=== PATIENT | female | born 1995 | race African-American/Black ===

== ENCOUNTER 2018-01-21 17:54 | Emergency (ER) | payer BC, OTHER ==
[2018-01-21 19:51] LABS: Absolute Lymphocytes (CBC) 2.2 K/uL (0.7-4.9); Absolute Monocytes 0.4 K/uL (0.1-1.3); Absolute Neutrophil 2.6 K/uL (1.8-8.0); Basophils % 0.7 % (0-1.3); Eosinophils % 2.2 % (0-4.4); Hematocrit 37.5 % (36.0-45.0); Lymphocytes % 40.6 % (15.3-44.8); MCH 26.6 pg (27.0-35.0); MCV 80.4 fL (80-100); MPV 8.5 fL (7.6-11.3); Monocytes % 8.2 % (3.3-12.3); RBC Red Blood Cell Count 4.66 M/uL (3.86-4.86)
[2018-01-21 20:04] LABS: Bicarbonate 26 mEq/L (21-31); Glucose Level 92 mg/dL (65-120); Lipase 22 U/L (22-51); Potassium 3.4 mEq/L (3.6-5.0); Sodium Level 137 mEq/L (135-145)
[2018-01-21 20:09] LABS: Urine Bacteria <20 /HPF (<20); Urine Culture Reflex Order NOT NEEDED; Urine Mucus 2+ /HPF (NONE SEEN); Urine RBC <5 /HPF (NONE SEEN)
[2018-01-21 20:10] LABS: Urine Blood NEGATIVE (NEG); Urine Glucose NEGATIVE (NEG); Urine Protein NEGATIVE (NEG); Urine pH 7.5 (5.0-7.0)
[2018-01-21 20:10] LABS: ALT/SGPT 20 IU/L (10-60); AST/SGOT 22 IU/L (10-42); Alkaline Phosphatase 83 IU/L (42-121); BUN Blood Urea Nitrogen 10 mg/dL (6-20); Bilirubin Direct 0.1 mg/dL (0-0.2); Bilirubin Total 0.3 mg/dL (0.3-1.2); Protein, Total 7.8 g/dL (6.0-8.3)
--- NOTE | 2018-01-21 20:30 | ER ---
Nurse's Notes [facility] Name: Troy Son Age: 23 yrs Sex: Female : 1995 Arrival Date: 01/21/2018 Time: 17:57 Bed 23 Private MD: None, None Diagnosis: Diarrhea, unspecified;Hematochezia Presentation: 01/21 17:59 Presenting complaint: Patient states: "every time I eat I get stomach pains and I've aa5 been having diarrhea with bright red blood". Pt reports symptoms began 5 days ago. Pt reports hx of IBS. Transition of care: patient was not received from another setting of care. Onset of symptoms was December 2017. Risk Assessment: Do you want to hurt yourself or someone else? Patient reports no desire to harm self or others. Initial Sepsis Screen: Does the patient meet any 2 criteria? No. Patient's initial sepsis screen is negative. Does the patient have a suspected source of infection? No. Patient's initial sepsis screen is negative. Care prior to arrival: None. 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 - Social history:: Smoking status: Patient uses tobacco products, denies chronic smoking, but will smoke occasionally. - Ebola Screening: : No symptoms or risks identified at this time. - Family history:: not pertinent. - Hospitalizations: : No recent hospitalization is reported. Screenin:30 Abuse screen: Denies threats or abuse. Nutritional screening: No deficits noted. tl3 Tuberculosis screening: No symptoms or risk factors identified. Fall Risk None identified. Assessment: 18:30 General: Appears in no apparent distress. comfortable, slender, well groomed, unkempt, tl3 well nourished, Behavior is calm, cooperative, appropriate for age. Pain: Complains of pain in abdominal. Neuro: No deficits noted. Level of Consciousness is awake, alert, obeys commands, Oriented to person, place, time, situation, none. Cardiovascular: No deficits noted. Heart tones S1 S2 present Patient's skin is warm and dry. Respiratory: Airway is patent Respiratory effort is even, unlabored, Respiratory pattern is regular, symmetrical. GI: Bowel sounds present X 4 quads. Abd is soft. GI: Reports lower abdominal pain, diarrhea, rectal bleeding. : No deficits noted. Urine is clear. EENT: No deficits noted. No signs and/or symptoms were reported regarding the EENT system. Derm: No deficits noted. No signs and/or symptoms reported regarding the dermatologic system. 20:04 Reassessment: Patient appears in no apparent distress at this time. No changes from tl3 previously documented assessment. Patient and/or family updated on plan of care and expected duration. Pain level reassessed. Patient is alert, oriented x 3, equal unlabored respirations, skin warm/dry/pink. Vital Signs: 18:01 BP 140 / 72; Pulse 80; Resp 18 S; Temp 97.9(TE); Pulse Ox 100% on R/A; Weight 83.91 kg aa5 (R); Height 5 ft. 5 in. (165.10 cm) (R); Pain 0/10; 18:30 BP 117 / 68; Pulse 64; Resp 18; Pulse Ox 100% on R/A; tl3 20:04 BP 120 / 80; Pulse 84; Resp 18; Pulse Ox 99% on R/A; tl3 18:01 Body Mass Index 30.79 (83.91 kg, 165.10 cm) aa5 ED Course: 17:57 Patient arrived in ED. mr 17:58 None, None is Private Physician. mr 18:01 Triage completed. aa5 18:01 Arm band placed on. aa5 18:30 Patient has correct armband on for positive identification. Bed in low position. Call tl3 light in reach. Side rails up X 1. Adult w/ patient. Pulse ox on. NIBP on. 19:03 Gemma Ospina, ALTON is Primary Nurse. tl3 19:03 Kojo Maki MD is Attending Physician. rn 19:49 No provider procedures requiring assistance completed. Inserted saline lock: 20 gauge tl3 in right antecubital area, using aseptic technique. Blood collected. 20:28 Trey Viera MD is Referral Physician. rn 20:50 IV discontinued, intact, bleeding controlled, No redness/swelling at site. Pressure tl3 dressing applied. Administered Medications: 20:49 Not Given (pt discharged): Cipro 500 mg PO once tl3 20:49 Not Given (pt discharged ): Flagyl 500 mg PO once tl3 Outcome: :29 Discharge ordered by . rn 20:51 Patient left the ED. tl3 Signatures: Sachi Cook Roman, MD MD rn Calderon, Audri RN RN aa5 Gemma Ospina RN RN tl3
--- NOTE | 2018-01-21 20:30 | EDPHYS ---
Physician Documentation [facility] Name: Troy Son Age: 23 yrs Sex: Female : 1995 Arrival Date: 01/21/2018 Time: 17:57 Bed 23 Private MD: None, None ED Physician Kojo Maki HPI: 01/21 19:25 This 23 yrs old Black Female presents to ER via Ambulatory with complaints of Rectal rn Bleeding, Abdominal Pain. 19:25 The patient presents to the emergency department with bleeding from the rectum/anus, rn that is mild. Onset: The symptoms/episode began/occurred 1 week(s) ago. Context: the patient has no known special context relating to the rectal area complaint(s). Modifying factors: The symptoms are alleviated by nothing, The symptoms are aggravated by bowel movement. The patient has experienced a previous episode. Reports abd cramping, nausea, diarrhea, mild amount of diarrhea, told in past has IBS/IBD. No current abd pain.. 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 - Social history:: Smoking status: Patient uses tobacco products, denies chronic smoking, but will smoke occasionally. - Ebola Screening: : No symptoms or risks identified at this time. - Family history:: not pertinent. - Hospitalizations: : No recent hospitalization is reported. ROS: 19:25 Constitutional: Negative for fever, chills, and weight loss, Eyes: Negative for injury, rn pain, redness, and discharge, Cardiovascular: Negative for chest pain, palpitations, and edema, Respiratory: Negative for shortness of breath, cough, wheezing, and pleuritic chest pain, Abdomen/GI: + nausea/diarrhea, no current abd pain MS/Extremity: Negative for injury and deformity, Skin: Negative for injury, rash, and discoloration, Neuro: Negative for headache, weakness, numbness, tingling, and seizure. Exam: 19:25 Constitutional: This is a well developed, well nourished patient who is awake, alert, rn and in no acute distress. Head/Face: Normocephalic, atraumatic. Eyes: Pupils equal round and reactive to light, extra-ocular motions intact. Lids and lashes normal. Conjunctiva and sclera are non-icteric and not injected. Cornea within normal limits. Periorbital areas with no swelling, redness, or edema. Cardiovascular: Regular rate and rhythm with a normal S1 and S2. No gallops, murmurs, or rubs. Normal PMI, no JVD. No pulse deficits. Respiratory: Lungs have equal breath sounds bilaterally, clear to auscultation and percussion. No rales, rhonchi or wheezes noted. No increased work of breathing, no retractions or nasal flaring. Abdomen/GI: Soft, non-tender, with normal bowel sounds. No distension or tympany. No guarding or rebound. No evidence of tenderness throughout. MS/ Extremity: Pulses equal, no cyanosis. Neurovascular intact. Full, normal range of motion. Equal circumference. Neuro: Awake and alert, GCS 15, oriented to person, place, time, and situation. Cranial nerves II-XII grossly intact. Motor strength 5/5 in all extremities. Sensory grossly intact. Vital Signs: 18:01 BP 140 / 72; Pulse 80; Resp 18 S; Temp 97.9(TE); Pulse Ox 100% on R/A; Weight 83.91 kg aa5 (R); Height 5 ft. 5 in. (165.10 cm) (R); Pain 0/10; 18:30 BP 117 / 68; Pulse 64; Resp 18; Pulse Ox 100% on R/A; tl3 20:04 BP 120 / 80; Pulse 84; Resp 18; Pulse Ox 99% on R/A; tl3 18:01 Body Mass Index 30.79 (83.91 kg, 165.10 cm) aa5 MDM: 19:03 Patient medically screened. rn 20:28 Differential diagnosis: IBD, IBS, infective diarrhea. Data reviewed: vital signs, rn nurses notes, lab test result(s), and as a result, I will discharge patient. Counseling: I had a detailed discussion with the patient and/or guardian regarding: the historical points, exam findings, and any diagnostic results supporting the discharge/admit diagnosis, lab results, the need for outpatient follow up, to return to the emergency department if symptoms worsen or persist or if there are any questions or concerns that arise at home. Special discussion: I discussed with the patient/guardian in detail that at this point there is no indication for admission to the hospital. It is understood, however, that if the symptoms persist or worsen the patient needs to return immediately for re-evaluation. 01/21 19:09 Order name: Basic Metabolic Panel; Complete Time: 20:15 01/21 19:09 Order name: CBC with Diff; Complete Time: 20:15 01/21 19:09 Order name: Creatinine for Radiology; Complete Time: 20:15 01/21 19:09 Order name: Hepatic Function; Complete Time: 20:15 01/21 19:09 Order name: Lipase; Complete Time: 20:15 01/21 19:09 Order name: Urine Microscopic Only; Complete Time: 20:15 01/21 19:56 Order name: Urine Dipstick--Ancillary (enter results) 01/21 19:56 Order name: Urine --Ancillary (enter results) 01/21 19:57 Order name: Urine Dipstick-Ancillary; Complete Time: 20:15 [facility] 01/21 19:57 Order name: Urine --Ancillary; Complete Time: 20:15 [facility] 01/21 19:09 Order name: Urine Test (obtain specimen); Complete Time: 19:48 01/21 19:09 Order name: IV Saline Lock; Complete Time: 19:48 01/21 19:09 Order name: Labs collected and sent; Complete Time: 19:49 01/21 19:09 Order name: Urine Dipstick-Ancillary (obtain specimen); Complete Time: 19:49 rn Administered Medications: 20:49 Not Given (pt discharged): Cipro 500 mg PO once tl3 20:49 Not Given (pt discharged ): Flagyl 500 mg PO once tl3 Disposition: 01/21/18 20:29 Discharged to Home. Impression: Diarrhea, unspecified, Hematochezia. - Condition is Stable. - Discharge Instructions: Diarrhea, Gastrointestinal Bleeding. - Prescriptions for Bentyl 20 mg Oral Tablet - take 1 tablet by ORAL route every 6 hours As needed; 20 tablet. Cipro 500 mg Oral Tablet - take 1 tablet by ORAL route every 12 hours for 10 days; 20 tablet. Flagyl 500 mg Oral Tablet - take 1 tablet by ORAL route every 8 hours for 10 days; 30 tablet. - Medication Reconciliation Form, Thank You Letter, Antibiotic Education, Prescription Opioid Use form. - Follow up: Trey Viera MD; When: As needed; Reason: Recheck today's complaints, Re-evaluation by your physician. - Problem is an ongoing problem. - Symptoms have improved. Signatures: Dispatcher [employer] [facility] Kojo Maki MD MD rn Calderon, Audri, RN RN aa5 Gemma Ospina RN RN tl3 Corrections: (The following items were deleted from the chart) 19:10 19:10 Occult Blood+PA.LAB.BRZ ordered. [facility] 20:51 20:29 01/21/2018 20:29 Discharged to Home. Impression: Diarrhea, unspecified; tl3 Hematochezia. Condition is Stable. Forms are Medication Reconciliation Form, Thank You Letter, Antibiotic Education, Prescription Opioid Use. Follow up: Trey Viera; When: As needed; Reason: Recheck today's complaints, Re-evaluation by your physician. Problem is an ongoing problem. Symptoms have improved. rn
[2018-01-21 20:54] VITALS: TEMP 97.9
[2018-01-21 20:57] VITALS: BP 120/80; O2SAT 99
== END 2018-01-21 20:51 | disposition home or self-care (01) ==
LOC: ER 17:54
DX: R19.7 Diarrhea, unspecified (principal); K92.1 Melena
CPT/HCPCS: 36415; 80048; 80076; 81003; 81015; 81025; 83690; 85025; 99283

== ENCOUNTER 2018-03-06 17:30 | Emergency (ER) | payer BC ==
[2018-03-06] MEDS ORDERED: NA CHLORIDE 0.9% 1,000 ML ONE (18:54)
[2018-03-06] MEDS ORDERED: KETOROLAC 30 MG/ML INJ ONE (18:54)
[2018-03-06] MEDS ORDERED: CYCLOBENZAPRINE 10 MG TAB ONE (18:54)
[2018-03-06 19:22] LABS: Absolute Lymphocytes (CBC) 2.5 K/uL (0.7-4.9); Absolute Monocytes 0.5 K/uL (0.1-1.3); Absolute Neutrophil 2.2 K/uL (1.8-8.0); Basophils % 0.5 % (0-1.3); Eosinophils % 1.9 % (0-4.4); Hematocrit 37.3 % (36.0-45.0); Lymphocytes % 46.7 % (15.3-44.8); MCH 26.7 pg (27.0-35.0); MCV 81.7 fL (80-100); MPV 8.8 fL (7.6-11.3); Monocytes % 9.8 % (3.3-12.3); RBC Red Blood Cell Count 4.56 M/uL (3.86-4.86)
[2018-03-06 19:33] LABS: BUN Blood Urea Nitrogen 12 mg/dL (7-18); Bicarbonate 28 mmol/L (21-32); Glucose Level 79 mg/dL (74-106); Potassium 3.5 mmol/L (3.5-5.1); Sodium Level 140 mmol/L (136-145)
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
[2018-03-06 20:10] LABS: Urine Blood NEGATIVE (NEG); Urine Glucose NEGATIVE (NEG); Urine Protein NEGATIVE (NEG); Urine Specific Gravity 1.025 (1.005-1.030)
[2018-03-06 21:28] VITALS: BP 129/75; O2SAT 100
[2018-03-06 21:29] VITALS: TEMP 97.7
== END 2018-03-06 21:10 | disposition home or self-care (01) ==
LOC: ER 17:30
DX: S13.4XXA Sprain of ligaments of cervical spine, initial encounter (principal); V47.5XXA Car driver injured in collision with fixed or stationary object in traffic accident, initial encounter
CPT/HCPCS: 36415; 70450; 71250; 72125; 80048; 81003; 81025; 85025; 96361; 96374; 99284; J7030

== ENCOUNTER 2018-03-09 03:12 | Emergency (ER) | payer BC ==
[2018-03-09] MEDS ORDERED: HYDROCODONE/APAP 10/325 TAB ONE (03:40)
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
[2018-03-09 04:59] VITALS: TEMP 98; O2SAT 100
[2018-03-09 05:00] VITALS: BP 125/78
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
== END 2018-03-09 04:55 | disposition home or self-care (01) ==
LOC: ER 03:12
DX: R51 Headache (principal)
CPT/HCPCS: 70450; 99284

== ENCOUNTER 2018-11-14 21:13 | Emergency (ER) | payer BC ==
[2018-11-14] MEDS ORDERED: NA CHLORIDE 0.9% 1,000 ML ONE (21:49)
[2018-11-14 21:54] LABS: Absolute Lymphocytes (CBC) 0.9 K/uL (0.7-4.9); Absolute Monocytes 0.4 K/uL (0.1-1.3); Basophils % 0.5 % (0-1.3); Hematocrit 38.4 % (36.0-45.0); MPV 8.7 fL (7.6-11.3); Monocytes % 6.6 % (3.3-12.3); RBC Red Blood Cell Count 4.73 M/uL (3.86-4.86)
[2018-11-14] MEDS ORDERED: ONDANSETRON 4 MG/2 ML VIAL ONE (21:59)
[2018-11-14] MEDS ORDERED: MORPHINE 4 MG/ML SYR ONE (21:59)
[2018-11-14] MEDS ORDERED: ACETAMINOPHEN 500 MG TAB ONE (21:59)
[2018-11-14 22:27] LABS: ALT/SGPT 34 U/L (12-78); AST/SGOT 24 U/L (15-37); Albumin 3.7 g/dL (3.4-5.0); Alkaline Phosphatase 88 U/L (45-117); BUN Blood Urea Nitrogen 7 mg/dL (7-18); Bicarbonate 26 mmol/L (21-32); Bilirubin Direct < 0.1 mg/dL (0-0.2); Bilirubin Total 0.4 mg/dL (0.2-1.0); Glucose Level 89 mg/dL (74-106); Lipase 65 U/L (73-393); Potassium 3.4 mmol/L (3.5-5.1); Protein, Total 7.8 g/dL (6.4-8.2); Sodium Level 138 mmol/L (136-145)
--- NOTE | 2018-11-14 23:02 | ER ---
Nurse's Notes [facility] Name: Troy Son Age: 23 yrs Sex: Female : 1995 Arrival Date: 11/14/2018 Time: 21:16 Bed 25 Private MD: Diagnosis: Viral Gastroenteritis Presentation: 11/14 21:28 Presenting complaint: Patient states: she has hx of IBS was at work this morning and bb her stomach started hurting really bad and she has had multiple episodes of vomiting and diarrhea since then. Transition of care: patient was not received from another setting of care. Onset of symptoms was November 14, 2018. Risk Assessment: Do you want to hurt yourself or someone else? Patient reports no desire to harm self or others. Risk Assessment: Do you want to hurt yourself or someone else? Patient reports no desire to harm self or others. Initial Sepsis Screen: Does the patient meet any 2 criteria? No. Patient's initial sepsis screen is negative. Does the patient have a suspected source of infection? No. Patient's initial sepsis screen is negative. Care prior to arrival: None. 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 - Social history:: Smoking status: Patient/guardian denies using tobacco, Patient uses alcohol, occasionally. Patient/guardian denies using street drugs, Smoking status: . - Ebola Screening: : Patient negative for fever greater than or equal to 101.5 degrees Fahrenheit, and additional compatible Ebola Virus Disease symptoms Patient denies exposure to infectious person Patient denies travel to an Ebola-affected area in the 21 days before illness onset No symptoms or risks identified at this time. Screenin:29 Abuse screen: Denies threats or abuse. Denies injuries from another. Nutritional rv screening: No deficits noted. Tuberculosis screening: No symptoms or risk factors identified. Fall Risk None identified. Assessment: 21:28 General: Appears in no apparent distress. uncomfortable, Behavior is calm, cooperative. rv Pain: Complains of pain in abdomen. Neuro: Level of Consciousness is awake, alert, obeys commands, Oriented to person, place, time, situation. Cardiovascular: Capillary refill < 3 seconds. Respiratory: Airway is patent. GI: Bowel sounds present X 4 quads. Abd is soft and non tender X 4 quads. Reports nausea, vomiting. : No signs and/or symptoms were reported regarding the genitourinary system. EENT: No signs and/or symptoms were reported regarding the EENT system. Derm: Skin is intact. Musculoskeletal: No signs and/or symptoms reported regarding the musculoskeletal system. 22:37 Reassessment: Patient appears in no apparent distress at this time. Patient and/or ca1 family updated on plan of care and expected duration. Pain level reassessed. Patient is alert, oriented x 3, equal unlabored respirations, skin warm/dry/pink. Vital Signs: 21:30 BP 129 / 70; Pulse 92; Resp 16 S; Temp 100.3(O); Pulse Ox 100% on R/A; Weight 94.35 kg bb (R); Height 5 ft. 4 in. (162.56 cm) (R); Pain 5/10; 22:37 BP 130 / 62; Pulse 78; Resp 19; Pulse Ox 100% on R/A; ca1 23:15 BP 133 / 61 RA; Pulse 88; Resp 18 S; Pulse Ox 100% on R/A; rv 21:30 Body Mass Index 35.70 (94.35 kg, 162.56 cm) ED Course: 21:16 Patient arrived in ED. mr 21:29 Triage completed. bb 21:29 Arm band placed on right wrist. EKG completed in triage. Results shown to MD. EKG rv completed in triage. Results shown to MD. 21:30 Patient has correct armband on for positive identification. Bed in low position. Call rv light in reach. Side rails up X 1. Adult w/ patient. Pulse ox on. NIBP on. 21:34 Elisa Hebert, ALTON is Primary Nurse. ca1 21:35 Alek Ruvalcaba PA is PHCP. jr8 21:35 Best Farfan MD is Attending Physician. jr8 21:35 Inserted saline lock: 20 gauge in left antecubital area, using aseptic technique. Blood ca1 collected. 21:35 No provider procedures requiring assistance completed. ca1 23:16 IV discontinued, bleeding controlled, No redness/swelling at site. Pressure dressing rv applied. Administered Medications: 21:52 Drug: NS 0.9% 1000 ml Route: IV; Rate: 1000 ml; Site: left antecubital; rv 23:14 Follow up: IV Status: Completed infusion rv 21:52 Drug: Zofran 4 mg Route: IVP; Site: left antecubital; rv 23:14 Follow up: Response: Nausea is decreased rv 21:52 Drug: morphine 4 mg Route: IVP; Site: left antecubital; rv 23:14 Follow up: Response: Pain is decreased rv 21:52 Drug: Tylenol 1000 mg Route: PO; rv 23:14 Follow up: Response: Pain is decreased rv 23:13 Drug: Bentyl 20 mg Route: PO; rv 23:14 Follow up: Response: Medication administered at discharge. rv Outcome: 23:02 Discharge ordered by MD. suarez 23:15 Discharged to home ambulatory. rv 23:15 Condition: good 23:15 Discharge instructions given to patient, Instructed on discharge instructions, follow up and referral plans. medication usage, Demonstrated understanding of instructions, follow-up care, medications, Prescriptions given X 2. 23:16 Patient left the ED. rv Signatures: Shannon Cook Brenda RN RN Alek Kellogg PA PA jrJuan Lugo RN RN rv Elisa Hebert RN RN ca1
--- NOTE | 2018-11-14 23:03 | EDPHYS ---
Physician Documentation [facility] Name: Troy Son Age: 23 yrs Sex: Female : 1995 Arrival Date: 11/14/2018 Time: 21:16 Bed 25 Private MD: ED Physician Best Farfan HPI: 11/14 21:53 This 23 yrs old Black Female presents to ER via Ambulatory with complaints of Abdominal jr8 Pain, Vomiting/Diarrhea. 21:53 The patient presents with abdominal pain that is diffuse. Onset: The symptoms/episode jr8 began/occurred acutely, today. The symptoms do not radiate. Associated signs and symptoms: Pertinent positives: nausea, vomiting, and diarrhea. The symptoms are described as crampy. Modifying factors: The symptoms are alleviated by nothing, the symptoms are aggravated by nothing. Severity of pain: At its worst the pain was moderate in the emergency department the pain is unchanged. The patient has not experienced similar symptoms in the past. The patient has not recently seen a physician. 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 - Social history:: Smoking status: Patient/guardian denies using tobacco, Patient uses alcohol, occasionally. Patient/guardian denies using street drugs, Smoking status: . - Ebola Screening: : Patient negative for fever greater than or equal to 101.5 degrees Fahrenheit, and additional compatible Ebola Virus Disease symptoms Patient denies exposure to infectious person Patient denies travel to an Ebola-affected area in the 21 days before illness onset No symptoms or risks identified at this time. ROS: 21:53 Eyes: Negative for injury, pain, redness, and discharge, ENT: Negative for injury, jr8 pain, and discharge, Neck: Negative for injury, pain, and swelling, Cardiovascular: Negative for chest pain, palpitations, and edema, Respiratory: Negative for shortness of breath, cough, wheezing, and pleuritic chest pain, Back: Negative for injury and pain, MS/Extremity: Negative for injury and deformity, Skin: Negative for injury, rash, and discoloration, Neuro: Negative for headache, weakness, numbness, tingling, and seizure. 21:53 Constitutional: Positive for fever. 21:53 Abdomen/GI: Positive for abdominal pain, nausea, vomiting, and diarrhea, abdominal cramps, Negative for constipation, abdominal distension, anorexia, dysphagia, hematemesis, black/tarry stool, rectal pain, rectal bleeding, bowel incontinence, flatulence. Exam: 21:53 Eyes: Pupils equal round and reactive to light, extra-ocular motions intact. Lids and jr8 lashes normal. Conjunctiva and sclera are non-icteric and not injected. Cornea within normal limits. Periorbital areas with no swelling, redness, or edema. ENT: Nares patent. No nasal discharge, no septal abnormalities noted. Tympanic membranes are normal and external auditory canals are clear. Oropharynx with no redness, swelling, or masses, exudates, or evidence of obstruction, uvula midline. Mucous membranes moist. Neck: Trachea midline, no thyromegaly or masses palpated, and no cervical lymphadenopathy. Supple, full range of motion without nuchal rigidity, or vertebral point tenderness. No Meningismus. Cardiovascular: Regular rate and rhythm with a normal S1 and S2. No gallops, murmurs, or rubs. Normal PMI, no JVD. No pulse deficits. Respiratory: Lungs have equal breath sounds bilaterally, clear to auscultation and percussion. No rales, rhonchi or wheezes noted. No increased work of breathing, no retractions or nasal flaring. Back: No spinal tenderness. No costovertebral tenderness. Full range of motion. Skin: Warm, dry with normal turgor. Normal color with no rashes, no lesions, and no evidence of cellulitis. MS/ Extremity: Pulses equal, no cyanosis. Neurovascular intact. Full, normal range of motion. Neuro: Awake and alert, GCS 15, oriented to person, place, time, and situation. Cranial nerves II-XII grossly intact. Motor strength 5/5 in all extremities. Sensory grossly intact. Cerebellar exam normal. Normal gait. 21:53 Abdomen/GI: Inspection: abdomen appears normal, Bowel sounds: active, all quadrants, Palpation: soft, in all quadrants, mild abdominal tenderness, in the abdomen diffusely, mass, is not appreciated, rebound tenderness, is not appreciated, voluntary guarding, is not appreciated, involuntary guarding, is not appreciated, no appreciated organomegaly, Indicators: McBurney's point is not tender, Tamayo's sign is negative, Rovsing's sign is negative, Liver: tenderness, is not appreciated. Vital Signs: 21:30 BP 129 / 70; Pulse 92; Resp 16 S; Temp 100.3(O); Pulse Ox 100% on R/A; Weight 94.35 kg bb (R); Height 5 ft. 4 in. (162.56 cm) (R); Pain 5/10; 22:37 BP 130 / 62; Pulse 78; Resp 19; Pulse Ox 100% on R/A; ca1 23:15 BP 133 / 61 RA; Pulse 88; Resp 18 S; Pulse Ox 100% on R/A; rv 21:30 Body Mass Index 35.70 (94.35 kg, 162.56 cm) bb MDM: 21:35 Patient medically screened. jr8 23:01 Data reviewed: vital signs, nurses notes, lab test result(s), and as a result, I will jr8 discharge patient. Data interpreted: Pulse oximetry: on room air is 100 %. Interpretation: normal. Counseling: I had a detailed discussion with the patient and/or guardian regarding: the historical points, exam findings, and any diagnostic results supporting the discharge/admit diagnosis, lab results, the need for outpatient follow up, a family practitioner, to return to the emergency department if symptoms worsen or persist or if there are any questions or concerns that arise at home. Response to treatment: the patient's symptoms have markedly improved after treatment, patient is well hydrated. ED course: Return precautions given to patient and what s/s to look for that would indicate worsening of symptoms. Otherwise needs to rest and f/u with PCP. Patient good with this plan . 11/14 21:41 Order name: Basic Metabolic Panel; Complete Time: 22:33 11/14 21:41 Order name: CBC with Diff; Complete Time: 22:04 11/14 21:41 Order name: Creatinine for Radiology; Complete Time: 22:25 11/14 21:41 Order name: Hepatic Function; Complete Time: 22:33 11/14 21:41 Order name: Lipase; Complete Time: 22:33 11/14 21:41 Order name: Flu; Complete Time: 22:12 23 21:41 Order name: IV Saline Lock; Complete Time: :53 8 11/14 21:41 Order name: Labs collected and sent; Complete Time: Administered Medications: 21:52 Drug: NS 0.9% 1000 ml Route: IV; Rate: 1000 ml; Site: left antecubital; rv 23:14 Follow up: IV Status: Completed infusion rv 21:52 Drug: Zofran 4 mg Route: IVP; Site: left antecubital; rv 23:14 Follow up: Response: Nausea is decreased rv 21:52 Drug: morphine 4 mg Route: IVP; Site: left antecubital; rv 23:14 Follow up: Response: Pain is decreased rv 21:52 Drug: Tylenol 1000 mg Route: PO; rv 23:14 Follow up: Response: Pain is decreased rv 23:13 Drug: Bentyl 20 mg Route: PO; rv 23:14 Follow up: Response: Medication administered at discharge. rv Disposition: 11/15 07:06 Co-signature as Attending Physician, Best Farfan MD I agree with the assessment and tw4 plan of care. Disposition: 11/14/18 23:02 Discharged to Home. Impression: Viral Gastroenteritis. - Condition is Stable. - Discharge Instructions: Viral Gastroenteritis, Adult. - Prescriptions for Bentyl 20 mg Oral Tablet - take 1 tablet by ORAL route every 6 hours As needed; 20 tablet. promethazine 25 mg Oral Tablet - take 1 tablet by ORAL route every 6 hours As needed; 20 tablet. - Work release form, Medication Reconciliation Form, Thank You Letter, Antibiotic Education, Prescription Opioid Use form. - Follow up: Private Physician; When: 2 - 3 days; Reason: Recheck today's complaints, Continuance of care, Re-evaluation by your physician. - Problem is new. - Symptoms have improved. Signatures: Dispatcher [employer] Mely Marsh RN RN Alek Kellogg PA PA 8 Best Farfan MD MD tw4 Juan Perkins RN RN rv Corrections: (The following items were deleted from the chart) 11/14 23:16 23:02 11/14/2018 23:02 Discharged to Home. Impression: Viral Gastroenteritis. Condition rv is Stable. Forms are Medication Reconciliation Form, Thank You Letter, Antibiotic Education, Prescription Opioid Use. Follow up: Private Physician; When: 2 - 3 days; Reason: Recheck today's complaints, Continuance of care, Re-evaluation by your physician. Problem is new. Symptoms have improved. jr8
[2018-11-14] MEDS ORDERED: DICYCLOMINE HCL 10 MG CAP ONE (23:16)
[2018-11-15 00:46] VITALS: TEMP 100.3; O2SAT 100
[2018-11-15 00:52] VITALS: BP 133/61
== END 2018-11-14 23:16 | disposition home or self-care (01) ==
LOC: ER 21:13
DX: A08.4 Viral intestinal infection, unspecified (principal)
CPT/HCPCS: 36415; 80048; 80076; 83690; 85025; 87804; 96361; 96374; 96375; 99284; J2405; J7030

== ENCOUNTER 2019-02-12 07:50 | Emergency (ER) | payer BC ==
--- OUTSIDE RECORDS SUMMARY | 2019-02-12 07:51 | XMS REPORT ---
:1995 [facility] Address [address] [place] [address] Dr. Negro [address] [place] [id number] Care Team Providers Name Role Phone Unavailable Unavailable Unavailable Problems This patient has no known problems. Allergies, Adverse Reactions, Alerts This patient has no known allergies or adverse reactions. Medications This patient has no known medications.
[2019-02-12] MEDS ORDERED: NA CHLORIDE 0.9% 1,000 ML ONE (08:27)
[2019-02-12 08:40] LABS: Basophils % 1.2 % (0-1.3); Eosinophils % 1.3 % (0-4.4); Hematocrit 36.8 % (36.0-45.0); Lymphocytes % 44.4 % (15.3-44.8); MPV 8.7 fL (7.6-11.3); Monocytes % 8.2 % (3.3-12.3); RBC Red Blood Cell Count 4.67 M/uL (3.86-4.86)
[2019-02-12 08:48] LABS: ALT/SGPT 22 U/L (12-78); AST/SGOT 17 U/L (15-37); Albumin 3.6 g/dL (3.4-5.0); Alkaline Phosphatase 93 U/L (45-117); BUN Blood Urea Nitrogen 5 mg/dL (7-18); Bicarbonate 28 mmol/L (21-32); Bilirubin Direct < 0.1 mg/dL (0-0.2); Bilirubin Total 0.2 mg/dL (0.2-1.0); Glucose Level 87 mg/dL (74-106); Lipase 71 U/L (73-393); Potassium 3.4 mmol/L (3.5-5.1); Protein, Total 7.7 g/dL (6.4-8.2); Sodium Level 141 mmol/L (136-145)
--- NOTE | 2019-02-12 09:14 | RAD REPORT ---
EXAM DESCRIPTION: CT - Abdomen Pelvis W Contrast - 02/12/2019 9:02 am CLINICAL HISTORY: Abdominal pain, hematemesis, hematochezia, history of IBS, prior and nanette or cholecystectomy COMPARISON: CT April 2017 TECHNIQUE: Biphasic, helical CT imaging of the abdomen and pelvis was performed following 100 ml non -ionic IV contrast. Oral contrast was given. All CT scans are performed using dose optimization technique as appropriate and may include automated exposure control or mA/KV adjustment according to patient size. FINDINGS: No suspicious findings in the lung bases. The liver, spleen, and pancreas show no suspicious findings. Cholecystectomy clips are present. No bi liary tree dilatation. Symmetric renal function is seen with no hydronephrosis or suspicious renal mass. No pyelonephritis o r acute parenchymal process. Bladder is contracted. Uterus and ovaries show no suspicious findings fo r age. No adrenal abnormalities. No dilated bowel loops or bowel wall thickening. Appendix is normal. Trace amount of stranding is see n in the perirectal fat. Physiologic quantity of fluid seen in the cul de sac. No free air or pneumat osis. No focal inflammatory stranding seen. No hernia, mass or bulky lymphadenopathy. No suspicious bony findings. IMPRESSION: Trace amount of stranding is seen in the perirectal fat but no rectal wall thickening, m ass or acute finding otherwise noted. The appendix is normal. No other acute GI process seen. No abnormality seen. Gallbladder is absent. No pancreatic abnormality and no gastric abnormality.
[2019-02-12] MEDS ORDERED: CIPROFLOXACIN HCL 500 MG TAB ONE (09:50)
[2019-02-12] MEDS ORDERED: METRONIDAZOLE 500mg IVPB 500 MG/100 ML BAG IV ONE (09:50)
--- NOTE | 2019-02-12 10:27 | EDPHYS ---
Physician Documentation [facility] Name: Troy Son Age: 24 yrs Sex: Female : 1995 Arrival Date: 02/12/2019 Time: 07:51 Bed 7 Private MD: ED Physician Kojo Maki HPI: 02/12 08:43 This 24 yrs old Black Female presents to ER via Ambulatory with complaints of pm1 Vomiting/Diarrhea. 08:43 The patient presents to the emergency department with vomiting, diarrhea, abdominal pm1 pain, of the abdomen diffusely. Onset: The symptoms/episode began/occurred Over 1 year ago. Has been seen in the ER for the same complaint on December 2017. Symptoms of mucoid stool with blood at that time. Patient presenting today with the same complaints. Possible causes: unknown, patient has not followed up with GI since onset of symptoms. The symptoms are aggravated by nothing. The symptoms are alleviated by nothing. Associated signs and symptoms: Pertinent negatives: constipation, dysuria, fever. Severity of symptoms: in the emergency department the symptoms have improved markedly, Pain is currently a 0 / 10. The patient has experienced similar episodes in the past, chronically. The patient has not recently seen a physician. 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 - Social history:: Smoking status: Patient/guardian denies using tobacco. - Ebola Screening: : No symptoms or risks identified at this time. ROS: 08:43 Constitutional: Negative for fever, chills, and weight loss, Eyes: Negative for injury, pm1 pain, redness, and discharge, ENT: Negative for injury, pain, and discharge, Neck: Negative for injury, pain, and swelling, Cardiovascular: Negative for chest pain, palpitations, and edema, Respiratory: Negative for shortness of breath, cough, wheezing, and pleuritic chest pain. 08:43 Back: Negative for injury and pain, : Negative for injury, bleeding, discharge, and swelling, MS/Extremity: Negative for injury and deformity, Skin: Negative for injury, rash, and discoloration, Neuro: Negative for headache, weakness, numbness, tingling, and seizure. 08:43 Abdomen/GI: Positive for abdominal pain, nausea, vomiting, and diarrhea, rectal bleeding. Exam: 08:43 Constitutional: This is a well developed, well nourished patient who is awake, alert, pm1 and in no acute distress. Head/Face: Normocephalic, atraumatic. Eyes: Pupils equal round and reactive to light, extra-ocular motions intact. Lids and lashes normal. Conjunctiva and sclera are non-icteric and not injected. Cornea within normal limits. Periorbital areas with no swelling, redness, or edema. ENT: Nares patent. No nasal discharge, no septal abnormalities noted. Tympanic membranes are normal and external auditory canals are clear. Oropharynx with no redness, swelling, or masses, exudates, or evidence of obstruction, uvula midline. Mucous membranes moist. Neck: Trachea midline, no thyromegaly or masses palpated, and no cervical lymphadenopathy. Supple, full range of motion without nuchal rigidity, or vertebral point tenderness. No Meningismus. Chest/axilla: Normal chest wall appearance and motion. Nontender with no deformity. No lesions are appreciated. Cardiovascular: Regular rate and rhythm with a normal S1 and S2. No gallops, murmurs, or rubs. Normal PMI, no JVD. No pulse deficits. Respiratory: Lungs have equal breath sounds bilaterally, clear to auscultation and percussion. No rales, rhonchi or wheezes noted. No increased work of breathing, no retractions or nasal flaring. Abdomen/GI: Soft, non-tender, with normal bowel sounds. No distension or tympany. No guarding or rebound. No evidence of tenderness throughout. Back: No spinal tenderness. No costovertebral tenderness. Full range of motion. Skin: Warm, dry with normal turgor. Normal color with no rashes, no lesions, and no evidence of cellulitis. MS/ Extremity: Pulses equal, no cyanosis. Neurovascular intact. Full, normal range of motion. 08:43 Neuro: Orientation: is normal, Motor: is normal, moves all fours. 09:05 Abdomen/GI: Rectal exam: is unremarkable, rectal tone normal, Stool: guaiac negative, pm1 hemorrhoid(s), are not appreciated, mass, is not appreciated, swelling, is not appreciated, Lashaun RN Ammunition Specialist. Vital Signs: 08:00 BP 128 / 79; Pulse 77; Resp 16 S; Temp 97.8(TE); Pulse Ox 99% on R/A; Weight 89.36 kg aa5 (R); Height 5 ft. 4 in. (162.56 cm) (R); Pain 3/10; 10:34 BP 126 / 75; Pulse 69; Resp 16; Temp 98; Pulse Ox 99% ; bp 08:00 Body Mass Index 33.81 (89.36 kg, 162.56 cm) aa5 MDM: 07:53 Patient medically screened. pm1 10:25 Data reviewed: vital signs. Data interpreted: Pulse oximetry: on room air is 99 %. pm1 Interpretation: normal. 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 02/12 08:03 Order name: Basic Metabolic Panel pm1 02/12 08:03 Order name: CBC with Diff pm1 02/12 08:03 Order name: Creatinine for Radiology pm1 02/12 08:03 Order name: Hepatic Function pm1 02/12 08:03 Order name: Lipase pm1 02/12 08:47 Order name: CBC with Automated Diff; Complete Time: 08:47 EDMS 02/12 08:03 Order name: CT Abd/Pelvis - IV Contrast Only pm1 02/12 08:48 Order name: Basic Metabolic Panel; Complete Time: 08:50 EDMS 02/12 08:48 Order name: Liver (Hepatic) Function; Complete Time: 08:50 EDMS 02/12 08:49 Order name: Lipase; Complete Time: 08:50 EDMS 02/12 08:49 Order name: Creatinine (Radiology Only); Complete Time: 08:50 EDMS 02/12 09:15 Order name: CT; Complete Time: 09:23 EDMS 02/12 08:03 Order name: IV Saline Lock; Complete Time: 08:19 pm1 02/12 08:03 Order name: Labs collected and sent; Complete Time: 08:19 pm1 02/12 08:03 Order name: Urine Dipstick-Ancillary (obtain specimen); Complete Time: 08:05 pm1 02/12 08:03 Order name: Urine Test (obtain specimen); Complete Time: 08:05 pm1 Administered Medications: 08:15 Drug: NS 0.9% 1000 ml Route: IV; Rate: 1000 ml; Site: right antecubital; aa5 09:41 Follow up: IV Status: Completed infusion; IV Intake: 1000ml bp 09:42 Drug: Cipro 500 mg Route: PO; bp 10:37 Follow up: Response: No adverse reaction bp 09:42 Drug: Flagyl 500 mg Volume: 100 ml; Route: IVPB; Rate: 200 ml/hr; Infused Over: 30 bp mins; Site: right antecubital; 10:36 Follow up: IV Status: Completed infusion; IV Intake: 500ml bp Point of Care Testing: Guaiac: 10:15 Stool Guaiac: Negative; Stool Hemoccult Control: Pass; aa5 Disposition: 10:56 Co-signature as Attending Physician, Kojo Maki MD. rn Disposition: 02/12/19 10:26 Discharged to Home. Impression: Unspecified abdominal pain, Hematochezia. - Condition is Stable. - Discharge Instructions: Abdominal Pain, Adult, Rectal Bleeding. - Prescriptions for Bentyl 20 mg Oral Tablet - take 1 tablet by ORAL route every 6 hours As needed; 20 tablet. Flagyl 500 mg Oral Tablet - take 1 tablet by ORAL route every 8 hours for 10 days; 30 tablet. Cipro 500 mg Oral Tablet - take 1 tablet by ORAL route every 12 hours for 7 days; 14 tablet. Zofran 4 mg Oral Tablet - take 1 tablet by ORAL route every 12 hours As needed; 20 tablet. - Medication Reconciliation Form, Thank You Letter, Antibiotic Education, Prescription Opioid Use form. - Follow up: Emergency Department; When: As needed; Reason: Worsening of condition. Follow up: Private Physician; When: 2 - 3 days; Reason: Recheck today's complaints, Continuance of care, Re-evaluation by your physician. - Problem is new. - Symptoms have improved. Signatures: Dispatcher [employer] EDKojo Zabala MD MD rn Calderon, Audri RN RN aa5 Georges Jacob, MCKENZIE VE TEACHER pm1 Abel Maria, RN RN bp Corrections: (The following items were deleted from the chart) 10:29 10:02/12/2019 10:26 Discharged to Home. Impression: Unspecified abdominal pain. pm1 Condition is Stable. Forms are Medication Reconciliation Form, Thank You Letter, Antibiotic Education, Prescription Opioid Use. Follow up: Emergency Department; When: As needed; Reason: Worsening of condition. Follow up: Private Physician; When: 2 - 3 days; Reason: Recheck today's complaints, Continuance of care, Re-evaluation by your physician. Problem is new. Symptoms have improved. pm1 10:38 10:29 02/12/2019 10:26 Discharged to Home. Impression: Unspecified abdominal pain; bp Hematochezia. Condition is Stable. Prescriptions for Bentyl 20 mg Oral Tablet - take 1 tablet by ORAL route every 6 hours As needed; 20 tablet, Flagyl 500 mg Oral Tablet - take 1 tablet by ORAL route every 8 hours for 10 days; 30 tablet, Cipro 500 mg Oral Tablet - take 1 tablet by ORAL route every 12 hours for 7 days; 14 tablet. and Forms are Medication Reconciliation Form, Thank You Letter, Antibiotic Education, Prescription Opioid Use. Follow up: Emergency Department; When: As needed; Reason: Worsening of condition. Follow up: Private Physician; When: 2 - 3 days; Reason: Recheck today's complaints, Continuance of care, Re-evaluation by your physician. Problem is new. Symptoms have improved. pm1
--- NOTE | 2019-02-12 10:27 | ER ---
Nurse's Notes [facility] Name: Troy Son Age: 24 yrs Sex: Female : 1995 Arrival Date: 02/12/2019 Time: 07:51 Bed 7 Private MD: Diagnosis: Unspecified abdominal pain;Hematochezia Presentation: 02/12 07:54 Presenting complaint: Patient states: upper abd pain and vomiting bright red blood and aa5 diarrhea with bright red blood that began today at 0200. Pt denies urinary symptoms. 07:54 Transition of care: patient was not received from another setting of care. Onset of aa5 symptoms was February 12, 2019. Risk Assessment: Do you want to hurt yourself or someone else? Patient reports no desire to harm self or others. Initial Sepsis Screen: Does the patient meet any 2 criteria? No. Patient's initial sepsis screen is negative. Does the patient have a suspected source of infection? No. Patient's initial sepsis screen is negative. Care prior to arrival: None. 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 - Social history:: Smoking status: Patient/guardian denies using tobacco. - Ebola Screening: : No symptoms or risks identified at this time. Screenin:00 Abuse screen: Denies threats or abuse. Nutritional screening: No deficits noted. aa5 Tuberculosis screening: No symptoms or risk factors identified. Fall Risk None identified. Assessment: 08:00 General: Appears comfortable, Behavior is calm, cooperative. Pain: Complains of pain in aa5 right upper quadrant and left upper quadrant Pain does not radiate. Pain currently is 3 out of 10 on a pain scale. Quality of pain is described as dull, sharp, Is continuous. Neuro: Level of Consciousness is awake, alert, obeys commands, Oriented to person, place, time, situation. Cardiovascular: Heart tones S1 S2 present Rhythm is regular. Respiratory: Airway is patent Respiratory effort is even, unlabored, Respiratory pattern is regular, symmetrical. GI: Abdomen is round non-distended, Bowel sounds present X 4 quads. Abd is soft and non tender X 4 quads. Reports diarrhea, nausea, vomiting. : Denies burning with urination. EENT: No signs and/or symptoms were reported regarding the EENT system. Derm: Skin is dry, Skin is normal, Skin temperature is warm. Musculoskeletal: Range of motion: intact in all extremities. 10:15 Neuro: Level of Consciousness is awake, alert, obeys commands, Oriented to person, aa5 place, time, situation. Respiratory: Airway is patent Respiratory effort is even, unlabored, Respiratory pattern is regular, symmetrical. Derm: Skin is dry, Skin is normal, Skin temperature is warm. 10:15 Reassessment: PA at bedside completing rectal exam. . aa5 10:34 Reassessment: PT D/C HOME AMBULATORY WITH FAMILY, DX WITH HEMATOCHEZIA. bp Vital Signs: 08:00 BP 128 / 79; Pulse 77; Resp 16 S; Temp 97.8(TE); Pulse Ox 99% on R/A; Weight 89.36 kg aa5 (R); Height 5 ft. 4 in. (162.56 cm) (R); Pain 3/10; 10:34 BP 126 / 75; Pulse 69; Resp 16; Temp 98; Pulse Ox 99% ; bp 08:00 Body Mass Index 33.81 (89.36 kg, 162.56 cm) aa5 ED Course: 07:51 Patient arrived in ED. as 07:53 Georges Jacob NP is PHCP. pm1 07:53 Kojo Maki MD is Attending Physician. pm1 07:54 Lashaun Zimmerman, ALTON is Primary Nurse. aa5 07:54 Arm band placed on Patient placed in an exam room, on a stretcher. aa5 07:54 Patient has correct armband on for positive identification. Placed in gown. Bed in low aa5 position. Side rails up X2. 08:13 Initial lab(s) drawn, by me, sent to lab. Inserted saline lock: 20 gauge in right aa5 antecubital area, using aseptic technique. Blood collected. 08:21 Triage completed. aa5 10:34 No provider procedures requiring assistance completed. IV discontinued, intact, bp bleeding controlled, No redness/swelling at site. Pressure dressing applied. Administered Medications: 08:15 Drug: NS 0.9% 1000 ml Route: IV; Rate: 1000 ml; Site: right antecubital; aa5 09:41 Follow up: IV Status: Completed infusion; IV Intake: 1000ml bp 09:42 Drug: Cipro 500 mg Route: PO; bp 10:37 Follow up: Response: No adverse reaction bp 09:42 Drug: Flagyl 500 mg Volume: 100 ml; Route: IVPB; Rate: 200 ml/hr; Infused Over: 30 bp mins; Site: right antecubital; 10:36 Follow up: IV Status: Completed infusion; IV Intake: 500ml bp Point of Care Testing: Guaiac: 10:15 Stool Guaiac: Negative; Stool Hemoccult Control: Pass; aa5 Intake: 09:41 IV: 1000ml; Total: 1000ml. bp 10:36 IV: 500ml; Total: 1500ml. bp Outcome: 10:26 Discharge ordered by MD. pm1 10:34 Discharged to home ambulatory, with family. bp 10:34 Condition: stable 10:34 Discharge instructions given to patient, Instructed on discharge instructions, follow up and referral plans. medication usage, Demonstrated understanding of instructions, follow-up care, medications, Prescriptions given X 4. 10:38 Patient left the ED. bp Signatures: Rebecca Augustine Audri, RN RN aa5 Georges Jacob NP HIM CLERK pm1 Abel Maria RN RN bp
[2019-02-12 10:49] VITALS: BP 126/75; TEMP 98; O2SAT 99
== END 2019-02-12 10:38 | disposition home or self-care (01) ==
LOC: ER 07:50
DX: R10.9 Unspecified abdominal pain (principal); K92.1 Melena
CPT/HCPCS: 36415; 74177; 80048; 80076; 83690; 85025; 96361; 96365; 99284; J7030; Q9967

== ENCOUNTER 2019-04-19 11:22 | Emergency (ER) | payer BC ==
--- OUTSIDE RECORDS SUMMARY | 2019-04-19 11:29 | XMS REPORT | Summary of Care ---
:1995 Author Organization [facility] Address [address] [place] [address] Care Team Providers Name Role Phone Pcp, Patient Does Not Have A Primary Care Provider Encounter Details Date Type Department Care Team Description 03/23/2019 Orders Only [facility] Doctor Unassigned, No [address] [facility] Name [place] [id number] [address] [place] [id number] Allergies Active Allergy Reactions Severity Noted Date Comments Latex Hives, Itching, Swelling 03/12/2013 documented as of this encounter (statuses as of 03/23/2019) Medications Medication Sig Dispensed Refills Start Date End Date Status VIT/IRON Take by mouth. 0 Active FUMARATE/FA ( ORAL) ferrous sulfate (IRON) Take 325 mg by 0 Active 325 mg (65 mg iron) mouth daily. tablet Condoms Latex Use as directed 12 Each 0 11/23/2014 Active Non-Lubricated (TRUSTEX-MARIS NON-LUB CONDOMS) DeviIndications: Other general counseling and advice for contraceptive management documented as of this encounter (statuses as of 03/23/2019) Active Problems Problem Noted Date Insertion of implantable subdermal contraceptive 10/21/2013 Overview: Exp. 10/21/2016. Antepartum anemia 05/13/2013 Overview: Medical records received. Hgb- 7.0. 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 08/27/2013. Primary low transverse c- section at 35wks 0d of [place]/di twin. discordance of 20%. Suspected anemia of twin B. 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 documented as of this encounter (statuses as of 03/23/2019) Immunizations Name Administration Dates Next Due DTAP 03/15/2001, 02/23/2001, 04/10/2000, 05/16/1999, 03/28/1999, 04/17/1998 HEPATITIS A 09/04/2004, 05/31/2002, 03/24/2001 HIB 3 Dose Schedule 04/10/2000, 05/16/1999, 03/28/1999, 04/17/1998 Hep B, Adol or Pedi Dosage 03/28/1999, 04/17/1998, [birth year] Influenza Virus Vaccine 05/13/2013 MMR 02/23/2001, 04/17/1998 Meningococcal Oligosaccharide (groups 04/14/2015 A, C, Y and W-135) conjugate vaccine (MCV4O) Meningococcal Vaccine 12/22/2008 Polio (IPV/OPV) 02/23/2001, 05/16/1999, 03/28/1999, 04/17/1998 Tdap 07/08/2013, 12/22/2008 Varicella (varivax)(chicken pox) 10/21/2013, 1995 documented as of this encounter Social History Tobacco Use Types Packs/Day Years Used Date Never Smoker Smokeless Tobacco: Never Used Alcohol Use Drinks/Week oz/Week Comments No 0 Standard drinks or equivalent 0.0 Sex Assigned at Date Recorded Not on file Job Start Date Occupation Industry Not on file Not on file Not on file Travel History Travel Start Travel End No recent travel history available. documented as of this encounter Last Filed Vital Signs Not on filedocumented in this encounter Plan of Treatment Date Type Specialty Care Team Description 03/23/2019 Office Visit [facility] [employer] Gadiel Gold, CAMPAIGN MARKETING SPECIALIST [address] [place] [address] [phone] Health Maintenance Due Date Last Done Comments MENINGOCOCCAL B VACCINES (1 2007 of 2 - Risk Bexsero 2-dose series) HPV VACCINES (1 - Female 01/06/2012 3-dose series) VARICELLA VACCINES (2 of 2 - 11/18/2013 10/21/2013, 1995 13+ 2-dose series) CHLAMYDIA SCREENING 11/24/2015 11/23/2014, 06/22/2013, 03/12/2013 PAP SMEAR 2018 INFLUENZA VACCINE 04/25/2019 05/13/2013 DTaP,Tdap,and Td Vaccines (8 07/08/2023 07/08/2013, 12/22/2008, - Td) 03/15/2001, Additional history exists MENINGOCOCCAL VACCINE Completed 04/14/2015, 12/22/2008 PNEUMOCOCCAL 0-64 YEARS Aged Out No longer eligible COMBINED SERIES based on patient's age to complete this topic documented as of this encounter Procedures Procedure Name Priority Date/Time Associated Diagnosis Comments ASSIGNMENT OF BENEFITS Routine 03/23/2019 9:42 AM CDT documented in this encounter Results Not on filedocumented in this encounter Insurance Payer Benefit Plan Subscriber ID Effective Dates Phone Address Type / Group [employer] OF [employer] [id number] 2017-Ashley [phone] [address] PPO/ POS [place] [employer] [id number] [place] [address] documented as of this encounter Advance Directives Name Relationship Healthcare Agent Relationship Communication Amaris Garnett Mother Primary healthcare agent
--- OUTSIDE RECORDS SUMMARY | 2019-04-19 11:29 | XMS REPORT | Summary of Care ---
:1995 Author Organization [facility] Address [address] [place] [address] Care Team Providers Name Role Phone Pcp, Patient Does Not Have A Primary Care Provider Reason for Visit Reason Comments Well Woman Exam Encounter Details Date Type Department Care Team Description 03/23/2019 Office Visit [facility]- Gadiel Gold Well woman exam (Primary Dx); SNEHAL Sheth Encounter for contraceptive management, unspecified type; [address] [place] [address] Screening examination for STD (sexually transmitted disease); [place], [place] Depression, unspecified depression type; [id number] [place] [address] Need for HPV vaccination; [phone] Class 1 obesity with body mass index (BMI) of 34.0 to 34.9 in adult, unspecified obesity type, unspecified whether serious comorbidity present; BMI 34.0-34.9,adult Allergies Active Allergy Reactions Severity Noted Date Comments Latex Hives, Itching, Swelling 03/12/2013 documented as of this encounter (statuses as of 03/23/2019) Medications Medication Sig Dispensed Refills Start Date End Date Status VIT/IRON Take by 0 03/23/2019 Discontinued FUMARATE/FA mouth. ( ORAL) ferrous sulfate Take 325 mg by 0 03/23/2019 Discontinued (IRON) 325 mg (65 mouth daily. mg iron) tablet Condoms Latex Use as 12 Each 0 11/23/2014 03/23/2019 Discontinued Non-Lubricated directed (TRUSTEX-MARIS NON-LUB CONDOMS) DeviIndications: Other general counseling and advice for contraceptive management documented as of this encounter (statuses as of 03/23/2019) Active Problems Problem Noted Date Well woman exam 03/23/2019 Encounter for contraceptive management, unspecified type 03/23/2019 Depression, unspecified depression type 03/23/2019 Need for HPV vaccination 03/23/2019 Class 1 obesity with body mass index (BMI) of 34.0 to 34.9 in adult, 2018 unspecified obesity type, unspecified whether serious comorbidity present BMI 34.0-34.9,adult 03/23/2019 Screening examination for STD (sexually transmitted disease) 10/21/2013 Overview: Exp. 10/21/2016. documented as of this encounter (statuses as of 03/23/2019) Resolved Problems Problem Noted Date Resolved Date Routine follow-up 09/30/2013 10/21/2013 Overview: Medical records from [facility]. 08/27/2013. Primary low transverse c- section at 35wks 0d of [place]/di twin. discordance of 20%. Suspected anemia of twin B. 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 Hgb- 7.0. 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 documented as of this encounter (statuses as of 03/23/2019) Immunizations Name Administration Dates Next Due DTAP 03/15/2001, 02/23/2001, 04/10/2000, 05/16/1999, 03/28/1999, 04/17/1998 HEPATITIS A 09/04/2004, 05/31/2002, 03/24/2001 HIB 3 Dose Schedule 04/10/2000, 05/16/1999, 03/28/1999, 04/17/1998 HPV9 03/23/2019 Hep B, Adol or Pedi Dosage 03/28/1999, [...] No 0 Standard drinks or equivalent 0.0 social events Sex Assigned at Date Recorded Not on file Job Start Date Occupation Industry Not on file Not on file Not on file Travel History Travel Start Travel End No recent travel history available. documented as of this encounter Last Filed Vital Signs Vital Sign Reading Time Taken Comments Blood Pressure 118/77 03/23/2019 10:08 AM CDT Pulse 76 03/23/2019 10:08 AM CDT Temperature 37.4 C (99.3 F) 03/23/2019 10:08 AM CDT Respiratory Rate 16 03/23/2019 10:08 AM CDT Oxygen Saturation - - Inhaled Oxygen Concentration - - Weight 90 kg (198 lb 8 oz) 03/23/2019 10:08 AM CDT Height 162.6 cm (5' 4") 03/23/2019 10:08 AM CDT Body Mass Index 34.07 03/23/2019 10:08 AM CDT documented in this encounter Progress Notes Gadiel Gold, SNEHAL - 03/23/2019 10:00 AM CDT Chief complaint: Chief Complaint Patient presents with Well Woman Exam HPI Patient is a AAF L2 here for WWE and contraception management. Patient denies any abdominal/pelvic pain. Patient declines need for BCM at this time. Patient is requesting STD testing. Patient reports a history of depression ( self diagnosis) since the delivery of her twins. Patient denies nay SI or HI thoughts of feelings. Histories OB History Para Term AB Living 2 1 1 1 2 SAB TAB Ectopic Multiple Live Births 1 1 2 # Outcome Date GA Lbr Chase/2nd Weight Sex Delivery Anes PTL Lv 2 SAB 01/07/17 1 08/27/13 F CS-Unspec EPIDURAL Y ILENE Past Medical History: Diagnosis Date Anemia ongoing Anxiety 2013 self diagnosed Depression 2013 self diagnosed. Depression, unspecified depression type 03/23/2019 Gallbladder & bile duct stone with obstruction Monochorionic diamniotic twin gestation 07/26/2013 B elevated S/D w/ intermittent AEDF (stable pre- TTTS) Family History Problem Relation Age of Onset Arthritis Mother Heart Maternal Grandfather Hypertension Maternal Grandfather No Significant Medical Problems Father No Significant Medical Problems Sister No Significant Medical Problems Maternal Aunt No Significant Medical Problems Maternal Uncle No Significant Medical Problems Paternal Aunt No Significant Medical Problems Paternal Uncle Asthma NoFHx defects NoFHx Breast Cancer NoFHx Colon Cancer NoFHx Ovarian Cancer NoFHx Uterine Cancer NoFHx Cancer NoFHx Depression NoFHx Diabetes NoFHx Genetic NoFHx High cholesterol NoFHx Mental retardation NoFHx Neurological NoFHx Osteoporosis NoFHx Psychiatry NoFHx Other - see comments NoFHx Family Status Relation Name Status Mo Alive MGFa Alive Fa Other unknown history Sis Alive MAunt (Not Specified) MUnc (Not Specified) PAunt (Not Specified) PUnc (Not Specified) MGMo Alive PGMo Other unknown history PGFa Other unknown history NoFHx (Not Specified) Past Surgical History: Procedure Laterality Date SECTION 08/27/2013 CHOLECYSTECTOMY 2014 09/28/2013 Social History Socioeconomic History Marital status: Single Spouse name: Not on file Number of children: Not on file Years of education: 10 Highest education level: Not on file Occupational History Occupation: [employer] Employer: [employer] Financial resource strain: Not on file Food insecurity: Worry: Not on file Inability: Not on file Transportation needs: Medical: Not on file Non-medical: Not on file Tobacco Use Smoking status: Never Smoker Smokeless tobacco: Never Used Substance and Sexual Activity Alcohol use: No Alcohol/week: 0.0 oz Comment: social events Drug use: No Sexual activity: Yes Partners: Male control/protection: None Comment: last sexual intercourse 03/18/2019 Lifestyle Physical activity: Days per week: Not on file Minutes per session: Not on file Stress: Not on file Relationships Social connections: Talks on phone: Not on file Gets together: Not on file Attends hindu service: Not on file Active member of club or organization: Not on file Attends meetings of clubs or organizations: Not on file Relationship status: Not on file Intimate partner violence: Fear of current or ex partner: Not on file Emotionally abused: Not on file Physically abused: Not on file Forced sexual activity: Not on file Other Topics Concern Service Not Asked Blood Transfusions No Caffeine Concern Not Asked Occupational Exposure Not Asked Hobby Hazards Not Asked Sleep Concern Not Asked Stress Concern Not Asked Weight Concern Not Asked Special Diet Not Asked Back Care Not Asked Exercise Not Asked Bike Helmet Not Asked Seat Belt Not Asked Self-Exams Not Asked Social History Narrative Pt states her hindu preference is Islam No domestic violence or abuse Lives alone with her children. Social History Substance and Sexual Activity Sexual Activity Yes Partners: Male control/protection: None Comment: last sexual intercourse 03/18/2019 Labs Labs are pending. Radiology No new radiology. Allergies Troy is allergic to latex. Medications Troy currently has no medications in their medication list. Review of Systems Constitutional: Negative for activity change, appetite change, fatigue, unexpected weight change, weight gain and weight loss. HENT: Negative for sore throat. Eyes: Negative for visual disturbance. Respiratory: Negative for cough and shortness of breath. Breasts: Negative for discharge, mass, pain and unequal size. Cardiovascular: Negative for chest pain, palpitations and leg swelling. Gastrointestinal: Negative. Negative for abdominal pain, anal bleeding, blood in stool, constipation, diarrhea, nausea, rectal pain and vomiting. Genitourinary: Negative for bladder incontinence, dysuria, urgency, flank pain, vaginal bleeding, vaginal discharge, genital sores, vaginal pain and pelvic pain. Skin: Negative for color change and rash. Neurological: Negative. Negative for dizziness, syncope and headaches. Psychiatric/Behavioral: Negative for confusion, self-injury and sleep disturbance. The patient is not nervous/anxious. Hematological: Negative for cold intolerance and heat intolerance. Endocrine: Negative for hair loss, cold intolerance, heat intolerance, weight gain and weight loss. BP 118/77 (BP Location: Right arm, Patient Position: Sitting, BP CUFF SIZE: Adult Small) | Pulse 76 | Temp 37.4 C (99.3 F) (Oral) | Resp 16 | Ht 5' 4 " (1.626 m) | Wt 198 lb 8 oz (90 kg) | BMI34.07 kg/m Pregravid BMI: Could not be calculated Physical Exam Vitals reviewed. Constitutional: She is oriented to person, place, and time. She appears well- developed, well-nourished and well-groomed. She has no deformities. Neck: No tenderness and no mass. No thyroid nodules and no thyromegaly palpated. Cardiovascular: Regular rate and rhythm. No murmur auscultated. Pulmonary/Chest: Breath sounds clear to auscultation. Normal inspiratory effort. Abdominal: Abdomen is soft. No mass palpated. No tenderness present. There is no guarding. Neuro/Psychiatric: She has a normal mood and affect. She is oriented to person, place, and time. Skin: Skin normal. No lesion and no rash present. Breast: Right breast exhibits no mass, no nipple discharge and no tenderness. Left breast exhibits no mass, no nipple discharge and no tenderness. Normal left breast and normal right breast Rectal: normal rectum External genitalia: Normal external genitalia appropriate for age. Normal hair distribution. No labial lesion. Trashman present for the exam: Radhika Snowden RN Vagina:Normal vagina. No lesion inspected. No abnormal vaginal discharge found. White discharge noted Cervix: Normal cervix. No lesion. No tenderness and no discharge present. Uterus: Uterus is normal size and non-tender. 6cm Normal uterus Adnexa: Right adnexa without tenderness or mass. Left adnexa without tenderness or mass. Normal leftadnexa and normal right adnexa Anus/perineum: Normal perineum. Assessment/Plan Rubella:Immune VZV:NonImmune, resources given BMI:34.07 Td:2012 Pap Smear: done today Gardasil: started today Mammogram: N/A Guaiac:N/A Colonoscopy:N/A Well woman exam (primary encounter diagnosis) Comment: Routine WWE Plan: PAP Smear-Liquid Based Denies zika virus risk, signs and symptoms such as fever,rash,joint pain, conjunctivitis (red eyes), muscle pain, headaches; outside [place] travel to areas affected by zika, and FOB exposure to zika.Educated on use of mosquito repellent. Encounter for contraceptive management, unspecified type Comment: patient declines Plan: patient desires in the future. Screening examination for STD (sexually transmitted disease) Comment: patient desirs Plan: GC & CHLAMYDIA AMPLIFIED ASSAY, TRICHOMONAS AMPLIFIED ASSAY, GALV ONLY - SYPHILIS IGG/IGM, HIV 1/2 AG-AB WITH REFLEX Safe Sex practrices Depression, unspecified depression type Comment: patient denies any SI/HI thoughts of feelings Plan: resources given to patient by nurse Need for HPV vaccination Comment: patient desires Plan: GARDASIL 9 (HPV 9V) VACCINE Class 1 obesity with body mass index (BMI) of 34.0 to 34.9 in adult, unspecified obesity type, unspecified whether serious comorbidity present BMI 34.0-34.9,adult Comment: BMI: 34.07 Plan: Patient encouraged to limit weight gain and sensible diet. Return to clinic in 1 year for WWE or PRN. Discussed treatment options. Medications as ordered. Reviewed patient instructions and provided printed copy. This visit did not involve counseling and coordination that comprised more than 50% of the visit time. SNEHAL Davidson 03/23/2019 11:06 AM Radhika Mojica RN - 03/23/2019 10:00 AM CDTPt here for HPV #1 VIS given and reviewed with patient. Vaccine given to right deltoid via IM, pt tolerated well. The site was cleaned with alcohol and bandage was applied. ER warnings given and RTC in 2 months for next HPV vaccine. Pt verbalized understanding. Radhika Mojica RN - 03/23/2019 10:00 AM CDT24 year old presented to the clinic for WWE. 1) Previous BCM: none 2) Desired BCM: none 3) LMP: 02/24/2019 4) Last [place]: 03/18/2019 5) Last Pap: N/a Results: N/a HPV Results n/a 6) Tdap in last 10 years? yes 7) HPV Vaccines: has not had vaccines, was offered, will think about taking vaccines 8) C/O none 9) Patient denies history of physical, emotional, or sexual abuse. Patient states she currently feels safe at home. PHQ9 score of 12, resource list given, provider notified. documented in this encounter Plan of Treatment Name Type Priority Associated Diagnoses Date/Time PAP Smear-Liquid Based LAB Routine Well woman exam 03/23/2019 10:44 AM CDT GC & CHLAMYDIA AMPLIFIED LAB Routine Screening examination 03/23/2019 10: 44 AM ASSAY for STD (sexually CDT transmitted disease) TRICHOMONAS AMPLIFIED LAB Routine Screening examination 03/23/2019 10:44 AM ASSAY for STD (sexually CDT transmitted disease) GALV ONLY - SYPHILIS LAB Routine Screening examination 03/23/2019 10:44 AM IGG/IGM for STD (sexually CDT transmitted disease) HIV 1/2 AG-AB WITH REFLEX LAB Routine Screening examination 03/23/2019 10: 44 AM for STD (sexually CDT transmitted disease) Health Maintenance Due Date Last Done Comments MENINGOCOCCAL B VACCINES (1 2007 of 2 - Risk Bexsero 2-dose series) VARICELLA VACCINES (2 of 2 - 11/18/2013 10/21/2013, 1997 13+ 2-dose series) PAP SMEAR 2018 HPV VACCINES (2 - Female 04/20/2019 03/23/2019 3-dose series) INFLUENZA VACCINE 04/25/2019 05/13/2013 CHLAMYDIA SCREENING 03/23/2020 03/23/2019, 11/23/2014, 06/22/2013, Additional history exists DTaP,Tdap,and Td Vaccines (8 07/08/2023 07/08/2013, 12/22/2008, - Td) 03/15/2001, Additional history exists MENINGOCOCCAL VACCINE Completed 04/14/2015, 12/22/2008 PNEUMOCOCCAL 0-64 YEARS Aged Out No longer eligible COMBINED SERIES based on patient's age to complete this topic documented as of this encounter Procedures Procedure Name Priority Date/Time Associated Diagnosis Comments GARDASIL 9 (HPV 9V) Routine 03/23/2019 10:33 AM Need for HPV VACCINE CDT vaccination documented in this encounter Results Not on filedocumented in this encounter Visit Diagnoses Diagnosis Well woman exam - Primary Routine general medical examination at a health care facility Encounter for contraceptive management, unspecified type Screening examination for STD (sexually transmitted disease) Screening examination for venereal disease Depression, unspecified depression type Need for HPV vaccination Need for prophylactic vaccination and inoculation against other viral diseases Class 1 obesity with body mass index (BMI) of 34.0 to 34.9 in adult, unspecified obesity type, unspecified whether serious comorbidity present BMI 34.0-34.9,adult Body Mass Index 34.0-34.9, adult documented in this encounter Insurance Payer Benefit Plan Subscriber ID Effective Dates Phone Address Type / Group [facility] [id number] 2017-Ashley [phone] [address] PPO/ POS [place] [address] t [id number] [place] [address] documented as of this encounter Advance Directives Name Relationship Healthcare Agent Relationship Communication Amaris Black Mother Primary healthcare agent
--- OUTSIDE RECORDS SUMMARY | 2019-04-19 11:29 | XMS REPORT | Summary of Care ---
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 Results [address] [facility] [address] [place] [address] [place] [address] [phone] Allergies Active Allergy Reactions Severity Noted Date Comments Latex Hives, Itching, Swelling 03/12/2013 documented as of this encounter (statuses as of 03/24/2019) Medications No known medicationsdocumented as of this encounter (statuses as of 03/24/2019) Active Problems Problem Noted Date Well woman [...] as of this encounter (statuses as of 03/24/2019) Resolved Problems Problem Noted Date Resolved Date Routine follow-up 09/30/2013 10/21/2013 Overview: Medical records from [facility]. 08/27/2013. Primary low transverse c- section at 35wks 0d of [place]/di twin. discordance of 20%. Suspected anemia of twin B. 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 Hgb- 7.0. 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 documented as of this encounter (statuses as of 03/24/2019) Immunizations Name Administration Dates Next Due DTAP [...] filedocumented in this encounter Plan of Treatment Health Maintenance Due Date Last Done Comments [...] this topic documented as of this encounter Results Not on filedocumented in this encounter Insurance Payer Benefit Plan Subscriber ID Effective Dates Phone Address Type / Group [facility] [place] [id number] 2017-Ashley [phone] [address] PPO/ POS [place] SELECT t 7 [id number] [place] [address] documented as of this encounter Advance Directives Name Relationship Healthcare Agent Relationship Communication Amaris Garnett Mother Primary healthcare agent
--- OUTSIDE RECORDS SUMMARY | 2019-04-19 11:29 | XMS REPORT | Summary of Care ---
:1995 Author Organization [facility] [place] [facility] Address [address] [place] [address] Care Team Providers Name Role Phone Pcp, Patient Does Not Have A Primary Care Provider Reason for Visit Reason Comments Well Woman Exam Encounter Details Date Type Department Care Team Description 03/23/2019 Office Visit [facility]- Gadiel Gold Well woman exam (Primary Dx); SNEHAL Sheth Encounter for contraceptive management, unspecified type; [address] [place] [address] Screening examination for STD (sexually transmitted disease); [place] Depression, unspecified depression type; [address] [place] [address] Need for HPV vaccination; [phone] Class 1 obesity with body mass index [...] follow-up 09/30/2013 10/21/2013 Overview: Medical records from [facility]. 08/27/2013. Primary low transverse c- section at 35wks 0d of [place]/di twin. discordance of 20%. Suspected anemia of twin B. 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 Hgb- 7.0. 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 Normal hair distribution. No labial lesion. Slip Cover Seamstress present for the exam: Radhika Snowden RN [...] BCM: none 3) LMP: 02/24/2019 4) Last [place]: 03/18/2019 5) Last Pap: N/a Results: N/a [...] Effective Dates Phone Address Type / Group [facility] [id number] 2017-Ashley [phone] [address] PPO/ POS [place] [employer] t 7 [id number] [place] [address] documented as of this encounter Advance Directives Name Relationship Healthcare Agent Relationship Communication Amaris Black Mother Primary healthcare agent
--- OUTSIDE RECORDS SUMMARY | 2019-04-19 11:29 | XMS REPORT ---
:1995 Author Organization [facility] Address [address] [place] [address] Dr. Negro [address] [place] [address] Care Team Providers Name Role Phone Unavailable Unavailable Unavailable Problems This patient has no known problems. Allergies, Adverse Reactions, Alerts This patient has no known allergies or adverse reactions. Medications This patient has no known medications.
--- NOTE | 2019-04-19 11:53 | EDPHYS ---
Physician Documentation [facility] Name: Troy Son Age: 24 yrs Sex: Female : 1995 Arrival Date: 04/19/2019 Time: 11:25 Bed 16 Private MD: ED Physician Gary Marshall HPI: 04/19 11:50 This 24 yrs old Black Female presents to ER via Ambulatory with complaints of Protein kb in urine. 11:53 The patient presents with urinary symptoms, protein in urine. Onset: The kb symptoms/episode began/occurred just prior to arrival. Modifying factors: The symptoms are alleviated by nothing, the symptoms are aggravated by nothing. Associated signs and symptoms: The patient has no apparent associated signs or symptoms. Severity of symptoms: At their worst the symptoms were moderate, in the emergency department the symptoms are unchanged. The patient has not experienced similar symptoms in the past. The patient has not recently seen a physician. Pt reports she had a urine test for work today and they told her she needed to come get checked out because she had a lot of protein in her urine. Pt reports dull right low back pain that has been going on for a long time, but denies any other urinary symptoms. Historical: - Allergies: 11:49 No Known Allergies; ph - PMHx: 11:49 ibs; ph - PSHx: 11:49 ; Cholecystectomy; ph - Immunization history:: Adult Immunizations unknown. - Social history:: Smoking status: Patient/guardian denies using tobacco. - Ebola Screening: : No symptoms or risks identified at this time. ROS: 11:53 Constitutional: Negative for fever, chills, and weight loss, Neck: Negative for injury, kb pain, and swelling, Cardiovascular: Negative for chest pain, palpitations, and edema, Respiratory: Negative for shortness of breath, cough, wheezing, and pleuritic chest pain, Abdomen/GI: Negative for abdominal pain, nausea, vomiting, diarrhea, and constipation, MS/Extremity: Negative for injury and deformity, Skin: Negative for injury, rash, and discoloration, Neuro: Negative for headache, weakness, numbness, tingling, and seizure. 11:53 : Positive for protein in urine. Exam: 11:53 Constitutional: This is a well developed, well nourished patient who is awake, alert, kb and in no acute distress. Head/Face: Normocephalic, atraumatic. ENT: Nares patent. No nasal discharge, no septal abnormalities noted. Tympanic membranes are normal and external auditory canals are clear. Oropharynx with no redness, swelling, or masses, exudates, or evidence of obstruction, uvula midline. Mucous membranes moist. Neck: Trachea midline, no thyromegaly or masses palpated, and no cervical lymphadenopathy. Supple, full range of motion without nuchal rigidity, or vertebral point tenderness. No Meningismus. Chest/axilla: Normal chest wall appearance and motion. Nontender with no deformity. No lesions are appreciated. Cardiovascular: Regular rate and rhythm with a normal S1 and S2. No gallops, murmurs, or rubs. Normal PMI, no JVD. No pulse deficits. Respiratory: Lungs have equal breath sounds bilaterally, clear to auscultation and percussion. No rales, rhonchi or wheezes noted. No increased work of breathing, no retractions or nasal flaring. Abdomen/GI: Soft, non-tender, with normal bowel sounds. No distension or tympany. No guarding or rebound. No evidence of tenderness throughout. Back: No spinal tenderness. No costovertebral tenderness. Full range of motion. Skin: Warm, dry with normal turgor. Normal color with no rashes, no lesions, and no evidence of cellulitis. MS/ Extremity: Pulses equal, no cyanosis. Neurovascular intact. Full, normal range of motion. Neuro: Awake and alert, GCS 15, oriented to person, place, time, and situation. Cranial nerves II-XII grossly intact. Motor strength 5/5 in all extremities. Sensory grossly intact. Cerebellar exam normal. Normal gait. Vital Signs: 11:49 BP 114 / 68; Pulse 74; Resp 18; Temp 97.8; Pulse Ox 100% on R/A; ph MDM: 11:31 Patient medically screened. kb 11:53 Data reviewed: vital signs, nurses notes. Data interpreted: Pulse oximetry: on room air kb is 100 %. Interpretation: normal. Counseling: I had a detailed discussion with the patient and/or guardian regarding: the historical points, exam findings, and any diagnostic results supporting the discharge/admit diagnosis, lab results, the need for outpatient follow up, a family practitioner, to return to the emergency department if symptoms worsen or persist or if there are any questions or concerns that arise at home. 04/19 11:59 Order name: Urine Dipstick--Ancillary (enter results) bd 04/19 11:59 Order name: Urine --Ancillary (enter results) bd Administered Medications: No medications were administered Disposition: 04/19/19 11:48 Discharged to Home. Impression: Person with feared health complaint in whom no diagnosis is made. - Condition is Stable. - Discharge Instructions: Dehydration, Adult, [id number]. - Medication Reconciliation Form, Thank You Letter, Work release form form. - Follow up: Emergency Department; When: As needed; Reason: Worsening of condition. Follow up: Private Physician; When: 2 - 3 days; Reason: Recheck today's complaints, Continuance of care, Re-evaluation by your physician. Addendum: 04/20/2019 20:32 Co-signature as Attending Physician, Gary Marshall MD I agree with the assessment and c grant plan of care. Signatures: Dispatcher [employer] EDEllyn Kendall, SNEHAL-C IGNITER CAPPER-Gary Garcia MD MD cha Hall, Patricia, RN RN ph Corrections: (The following items were deleted from the chart) 04/19 11:55 11:50 This 24 yrs old Black Female presents to ER via Ambulatory with complaints of kb Flank Pain. kb 12:02 11:48 04/19/2019 11:48 Discharged to Home. Impression: Person with feared health ph complaint in whom no diagnosis is made. Condition is Stable. Forms are Medication Reconciliation Form, Thank You Letter, Antibiotic Education, Prescription Opioid Use. Follow up: Emergency Department; When: As needed; Reason: Worsening of condition. Follow up: Private Physician; When: 2 - 3 days; Reason: Recheck today's complaints, Continuance of care, Re-evaluation by your physician. kb
--- NOTE | 2019-04-19 11:53 | ER ---
Nurse's Notes [facility] Name: Troy Son Age: 24 yrs Sex: Female : 1995 Arrival Date: 04/19/2019 Time: 11:25 Bed 16 Private MD: Diagnosis: Person with feared health complaint in whom no diagnosis is made Presentation: 04/19 11:47 Presenting complaint: Patient states: " I had a drug test done for work and they said ph the protein level in my urine was high." Pt reports slight low back pain , denies fever N/V/D or urinary symptoms. Transition of care: patient was not received from another setting of care. Onset of symptoms was April 19, 2019. Risk Assessment: Do you want to hurt yourself or someone else? Patient reports no desire to harm self or others. Initial Sepsis Screen: Does the patient meet any 2 criteria? No. Patient's initial sepsis screen is negative. Does the patient have a suspected source of infection? No. Patient's initial sepsis screen is negative. Care prior to arrival: None. 11:47 Method Of Arrival: Ambulatory ph 11:47 Acuity: CARMEN 4 ph Historical: - Allergies: 11:49 No Known Allergies; ph - PMHx: 11:49 ibs; ph - PSHx: 11:49 ; Cholecystectomy; ph - Immunization history:: Adult Immunizations unknown. - Social history:: Smoking status: Patient/guardian denies using tobacco. - Ebola Screening: : No symptoms or risks identified at this time. Screenin:51 Abuse screen: Denies threats or abuse. Denies injuries from another. Nutritional ph screening: No deficits noted. Tuberculosis screening: No symptoms or risk factors identified. Fall Risk None identified. Assessment: 11:50 General: Appears in no apparent distress. comfortable, well groomed, Behavior is calm, ph cooperative, appropriate for age, Denies fever, feeling ill. Pain: Complains of pain in low back area. Neuro: Level of Consciousness is awake, alert, obeys commands, Oriented to person, place, time, situation. Cardiovascular: Capillary refill < 3 seconds Patient's skin is warm and dry. Respiratory: Airway is patent Respiratory effort is even, unlabored, Respiratory pattern is regular, symmetrical. GI: Patient currently denies abdominal pain, nausea, vomiting. : Reports pain in lower back Denies burning with urination, inability to void, urgency. Derm: Skin is intact, is healthy with good turgor. Musculoskeletal: Circulation, motion, and sensation intact. Range of motion: intact in all extremities. 12:02 Reassessment: Patient appears in no apparent distress at this time. Patient and/or ph family updated on plan of care and expected duration. Pain level reassessed. Patient is alert, oriented x 3, equal unlabored respirations, skin warm/dry/pink. Pt d/c home, work note provided. Vital Signs: 11:49 BP 114 / 68; Pulse 74; Resp 18; Temp 97.8; Pulse Ox 100% on R/A; ph ED Course: 11:25 Patient arrived in ED. as 11:31 Ellyn Murphy FNP-C is [facility]. kb 11:31 Gary Marshall MD is Attending Physician. kb 11:36 Pia Palacios, RN is Primary Nurse. ph 11:48 Triage completed. ph 11:50 Arm band placed on Patient placed in an exam room, on a stretcher. ph 11:52 Patient has correct armband on for positive identification. Bed in low position. Call ph light in reach. Side rails up X 1. 11:52 No provider procedures requiring assistance completed. Patient did not have IV access ph during this emergency room visit. Administered Medications: No medications were administered Outcome: 11:48 Discharge ordered by . kb 12:02 Discharged to home ambulatory. ph 12:02 Condition: good 12:02 Discharge instructions given to patient, Instructed on discharge instructions, follow up and referral plans. Demonstrated understanding of instructions, follow-up care. 12:02 Patient left the ED. ph Signatures: Ellyn Murphy FNP-C FNP-Rebecca Schmitt as Pia Palacios, RN RN ph
[2019-04-19 12:32] VITALS: BP 114/68; TEMP 97.8; O2SAT 100
[2019-04-19 12:55] LABS: Urine Blood NEGATIVE (NEG); Urine Glucose NEGATIVE (NEG); Urine Protein NEGATIVE (NEG); Urine Specific Gravity 1.025 (1.005-1.030)
== END 2019-04-19 12:02 | disposition home or self-care (01) ==
LOC: ER 11:22
DX: Z71.1 Person with feared health complaint in whom no diagnosis is made (principal)
CPT/HCPCS: 81003; 81025; 99281

== ENCOUNTER 2020-01-15 09:19 | Emergency (ER) | payer BC ==
--- OUTSIDE RECORDS SUMMARY | 2020-01-15 09:21 | XMS REPORT ---
:1995 Author Organization [facility] t Address [address] [place] [address] Care Team Providers Name Role Phone Viola Gloria Attending Clinician Problems This patient has no known problems. Allergies, Adverse Reactions, Alerts This patient has no known allergies or adverse reactions. Medications This patient has no known medications. Procedures This patient has no known procedures. Encounters Start End Encounter Admission Attending Care Care Encounter Source Date/Time Date/Time Type Type Clinicians Facility Department ID 2019-03-24 2019-03-24 Telephone DEVON Gold [id number] 00:00:00 00:00:00 Gadiel Rod [employer] [id number] [facility] [id number] MATERNAL [id number] & CHILD [facility] 2019-03-23 2019-03-23 Office DEVON Gold [id number] 09:47:46 10:44:24 Visit Gadiel Rod [employer] [id number] [facility] [id number] MATERNAL [id number] & CHILD [facility] Results This patient has no known results.
[2020-01-15] MEDS ORDERED: KETOROLAC 30 MG/ML INJ ONE (10:40)
[2020-01-15] MEDS ORDERED: ONDANSETRON 4 MG/2 ML VIAL ONE (10:40)
[2020-01-15] MEDS ORDERED: NA CHLORIDE 0.9% 1,000 ML ONE (10:41)
[2020-01-15 11:07] LABS: Absolute Lymphocytes (CBC) 1.8 K/uL (0.7-4.9); Basophils % 0.6 % (0-1.3); Hematocrit 36.8 % (36.0-45.0); Lymphocytes % 30.9 % (15.3-44.8); MPV 8.4 fL (7.6-11.3); RBC Red Blood Cell Count 4.54 M/uL (3.86-4.86)
[2020-01-15 11:21] LABS: ALT/SGPT 33 U/L (12-78); AST/SGOT 15 U/L (15-37); Albumin 3.5 g/dL (3.4-5.0); Alkaline Phosphatase 110 U/L (45-117); BUN Blood Urea Nitrogen 9 mg/dL (7-18); Bicarbonate 27 mmol/L (21-32); Bilirubin Direct 0.1 mg/dL (0-0.2); Bilirubin Total 0.4 mg/dL (0.2-1.0); Glucose Level 91 mg/dL (74-106); Lipase 50 U/L (73-393); Potassium 3.6 mmol/L (3.5-5.1); Protein, Total 8.2 g/dL (6.4-8.2); Sodium Level 141 mmol/L (136-145)
--- NOTE | 2020-01-15 12:33 | RAD REPORT ---
EXAM DESCRIPTION: CTAbdomen Pelvis W Contrast - 01/15/2020 12:20 pm CLINICAL HISTORY: Abdominal pain. abd pain COMPARISON: Abdomen Pelvis W Contrast dated 02/12/2019; Abdomen Pelvis W Contrast dated 05/03/2017; CT ABD PELVIS W CONTRAST dated 10/31/2015; CT ABD PELVIS W CONTRAST dated 10/10/2015 TECHNIQUE: Biphasic CT imaging of the abdomen and pelvis was performed with 100 ml non-ionic IV cont rast. All CT scans are performed using dose optimization technique as appropriate and may include automated exposure control or mA/KV adjustment according to patient size. FINDINGS: The lung bases are clear.Cholecystectomy clips. The liver, spleen, pancreas, adrenal glands and kidneys are within normal limits. No bowel obstruction, free air, intra-abdominal free fluid or abscess. The appendix is normal. No e vidence of significant lymphadenopathy. Mild free fluid is seen in the pelvis, likely within physiolo gic limits. No suspicious bony findings. IMPRESSION: No acute intra-abdominal or pelvic finding.
--- NOTE | 2020-01-15 14:11 | ER ---
Nurse's Notes [facility] Name: Troy Son Age: 25 yrs Sex: Female : 1995 Arrival Date: 01/15/2020 Time: 09:21 Bed 20 Private MD: Diagnosis: Unspecified abdominal pain;Diarrhea, unspecified;Vomiting Presentation: 01/14 09:32 Chief complaint: Diffuse abdominal pain and N/V/D x 1 week. Tolerating fluids. Denies hb fever. Coronavirus screen: Proceed with normal triage. Ebola Screen: No symptoms or risks identified at this time. Initial Sepsis Screen: Does the patient meet any 2 criteria? No. Patient's initial sepsis screen is negative. Does the patient have a suspected source of infection? No. Patient's initial sepsis screen is negative. Risk Assessment: Do you want to hurt yourself or someone else? Patient reports no desire to harm self or others. Onset of symptoms was January 08, 2020. 09:32 Method Of Arrival: Ambulatory 09:32 Acuity: CARMEN 3 hb [employer]: 09:34 LMP 12/27/2019 hb Historical: - Allergies: 09:34 No Known Allergies; hb - Home Meds: 09:34 None [Active]; hb - PMHx: 09:34 ibs; hb - PSHx: 09:34 ; Cholecystectomy; hb - Immunization history:: Adult Immunizations up to date. - Social history:: Smoking status: Patient denies any tobacco usage or history of. Screenin:57 Abuse screen: Denies threats or abuse. Nutritional screening: No deficits noted. Tuberculosis screening: No symptoms or risk factors identified. Fall Risk None identified. Assessment: 11:00 General: Appears in no apparent distress. Behavior is calm, cooperative. Pain: Complains of pain in epigastric area Pain does not radiate. Neuro: Level of Consciousness is awake, alert, Oriented to person, place, time, situation. Cardiovascular: Heart tones S1 S2 present Capillary refill < 3 seconds Patient's skin is warm and dry. Respiratory: Airway is patent Respiratory effort is even, unlabored, Respiratory pattern is regular, symmetrical. GI: Abdomen is non-distended, Bowel sounds present X 4 quads. Abdomen is tender to palpation in epigastric area Reports diarrhea, nausea, Patient currently denies vomiting. : No signs and/or symptoms were reported regarding the genitourinary system. EENT: No signs and/or symptoms were reported regarding the EENT system. Derm: No signs and/or symptoms reported regarding the dermatologic system. Musculoskeletal: No signs and/or symptoms reported regarding the musculoskeletal system. 11:50 Reassessment: Pain medication effective. No other needs voiced. ah 12:11 Reassessment: Pt to CT scan via WC. ah 13:00 Reassessment: Patient and/or family updated on plan of care and expected duration. Pain ah level reassessed. Awaiting results from radiology and labs. No needs voiced at this time. 14:00 Reassessment: Patient and/or family updated on plan of care and expected duration. Pain ah level reassessed. Pt lying in bed awaiting decision. No needs voiced at this time. Vital Signs: 09:32 BP 127 / 78; Pulse 68; Resp 16; Temp 97.3; Pulse Ox 100% ; Weight 89.81 kg; Height 5 hb ft. 4 in. (162.56 cm); Pain 5/10; 11:30 BP 128 / 80; Pulse 65; Resp 17; Pulse Ox 96% ; ah 13:30 BP 117 / 70; Pulse 59; Resp 16; Pulse Ox 98% ; ah 14:00 BP 123 / 76; Pulse 62; Resp 16; Pulse Ox 96% ; ah 09:32 Body Mass Index 33.99 (89.81 kg, 162.56 cm) hb ED Course: 09:21 Patient arrived in ED. ag5 09:33 Triage completed. hb 09:34 Arm band placed on. hb 09:56 Stefany Mabry, RN is Primary Nurse. ah 09:58 Georges Jacob NP is PHCP. pm1 09:58 Terrance Acuna MD is Attending Physician. pm1 11:00 Inserted saline lock: 22 gauge in right antecubital area, using aseptic technique. ah 11:53 Patient has correct armband on for positive identification. Fall risk band placed. ah Placed in gown. Bed in low position. Call light in reach. Side rails up X 1. 12:21 Abdomen In Process Unspecified. EDMS 12:21 CT completed. Patient tolerated procedure well. Patient moved back from CT. bq 14:22 Removal of peripheral IV. Catheter intact, dressing applied. jp3 14:29 No provider procedures requiring assistance completed. IV discontinued, intact, bleeding controlled, No redness/swelling at site. Pressure dressing applied. Administered Medications: 10:50 Drug: NS 0.9% 1000 ml Route: IV; Rate: 1000 ml; Site: right antecubital; 13:55 Follow up: Response: No adverse reaction; IV Status: Completed infusion; IV Intake: ah 1000ml 10:50 Drug: Zofran (Ondansetron) 4 mg Route: IVP; Site: right antecubital; 13:54 Follow up: Response: No adverse reaction 10:50 Drug: TORadol - Ketorolac 15 mg Route: IVP; Site: right antecubital; 13:53 Follow up: Response: No adverse reaction Intake: 13:55 IV: 1000ml; Total: 1000ml. Outcome: 14:10 Discharge ordered by MD. pm1 14:35 Discharged to home ambulatory. 14:35 Condition: good 14:35 Discharge instructions given to patient, Instructed on discharge instructions, follow up and referral plans. Demonstrated understanding of instructions, follow-up care, medications, Prescriptions given X 2. 14:50 Patient left the ED. Signatures: Dispatcher [employer] EDMS Marisel Chew Patrick, [place] pm1 Monique Ibrahim, ALTON RN Wild Ray 3 Neptali Hollis 5 Stefany Mabry, ALTON RN
--- NOTE | 2020-01-15 14:11 | EDPHYS ---
Physician Documentation [facility] Name: Troy Son Age: 25 yrs Sex: Female : 1995 Arrival Date: 01/15/2020 Time: 09:21 Bed 20 Private MD: ED Physician Terrance Acuna HPI: 01/14 10:18 This 25 yrs old Black Female presents to ER via Ambulatory with complaints of Abdominal pm1 Pain, Nausea, Diarrhea. 10:18 The patient presents with abdominal pain in the upper abdomen. Onset: The pm1 symptoms/episode began/occurred 1 week(s) ago. The symptoms do not radiate. Associated signs and symptoms: Pertinent positives: nausea, vomiting, and diarrhea, vomit x 3 since onset and diarrhea daily. The symptoms are described as achy, constant. Modifying factors: The symptoms are alleviated by nothing, the symptoms are aggravated by food. Severity of pain: in the emergency department the pain is actually worse. The patient has not experienced similar symptoms in the past, patient reports history of IBS and her abdominal pain is usually in the lower abdomen. For the last week her pain is in the upper abdomen. BUSINESS PARTNER: 09:34 LMP 12/27/2019 hb Historical: - Allergies: 09:34 No Known Allergies; hb - Home Meds: 09:34 None [Active]; hb - PMHx: 09:34 ibs; hb - PSHx: 09:34 ; Cholecystectomy; hb - Immunization history:: Adult Immunizations up to date. - Social history:: Smoking status: Patient denies any tobacco usage or history of. ROS: 10:18 Constitutional: Negative for fever, chills, and weight loss, Neck: Negative for injury, pm1 pain, and swelling, Cardiovascular: Negative for chest pain, palpitations, and edema, Respiratory: Negative for shortness of breath, cough, wheezing, and pleuritic chest pain. 10:18 Back: Negative for injury and pain, : Negative for injury, bleeding, discharge, and swelling, MS/Extremity: Negative for injury and deformity, Skin: Negative for injury, rash, and discoloration, Neuro: Negative for headache, weakness, numbness, tingling, and seizure. 10:18 Abdomen/GI: Positive for abdominal pain, nausea, vomiting, and diarrhea, Negative for constipation. Exam: 10:18 Constitutional: This is a well developed, well nourished patient who is awake, alert, pm1 and in no acute distress. Head/Face: Normocephalic, atraumatic. Chest/axilla: Normal chest wall appearance and motion. Nontender with no deformity. No lesions are appreciated. 10:18 Back: No spinal tenderness. No costovertebral tenderness. Full range of motion. Skin: Warm, dry with normal turgor. Normal color with no rashes, no lesions, and no evidence of cellulitis. MS/ Extremity: Pulses equal, no cyanosis. Neurovascular intact. Full, normal range of motion. 10:18 Cardiovascular: Exam negative for acute changes, Rate: normal, Rhythm: regular, Pulses: no pulse deficits are appreciated, Edema: is not appreciated. 10:18 Respiratory: Exam negative for acute changes, respiratory distress, shortness of breath. 10:18 Abdomen/GI: Inspection: abdomen appears normal, Palpation: soft, in all quadrants, mild abdominal tenderness, in the epigastric area, mass, is not appreciated, rebound tenderness, is not appreciated. 10:18 Neuro: Exam negative for acute changes, Orientation: is normal, Mentation: is normal, Motor: is normal, moves all fours. Vital Signs: 09:32 BP 127 / 78; Pulse 68; Resp 16; Temp 97.3; Pulse Ox 100% ; Weight 89.81 kg; Height 5 hb ft. 4 in. (162.56 cm); Pain 5/10; 11:30 BP 128 / 80; Pulse 65; Resp 17; Pulse Ox 96% ; ah 13:30 BP 117 / 70; Pulse 59; Resp 16; Pulse Ox 98% ; ah 14:00 BP 123 / 76; Pulse 62; Resp 16; Pulse Ox 96% ; ah 09:32 Body Mass Index 33.99 (89.81 kg, 162.56 cm) hb MDM: 10:10 Patient medically screened. pm1 10:22 Data reviewed: vital signs. Data interpreted: Pulse oximetry: on room air is 100 %. pm1 Interpretation: normal. 14:08 Counseling: I had a detailed discussion with the patient and/or guardian regarding: the pm1 historical points, exam findings, and any diagnostic results supporting the discharge/admit diagnosis, lab results, radiology results, the need for outpatient follow up, to return to the emergency department if symptoms worsen or persist or if there are any questions or concerns that arise at home. 01/14 11:04 Order name: Basic Metabolic Panel; Complete Time: 11:27 [facility] 01/14 11:04 Order name: Liver (Hepatic) Function; Complete Time: 11:27 [facility] 01/14 10:18 Order name: CT Abd/Pelvis - IV Contrast Only pm1 01/14 11:01 Order name: Abdomen ; Complete Time: 12:49 EDOR 01/14 11:04 Order name: Lipase; Complete Time: 11:27 [facility] 01/14 11:04 Order name: CBC with Automated Diff; Complete Time: 11:12 EDOR 01/14 11:19 Order name: Urine Dipstick--Ancillary (enter results) 01/14 11:19 Order name: Urine --Ancillary (enter results) 01/14 10:13 Order name: IV Saline Lock; Complete Time: 11:02 pm1 01/14 10:13 Order name: Labs collected and sent; Complete Time: 11:02 pm01/14 10:13 Order name: Urine Dipstick-Ancillary (obtain specimen); Complete Time: 11:17 pm01/14 10:13 Order name: Urine Test (obtain specimen); Complete Time: 11:17 pm1 Administered Medications: 10:50 Drug: NS 0.9% 1000 ml Route: IV; Rate: 1000 ml; Site: right antecubital; 13:55 Follow up: Response: No adverse reaction; IV Status: Completed infusion; IV Intake: ah 1000ml 10:50 Drug: Zofran (Ondansetron) 4 mg Route: IVP; Site: right antecubital; 13:54 Follow up: Response: No adverse reaction 10:50 Drug: TORadol - Ketorolac 15 mg Route: IVP; Site: right antecubital; 13:53 Follow up: Response: No adverse reaction Disposition: 19:44 Co-signature as Attending Physician, Terrance Acuna MD. [email or web address] Disposition: 01/15/20 14:10 Discharged to Home. Impression: Unspecified abdominal pain, Diarrhea, unspecified, Vomiting. - Condition is Stable. - Discharge Instructions: Abdominal Pain, Adult, Diarrhea, Adult, Nausea and Vomiting, Adult. - Prescriptions for Bentyl 20 mg Oral Tablet - take 1 tablet by ORAL route every 6 hours As needed; 20 tablet. Zofran 4 mg Oral Tablet - take 1 tablet by ORAL route every 12 hours As needed; 20 tablet. - Medication Reconciliation Form, Thank You Letter, Antibiotic Education, Prescription Opioid Use form. - Follow up: Emergency Department; When: As needed; Reason: Worsening of condition. Follow up: Private Physician; When: 2 - 3 days; Reason: Recheck today's complaints, Continuance of care, Re-evaluation by your physician. - Problem is new. - Symptoms have improved. Signatures: Dispatcher [employer] [facility] Georges Jacob CONSERVATION OF RESOURCES COMMISSIONER CONSERVATION OF RESOURCES COMMISSIONER pm1 Monique Ibrahim RN RN Stefany Espinoza RN RN Terrance Jorgensen MD MD [email or web address] Corrections: (The following items were deleted from the chart) 11:00 10:29 Abdomen ordered. [facility] EDOR 14:11 14:10 01/15/2020 14:10 Discharged to Home. Impression: Unspecified abdominal pain; pm1 Diarrhea, unspecified. Condition is Stable. Forms are Medication Reconciliation Form, Thank You Letter, Antibiotic Education, Prescription Opioid Use. Follow up: Emergency Department; When: As needed; Reason: Worsening of condition. Follow up: Private Physician; When: 2 - 3 days; Reason: Recheck today's complaints, Continuance of care, Re-evaluation by your physician. Problem is new. Symptoms have improved. pm1 14:50 14:11 01/15/2020 14:10 Discharged to Home. Impression: Unspecified abdominal pain; Diarrhea, unspecified; Vomiting. Condition is Stable. Forms are Medication Reconciliation Form, Thank You Letter, Antibiotic Education, Prescription Opioid Use. Follow up: Emergency Department; When: As needed; Reason: Worsening of condition. Follow up: Private Physician; When: 2 - 3 days; Reason: Recheck today's complaints, Continuance of care, Re-evaluation by your physician. Problem is new. Symptoms have improved. pm1
[2020-01-15 17:04] VITALS: TEMP 97.3
[2020-01-15 17:42] VITALS: BP 123/76; O2SAT 96
[2020-01-15 18:18] LABS: Urine Blood NEGATIVE (NEG); Urine Glucose NEGATIVE (NEG); Urine Protein 1+ (NEG); Urine Specific Gravity 1.025 (1.005-1.030); Urine pH 5.5 (5.0-7.0)
== END 2020-01-15 14:50 | disposition home or self-care (01) ==
LOC: ER 09:19
DX: R19.7 Diarrhea, unspecified (principal); R11.10 Vomiting, unspecified
CPT/HCPCS: 96361; 85025; 80048; 36415; 81025; 80076; 81003; 83690; 74177; 96375; 96374; 99284; Q9967; J7030; J2405

== ENCOUNTER 2020-02-13 09:21 | Emergency (ER) | payer BC ==
--- OUTSIDE RECORDS SUMMARY | 2020-02-13 09:23 | XMS REPORT | Summary of Care ---
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 Irregular Period/Pressure Encounter Details Date Type Department Care Team Description 02/04/2020 Office Visit [facility]- Melonie Lopez for contraceptive management, unspecified type (Primary Dx); SERA Medrano Irregular menstrual cycle; [address] examination or test, negative result; Street JOHNY A Pelvic pressure in female [place], [place] [phone] Allergies Active Allergy Reactions Severity Noted Date Comments Latex Hives, Itching, Swelling 03/12/2013 documented as of this encounter (statuses as of 02/04/2020) Medications No known medicationsdocumented as of this encounter (statuses as of 02/04/2020) Active Problems Problem Noted Date Irregular menstrual cycle 02/04/2020 Well woman exam 03/23/2019 Encounter for contraceptive management, unspecified ty pe 03/23/2019 Depression, unspecified depression type 03/23/2019 Need for HPV vaccination 03/23/2019 Class 1 obesity with body mass index (BMI) of 34.0 to 34.9 in adult, 03/23/2019 unspecified obesity type, unspecified whether serious comorbidity present BMI 34.0-34.9,adult 03/23/2019 Screening examination for STD (sexually transmitted di sease) 10/21/2013 Overview: Exp. 10/21/2016. documented as of this encounter (statuses as of 02/04/2020) Resolved Problems Problem Noted Date Resolved Date Routine follow-up 09/30/2013 10/21/2013 Overview: Medical records from [facility]. 0 08/27/2013. Primary low transverse at 35wks 0d of [place]/di twin. disco rdance of 20%. Suspected anemia of twin B. Abdominal pain 09/30/2013 10/21/2013 Overview: ICD10 Diagnosis Term Shelver Utility Monochorionic diamniotic twin gestation 07/26/2013 09/30/2013 Overview: B elevated S/D w/ intermittent AEDF (sta ble pre- TTTS) Group B Streptococcus carrier, antepartum 06/25/2013 09/30/2013 Antepartum anemia 05/13/2013 03/23/2019 Overview: Medical records received. Hgb- 7.0. Hct- 21.4 ICD10 Diagnosis Term Shelver Utility Abdominal pain 05/06/2013 09/30/2013 Overview: ICD10 Diagnosis Term Shelver Utility , twins, antepartum 05/06/2013 09/30/2013 Rubella immune 03/16/2013 03/23/2019 Maternal varicella, non-immune 03/16/2013 9 Overview: Give pp Teen 03/12/2013 09/30/2013 Nausea & vomiting 03/12/2013 09/30/2013 Gallbladder & bile duct stone with obstruction 10/21/2013 Overview: Removed 09/28/2013. documented as of this encounter (statuses as of 02/04/2020) Immunizations Name Administration Dates Next Due DTAP 03/15/2001, 02/23/2001, 04/10/2000, 05/16/1999, 03/28/1999, 04/17/1998 HEPATITIS A 09/04/2004, 05/31/2002, 03/24/2001 HIB 3 Dose Schedule 04/10/2000, 05/16/1999, 03/28/1999, 04/17/1998 HPV9 03/23/2019 Hep B, Adol or Pedi Dosage 03/28/1999, 04/17/1998, 7, 1995 Influenza Virus Vaccine 05/13/2013 MMR 02/23/2001, [...] Travel End No recent travel history available. COVID-19 Exposure Response Date Recorded In the last month, have you been in contact with No / Unsure 02/04/2020 8:15 AM CDT someone who was confirmed or suspected to have Coronavirus / COVID-19? 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 She reports her last lmp 01/25/20. She reports that the cycle was not her regular cycle. She states that the cycle was light to where she did not have to wear a pad/tampon the entire 5 days while she was on the cycle. She reportsthat this past cycle is the only cycle that has ever been like that. She reports history of normal menses all the prior months. She reports she is not on anything for control, and does not desirebirth control at this time. She denies the use of condoms as well.she reports she is currently doinginterruptus coitus for control. She also reports pelvic pressure that started around the same t janette of her menses 01/25/20. She reports she has tired ibuprofen and Tylenol, with no real relief. She also reports trying hot/cold pads. She reports some relief the heating pad and warm showers. She denies discomfort when urinating, but states that when she does try to urinate she reports that she noticed it not a lot of urine. 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: [employer] Financial resource strain: Not on file Food insecurity: Worry: Not on file Inability: Not on file Transportation needs: Medical: Not on file Non-medical: Not on file Tobacco Use Smoking status: Never Smoker Smokeless tobacco: Never Used Substance and Sexual Activity Alcohol use: No Alcohol/week: 0.0 standard drinks Comment: social events Drug use: No Sexual activity: Yes Partners: Male control/protection: None Comment: last sexual intercourse 03/18/2019 Lifestyle Physical activity: Days per week: Not on file Minutes per session: Not on file Stress: Not on file Relationships Social connections: Talks on phone: Not on file Gets together: Not on file Attends anglican service: Not on file Active member of [...] Asked Social History Narrative Pt states her anglican preference is Jainism No domestic violence or abuse Lives alone with her children. Social History Substance and Sexual Activity Sexual Activity Yes Partners: Male control/protection: None Comment: last sexual intercourse 03/18/2019 Labs Labs are pending. Radiology No new radiology. Allergies Troy is allergic to latex. Medications Troy currently has no medications in their medication list. Review of Systems Constitutional: Negative. HENT: Negative. Eyes: Negative. Respiratory: Negative. Breasts: Negative. Cardiovascular: Negative. Gastrointestinal: Negative. Genitourinary: Positive for menstrual problem and pelvic pain. Musculoskeletal: Negative. Skin: Negative. Neurological: Negative. Psychiatric/Behavioral: Negative. Endocrine: Endocrine negative BP 126/85 (BP Location: Right arm, Patient Position: Sitting, BP CUFF SIZE: Adult Medium) | Pulse 74 | Temp 36.3 C (97.3 F) (Oral) | Resp 16 | Ht 5' 4" (1.626 m) | Wt 199 lb 8 oz (90.5 kg) | LMP 12/27/2019 (Approximate) | BMI 34.24 kg/m Pregravid BMI: Could not be calculated Physical Exam Vitals reviewed. Constitutional: She is oriented to person, place, and time. She appears well- developed and well-nourished. Her body habitus is normal. Cardiovascular: Regular rate and rhythm. No peripheral edema present. Pulmonary/Chest: Normal inspiratory effort. Abdominal: Abdomen is soft. No mass palpated. No tenderness present. There is no hepatosplenomegaly,splenomegaly or hepatomegaly. There is no rigidity and no guarding. No hernia palpated or inspected. Neuro/Psychiatric: She has a normal mood and affect. She is oriented to person, place, and time. Skin: Skin normal. No lesion, no rash and no ulceration present. Bladder: Tenderness palpated. Bladder has no fullness and no mass palpated. CVAT- negative Assessment/Plan Return to clinic in 6 weeks. for WWE or sooner as needed Encounter for contraceptive management, unspecified type (primary encounter diagnosis) Comment: none Plan: as needed mgmt Irregular menstrual cycle Comment: reports Plan: GC & CHLAMYDIA AMPLIFIED ASSAY examination or test, negative result Comment: as ordered Plan: POCT TEST Pelvic pressure in female Comment: reports Plan: POCT URINALYSIS W SPECIFIC GRAVITY This visit did not involve counseling and coordination that comprised more than 50% of the visit time. SERA Akins 02/04/2020 8:46 AM documented in this encounter Plan of Treatment Date Type Specialty Care Team Description 03/23/2020 Office Visit OB Satellites Francisco J Lopez WHCNP [address] [place], [place] [address] [phone] Name Type Priority Associated Diagnoses Date/Ti me GC & CHLAMYDIA AMPLIFIED LAB Routine Irregular menstr ual 02/04/2020 9:24 AM CDT ASSAY cycle URINE CULTURE LAB Routine Pelvic pressure in 02/04/20 20 9:24 AM CDT female Health Maintenance Due Date Last Done Comments MENINGOCOCCAL B VACCINES (1 2007 of 2 - Risk Bexsero 2-dose series) VARICELLA VACCINES (2 of 2 - 11/18/2013 10/21/2013, 997 13+ 2-dose series) HPV VACCINES (2 - Female 04/20/2019 03/23/2019 3-dose series) CHLAMYDIA SCREENING 03/23/2020 03/23/2019, 03/23/2019, 11/23/2014, Additional history exists Depression Screening 03/23/2020 03/23/2019, 03/23/2019 INFLUENZA VACCINE (Season 04/25/2020 05/13/2013 Ended) PAP SMEAR 03/23/2022 03/23/2019 DTaP,Tdap,and Td Vaccines (8 07/08/2023 07/08/2013, 009, - Td) 03/15/2001, Additional history exists PNEUMOCOCCAL 0-64 YEARS Aged Out No longe r eligible COMBINED SERIES based on patient 's age to complete this topic documented as of this encounter Procedures Procedure Name Priority Date/Time Associated Diagnosis Comme nts POCT URINALYSIS Routine 02/04/2020 9:24 Pelvic pressure in Re sults for this AM CDT female procedure are i n the results section. POCT TEST Routine 02/04/2020 8:21 Resu lts for this AM CDT examination or test, procedu re are in negative result the results section. documented in this encounter Results POCT URINALYSIS W SPECIFIC GRAVITY (02/04/2020 9:24 AM CDT) Pathologist Sig nature POCT U SP GRAV . 1.005 - 1.025 mg/dl POCT PH U 5 5 - 8 mg/dl POCT U LEUK EST Trace Negative - Negative POCT U NIT Neg Negative - Negative POCT U PROT Trace Negative - Negative POCT U GLU Neg Negative - Negative POCT U KETONE Small Negative - Negative POCT U UROBILI . 0.2 - 1 mg/dl POCT U BILI . Negative - Negative POCT U BLD Neg Negative - Negative POCT U COLOR POCT U APPEAR Specimen Urine - URINE, CLEAN CATCH POCT TEST (02/04/2020 8:21 AM CDT) Pathologist Sig nature POCT PREG Negative On board controls acceptable Yes with C Line POCT PREG LOT # POCT PREG TEST DATE Specimen Urine - URINE, CLEAN CATCH documented in this encounter Visit Diagnoses Diagnosis Encounter for contraceptive management, unspecified type - Primary Irregular menstrual cycle examination or test, negative result Pelvic pressure in female Other specified symptom associated with female genital organs documented in this encounter Insurance Payer Benefit Plan Subscriber ID Effective Phone Address Typ e / Group Dates [facility] xxxxxxxxx 2020-Prese [phone] Medicaid WOMEN nt [address] [place] [address] documented as of this encounter Advance Directives Name Relationship Healthcare Agent Relationship Co mmunication Amaris Black Mother Primary healthcare agent
--- OUTSIDE RECORDS SUMMARY | 2020-02-13 09:23 | XMS REPORT | Continuity of Care Document ---
:1995 Author Organization [facility] t Address [address] [place] [address] Care Team Providers Name Role Phone Ramon Santiago Attending Clinician Problems This patient has no known problems. Allergies, Adverse Reactions, Alerts This patient has no known allergies or adverse reactions. Medications This patient has no known medications. Procedures This patient has no known procedures. Encounters Start End Encounter Admission Attending Care Care Encounter Source Date/Time Date/Time Type Type Clinicians Facility Department ID 2020-02-04 2020-02-04 Office DEVON Lopez [id number] 08:06:19 08:53:19 Visit Melonie Navarro [facility] [id number] [facility] [id number] MATERNAL [id number] & CHILD [address] [place] [address] Results This patient has no known results.
--- OUTSIDE RECORDS SUMMARY | 2020-02-13 09:24 | XMS REPORT | Summary of Care ---
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 0 08/27/2013. Primary low transverse at 35wks 0d of [place]/di twin. disco rdance of 20%. Suspected anemia of twin B. Abdominal pain 09/30/2013 10/21/2013 Overview: ICD10 Diagnosis Term Porcelain Slusher Utility Monochorionic diamniotic twin gestation 07/26/2013 09/30/2013 Overview: B elevated S/D w/ intermittent AEDF (sta ble pre- TTTS) Group B Streptococcus carrier, antepartum 06/25/2013 09/30/2013 Antepartum anemia 05/13/2013 03/23/2019 Overview: Medical records received. Hgb- 7.0. 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 Employer: [employer] Financial resource strain: Not on file Food [...] file Gets together: Not on file Attends quaker service: Not on file Active member of [...] Asked Social History Narrative Pt states her quaker preference is Church No domestic violence or abuse Lives alone [...] Satellites Francisco J Lopez WHCNP [address] [place], [place] [address] [phone] Name Type Priority Associated Diagnoses Date/Ti me [...] Phone Address Typ e / Group Dates [facility] xxxxxxxxx 2020-Prese [phone] Medicaid WOMEN nt [address] [place] [address] documented as of this encounter Advance Directives Name Relationship Healthcare Agent Relationship Co mmunication Amaris Black Mother Primary healthcare agent
[2020-02-13 09:49] LABS: Urine Blood NEGATIVE (NEG); Urine Glucose NEGATIVE (NEG); Urine Protein NEGATIVE (NEG); Urine Specific Gravity 1.025 (1.005-1.030)
[2020-02-13] MEDS ORDERED: ONDANSETRON 4 MG/2 ML VIAL ONE (10:25)
[2020-02-13] MEDS ORDERED: MORPHINE 4 MG/ML SYR ONE (10:25)
[2020-02-13 10:28] LABS: Absolute Lymphocytes (CBC) 1.9 K/uL (0.7-4.9); Basophils % 0.5 % (0-1.3); Hematocrit 37.5 % (36.0-45.0); Lymphocytes % 31.8 % (15.3-44.8); MPV 8.9 fL (7.6-11.3); RBC Red Blood Cell Count 4.59 M/uL (3.86-4.86)
[2020-02-13 10:37] LABS: ALT/SGPT 22 U/L (12-78); AST/SGOT 15 U/L (15-37); Albumin 3.5 g/dL (3.4-5.0); Alkaline Phosphatase 87 U/L (45-117); BUN Blood Urea Nitrogen 5 mg/dL (7-18); Bicarbonate 27 mmol/L (21-32); Bilirubin Direct < 0.1 mg/dL (0-0.2); Bilirubin Total 0.2 mg/dL (0.2-1.0); Glucose Level 91 mg/dL (74-106); Lipase 55 U/L (73-393); Potassium 3.9 mmol/L (3.5-5.1); Protein, Total 7.2 g/dL (6.4-8.2); Sodium Level 140 mmol/L (136-145)
--- NOTE | 2020-02-13 10:56 | ER ---
Nurse's Notes [facility] Name: Troy Son Age: 25 yrs Sex: Female : 1995 Arrival Date: 02/13/2020 Time: 09:25 Bed 2 Private MD: Diagnosis: Abdominal migraine Presentation: 02/12 09:30 Chief complaint: Patient states: Intermittent, stabbing pain to suprapubic area and low ss back with N/V/D x 3 days. Pt also reports urinary frequency. Coronavirus screen: Proceed with normal triage. Patient denies a cough. Patient denies shortness of breath or difficulty breathing. Patient denies measured and/or subjective temperature greater than 100.4F prior to today's visit. Patient denies travel on a cruise ship or to a country the [facility] currently lists as an affected area. Patient denies contact with known and/or suspected case of COVID-19. Ebola Screen: Patient denies exposure to infectious person. Patient denies travel to an Ebola-affected area in the 21 days before illness onset. Initial Sepsis Screen: Does the patient meet any 2 criteria? No. Patient's initial sepsis screen is negative. Does the patient have a suspected source of infection? No. Patient's initial sepsis screen is negative. Risk Assessment: Do you want to hurt yourself or someone else? Patient reports no desire to harm self or others. Onset of symptoms was February 20, 2020. 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 - Social history:: Smoking status: Patient denies any tobacco usage or history of. Patient/guardian denies using alcohol, street drugs, The patient lives with family. - Family history:: not pertinent. Screenin:35 Abuse screen: Denies threats or abuse. Denies injuries from another. Nutritional sv screening: No deficits noted. Tuberculosis screening: No symptoms or risk factors identified. Fall Risk None identified. Assessment: 09:36 Reassessment: Pt ambulatory to the bathroom to obtain urine sample. sv 09:45 General: Appears in no apparent distress. uncomfortable, well developed, Behavior is sv calm, cooperative, appropriate for age. Pain: Complains of pain in low back area and suprapubic area Pain currently is 4 out of 10 on a pain scale. Pain began 2-3 days ago. Is continuous, Noted to be grimacing. Neuro: Level of Consciousness is awake, alert, obeys commands, Oriented to person, place, time, situation, Moves all extremities. Full function Gait is steady. Respiratory: Airway is patent Respiratory effort is even, unlabored, Respiratory pattern is regular, symmetrical. GI: Abdomen is flat, Reports diarrhea, nausea, vomiting. Derm: Skin is intact, Skin is pink, warm \T\ dry. Musculoskeletal: Range of motion: intact in all extremities. 09:45 : Reports urinary frequency. sv 11:08 Reassessment: Patient appears in no apparent distress at this time. Patient and/or sv family updated on plan of care and expected duration. Pain level reassessed. Patient is alert, oriented x 3, equal unlabored respirations, skin warm/dry/pink. Patient denies pain at this time. Patient states feeling better. Patient states symptoms have improved. Vital Signs: 09:30 BP 127 / 68; Pulse 84; Resp 14; Temp 97.9(TE); Pulse Ox 99% on R/A; Weight 89.81 kg; ss Height 5 ft. 4 in. (162.56 cm); Pain 4/10; 10:24 BP 106 / 76; Pulse 66; Resp 18; Pulse Ox 99% ; sv 11:08 Pain 3/10; sv 09:30 Body Mass Index 33.99 (89.81 kg, 162.56 cm) ED Course: 09:25 Patient arrived in ED. fj1 09:31 Triage completed. ss 09:32 Arm band placed on left wrist. ss 09:34 Tanvir Hager MD is Attending Physician. ma2 09:35 Isabel Azul RN is Primary Nurse. sv 09:35 Patient has correct armband on for positive identification. Bed in low position. Call sv light in reach. Door closed. Head of bed elevated. 09:46 Urine collected: clean catch specimen, clear. sv 09:51 ED physician to see patient. sv 10:10 Initial lab(s) drawn, by me, sent to lab. Inserted saline lock: 20 gauge in right ph antecubital area, using aseptic technique. Blood collected. 10:34 Awaiting lab results. sv 11:08 No provider procedures requiring assistance completed. IV discontinued, intact, sv bleeding controlled, No redness/swelling at site. Pressure dressing applied. Administered Medications: 10:18 Drug: Zofran (Ondansetron) 4 mg Route: IVP; Site: right antecubital; sv 11:08 Follow up: Response: No adverse reaction; Marked relief of symptoms; Nausea is decreasedsv 10:20 Drug: morphine 4 mg {Note: rass2.} Route: IVP; Site: right antecubital; sv 11:08 Follow up: Pain 3/10 Adult; Response: No adverse reaction; Marked relief of symptoms; sv Pain is decreased; RASS: Alert and Calm (0) Outcome: 10:55 Discharge ordered by MD. bernard 11:08 Patient left the ED. sv 11:08 Discharged to home ambulatory, with family. sv 11:08 Condition: stable 11:08 Condition: improved 11:08 Discharge instructions given to patient, Instructed on discharge instructions, follow up and referral plans. medication usage, Demonstrated understanding of instructions, follow-up care, medications, Prescriptions given X 2. Signatures: Isabel Azul RN RN sv Smirch, Shelby, RN RN Pia Palacios RN RN Tanvir Hager MD MD ma2 James, Frank fj1
--- NOTE | 2020-02-13 10:56 | EDPHYS ---
Physician Documentation [facility] Name: Troy Son Age: 25 yrs Sex: Female : 1995 Arrival Date: 02/13/2020 Time: 09:25 Bed 2 Private MD: ED Physician Tanvir Hager HPI: 02/12 10:53 This 25 yrs old Black Female presents to ER via Ambulatory with complaints of Pelvic ma2 Pain, Nausea/Vomiting/Diarrhea. 10:53 Onset: The symptoms/episode began/occurred suddenly, 1 hour(s) ago. Possible causes: ma2 unknown. Associated signs and symptoms: Pertinent negatives: belching, constipation, flatulence, GI bleeding. Severity of symptoms: At their worst the symptoms were moderate in the emergency department the symptoms are unchanged. The patient has experienced similar episodes in the past, several times, hs of IBS. 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 - Social history:: Smoking status: Patient denies any tobacco usage or history of. Patient/guardian denies using alcohol, street drugs, The patient lives with family. - Family history:: not pertinent. ROS: 10:53 Constitutional: Negative for fever, chills, and weight loss. ma2 10:53 All other systems are negative. Exam: 10:53 Constitutional: This is a well developed, well nourished patient who is awake, alert, ma2 and in no acute distress. Chest/axilla: Normal chest wall appearance and motion. Nontender with no deformity. No lesions are appreciated. Cardiovascular: Regular rate and rhythm with a normal S1 and S2. No gallops, murmurs, or rubs. Normal PMI, no JVD. No pulse deficits. Respiratory: Lungs have equal breath sounds bilaterally, clear to auscultation and percussion. No rales, rhonchi or wheezes noted. No increased work of breathing, no retractions or nasal flaring. Abdomen/GI: Soft, non-tender, with normal bowel sounds. No distension or tympany. No guarding or rebound. No evidence of tenderness throughout. MS/ Extremity: Pulses equal, no cyanosis. Neurovascular intact. Full, normal range of motion. Neuro: Awake and alert, GCS 15, oriented to person, place, time, and situation. Cranial nerves II-XII grossly intact. Motor strength 5/5 in all extremities. Sensory grossly intact. Cerebellar exam normal. Normal gait. Vital Signs: 09:30 BP 127 / 68; Pulse 84; Resp 14; Temp 97.9(TE); Pulse Ox 99% on R/A; Weight 89.81 kg; ss Height 5 ft. 4 in. (162.56 cm); Pain 4/10; 10:24 BP 106 / 76; Pulse 66; Resp 18; Pulse Ox 99% ; sv 11:08 Pain 3/10; sv 09:30 Body Mass Index 33.99 (89.81 kg, 162.56 cm) ss MDM: 09:35 Patient medically screened. ma2 10:53 Differential diagnosis: Nonspecific abd pain, gastritis, viral gastroenteritis, ma2 gastroenteritis. Data reviewed: vital signs, nurses notes. Counseling: I had a detailed discussion with the patient and/or guardian regarding: the historical points, exam findings, and any diagnostic results supporting the discharge/admit diagnosis, the presence of at least one elevated blood pressure reading (>120/80) during this emergency department visit, the need for outpatient follow up. Response to treatment: the patient's symptoms have resolved after treatment. 02/12 09:46 Order name: Urine Dipstick--Ancillary (enter results); Complete Time: 09:56 [facility] 02/12 09:46 Order name: Urine --Ancillary (enter results); Complete Time: 09:56 1 02/12 09:57 Order name: Basic Metabolic Panel; Complete Time: 10:44 ri2 02/12 09:57 Order name: CBC with Diff; Complete Time: 10:44 ri2 02/12 09:57 Order name: Hepatic Function; Complete Time: 10:44 ri2 02/12 09:57 Order name: Lipase; Complete Time: 10:44 ri2 02/12 09:57 Order name: IV Saline Lock; Complete Time: 10:16 [facility] 02/12 09:57 Order name: Labs collected and sent; Complete Time: 10:16 ri2 Administered Medications: 10:18 Drug: Zofran (Ondansetron) 4 mg Route: IVP; Site: right antecubital; sv 11:08 Follow up: Response: No adverse reaction; Marked relief of symptoms; Nausea is decreasedsv 10:20 Drug: morphine 4 mg {Note: rass2.} Route: IVP; Site: right antecubital; sv 11:08 Follow up: Pain 3/10 Adult; Response: No adverse reaction; Marked relief of symptoms; sv Pain is decreased; RASS: Alert and Calm (0) Disposition: 02/13/20 10:55 Discharged to Home. Impression: Abdominal migraine. - Condition is Stable. - Discharge Instructions: Abdominal Pain, Adult, [id number]. - Prescriptions for Bentyl 20 mg Oral Tablet - take 1 tablet by ORAL route every 6 hours As needed; 20 tablet. Diclofenac Sodium 75 mg Oral Tablet Sustained Release - take 1 tablet by ORAL route 2 times per day; 30 tablet. - Medication Reconciliation Form, Thank You Letter, Antibiotic Education, Prescription Opioid Use form. - Follow up: Private Physician; When: Tomorrow; Reason: If symptoms return, Continuance of care. Signatures: Dispatcher [employer] Isabel Orlando RN RN sv Smirch, Shelby, RN RN Tanvir Hager MD MD ma2 Corrections: (The following items were deleted from the chart) 11:08 10:55 02/13/2020 10:55 Discharged to Home. Impression: Abdominal migraine. Condition is sv Stable. Forms are Medication Reconciliation Form, Thank You Letter, Antibiotic Education, Prescription Opioid Use. Follow up: Private Physician; When: Tomorrow; Reason: If symptoms return, Continuance of care. ma2
[2020-02-13 11:21] VITALS: TEMP 97.9; O2SAT 99
[2020-02-13 11:22] VITALS: BP 106/76
== END 2020-02-13 11:08 | disposition home or self-care (01) ==
LOC: ER 09:21
DX: G43.D0 Abdominal migraine, not intractable (principal)
CPT/HCPCS: 85025; 80048; 36415; 81025; 80076; 81003; 83690; 96375; 96374; 99284; J2405

== ENCOUNTER 2020-03-15 10:25 | Emergency (ER) | payer SELFPAY, OTHER ==
[2020-03-15] MEDS ORDERED: NA CHLORIDE 0.9% 1,000 ML ONE (11:15)
[2020-03-15] MEDS ORDERED: ONDANSETRON 4 MG/2 ML VIAL ONE (11:15)
[2020-03-15 11:45] LABS: Absolute Lymphocytes (CBC) 2.1 K/uL (0.7-4.9); Basophils % 0.8 % (0-1.3); Hematocrit 39.2 % (36.0-45.0); Lymphocytes % 37.5 % (15.3-44.8); MPV 8.9 fL (7.6-11.3); RBC Red Blood Cell Count 4.82 M/uL (3.86-4.86)
--- OUTSIDE RECORDS SUMMARY | 2020-03-15 11:49 | XMS REPORT | Continuity of Care Document ---
:1995 Author Organization [facility] t Address [address] [place] [address] 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
[2020-03-15 11:58] LABS: BUN Blood Urea Nitrogen 9 mg/dL (7-18); Bicarbonate 26 mmol/L (21-32); Glucose Level 89 mg/dL (74-106); Potassium 4.3 mmol/L (3.5-5.1); Sodium Level 139 mmol/L (136-145)
--- NOTE | 2020-03-15 12:23 | ER ---
Nurse's Notes [facility] Name: Troy Son Age: 25 yrs Sex: Female : 1995 Arrival Date: 03/15/2020 Time: 10:28 Bed Hall19 Private MD: Diagnosis: Diarrhea, unspecified;Viral infection, unspecified Presentation: 03/15 10:47 Chief complaint: Patient states: cough, fever up to 102.0 F, body aches, chest pressure aa5 x 2-3 days ago. Pt also reports increased diarrhea, hx IBS. Reports vomiting today. 10:47 Coronavirus screen: Patient reports a cough. Patient denies shortness of breath or aa5 difficulty breathing. Patient reports a measured and/or subjective temperature greater than 100.4F. Patient denies travel on a cruise ship or to a country the [facility] currently lists as an affected area. Patient reports contact with known and/or suspected case of COVID-19. Patient instructed to continue to wear a mask when interacting with others. Patient moved to private room, placed in contact and droplet isolation with eye protection until further assessment. Ebola Screen: Patient negative for fever greater than or equal to 101.5 degrees Fahrenheit, and additional compatible Ebola Virus Disease symptoms. Initial Sepsis Screen: Does the patient meet any 2 criteria? No. Patient's initial sepsis screen is negative. Does the patient have a suspected source of infection? Yes:. Risk Assessment: Do you want to hurt yourself or someone else? Patient reports no desire to harm self or others. Onset of symptoms was February 2020. 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 - Social history:: Smoking status: Patient denies any tobacco usage or history of. Patient uses street drugs, marijuana. Screenin:48 Abuse screen: Denies threats or abuse. Denies injuries from another. Nutritional jr10 screening: No deficits noted. Tuberculosis screening: No symptoms or risk factors identified. Fall Risk None identified. Assessment: 11:33 Reassessment: pt reports contact with friend that have been confirmed positive covid. jr10 General: Appears in no apparent distress. Behavior is calm, cooperative, appropriate for age. Pain: Complains of pain in abdomen Quality of pain is described as crampy, Pain began 1 week ago Is intermittent, episodic. Neuro: No deficits noted. Cardiovascular: No deficits noted. Respiratory: No deficits noted. GI: Abdomen is non-distended, Bowel sounds present X 4 quads. Abd is soft and non tender X 4 quads. Reports cramping, diarrhea, indigestion, nausea, vomiting, reports hx of IBS. : No deficits noted. Derm: No deficits noted. Musculoskeletal: No deficits noted. Vital Signs: 10:47 BP 130 / 76; Pulse 72; Resp 16; Temp 98.7(O); Pulse Ox 100% on R/A; Weight 88.45 kg aa5 (R); Height 5 ft. 4 in. (162.56 cm) (R); Pain 5/10; 12:20 BP 129 / 82; Pulse 62; Resp 20; Pulse Ox 100% on R/A; jr10 13:03 BP 122 / 73; Pulse 69; Resp 20; Temp 99.0; Pulse Ox 100% on R/A; Pain 0/10; jr10 10:47 Body Mass Index 33.47 (88.45 kg, 162.56 cm) aa5 ED Course: 10:28 Patient arrived in ED. mr 10:47 Arm band placed on Patient placed in an exam room, on a stretcher. aa5 10:48 Heidi Cook RN is Primary Nurse. jr10 10:48 Ellyn Murphy FNP-C is PHCP. kb 10:48 oKjo Maki MD is Attending Physician. kb 10:52 Triage completed. aa5 11:33 Inserted saline lock: 20 gauge in left antecubital area, using aseptic technique. IV is jr10 patent, Flushed. 11:48 Patient has correct armband on for positive identification. Bed in low position. Call jr10 light in reach. Side rails up X2. Pulse ox on. NIBP on. 11:48 No provider procedures requiring assistance completed. jr10 13:11 IV discontinued, No redness/swelling at site. Pressure dressing applied. jr10 Administered Medications: 11:33 Drug: NS 0.9% 1000 ml Route: IV; Rate: 1000 ml; Site: left antecubital; jr10 12:45 Follow up: Response: No adverse reaction; IV Status: Completed infusion; IV Intake: jr10 1000ml 11:33 Drug: Zofran (Ondansetron) 4 mg Route: IVP; Site: left antecubital; jr10 12:10 Follow up: Response: No adverse reaction; Nausea is decreased jr10 Intake: 12:45 IV: 1000ml; Total: 1000ml. jr10 Outcome: 12:22 Discharge ordered by . aaron 13:11 Discharged to home ambulatory. jr10 13:11 Condition: good 13:11 Discharge instructions given to patient, Instructed on discharge instructions, follow up and referral plans. Demonstrated understanding of instructions, follow-up care, self quaratine Prescriptions given X 1. 13:12 Patient left the ED. jr10 Addendum: 03/19/2020 11:13 Addendum: COVID-19 Result: Negative result given to RN to notify pt. Attempted to d m5 contact pt regarding negative COVID-19 swab results. Unable to leave voice mail due to the number provided was either not a working number, the voice mail has not been set up, or the voice mailbox is full.. Signatures: Ellyn Murphy, HEADING PINNER-C HEADING PINNER-Maria R Alcantara, RN RN lima5 Shannon Cook Audri, RN RN aa5 Heidi Cook RN RN jr10
--- NOTE | 2020-03-15 12:23 | EDPHYS ---
Physician Documentation [facility] Name: Troy Son Age: 25 yrs Sex: Female : 1995 Arrival Date: 03/15/2020 Time: 10:28 Bed Hall19 Private MD: ED Physician Kojo Maki HPI: 03/15 12:20 This 25 yrs old Black Female presents to ER via Ambulatory with complaints of Diarrhea. kb 12:20 The patient presents to the emergency department with nausea, vomiting, diarrhea. kb Onset: The symptoms/episode began/occurred 3 day(s) ago. Possible causes: unknown. The symptoms are aggravated by nothing. The symptoms are alleviated by nothing. Associated signs and symptoms: Pertinent positives: diarrhea, nausea, vomiting. Severity of symptoms: At their worst the symptoms were moderate in the emergency department the symptoms are unchanged. The patient has not experienced similar symptoms in the past. The patient has not recently seen a physician. Pt reports n/v/d, body aches, chills, fever for 3 days. contact with covid + individuals. 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 - Social history:: Smoking status: Patient denies any tobacco usage or history of. Patient uses street drugs, marijuana. ROS: 12:19 Neck: Negative for injury, pain, and swelling, Cardiovascular: Negative for chest pain, kb palpitations, and edema, Respiratory: Negative for shortness of breath, cough, wheezing, and pleuritic chest pain, Back: Negative for injury and pain, MS/Extremity: Negative for injury and deformity, Skin: Negative for injury, rash, and discoloration, Neuro: Negative for headache, weakness, numbness, tingling, and seizure. 12:19 Constitutional: Positive for body aches, chills, fatigue, fever, malaise. 12:19 Abdomen/GI: Positive for nausea, vomiting, and diarrhea. Exam: 12:20 Constitutional: This is a well developed, well nourished patient who is awake, alert, kb and in no acute distress. Head/Face: Normocephalic, atraumatic. Chest/axilla: Normal chest wall appearance and motion. Nontender with no deformity. No lesions are appreciated. Cardiovascular: Regular rate and rhythm with a normal S1 and S2. No gallops, murmurs, or rubs. Normal PMI, no JVD. No pulse deficits. Respiratory: Lungs have equal breath sounds bilaterally, clear to auscultation and percussion. No rales, rhonchi or wheezes noted. No increased work of breathing, no retractions or nasal flaring. Abdomen/GI: Soft, non-tender, with normal bowel sounds. No distension or tympany. No guarding or rebound. No evidence of tenderness throughout. Back: No spinal tenderness. No costovertebral tenderness. Full range of motion. Skin: Warm, dry with normal turgor. Normal color with no rashes, no lesions, and no evidence of cellulitis. MS/ Extremity: Pulses equal, no cyanosis. Neurovascular intact. Full, normal range of motion. Neuro: Awake and alert, GCS 15, oriented to person, place, time, and situation. Cranial nerves II-XII grossly intact. Motor strength 5/5 in all extremities. Sensory grossly intact. Cerebellar exam normal. Normal gait. Vital Signs: 10:47 BP 130 / 76; Pulse 72; Resp 16; Temp 98.7(O); Pulse Ox 100% on R/A; Weight 88.45 kg aa5 (R); Height 5 ft. 4 in. (162.56 cm) (R); Pain 5/10; 12:20 BP 129 / 82; Pulse 62; Resp 20; Pulse Ox 100% on R/A; jr10 13:03 BP 122 / 73; Pulse 69; Resp 20; Temp 99.0; Pulse Ox 100% on R/A; Pain 0/10; jr10 10:47 Body Mass Index 33.47 (88.45 kg, 162.56 cm) aa5 MDM: 10:49 Patient medically screened. kb 12:18 Data reviewed: vital signs, nurses notes. Data interpreted: Pulse oximetry: on room air kb is 100 %. Interpretation: normal. Counseling: I had a detailed discussion with the patient and/or guardian regarding: the historical points, exam findings, and any diagnostic results supporting the discharge/admit diagnosis, lab results, the need for outpatient follow up, a family practitioner, to return to the emergency department if symptoms worsen or persist or if there are any questions or concerns that arise at home. 03/15 11:01 Order name: Basic Metabolic Panel; Complete Time: 12:00 kb 03/15 11:01 Order name: CBC with Diff; Complete Time: 11:49 kb 03/15 11:01 Order name: IV Saline Lock; Complete Time: 11:48 kb 03/15 11:01 Order name: COVID-19 kb 03/15 11:01 Order name: Labs collected and sent; Complete Time: 11:48 kb Administered Medications: 11:33 Drug: NS 0.9% 1000 ml Route: IV; Rate: 1000 ml; Site: left antecubital; jr10 12:45 Follow up: Response: No adverse reaction; IV Status: Completed infusion; IV Intake: jr10 1000ml 11:33 Drug: Zofran (Ondansetron) 4 mg Route: IVP; Site: left antecubital; jr10 12:10 Follow up: Response: No adverse reaction; Nausea is decreased jr10 Disposition: 17:36 Co-signature as Attending Physician, Kojo Maki MD. rn Disposition: 03/15/20 12:22 Discharged to Home. Impression: Diarrhea, unspecified, Viral infection, unspecified. - Condition is Stable. - Discharge Instructions: Viral Gastroenteritis, Adult, [id number], COVID-19. - Prescriptions for Zofran 4 mg Oral Tablet - take 1 tablet by ORAL route every 6 hours As needed; 20 tablet. - Medication Reconciliation Form, Thank You Letter, Antibiotic Education, Prescription Opioid Use form. - Follow up: Emergency Department; When: As needed; Reason: Worsening of condition. Follow up: Private Physician; When: 2 - 3 days; Reason: Recheck today's complaints, Continuance of care, Re-evaluation by your physician. Signatures: Dispatcher [employer] Ellyn Mckinney, SHIP SCRAPER-C SHIP SCRAPER-Kojo Paige MD MD rn Calderon, Audri, RN RN aa5 Heidi Cook RN RN jr10 Corrections: (The following items were deleted from the chart) 13:12 12:22 03/15/2020 12:22 Discharged to Home. Impression: Diarrhea, unspecified; Viral jr10 infection, unspecified. Condition is Stable. Forms are Medication Reconciliation Form, Thank You Letter, Antibiotic Education, Prescription Opioid Use. Follow up: Emergency Department; When: As needed; Reason: Worsening of condition. Follow up: Private Physician; When: 2 - 3 days; Reason: Recheck today's complaints, Continuance of care, Re-evaluation by your physician. kb
[2020-03-15 21:08] VITALS: O2SAT 100
[2020-03-15 21:11] VITALS: BP 122/73; TEMP 99
== END 2020-03-15 13:12 | disposition home or self-care (01) ==
LOC: ER 10:25
DX: B34.9 Viral infection, unspecified (principal); Z20.828 Contact with and (suspected) exposure to other viral communicable diseases
CPT/HCPCS: 36415; 80048; 85025; 96361; 96374; 99284; J2405; J7030

== ENCOUNTER 2021-01-07 23:03 | Emergency (ER) | payer SELFPAY ==
--- OUTSIDE RECORDS SUMMARY | 2021-01-07 23:07 | XMS REPORT | Continuity of Care Document ---
:1995 Author Organization [facility] t Address [address] [place] [address] Care Team Providers Name Role Phone Scott Rubio DO Attending Clinician Ramon Santiago Attending Clinician Problems This patient has no known problems. Allergies, Adverse Reactions, Alerts This patient has no known allergies or adverse reactions. Medications This patient has no known medications. Procedures This patient has no known procedures. 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 [id number] MATERNAL [id number] & CHILD [address] [place] [address] Results This patient has no known results.
--- NOTE | 2021-01-07 23:54 | ER ---
Nurse's Notes [facility] Name: Troy Son Age: 26 yrs Sex: Female : 1995 Arrival Date: 01/07/2021 Time: 23:05 Bed Waiting Private MD: Diagnosis: Assessment: 01/07 23:53 Reassessment: registration staff reports pt left. ED Course: 23:05 Patient arrived in ED. am4 Administered Medications: No medications were administered Outcome: 23:54 Patient left the ED. iw Signatures: Beronica Santana RN RN iw Simona Augustine am4
== END 2021-01-07 23:54 | disposition left against medical advice (07) ==
LOC: ER 23:03
DX: Z02.9 Encounter for administrative examinations, unspecified (principal)

== ENCOUNTER 2021-02-10 09:01 | Emergency (ER) | payer OTHER, SELFPAY ==
--- OUTSIDE RECORDS SUMMARY | 2021-02-10 09:03 | XMS REPORT | Continuity of Care Document ---
:1995 Author Organization [facility] t Address [address] [place] [address] Care Team Providers Name Role Phone Scott [...] ID 2020-11-14 2020-11-14 Patient DEVON Rubio [id number] 00:00:00 00:00:[address] 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
[2021-02-10] MEDS ORDERED: IBUPROFEN 200 MG TAB PO ONE (09:44)
[2021-02-10] MEDS ORDERED: NA CHLORIDE 0.9% 1,000 ML ONE (09:44)
[2021-02-10] MEDS ORDERED: ONDANSETRON 4 MG/2 ML VIAL ONE (09:48)
[2021-02-10 10:03] LABS: Absolute Lymphocytes (CBC) 1.9 K/uL (0.7-4.9); Basophils % 2.6 % (0-1.3); Hematocrit 38.5 % (36.0-45.0); Lymphocytes % 35.8 % (15.3-44.8); MPV 9.1 fL (7.6-11.3); RBC Red Blood Cell Count 4.73 M/uL (3.86-4.86)
[2021-02-10 10:21] LABS: ALT/SGPT 31 U/L (12-78); AST/SGOT 21 U/L (15-37); Albumin 3.8 g/dL (3.4-5.0); Alkaline Phosphatase 107 U/L (45-117); BUN Blood Urea Nitrogen 8 mg/dL (7-18); Bicarbonate 28 mmol/L (21-32); Bilirubin Total 0.3 mg/dL (0.2-1.0); Glucose Level 78 mg/dL (74-106); Magnesium 1.9 mg/dL (1.8-2.4); Potassium 3.3 mmol/L (3.5-5.1); Protein, Total 7.9 g/dL (6.4-8.2); Sodium Level 143 mmol/L (136-145)
--- NOTE | 2021-02-10 10:54 | EDPHYS ---
Physician Documentation [facility] Name: Troy Son Age: 26 yrs Sex: Female : 1995 Arrival Date: 02/10/2021 Time: 09:05 Bed 13 Private MD: ED Physician Tanvir Hager HPI: 02/10 10:12 This 26 yrs old Black Female presents to ER via Ambulatory with complaints of headache. ma2 10:12 Current symptoms: Currently, the patient is not experiencing any symptoms. The patient ma2 has experienced a previous episode. she was drinking alcohol heavily last night and here with headache and nausea, no loc or seizure . Historical: - Allergies: 09:15 No Known Allergies; hb - Home Meds: 09:15 None [Active]; hb - PMHx: 09:15 ibs; hb - PSHx: 09:15 None; hb - Immunization history:: Adult Immunizations up to date. - Social history:: Smoking status: Patient denies any tobacco usage or history of. Patient/guardian denies using alcohol, street drugs, The patient lives with family. - Family history:: not pertinent. ROS: 10:12 Constitutional: Negative for fever, chills, and weight loss. ma2 10:12 All other systems are negative. Exam: 10:12 Constitutional: This is a well developed, well nourished patient who is awake, alert, ma2 and in no acute distress. Chest/axilla: Normal chest wall appearance and motion. Nontender with no deformity. No lesions are appreciated. Cardiovascular: Regular rate and rhythm with a normal S1 and S2. No gallops, murmurs, or rubs. Normal PMI, no JVD. No pulse deficits. Respiratory: Lungs have equal breath sounds bilaterally, clear to auscultation and percussion. No rales, rhonchi or wheezes noted. No increased work of breathing, no retractions or nasal flaring. Abdomen/GI: Soft, non-tender, with normal bowel sounds. No distension or tympany. No guarding or rebound. No evidence of tenderness throughout. Skin: Warm, dry with normal turgor. Normal color with no rashes, no lesions, and no evidence of cellulitis. MS/ Extremity: Pulses equal, no cyanosis. Neurovascular intact. Full, normal range of motion. Neuro: Awake and alert, GCS 15, oriented to person, place, time, and situation. Cranial nerves II-XII grossly intact. Motor strength 5/5 in all extremities. Sensory grossly intact. Cerebellar exam normal. Normal gait. Vital Signs: 09:12 BP 133 / 98; Pulse 71; Resp 16; Temp 97.8; Pulse Ox 100% on R/A; Weight 95.25 kg; hb Height 5 ft. 5 in. (165.10 cm); Pain 10; 09:56 BP 128 / 85; Pulse 60; Resp 14; Pulse Ox 100% on R/A; vg1 11:45 BP 126 / 83; Pulse 62; Resp 16; Pulse Ox 100% on R/A; vg1 09:12 Body Mass Index 34.95 (95.25 kg, 165.10 cm) hb MDM: 09:08 Patient medically screened. [facility] 10:12 Differential diagnosis: headache, migrain, tension headache, alcohol use . [facility] 10:53 Data reviewed: vital signs, nurses notes. Counseling: I had a detailed discussion with [facility] the patient and/or guardian regarding: the historical points, exam findings, and any diagnostic results supporting the discharge/admit diagnosis, the presence of at least one elevated blood pressure reading (>120/80) during this emergency department visit, the need for outpatient follow up. Response to treatment: the patient's symptoms have markedly improved after treatment. 02/10 09:16 Order name: CBC with Diff; Complete Time: 10:34 [facility] 02/10 09:16 Order name: CMP; Complete Time: 10:34 [facility] 02/10 09:16 Order name: Magnesium; Complete Time: 10:34 [facility] Administered Medications: 09:43 Drug: Zofran (Ondansetron) 4 mg Route: IVP; Site: right antecubital; hb 11:46 Follow up: Response: No adverse reaction vg1 09:44 Drug: NS 0.9% 1000 ml Route: IV; Rate: 1 bolus; Site: right antecubital; hb 11:46 Follow up: IV Status: Completed infusion; IV Intake: 1000ml 1 09:44 Drug: Motrin (ibuprofen) 800 mg Route: PO; hb 11:46 Follow up: Response: Pain is decreased 1 Disposition: 02/10/21 10:53 Discharged to Home. Impression: Headache. - Condition is Stable. - Discharge Instructions: General Headache Without Cause, Migraine Headache, [id number]. - Prescriptions for Reglan 10 mg Oral Tablet - take 1 tablet by ORAL route every 6 hours . take 30 minutes before meals and at bedtime; 100 tablet. Diclofenac Sodium 75 mg Oral Tablet Sustained Release - take 1 tablet by ORAL route 2 times per day; 30 tablet. - Medication Reconciliation Form, Thank You Letter, Antibiotic Education, Prescription Opioid Use form. - Follow up: Private Physician; When: Tomorrow; Reason: Continuance of care. Signatures: Dispatcher [employer] EDMS Monique Ibrahim RN RN Tanvir Hager MD MD ma2 Za Rizo RN RN vg1 Corrections: (The following items were deleted from the chart) 11:46 10:53 02/10/2021 10:53 Discharged to Home. Impression: Headache. Condition is Stable. vg1 Discharge Instructions: Migraine Headache, [id number]. Prescriptions for Reglan 10 mg Oral Tablet - take 1 tablet by ORAL route every 6 hours . take 30 minutes before meals and at bedtime; 100 tablet, Diclofenac Sodium 75 mg Oral Tablet Sustained Release - take 1 tablet by ORAL route 2 times per day; 30 tablet. and Forms are Medication Reconciliation Form, Thank You Letter, Antibiotic Education, Prescription Opioid Use. Follow up: Private Physician; When: Tomorrow; Reason: Continuance of care. ma2
--- NOTE | 2021-02-10 10:54 | ER ---
Nurse's Notes [facility] Name: Troy Son Age: 26 yrs Sex: Female : 1995 Arrival Date: 02/10/2021 Time: 09:05 Bed 13 Private MD: Diagnosis: Headache Presentation: 02/10 09:12 Chief complaint: "I drank last night and I think I had a seizure because today my head hb and stomach hurt and that is usually what happens when I have a seizure. My sister is a nurse and she thinks it is seizures." Pt has not been diagnosed with seizures. Coronavirus screen: At this time, the client does not indicate any symptoms associated with coronavirus-19. Ebola Screen: No symptoms or risks identified at this time. Initial Sepsis Screen: Does the patient meet any 2 criteria? No. Patient's initial sepsis screen is negative. Does the patient have a suspected source of infection? No. Patient's initial sepsis screen is negative. Risk Assessment: Do you want to hurt yourself or someone else? Patient reports no desire to harm self or others. Onset of symptoms was February 10, 2021. 09:12 Method Of Arrival: Ambulatory hb 09:12 Acuity: CARMEN 3 hb Triage Assessment: 09:16 General: Appears in no apparent distress. Behavior is calm, cooperative. Pain: Pain hb currently is 10 out of 10 on a pain scale. EENT: No signs and/or symptoms were reported regarding the EENT system. Neuro: Level of Consciousness is awake, alert, obeys commands, Oriented to person, place, time, situation, Reports headache. Cardiovascular: Patient's skin is warm and dry. Respiratory: Respiratory effort is even, unlabored, Respiratory pattern is regular, symmetrical. GI: Reports lower abdominal pain, upper abdominal pain, nausea. : No signs and/or symptoms were reported regarding the genitourinary system. Derm: Skin is pink, warm \\T\\ dry. Musculoskeletal: No signs and/or symptoms reported regarding the musculoskeletal system. Historical: - Allergies: 09:15 No Known Allergies; hb - Home Meds: 09:15 None [Active]; hb - PMHx: 09:15 ibs; hb - PSHx: 09:15 None; hb - Immunization history:: Adult Immunizations up to date. - Social history:: Smoking status: Patient denies any tobacco usage or history of. Patient/guardian denies using alcohol, street drugs, The patient lives with family. - Family history:: not pertinent. Screenin:16 Abuse screen: Denies threats or abuse. Denies injuries from another. Nutritional hb screening: No deficits noted. Tuberculosis screening: No symptoms or risk factors identified. Fall Risk None identified. Assessment: 09:17 General: see triage assessment. hb 09:55 Reassessment: Patient appears in no apparent distress at this time. Patient and/or vg1 family updated on plan of care and expected duration. Pain level reassessed. Patient is alert, oriented x 3, equal unlabored respirations, skin warm/dry/pink. Pt states headache, rates pain 6/10. 11:44 Reassessment: Patient appears in no apparent distress at this time. Patient and/or vg1 family updated on plan of care and expected duration. Pain level reassessed. Patient is alert, oriented x 3, equal unlabored respirations, skin warm/dry/pink. Vital Signs: 09:12 BP 133 / 98; Pulse 71; Resp 16; Temp 97.8; Pulse Ox 100% on R/A; Weight 95.25 kg; hb Height 5 ft. 5 in. (165.10 cm); Pain 10/10; 09:56 BP 128 / 85; Pulse 60; Resp 14; Pulse Ox 100% on R/A; vg1 11:45 BP 126 / 83; Pulse 62; Resp 16; Pulse Ox 100% on R/A; vg1 09:12 Body Mass Index 34.95 (95.25 kg, 165.10 cm) ED Course: 09:05 Patient arrived in ED. mr 09:08 Tanvir Hager MD is Attending Physician. ma2 09:12 Monique Ibrahim, ALTON is Primary Nurse. hb 09:14 Triage completed. hb 09:15 Arm band placed on. hb 09:17 Patient has correct armband on for positive identification. Bed in low position. Call 5 light in reach. Side rails up X2. Seizure precautions initiated. Verbal reassurance given. Pulse ox on. NIBP on. 09:42 Magnesium Sent. mh5 09:43 CMP Sent. 5 09:43 CBC with Diff Sent. mh5 09:43 Initial lab(s) drawn, by wv, sent to lab. Inserted saline lock: 22 gauge in right mh5 antecubital area, using aseptic technique. Blood collected. 09:52 Primary Nurse role handed off by Monique Ibrahim RN vg1 09:52 Za Rizo, ALTON is Primary Nurse. vg1 11:45 No provider procedures requiring assistance completed. IV discontinued, intact, vg1 bleeding controlled, No redness/swelling at site. Pressure dressing applied. Administered Medications: 09:43 Drug: Zofran (Ondansetron) 4 mg Route: IVP; Site: right antecubital; hb 11:46 Follow up: Response: No adverse reaction vg1 09:44 Drug: NS 0.9% 1000 ml Route: IV; Rate: 1 bolus; Site: right antecubital; hb 11:46 Follow up: IV Status: Completed infusion; IV Intake: 1000ml vg1 09:44 Drug: Motrin (ibuprofen) 800 mg Route: PO; hb 11:46 Follow up: Response: Pain is decreased vg1 Intake: 11:46 IV: 1000ml; Total: 1000ml. vg1 Outcome: 10:53 Discharge ordered by . ma2 11:45 Discharged to home ambulatory. vg1 11:45 Condition: stable 11:45 Discharge instructions given to patient, Instructed on discharge instructions, follow up and referral plans. medication usage, Demonstrated understanding of instructions, follow-up care, medications, Prescriptions given X 2. 11:46 Patient left the ED. vg1 Signatures: JoeyShannon Monique Ibrahim, RN Sachi Rivera [facility] Tanvir Hager MD MD ma2 Garcia, Victoria, ALTON RN vg1
[2021-02-10 11:52] VITALS: TEMP 97.8; O2SAT 100
[2021-02-10 11:55] VITALS: BP 126/83
== END 2021-02-10 11:46 | disposition home or self-care (01) ==
LOC: ER 09:01
DX: R51.9 Headache, unspecified (principal)
CPT/HCPCS: 85025; 36415; 83735; 80053; J7030; J2405; 96361; 96374; 99284

== ENCOUNTER 2021-03-11 20:22 | Emergency (ER) | payer OTHER ==
--- OUTSIDE RECORDS SUMMARY | 2021-03-11 20:25 | XMS REPORT | Continuity of Care Document ---
:1995 Author Organization [facility] t Address [address] [place] [address] Care Team Providers Name Role Phone Scott [...] ID 2020-11-14 2020-11-14 Patient DEVON Rubio [id number] 00:00:00 00:00:00 Outreach [facility] [id number] Scott [facility] [id number] PAVILLION [id number] 2020-06-27 2020-06-27 Office DEVON Lopez [id number] 15:14:20 15:49:12 Visit Melonie Navarro FIELD AGENT [id number] [facility] [id number] MATERNAL [phone] & CHILD [address] [place] [address] Results This patient has no known results.
== END 2021-03-11 22:29 | disposition left against medical advice (07) ==
LOC: ER 20:22
DX: Z02.9 Encounter for administrative examinations, unspecified (principal)

== ENCOUNTER 2022-04-29 12:24 | Emergency (ER) | payer SELFPAY ==
--- OUTSIDE RECORDS SUMMARY | 2022-04-29 12:28 | XMS REPORT | Continuity of Care Document ---
:1995 Author Organization [facility] t Address [address] [place] [address] [address] [place] [address] Care Team Providers Name Role Phone MELONIE REMY Primary Care Physician Unavailable MELONIE REMY Attending Clinician Unavailable Doctor Unassigned, [place]ulander Attending Clinician Unavailable Evi CARPENTER Attending Clinician Unavailable Evi Francisco Attending Clinician John Melonie NORWOOD Attending Clinician [phone] [facility] Attending Clinician Unavailable Hattie Lopez Attending Clinician HATTIE RODRIGUEZ Attending Clinician Unavailable Amor Rubio DO Attending Clinician Evi CARPENTER Admitting Clinician Unavailable Payers Payer Name Policy Type Policy Number Effective Date Expiration Date Shaina BRIAN [place] [id number] 2021 [employer]OYEE-[employer] 00:00:00 Problems Condition Condition Condition Status Onset Resolution Last Treating Co mments Source Name Details Category Date Date Treatment Clinician Date Other Other Disease Active Univers depression depression 7-30 it y of 00:00: [place] 00 Medical Branch Need for Need for Disease Active Unive rs HPV HPV 7-30 ity of vaccinatio vaccin[place] [facility] Class 1 Class 1 Disease Active Univers obesity obesity 7-30 [place] of with body [place] mass [place] 00 [place] dical (BMI) of (BMI) of Branch 34.0 to 34.0 to 34.9 in 34.9 in adult, adult, unspecifie unspecifie d obesity d obesity type, type, unspecifie unspecifie d whether d whether serious serious comorbidit comorbidit y present y present Allergies, Adverse Reactions, Alerts Allergy Allergy Status Severity Reaction(s) Onset Inactive Treating Comm ents Source Name Type Date Date Clinician Latex Propensi Active Swelling Univer s ty to 03-12 ity of adverse 00:00: [place] reaction Medical s Branch LATEX DRUG Active Hives Univers INGREDI 03-12 ity of 00:00: [place] 00 Medical [place] Social History Social Habit Start Date Stop Date Quantity Comments Source History SDOH University o f Alcohol Frequency [place] [facility] History SDOH University o f Alcohol Std [place] [facility] Drinks Branch History [facility] University o f Alcohol Binge [place] [facility] Exposure to 2021-12-13 2021-12-23 Not sure [facility] SARS-CoV-2 00:00:00 19:40:00 [facility] (event) [place] Alcohol intake 2021-06-07 2021-06-07 Ex-drinker University of 00:00:00 00:00:00 (finding) [facility] Alcohol Comment 2019-03-23 2019-03-23 social events Univer sity of 00:00:00 00:00:00 [facility] Tobacco use and 2013-03-12 2013-03-12 Smokeless tobacco Un iversity of exposure 00:00:00 00:00:00 non-user [facility] Sex Assigned At [birth year] Universit y of 00:00:00 00:00:00 [facility] Smoking Status Start Date Stop Date Source Never smoked tobacco [facility] Medications Ordered Filled Start Stop Current Ordering Indication Dosage Frequency Signature Comments Components Source Medication Medication Date Date Medication? Clinician (SIG) Name Name methylpredn No 125mg 125 mg, U nivers isolone sod 12-24 Slow IV ity of succ 05:00: 04:08 Valerie Martinez (SOLU-MEDRO 00 :00 ONCE, 1 Medic al L) dose, On Branch injection 12/24/21 125 mg at 0000, SHIRA ketorolac 2021- No 15mg 15 mg, Unive rs (TORADOL) 12-24 Slow IV ity of injection 03:15: 02:44 Push, [place] 15 mg 00 :00 ONCE, 1 Medical dose, On Branch 12/23/21 at 2215, SHIRA
Fa culty member approving Restricted medication : Evi CARPENTER famotidine 2021- No 20mg 20 mg, Univ ers (PEPCID 12-24 Slow IV ity of (PF)) 02:15: 01:28 [place], [place] injection 00 :00 ONCE, 1 Medical 20 mg dose, On Branch 12/23/21 at 2115, SHIRA maalox:diph No 15mL 15 mL, Uni vers enhydrAMINE 12-24 Oral ity of :lidocaine 02:15: 01:28 [place] 2 % viscous 00 :00 Swallow), Med ical 1:1:1 ONCE, 1 Branch (FIRST-MOUT dose, On HWASH BLM) 12/23/21 oral at 2115, suspension Routine 15 mL methylPREDN Yes [id number] Take by [facility] ISolone 12-23 mouth ity of (MEDROL, 00:00: SEE-INSTRU Dyllan as NITA,) 4 mg 00 CTIONS. Medica l tablets follow Branch package directions methylPREDN Yes [id number] Take by [facility] ISolone 12-23 mouth ity of (MEDROL, 00:00: SEE-INSTRU Dyllan as NITA,) 4 mg 00 CTIONS. Medica l tablets follow Branch package directions norgestimat 2020-08 Yes [id number] 1{tbl} Take 1 Univers e-ethinyl 0-14 tablet by ity o f estradioL 00:00: mouth [place] (TRI-LO-SPR 00 daily. Medica l INTEC) Branch 0.18/0.215/ 0.25 mg-25 mcg tablet norgestimat 2020-08 Yes [id number] 1{tbl} Take 1 Univers e-ethinyl 0-14 tablet by ity o f estradioL 00:00: mouth [place] (TRI-LO-SPR 00 daily. Medica l INTEC) Branch 0.18/0.215/ 0.25 mg-25 mcg tablet norgestimat 2020-08 Yes [id number] 1{tbl} Take 1 Univers e-ethinyl 0-14 tablet by ity o f estradioL 00:00: mouth [place] (TRI-LO-SPR 00 daily. Medica l INTEC) Branch 0.18/0.215/ 0.25 mg-25 mcg tablet norgestimat 2020-08 Yes [id number] 1{tbl} Take 1 Univers e-ethinyl 0-14 tablet by ity o f estradioL 00:00: mouth [place] (TRI-LO-SPR 00 daily. Medica l INTEC) Branch 0.18/0.215/ 0.25 mg-25 mcg tablet No known No Univers medications 05-21 ity of 14:53: [address] No known No Univers medications 05-21 ity of 14:53: [address] Immunizations Ordered Immunization Filled Date Status Comments Sour ce Name Immunization Name [facility] 2021-05-21 Completed University of 00:00:00 [facility] HPV9 2021-05-21 Completed University of 00:00:00 [facility] HPV9 2021-05-21 Completed University of 00:00:00 [facility] HPV9 2021-05-21 Completed University of 00:00:00 [facility] HPV9 2021-05-21 Completed University of 00:00: [facility] HPV9 2021-05-21 Completed University of 00:00:00 [facility] HPV9 2020-03-23 Completed University of 00:00:00 [facility] HPV9 2020-03-23 Completed University of 00:00:00 [facility] HPV9 2020-03-23 Completed University of 00:00:00 [facility] HPV9 2020-03-23 Completed University of 00:00:00 [facility] HPV9 2020-03-23 Completed University of 00:00:00 [facility] HPV9 2020-03-23 Completed University of 00:00:00 [facility] HPV9 2019-03-23 Completed University of 00:00:00 [facility] HPV9 2019-03-23 Completed University of 00:00:00 [facility] HPV9 2019-03-23 Completed University of 00:00:00 [facility] HPV9 2019-03-23 Completed University of 00:00:00 [facility] HPV9 2019-03-23 Completed University of 00:00:00 [facility] HPV9 2019-03-23 Completed University of 00:00:00 [facility] Meningococcal 2015-04-14 Completed University of Oligosaccharide 00:00:00 [place] Med ical (groups A, C, Y and Branc h W-135) conjugate vaccine (MCV4O) Meningococcal 2015-04-14 Completed University of Oligosaccharide 00:00:00 [place] Med ical (groups A, C, Y and Branc h W-135) conjugate vaccine (MCV4O) Meningococcal 2015-04-14 Completed University of Oligosaccharide 00:00:00 [place] Med ical (groups A, C, Y and Branc h W-135) conjugate vaccine (MCV4O) Meningococcal 2015-04-14 Completed University of Oligosaccharide 00:00:00 [place] [facility] ical (groups A, C, Y and Branc h W-135) conjugate vaccine (MCV4O) Meningococcal 2015-04-14 Completed University of Oligosaccharide 00:00:00 [place] [facility] ical (groups A, C, Y and Branc h W-135) conjugate vaccine (MCV4O) Meningococcal 2015-04-14 Completed University of Oligosaccharide 00:00:00 [place] Med ical (groups A, C, Y and Branc h W-135) conjugate vaccine (MCV4O) Varicella 2013-10-21 Completed University of (varivax)(chicken pox) 00:00:00 [facility] Varicella 2013-10-21 Completed University of (varivax)(chicken pox) 00:00:00 [facility] Varicella 2013-10-21 Completed University of (varivax)(chicken pox) 00:00:00 [facility] Varicella 2013-10-21 Completed University of (varivax)(chicken pox) 00:00:00 [facility] Varicella 2013-10-21 Completed University of (varivax)(chicken pox) 00:00:00 [facility] Varicella 2013-10-21 Completed University of (varivax)(chicken pox) 00:00:00 [facility] TDAP 2013-07-08 Completed University of 00:00:00 [facility] TDAP 2013-07-08 Completed University of 00:00:00 [facility] Branch TDAP 2013-07-08 Completed University of 00:00:00 [facility] TDAP 2013-07-08 Completed University of 00:00:00 [facility] TDAP 2013-07-08 Completed University of 00:00:00 [facility] TDAP 2013-07-08 Completed University of 00:00:00 [facility] Influenza Virus 2013-05-13 Completed Universit y of Vaccine 00:00:00 [facility] Influenza Virus 2013-05-13 Completed Universit y of Vaccine 00:00:00 [facility] Influenza Virus 2013-05-13 Completed Universit y of Vaccine 00:00:00 [facility] Influenza Virus 2013-05-13 Completed Universit y of Vaccine 00:00:00 [facility] Influenza Virus 2013-05-13 Completed Universit y of Vaccine 00:00:00 [facility] Influenza Virus 2013-05-13 Completed Universit y of Vaccine 00:00:00 [facility] Meningococcal Vaccine 2008-12-22 Completed Uni versity of 00:00:00 [facility] TDAP 2008-12-22 Completed University of 00:00:00 [facility] Meningococcal Vaccine 2008-12-22 Completed Uni versity of 00:00:00 [facility] Branch TDAP 2008-12-22 Completed University of 00:00:00 [facility] Meningococcal Vaccine 2008-12-22 Completed Uni versity of 00:00:00 [facility] TDAP 2008-12-22 Completed University of 00:00:00 [facility] Meningococcal Vaccine 2008-12-22 Completed Uni versity of 00:00:00 [facility] Branch TDAP 2008-12-22 Completed University of 00:00:00 [facility] Branch Meningococcal Vaccine 2008-12-22 Completed Uni versity of 00:00:00 [facility] TDAP 2008-12-22 Completed University of 00:00:00 [facility] Branch Meningococcal Vaccine 2008-12-22 Completed Uni versity of 00:00:00 [facility] TDAP 2008-12-22 Completed University of 00:00:00 [facility] HEPATITIS A 2004-09-04 Completed University of 00:00:00 [facility] HEPATITIS A 2004-09-04 Completed University of 00:00:00 [facility] HEPATITIS A 2004-09-04 Completed University of 00:00:00 [place] [facility] HEPATITIS A 2004-09-04 Completed University of 00:00:00 [place] [facility] HEPATITIS A 2004-09-04 Completed University of 00:00:00 [place] [facility] HEPATITIS A 2004-09-04 Completed University of 00:00:00 [place] [facility] HEPATITIS A 2002-05-31 Completed University of 00:00:00 [place] [facility] HEPATITIS A 2002-05-31 Completed University of 00:00:00 [place] [facility] HEPATITIS A 2002-05-31 Completed University of 00:00:00 [place] [facility] HEPATITIS A 2002-05-31 Completed University of 00:00:00 [place] [facility] HEPATITIS A 2002-05-31 Completed University of 00:00:00 [place] [facility] HEPATITIS A 2002-05-31 Completed University of 00:00:00 [place] [facility] HEPATITIS A 2001-03-24 Completed University of 00:00:00 [place] [facility] HEPATITIS A 2001-03-24 Completed University of 00:00:00 [place] [facility] HEPATITIS A 2001-03-24 Completed University of 00:00:00 [place] [facility] HEPATITIS A 2001-03-24 Completed University of 00:00:00 [place] [facility] HEPATITIS A 2001-03-24 Completed University of 00:00:00 [place] [facility] HEPATITIS A 2001-03-24 Completed University of 00:00:00 [facility] DTAP 2001-03-15 Completed University of 00:00:00 [place] [facility] DTAP 2001-03-15 Completed University of 00:00:00 [place] [facility] DTAP 2001-03-15 Completed University of 00:00:00 [place] [facility] DTAP 2001-03-15 Completed University of 00:00:00 [place] [facility] DTAP 2001-03-15 Completed University of 00:00:00 [place] [facility] DTAP 2001-03-15 Completed University of 00:00:00 [facility] MMR 2001-02-23 Completed University of 00:00:00 [facility] Polio (IPV/OPV) 2001-02-23 Completed Universit y of 00:00:00 [facility] DTAP 2001-02-23 Completed University of 00:00:00 [facility] MMR 2001-02-23 Completed University of 00:00:00 [facility] Polio (IPV/OPV) 2001-02-23 Completed Universit y of 00:00:00 [facility] DTAP 2001-02-23 Completed University of 00:00:00 [facility] MMR 2001-02-23 Completed University of 00:00:00 [facility] Polio (IPV/OPV) 2001-02-23 Completed Universit y of 00:00:00 [facility] DTAP 2001-02-23 Completed University of 00:00:00 [facility] MMR 2001-02-23 Completed University of 00:00:00 [facility] Polio (IPV/OPV) 2001-02-23 Completed Universit y of 00:00:00 [facility] DTAP 2001-02-23 Completed University of 00:00:00 [facility] MMR 2001-02-23 Completed University of 00:00:00 [facility] Polio (IPV/OPV) 2001-02-23 Completed Universit y of 00:00:00 [facility] DTAP 2001-02-23 Completed University of 00:00:00 [facility] MMR 2001-02-23 Completed University of 00:00:00 [facility] Polio (IPV/OPV) 2001-02-23 Completed Universit y of 00:00:00 [facility] DTAP 2001-02-23 Completed University of 00:00:00 [facility] HIB 3 Dose Schedule 2000-04-10 Completed Unive rsity of 00:00:00 [facility] DTAP 2000-04-10 Completed University of 00:00:00 [facility] HIB 3 Dose Schedule 2000-04-10 Completed Unive rsity of 00:00:00 [facility] DTAP 2000-04-10 Completed University of 00:00:00 [facility] HIB 3 Dose Schedule 2000-04-10 Completed Unive rsity of 00:00:00 [facility] DTAP 2000-04-10 Completed University of 00:00:00 [facility] HIB 3 Dose Schedule 2000-04-10 Completed Unive rsity of 00:00:00 [facility] DTAP 2000-04-10 Completed University of 00:00:00 [facility] HIB 3 Dose Schedule 2000-04-10 Completed Unive rsity of 00:00:00 [facility] DTAP 2000-04-10 Completed University of 00:00:00 [facility] HIB 3 Dose Schedule 2000-04-10 Completed Unive rsity of 00:00:00 [facility] DTAP 2000-04-10 Completed University of 00:00:00 [facility] HIB 3 Dose Schedule 1999-05-16 Completed Unive rsity of 00:00:00 [facility] Polio (IPV/OPV) 1999-05-16 Completed Universit y of 00:00:00 [facility] DTAP 1999-05-16 Completed University of 00:00:00 [facility] HIB 3 Dose Schedule 1999-05-16 Completed Unive rsity of 00:00:00 [facility] Polio (IPV/OPV) 1999-05-16 Completed Universit y of 00:00:00 [facility] DTAP 1999-05-16 Completed University of 00:00:00 [facility] HIB 3 Dose Schedule 1999-05-16 Completed Unive rsity of 00:00:00 [facility] Polio (IPV/OPV) 1999-05-16 Completed Universit y of 00:00:00 [facility] DTAP 1999-05-16 Completed University of 00:00:00 [facility] HIB 3 Dose Schedule 1999-05-16 Completed Unive rsity of 00:00:00 [facility] Polio (IPV/OPV) 1999-05-16 Completed Universit y of 00:00:00 [facility] DTAP 1999-05-16 Completed University of 00:00:00 [facility] HIB 3 Dose Schedule 1999-05-16 Completed Unive rsity of 00:00:00 [facility] Polio (IPV/OPV) 1999-05-16 Completed Universit y of 00:00:00 [facility] DTAP 1999-05-16 Completed University of 00:00:00 [facility] HIB 3 Dose Schedule 1999-05-16 Completed Unive rsity of 00:00:00 [facility] Polio (IPV/OPV) 1999-05-16 Completed Universit y of 00:00:00 [facility] DTAP 1999-05-16 Completed University of 00:00:00 [facility] HIB 3 Dose Schedule 1999-03-28 Completed Unive rsity of 00:00:00 [facility] Hep B, Adol or Pedi 1999-03-28 Completed Unive rsity of Dosage 00:00:00 [facility] Polio (IPV/OPV) 1999-03-28 Completed Universit y of 00:00:00 [facility] DTAP 1999-03-28 Completed University of 00:00:00 [facility] HIB 3 Dose Schedule 1999-03-28 Completed Unive rsity of 00:00:00 [facility] Branch Hep B, Adol or Pedi 1999-03-28 Completed Unive rsity of Dosage 00:00:00 [facility] Polio (IPV/OPV) 1999-03-28 Completed Universit y of 00:00:00 [facility] DTAP 1999-03-28 Completed University of 00:00:00 [facility] HIB 3 Dose Schedule 1999-03-28 Completed Unive rsity of 00:00:00 [facility] Branch Hep B, Adol or Pedi 1999-03-28 Completed Unive rsity of Dosage 00:00:00 [facility] Polio (IPV/OPV) 1999-03-28 Completed Universit y of 00:00:00 [facility] DTAP 1999-03-28 Completed University of 00:00:00 [facility] HIB 3 Dose Schedule 1999-03-28 Completed Unive rsity of 00:00:00 [facility] Hep B, Adol or Pedi 1999-03-28 Completed Unive rsity of Dosage 00:00:00 [facility] Polio (IPV/OPV) 1999-03-28 Completed Universit y of 00:00:00 [facility] DTAP 1999-03-28 Completed University of 00:00:00 [facility] HIB 3 Dose Schedule 1999-03-28 Completed Unive rsity of 00:00:00 [facility] Branch Hep B, Adol or Pedi 1999-03-28 Completed Unive rsity of Dosage 00:00:00 [facility] Polio (IPV/OPV) 1999-03-28 Completed Universit y of 00:00:00 [facility] DTAP 1999-03-28 Completed University of 00:00:00 [facility] HIB 3 Dose Schedule 1999-03-28 Completed Unive rsity of 00:00:00 [facility] Branch Hep B, Adol or Pedi 1999-03-28 Completed Unive rsity of Dosage 00:00:00 [facility] Polio (IPV/OPV) 1999-03-28 Completed Universit y of 00:00:00 [facility] DTAP 1999-03-28 Completed University of 00:00:00 [facility] Hep B, Adol or Pedi 1998-04-17 Completed Unive rsity of Dosage 00:00:00 [facility] MMR 1998-04-17 Completed University of 00:00:00 [facility] Branch Polio (IPV/OPV) 1998-04-17 Completed Universit y of 00:00:00 [place] [facility] DTAP 1998-04-17 Completed University of 00:00:00 [facility] HIB 3 Dose Schedule 1998-04-17 Completed Unive rsity of 00:00:00 [facility] Hep B, Adol or Pedi 1998-04-17 Completed Unive rsity of Dosage 00:00:00 [facility] MMR 1998-04-17 Completed University of 00:00:00 [facility] Polio (IPV/OPV) 1998-04-17 Completed Universit y of 00:00:00 [facility] DTAP 1998-04-17 Completed University of 00:00:00 [facility] HIB 3 Dose Schedule 1998-04-17 Completed Unive rsity of 00:00:00 [facility] Hep B, Adol or Pedi 1998-04-17 Completed Unive rsity of Dosage 00:00:00 [facility] MMR 1998-04-17 Completed University of 00:00:00 [facility] Polio (IPV/OPV) 1998-04-17 Completed Universit y of 00:00:00 [facility] DTAP 1998-04-17 Completed University of 00:00:00 [facility] HIB 3 Dose Schedule 1998-04-17 Completed Unive rsity of 00:00:00 [facility] Hep B, Adol or Pedi 1998-04-17 Completed Unive rsity of Dosage 00:00:00 [facility] MMR 1998-04-17 Completed University of 00:00:00 [facility] Polio (IPV/OPV) 1998-04-17 Completed Universit y of 00:00:00 [facility] DTAP 1998-04-17 Completed University of 00:00:00 [facility] HIB 3 Dose Schedule 1998-04-17 Completed Unive rsity of 00:00:00 [place] [facility] Hep B, Adol or Pedi 1998-04-17 Completed Unive rsity of Dosage 00:00:00 [facility] MMR 1998-04-17 Completed University of 00:00:00 [facility] Polio (IPV/OPV) 1998-04-17 Completed Universit y of 00:00:00 [facility] DTAP 1998-04-17 Completed University of 00:00:00 [facility] HIB 3 Dose Schedule 1998-04-17 Completed Unive rsity of 00:00:00 [facility] Hep B, Adol or Pedi 1998-04-17 Completed Unive rsity of Dosage 00:00:00 [facility] MMR 1998-04-17 Completed University of 00:00:00 [facility] Polio (IPV/OPV) 1998-04-17 Completed Universit y of 00:00:00 [facility] DTAP 1998-04-17 Completed University of 00:00:00 [facility] HIB 3 Dose Schedule 1998-04-17 Completed Unive rsity of 00:00:00 [facility] Hep B, Adol or Pedi 1997 Completed Unive rsity of Dosage 00:00:00 [facility] Hep B, Adol or Pedi 1997 Completed Unive rsity of Dosage 00:00:00 [facility] Hep B, Adol or Pedi 1997 Completed Unive rsity of Dosage 00:00:00 [facility] Hep B, Adol or Pedi 1997 Completed Unive rsity of Dosage 00:00:00 [facility] Hep B, Adol or Pedi 1997 Completed Unive rsity of Dosage 00:00:00 [facility] Hep B, Adol or Pedi 1997 Completed Unive rsity of Dosage 00:00:00 [facility] Varicella 1997 Completed University of (varivax)(chicken pox) 00:00:00 [facility] Varicella 1997 Completed University of (varivax)(chicken pox) 00:00:00 [facility] Varicella 1997 Completed University of (varivax)(chicken pox) 00:00:00 [facility] Varicella 1997 Completed University of (varivax)(chicken pox) 00:00:00 [facility] Varicella 1997 Completed University of (varivax)(chicken pox) 00:00:00 [facility] Varicella 1997 Completed University of (varivax)(chicken pox) 00:00:00 [facility] Hep B, Adol or Pedi 1997 Completed Unive rsity of Dosage 00:00:00 [place] [facility] Hep B, Adol or Pedi 1997 Completed Unive rsity of Dosage 00:00:00 [place] [facility] Hep B, Adol or Pedi 1997 Completed Unive rsity of Dosage 00:00:00 [facility] Hep B, Adol or Pedi 1997 Completed Unive rsity of Dosage 00:00:00 [facility] Hep B, Adol or Pedi 1997 Completed Unive rsity of Dosage 00:00:00 [facility] Hep B, Adol or Pedi 1997 Completed Unive rsity of Dosage 00:00:00 [facility] Vital Signs Vital Name Observation Time Observation Value Comments Source Systolic blood 2021-12-24 03:00:00 134 mm[Hg] Univer sity of pressure [facility] Diastolic blood 2021-12-24 03:00:00 84 mm[Hg] Unive rsity of [facility] Heart rate 2021-12-24 03:00:00 64 /min [facility] Respiratory rate 2021-12-24 03:00:00 15 /min [facility] Oxygen saturation in 2021-12-24 03:00:00 95 /min [facility] Arterial blood by [facility] Pulse oximetry [place] Body temperature 2021-12-24 00:41:00 37 Alison [facility] Body height 2021-12-24 00:41:00 162.6 cm [facility] Body weight 2021-12-24 00:41:00 97.523 kg [facility] BMI 2021-12-24 00:41:00 36.90 kg/m2 [facility] Systolic blood 2021-06-07 14:13:00 123 mm[Hg] Univer sity of pressure [facility] Diastolic blood 2021-06-07 14:13:00 66 mm[Hg] Unive rsity of pressure [facility] Heart rate 2021-06-07 14:13:00 73 /min [facility] Body temperature 2021-06-07 14:13:00 36.83 [facility] 2021-06-07 14:13:00 18 /min [facility] Body height 2021-06-07 14:13:00 162.6 cm [facility] Body weight 2021-06-07 14:13:00 94.62 kg Universi [facility] BMI 2021-06-07 14:13:00 35.81 kg/m2 [facility] Systolic blood 2021-05-21 19:52:00 121 mm[Hg] Univer sity of [facility] Diastolic blood 2021-05-21 19:52:00 73 mm[facility]Hg[facility] 2021-05-21 19:52:00 73 [facility] Body temperature 2021-05-21 19:52:00 36.39 Alison [facility] Respiratory rate 2021-05-21 19:52:00 18 /min [facility] Body height 2021-05-21 19:52:00 162.6 cm [facility] Body weight 2021-05-21 19:52:00 92.851 kg [facility] BMI 2021-05-21 19:52:00 35.14 kg/m2 [facility] Procedures Procedure Date / Time Performing Clinician Source Performed CONSENT/REFUSAL FOR 2022-04-17 22:18:51 Doctor Unassigned, No Un [facility] DIAGNOSIS AND TREATMENT Name [facility] XR CHEST 1 VW 2021-12-24 01:25:29 Evi Carpenter [facility] POCT TEST 2021-12-24 01:24:00 Evi Carpenter [facility] D-DIMER 2021-12-24 01:11:00 Evi Carpenter [facility] MAGNESIUM 2021-12-24 01:10:00 Evi Carpenter [facility] TROPONIN I 2021-12-24 01:10:00 Evi Carpenter [facility] COMP. METABOLIC PANEL 2021-12-24 01:10:00 Evi Carpenter [facility] ([id number]) [facility] CBC WITH DIFF 2021-12-24 01:10:00 Jayden, K [facility] URINALYSIS 2021-12-24 01:10:00 Evi Carpenter [facility] POCT TEST 2021-06-07 14:18:00 Hattie Rodriguez [facility] THYROID STIMULATING 2021-05-21 21:16:00 Hattie Rodriguez [facility] HORMONE [facility] CBC WITH DIFF 2021-05-21 21:16:00 Hattie Rodriguez [facility] HIV 1/2 AG-AB WITH 2021-05-21 20:40:00 Hattie Rodriguez [facility] REFLEX [facility] GARDASIL 9 (HPV 9V) 2021-05-21 20:14:56 Hattie Rodriguez [facility] VACCINE [facility] Encounters Start End Encounter Admission Attending Care Care Encounter Source Date/Time Date/Time Type Type Clinicians Facility Department ID 2022-04-17 2022-04-17 Outpatient R AKINSIPE, [facility] [id number] Univers 17:45:00 17:45:00 MELONIE [id number] [facility] 2022-04-17 2022-04-17 Outpatient R AKINSIPE, [facility] [id number] Univers 17:45:00 17:45:00 MELONIE [facility] 2022-04-17 2022-04-17 Orders Doctor ISAIAS [id number] Univers 00:00:00 00:00:00 Only Unassigned, MARGARETH [id number] ity of [place] [facility] [id number] [place] as [phone] [address] 2022-04-16 2022-04-16 Outpatient R AKINSIPE, [facility] [id number] Univers 13:00:00 13:00:00 MELONIE [id number] [facility] 2022-04-16 2022-04-16 Outpatient R AKINSIPE, [facility] [id number] Univers 13:00:00 13:00:00 MELONIE [facility] 2022-02-21 2022-02-21 Outpatient R AKINSIPE, [facility] [id number] Univers 08:15:00 08:15:[address] [id number] ity o [facility] 2022-02-21 2022-02-21 Outpatient R AKINSIPE, [facility] [id number] Univers 08:15:00 08:15:[address] [facility] 2022-01-03 2022-01-03 Outpatient R AKINSIPE, [facility] [id number] Univers 08:15:00 08:15:[id number] ity [address] [facility] 2022-01-03 2022-01-03 Outpatient R AKINSIPE, [facility] [id number] Univers 08:15:00 08:15:[address] [facility] 2021-12-23 2021-12-23 Emergency X JAYDEN, K [facility] ERT [id number] Univers 19:46:00 23:21:00 ity of [facility] 2021-12-23 2021-12-23 Emergency Jayden, K [facility] [id number] Univers 19:46:00 23:21:00 Radha CONNELL [id number] i ty [facility] [id number] [facility] [id number] [facility] 084 Branch 2021-09-06 2021-09-06 Outpatient R AKINSIPE, [facility] [id number] Univers 15:45:00 15:45:[address] [facility] 2021-09-06 2021-09-06 Outpatient R AKINSIPE, [facility] [id number] Univers 08:15:00 08:15:[address]ON[address] [id number] ity o [facility] 2021-08-07 2021-08-07 Outpatient R AKINSIPE, [facility] [id number] Univers 15:00:00 15:00:[id number] ity o [facility] 2021-08-07 2021-08-07 Outpatient R AKINSIPE, [facility] [id number] Univers 15:00:00 15:00:00 MELONIE ity o f [facility] 2021-08-02 2021-08-02 Telephone John [facility] [id number] Univers 00:00:00 00:00:00 Melonie Navarro [employer] [id number] ity of REGIONAL [id number] [place]an as MATERNAL [id number] [facility] ical & CHILD [address] [place] [address] 2021-06-07 2021-06-07 [facility] 1.2 .[id number] [facility] 09:00:25 09:28:03 Visit Melonie Remy [employer] [id number]. 10 ity of REGIONAL [id number] [place]yllan as MATERNAL [id number] [facility] & CHILD [address] [place] [address] 2021-06-07 2021-06-07 Outpatient R [facility] [id number] Univers 09:00:00 09:00:00 [id number] ity of [facility] 2021-06-07 2021-06-07 Outpatient R [facility] [id number] Univers 09:00:00 09:00:00 ity of [facility] 2021-06-04 2021-06-04 Outpatient R [facility] [id number] Univers 09:00:00 09:00:00 [id number] ity of [facility] 2021-06-04 2021-06-04 Outpatient R [facility] [id number] Univers 09:00:00 09:00:00 ity of [facility] 2021-06-04 2021-06-04 [facility]patient [facility] [id number] Univers 09:00:00 09:00:00 MELONIE ity o f [facility] 2021-05-25 2021-05-25 Telephone John [facility] [id number] Univers 00:00:00 00:00:00 Melonie Navarro [employer] WORK[employer] [id number] ity of REGIONAL [id number] [place]yllan as MATERNAL [id number] [facility] & [facility]ILD [address] [place] [address] 2021-05-21 2021-05-21 [facility] [id number] Univers 14:39:44 15:48:37 Visit Hattie Bo [employer] WORK[employer] [id number] it [facility] [id number] [place]yllan as MATERNAL [id number] Med ical & CHILD [address] [facility] 2021-05-21 2021-05-21 [facility] [id number] Univers 14:30:00 14:30:00 HATTIE [id number] [facility] 2021-05-21 2021-05-21 [facility] [id number] Univers 14:30:00 14:30:00 HATTIE [facility] 2021-05-11 2021-05-11 Outpatient [facility] [id number] Univers 12:45:00 12:45:[id number] [facility] 2021-05-11 2021-05-11 [facility] [id number] Univers 12:45:00 12:45:00 MELONIE ity o f [facility] 2020-11-14 2020-11-14 [facility] [id number] 00:00:00 00:00:00 Outreach [facility] [id number] [facility] [id number] [facility] [id number] 2020-08-29 2020-08-29 Outpatient R [facility] [id number] Univers 09:00:00 09:00:00 [id number] [facility] 2020-08-29 2020-08-29 Outpatient R [facility] [id number] Univers 09:00:00 09:00:00 [facility] 2020-08-02 2020-08-02 Outpatient R [facility] [id number] Univers 14:00:00 14:00:00 [facility] 2020-08-02 2020-08-02 Outpatient R [facility] [id number] Univers 14:00:00 14:00:00 ity [facility] 2020-08-02 2020-08-02 Outpatient R AKINSIPE, [facility] [id number] Univers 14:00:00 14:00:00 MELONIE ity o f [facility] 2020-07-24 2020-07-24 Outpatient R [facility] [id number] Univers 09:30:00 09:30:00 [facility] 2020-07-24 2020-07-24 Outpatient R [facility] [id number] Univers 09:30:00 09:30:00 [facility] 2020-06-27 2020-06-27 Office Akinsipe, [facility] [id number] 15:14:20 15:49:12 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 [id number] [facility] [id number] MATERNAL [id number] & CHILD [address] [place] [address] 2020-06-27 2020-06-27 Outpatient R AKINSIPE, [facility] [id number] Univers 15:15:00 15:15:00 MELONIE ity o f [facility] 2020-06-27 2020-06-27 Outpatient R AKINSIPE, [facility] [id number] Univers 15:15:00 15:15:00 MELONIE ity o f [facility] 2020-06-27 2020-06-27 Outpatient R AKINSIPE, [facility] [id number] Univers 15:15:00 15:15:00 MELONIE ity o f [facility] 2020-05-24 2020-05-24 Outpatient R AKINSIPE, [facility] [id number] Univers 10:30:00 10:30:00 MELONIE ity o f [facility] 2020-05-24 2020-05-24 Outpatient R AKINSIPE, [facility] [id number] Univers 10:30:00 10:30:00 MELONIE ity o f [facility] 2020-05-24 2020-05-24 Outpatient R AKINSIPE, [facility] [id number] Univers 10:30:00 10:30:00 MELONIE ity o f [facility] 2020-03-28 2020-03-28 Outpatient [facility] [id number] Univers 13:15:00 13:15:00 ity of [facility] 2020-03-23 2020-03-23 Outpatient R JOHN, [facility] [id number] Univers 09:00:00 09:00:00 MELONIE [id number] itdafne o ana [facility] 2020-03-23 2020-03-23 Outpatient R AKINTONA, [facility] [id number] Univers 09:00:00 09:00:[address] [facility] 2020-02-04 2020-02-04 Outpatient R AKINSIPE, [facility] [id number] Univers 08:15:00 08:15:[id number] [address] o [facility] 2020-02-04 2020-02-04 Outpatient R JOHN, [facility] [id number] Univers 08:15:00 08:15:00 MELONIE [facility] Results Test Description Test Time Test Comments Results Result Comments Source TROPONIN I 2021-12-24 01:46:28 Test Item Value Reference Range Interpretation Comme nts TROPONIN I (test code = 0.002 ng/mL See_Comment [Au tomated message] The 2779107923) system which ge nerated this result tra nsmitted reference range : <=0.034. The reference r gillian was not used to int erpret this result as normal/abnormal . GRISELDA (test code = GRISELDA) Reference (Normal) Range (defined by the 99th percentile reference limit): <= 0.034 ng/mL Note: Cardiac troponin begins to rise 3-4 hours after the onset of ischemia. Repeat in 4-6 hours if the sample was drawn within 3-4 hours of the onset of the symptom and found normal. Diagnosis of myocardial injury is made with acute changes in cTn concentrations with at least one serial sample above the 99th percentile upper reference limit (URL), taken together with the patient's clinical presentation. Biotin has been reported to cause a negative bias, interpret results relative to patient's use of biotin. Lab Interpretation Normal (test code = 98452-7) [facility]. METABOLIC PANEL (32470)2021-12-24 01:34:25 Test Item Value Reference Range Interpretation Comments NA (test code = 139 mmol/L 135-145 5983177521) K (test code = 3.6 mmol/L 3.5-5.0 1391789811) CL (test code = 104 mmol/L 98-108 8123920559) CO2 TOTAL (test code 25 mmol/L 23-31 = 8851920504) AGAP (test code = 2-16 2138048462) BUN (test code = 10 mg/dL 7-23 8530296237) GLUCOSE (test code = 81 mg/dL 70-110 4208271327) CREATININE (test code 0.86 mg/dL 0.50-1.04 = 8771409204) TOTAL BILI (test code 0.7 mg/dL 0.1-1.1 = 5740839919) CALCIUM (test code = 9.6 mg/dL 8.6-10.6 4838771308) T PROTEIN (test code 7.8 g/dL 6.3-8.2 = 5198081651) ALBUMIN (test code = 4.4 g/dL 3.5-5.0 9658944488) ALK PHOS (test code = 105 U/L 34-122 6587007598) ALTv (test code = 24 U/L 5-35 1742-6) AST(SGOT) (test code 30 U/L 13-40 = 4227197679) eGFR (test code = mL/min/1.73m2 8048898675) GRISELDA (test code = GRISELDA) Association of Glomerular Filtration Rate (GFR) and Staging of Kidney Disease* + + +- +| GFR (mL/min/1.73 m2) ?| With Kidney Damage ?| ?Without Kidney Damage+ ------+ ----+ ------+| ?>90 ?| ?Stage one ?| ? Normal ?+ -+ + -+| ?60-89 ?| ?Stage two ?| ? Decreased GFR ? + + +- +| ?30-59 ?| ?Stage three ?| ? Stage three ? + + +- +| ?15-29 ?| ?Stage four ? | ? Stage four ?+ -+ + -+| ?<15 (or dialysis) ? ?| ?Stage five ? | ? Stage five ?+ -+ + -+ *Each stage assumes the associated GFR level has been in effect for at least three months. ?Stages 1 to 5, with or without kidney disease, indicate chronic kidney disease. Notes: Determination of stages one and two (with eGFR >59mL/min/1.73 m2) requires estimation of kidney damage for at least three months as defined by structural or functional abnormalities of the kidney, manifested by either:Pathological abnormalities or Markers of kidney damage (including abnormalities in the composition of the blood or urine or abnormalities in imaging tests). [facility] 01:34:25 Test Item Value Reference Range Interpretation Comments MAGNESIUM (test code = 7534502576) 1.8 mg/dL 1.7-2.4 Lab Interpretation (test code = Normal 47207-0) [id number] 01:31:04 Test Item Value Reference Interpretation Comments Range D-DIMER (test code = See_Comment [Autom ated 2729689674) message] The system which generated this result transmitted reference range : <0.41 ?g/mL (FEU). The reference range was not used to interpret this result as normal/abnormal . GRISELDA (test code = This test may be GRISELDA) used in conjunction with a clinical pretest probability (PTP) assessment model to exclude venous thromboembolism (VTE) in patients suspected of deep venous thrombosis (DVT) and pulmonary embolism (PE) A D-Dimer value less than 0.50 ?g/ml (FEU) has a negative predicative value of 96 to 100% (95% CI)and 97 to 100% (95% CI) as an aid in the diagnosis of deep vein thrombosis (DVT) and pulmonary embolism when there is low or moderate pretest probability of PE or DVT. D-Dimer values are expressed in initial fibrinogen equivalent units (FEU)" The assay results should be used with other information, including the clinical context, in forming a diagnosis. Lab Interpretation Normal (test code = 74115-6) [facility] [id number] 01:24:00 Test Item Value Reference Range Interpretation Comments POCT PREG (test code = 1605) negative On board controls acceptable with present C Line (test code = 3574) POCT PREG LOT # (test code = 3575) [id number] POCT PREG TEST DATE (test code = 3576) Lab Interpretation (test code = Normal 27137-9) [facility] WITH [id number] 01:20:27 Test Item Value Reference Range Interpretation Comments WBC (test code = See_Comment [Automated message] 6690-2) The system Kiip generated this result transmitted ref erence range: 4.30 - 1 1.10 10*3/?L. The re ference range was not u sed to interpret this result as normal/abnor mal. RBC (test code = See_Comment [Automated message] 039-8) The system Kiip generated this result transmitted ref erence range: 3.93 - 5 .25 10*6/?L. The re ference range was not u sed to interpret this result as normal/abnor mal. HGB (test code = 12.5 g/dL 11.6-15.0 718-7) HCT (test code = 38.2 % 35.7-45.2 4544-3) MCV (test code = 81.8 fL 80.6-95.5 787-2) MCH (test code = 26.8 pg 25.9-32.8 785-6) MCHC (test code = 32.7 g/dL 31.6-35.1 786-4) RDW-SD (test code 40.0 fL 39.0-49.9 = 68094-5) RDW-CV (test code 13.6 % 12.0-15.5 = 788-0) PLT (test code = See_Comment [Automated message] 847-3) The system Kiip generated this result transmitted ref erence range: 166 - 35 8 10*3/?L. The re ference range was not u sed to interpret this result as normal/abnor mal. MPV (test code = 10.0 fL 9.5-12.9 35864-0) NRBC/100 WBC (test See_Comment [Automat ed message] code = 2956126494) The Boundary which generated this result transmitted ref erence range: 0.0 - 10 .0 /100 WBCs. The refer ence range was not u sed to interpret this result as normal/abnor mal. NRBC x10^3 (test <0.01 See_Comment [Automated message] code = 0483267407) The syste m which generated this result transmitted ref erence range: 10*3/?L. The reference range was not used to interpr et this result as normal/abnormal . GRAN MAT (NEUT) % 46.3 % (test code = 770-8) IMM GRAN % (test 0.20 % code = 9580301620) LYMPH % (test code 43.0 % = 736-9) MONO % (test code 8.6 % = 5905-5) EOS % (test code = 1.2 % 713-8) BASO % (test code 0.7 % = 706-2) GRAN MAT 2.75 10*3/uL 1.88-7.09 x10^3(ANC) (test code = 6955577869) IMM GRAN x10^3 <0.03 0.00-0.06 (test code = 3912742733) LYMPH x10^3 (test 2.55 10*3/uL 1.32-3.29 code = 731-0) MONO x10^3 (test 0.51 10*3/uL 0.33-0.92 code = 742-7) EOS x10^3 (test 0.07 10*3/uL 0.03-0.39 code = 711-2) BASO x10^3 (test 0.04 10*3/uL 0.01-0.07 code = 704-7) [facility] [id number] 14:20:00 Test Item Value Reference Range Interpretation Comments POCT PREG (test code = 1605) Negative On board controls acceptable with C Yes Line (test code = 3574) POCT PREG LOT # (test code = 3575) POCT PREG TEST DATE (test code = 3576) [facility] AG-AB WITH [id number] 05:35:57 Test Item Value Reference Range Interpretation Comments HIV Negative Negative Semi-quantitative (test code = 94564-7) GRISELDA (test code = Non-reactive for HIV-1 GRISELDA) antigen and HIV-1/HIV-2 antibodies. ?No laboratory evidence of HIV infection. ?Repeat in 2-4 weeks if acute HIV infection is suspected. [facility] CenterTHYROID STIMULATING [id number] 05:14:33 Test Item Value Reference Range Interpretation Comments TSH (test code = See_Comment Biotin has been 6202014233) reported to cau se a negative bias, interpret resul ts relative to pat ient's use of biotin. [Automated mess age] The system Kiip generated this result transmitted ref erence range: 0.45 - 4 .70 mIU/L. The refe rence range was not u sed to interpret this result as normal/abnor mal. Lab Interpretation (test Normal code = 99477-2) [facility] WITH [id number] 04:59:00 Test Item Value Reference Range Interpretation Comments WBC (test code = See_Comment [Automated message] 0790-2) The system Kiip generated this result transmitted ref erence range: 4.30 - 1 1.10 10*3/?L. The re ference range was not u sed to interpret this result as normal/abnor mal. RBC (test code = See_Comment [Automated message] 349-8) The system Kiip generated this result transmitted ref erence range: 3.93 - 5 .25 10*6/?L. The re ference range was not u sed to interpret this result as normal/abnor mal. HGB (test code = 12.3 g/dL 11.6-15.0 718-7) HCT (test code = 38.5 % 35.7-45.2 4544-3) MCV (test code = 83.5 fL 80.6-95.5 787-2) MCH (test code = 26.7 pg 25.9-32.8 785-6) MCHC (test code = 31.9 g/dL 31.6-35.1 786-4) RDW-SD (test code 41.9 fL 39.0-49.9 = 93260-9) RDW-CV (test code 13.9 % 12.0-15.5 = 788-0) PLT (test code = See_Comment [Automated message] 787-3) The system whic h generated this result transmitted ref erence range: 166 - 35 8 10*3/?L. The re ference range was not u sed to interpret this result as normal/abnor mal. MPV (test code = 10.7 fL 9.5-12.9 48635-1) NRBC/100 WBC (test See_Comment [Automat ed message] code = 7800796200) The syste m which generated this result transmitted ref erence range: 0.0 - 10 .0 /100 WBCs. The refer ence range was not u sed to interpret this result as normal/abnor mal. NRBC x10^3 (test <0.01 See_Comment [Automated message] code = 1808990589) The syste m which generated this result transmitted ref erence range: 10*3/?L. The reference range was not used to interpr et this result as normal/abnormal . GRAN MAT (NEUT) % 38.2 % (test code = 770-8) IMM GRAN % (test 0.20 % code = 6581992764) LYMPH % (test code 49.1 % = 736-9) MONO % (test code 10.0 % = 5905-5) EOS % (test code = 1.8 % 713-8) BASO % (test code 0.7 % = 706-2) GRAN MAT 2.07 10*3/uL 1.88-7.09 x10^3(ANC) (test code = 4104865348) IMM GRAN x10^3 <0.03 0.00-0.06 (test code = 7253698819) LYMPH x10^3 (test 2.66 10*3/uL 1.32-3.29 code = 731-0) MONO x10^3 (test 0.54 10*3/uL 0.33-0.92 code = 742-7) EOS x10^3 (test 0.10 10*3/uL 0.03-0.39 code = 711-2) BASO x10^3 (test 0.04 10*3/uL 0.01-0.07 code = 704-7) [facility]
[2022-04-29 13:36] LABS: Urine Glucose Negative (Negative); Urine Specific Gravity >=1.030 (1.005-1.030)
[2022-04-29 13:37] LABS: Urine Blood Negative (Negative); Urine Protein Negative (Negative); Urine pH 6.5 (5.0-7.0)
[2022-04-29 13:42] LABS: Absolute Lymphocytes (CBC) 2.5 K/uL (0.7-4.9); Hematocrit 37.6 % (36.0-45.0); Lymphocytes % 46.4 % (15.3-44.8); MCV 81.3 fL (80-100); MPV 8.3 fL (7.6-11.3); RBC Red Blood Cell Count 4.62 M/uL (3.86-4.86)
[2022-04-29] MEDS ORDERED: FAMOTIDINE 20 MG/2 ML VIAL IV ONE (13:46)
[2022-04-29] MEDS ORDERED: ONDANSETRON 4 MG/2 ML VIAL ONE (13:46)
[2022-04-29 13:47] LABS: Urine RBC <5 /HPF (None Seen)
[2022-04-29] MEDS ORDERED: NA CHLORIDE 0.9% 1,000 ML ONE (13:47)
[2022-04-29 14:02] LABS: Albumin 3.4 g/dL (3.4-5.0); Bilirubin Total 0.2 mg/dL (0.2-1.0); Potassium 3.8 mmol/L (3.5-5.1); Protein, Total 7.4 g/dL (6.4-8.2)
--- NOTE | 2022-04-29 14:20 | ER ---
Nurse's Notes [facility] Name: Troy Son Age: 27 yrs Sex: Female : 1995 Arrival Date: 04/29/2022 Time: 12:27 Bed 20 Private MD: Diagnosis: Irritable bowel syndrome with diarrhea Presentation: 04/29 12:34 Chief complaint: Patient states: I have IBS and for about a week I have been having bm7 sharp abdominal pain and bloody stool. My stool is black with some red tinge. This usually happens when I have an IBS flare. Coronavirus screen: At this time, the client does not indicate any symptoms associated with coronavirus-19. Ebola Screen: No symptoms or risks identified at this time. Initial Sepsis Screen: Does the patient meet any 2 criteria? No. Patient's initial sepsis screen is negative. Does the patient have a suspected source of infection? No. Patient's initial sepsis screen is negative. Risk Assessment: Do you want to hurt yourself or someone else? Patient reports no desire to harm self or others. Onset of symptoms is unknown. 12:34 Method Of Arrival: Ambulatory bm7 12:34 Acuity: CARMEN 3 bm7 Triage Assessment: 12:35 General: Appears in no apparent distress. comfortable, Behavior is calm, cooperative, bm7 appropriate for age. Pain: Complains of pain in umbilical area Pain radiates to right upper quadrant and left upper quadrant. EENT: No deficits noted. No signs and/or symptoms were reported regarding the EENT system. Oral mucosa is moist. Neuro: No deficits noted. Cardiovascular: No deficits noted. Respiratory: No deficits noted. GI: Abdomen is round non-distended, Abd is non tender X 4 quads Abdomen is tender to palpation in umbilical area Reports upper abdominal pain, rectal bleeding, nausea, vomiting. : No deficits noted. No signs and/or symptoms were reported regarding the genitourinary system. Derm: No deficits noted. No signs and/or symptoms reported regarding the dermatologic system. Musculoskeletal: No deficits noted. No signs and/or symptoms reported regarding the musculoskeletal system. 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 - Social history:: Smoking status: Patient denies any tobacco usage or history of. Screenin:36 Abuse screen: Denies threats or abuse. Denies injuries from another. Nutritional bp screening: No deficits noted. Tuberculosis screening: No symptoms or risk factors identified. Fall Risk None identified. Assessment: 12:35 General: SEE TRIAGE NOTE. bp 14:36 Reassessment: PT DC HOME AMBULATORY. bp Vital Signs: 12:33 BP 131 / 79; Pulse 70; Resp 16; Temp 97.8(TE); Pulse Ox 100% on R/A; Weight 104.[address] [facility] (R); Height 5 ft. 5 in. (165.10 cm); Pain 3/10; 14:36 BP 103 / 51; Pulse 62; Resp 16; Pulse Ox 98% ; bp 12:33 Body Mass Index 38.27 (104.33 kg, 165.10 cm) [facility] ED Course: 12:27 Patient arrived in ED. mr 12:28 Claudine Kori, SUPERVISOR [employer] [facility] 12:28 Khurram Keane MD is Attending Physician. [facility] 12:35 Triage completed. [facility] 12:35 Arm band placed on left wrist. [facility] 12:40 Abel Maria, ALTON is Primary Nurse. bp 14:36 Patient has correct armband on for positive identification. Bed in low position. Call bp light in reach. Side rails up X2. 14:36 No provider procedures requiring assistance completed. IV discontinued, intact, bp bleeding controlled, No redness/swelling at site. Pressure dressing applied. Administered Medications: 13:40 Drug: NS 0.9% 1000 ml Route: IV; Rate: 1 bolus; Site: right antecubital; bp 14:38 Follow up: IV Status: Completed infusion; IV Intake: 1000ml bp 13:40 Drug: Pepcid (famotidine) 20 mg Route: IVP; Site: right antecubital; bp 14:38 Follow up: Response: No adverse reaction bp 13:40 Drug: Zofran (Ondansetron) 4 mg Route: IVP; Site: right antecubital; bp 14:38 Follow up: Response: No adverse reaction bp Medication: 14:36 VIS not applicable for this client. bp Intake: 14:38 IV: 1000ml; Total: 1000ml. bp Outcome: 14:20 Discharge ordered by MD. villa 14:36 Discharged to home ambulatory, with family. bp 14:36 Condition: stable 14:36 Discharge instructions given to patient, Instructed on discharge instructions, follow up and referral plans. medication usage, Demonstrated understanding of instructions, follow-up care, medications, Prescriptions given X 2. 14:38 Patient left the ED. bp Signatures: Shannon Cook Brian, RN RN Lorraine Valenzuela, RN RN bm7 Kori Chow FNP [employer] 7
--- NOTE | 2022-04-29 14:20 | EDPHYS ---
Physician Documentation [facility] Name: Troy Son Age: 27 yrs Sex: Female : 1995 Arrival Date: 04/29/2022 Time: 12:27 Bed 20 Private MD: ED Physician Khurram Keane HPI: 04/29 12:40 This 27 yrs old Black Female presents to ER via Ambulatory with complaints of Bloody jh7 Stools, Abdominal Pain. 12:40 Onset: The symptoms/episode began/occurred 1 week(s) ago. Associated signs and jh7 symptoms: Pertinent positives: abdominal pain, diarrhea, Pertinent negatives: dysuria, fever. Patient presents for abdominal pain and bloody stools x1 week. Also reports diarrhea and nausea. The patient states that this is typical of her IBS flare up and that her work stated that she needed to be cleared.. 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 - Social history:: Smoking status: Patient denies any tobacco usage or history of. ROS: 12:40 Constitutional: Negative for fever, chills, and weight loss, Eyes: Negative for injury, jh7 pain, redness, and discharge, Cardiovascular: Negative for chest pain, palpitations, and edema, Respiratory: Negative for shortness of breath, cough, wheezing, and pleuritic chest pain, Back: Negative for injury and pain, MS/Extremity: Negative for injury and deformity, Skin: Negative for injury, rash, and discoloration, Neuro: Negative for headache, weakness, numbness, tingling, and seizure. 12:40 Abdomen/GI: Positive for abdominal pain, nausea, diarrhea, black/tarry stool, Negative for vomiting, constipation. 12:40 All other systems are negative. Exam: 12:40 Constitutional: This is a well developed, well nourished patient who is awake, alert, jh7 and in no acute distress. Head/Face: Normocephalic, atraumatic. Cardiovascular: Regular rate and rhythm with a normal S1 and S2. No gallops, murmurs, or rubs. Normal PMI, no JVD. No pulse deficits. Respiratory: Lungs have equal breath sounds bilaterally, clear to auscultation and percussion. No rales, rhonchi or wheezes noted. No increased work of breathing, no retractions or nasal flaring. Abdomen/GI: Soft, non-tender, with normal bowel sounds. No distension or tympany. No guarding or rebound. No evidence of tenderness throughout. Back: No spinal tenderness. No costovertebral tenderness. Full range of motion. Skin: Warm, dry with normal turgor. Normal color with no rashes, no lesions, and no evidence of cellulitis. MS/ Extremity: Pulses equal, no cyanosis. Neurovascular intact. Full, normal range of motion. Neuro: Awake and alert, GCS 15, oriented to person, place, time, and situation. Motor strength 5/5 in all extremities. Sensory grossly intact. Normal gait. Vital Signs: 12:33 BP 131 / 79; Pulse 70; Resp 16; Temp 97.8(TE); Pulse Ox 100% on R/A; Weight 104.33 kg [facility] (R); Height 5 ft. 5 in. (165.10 cm); Pain 3/10; 14:36 BP 103 / 51; Pulse 62; Resp 16; Pulse Ox 98% ; bp 12:33 Body Mass Index 38.27 (104.33 kg, 165.10 cm) [facility] MDM: 12:36 Patient medically screened. [facility] 14:15 Differential diagnosis: GI bleed, viral infection, colitis, IBS. Data reviewed: vital [facility] signs, nurses notes, lab test result(s). Data interpreted: Pulse oximetry: is 98 %. Interpretation: normal. Counseling: I had a detailed discussion with the patient and/or guardian regarding: the historical points, exam findings, and any diagnostic results supporting the discharge/admit diagnosis, to return to the emergency department if symptoms worsen or persist or if there are any questions or concerns that arise at home. ED course: Guaiac negative. ED course: The patient remained hemodynamically stable throughout her visit. She reported that the Pepcid helped with her abdominal discomfort. No signs of peritonitis or acute abdomen. Her stool guaiac was negative. She was advised to take medication as prescribed, increase p.o. fluid intake, and avoid trigger foods. If she develops any new concerning symptoms, or current symptoms worsen, she may return to the ER for further eval.. 04/29 12:42 Order name: CBC with Diff; Complete Time: 13:49 [facility] 04/29 12:42 Order name: CMP; Complete Time: 14:14 [facility] 04/29 12:42 Order name: Lipase; Complete Time: 14:14 [facility] 04/29 12:42 Order name: Urine Microscopic Only; Complete Time: 13:49 [facility] 04/29 12:42 Order name: Type And Screen [facility] 04/29 13:37 Order name: Urine Dipstick-Ancillary; Complete Time: 13:49 [facility] 04/29 12:42 Order name: IV Saline Lock; Complete Time: 13:43 [facility] 04/29 12:42 Order name: Labs collected and sent; Complete Time: 13:43 [facility] 04/29 12:42 Order name: Urine Dipstick-Ancillary (obtain specimen); Complete Time: 13:43 [facility] 04/29 12:42 Order name: Urine Test (obtain specimen); Complete Time: 13:43 [facility] 04/29 13:44 Order name: Urine --Ancillary (enter results) dh3 Administered Medications: 13:40 Drug: NS 0.9% 1000 ml Route: IV; Rate: 1 bolus; Site: right antecubital; bp 14:38 Follow up: IV Status: Completed infusion; IV Intake: 1000ml bp 13:40 Drug: Pepcid (famotidine) 20 mg Route: IVP; Site: right antecubital; bp 14:38 Follow up: Response: No adverse reaction bp 13:40 Drug: Zofran (Ondansetron) 4 mg Route: IVP; Site: right antecubital; bp 14:38 Follow up: Response: No adverse reaction bp Disposition: 15:45 Co-signature as Attending Physician, Khurram Keane MD I agree with the assessment and kdr plan of care. Disposition Summary: 04/29/22 14:20 Discharge Ordered Location: Home [facility] Problem: new [facility] Symptoms: have improved [facility] Condition: Stable [facility] Diagnosis - Irritable bowel syndrome with diarrhea [facility] Followup: [facility] - With: Private Physician - When: 2 - 3 days - Reason: Recheck today's complaints Discharge Instructions: - Discharge Summary Sheet jh7 Forms: - Medication Reconciliation Form jh7 - Thank You Letter jh7 - Work release form jl7 Prescriptions: - Carafate 1 gram Oral Tablet - take 1 tablet by ORAL route 4 times per day take on an empty stomach, beginning jh7 on waking and last dose at bedtime; 100 tablet; Refills: 0, Product Selection Permitted - Levsin 0.125 mg Oral Tablet - take 1 tablet by ORAL route every 8 hours; 30 tablet; Refills: 0, Product jh7 Selection Permitted Signatures: Dispatcher [employer] EDKhurram Diana MD MD [facility] Abel Maria RN RN Lorraine Valenzuela RN RN 7 Kori Chow FNP THREADING MACHINE SETTER [facility]
[2022-04-29 14:55] VITALS: TEMP 97.8
[2022-04-29 14:58] VITALS: BP 103/51; O2SAT 98
== END 2022-04-29 14:38 | disposition home or self-care (01) ==
LOC: ER 12:24
DX: K58.0 Irritable bowel syndrome with diarrhea (principal)
CPT/HCPCS: 36415; 80053; 81003; 81015; 81025; 83690; 85025; 86850; 86900; 86901; 96361; 96374; 96375; 99283; J2405; J7030

== ENCOUNTER 2022-07-02 12:31 | Emergency (ER) | payer OTHER ==
--- OUTSIDE RECORDS SUMMARY | 2022-07-02 12:36 | XMS REPORT | Continuity of Care Document ---
:1995 Author Organization [facility] t Address [address] [place] [address] Care Team Providers Name Role Phone Melonie Santiago Primary Care Physician [phone] JUANA OLIVIA Attending Clinician Unavailable SKYLAR MALDONADO Attending Clinician Unavailable Skylra Maldonado DO Attending Clinician Melonie Santiago Attending Clinician [phone] ZULMA PIÑA Attending Clinician Unavailable JOSH FLYNN Attending Clinician Unavailable GADIEL BOYKIN Attending Clinician Unavailable NAOMIE PIÑA Attending Clinician Unavailable [facility]47 Attending Clinician Unavailable Zulma Piña MD Attending Clinician MELONIE LOPEZ Attending Clinician Unavailable Doctor Unassigned, [place] Attending Clinician Unavailable Evi CARPENTER Attending Clinician Unavailable Evi Francisco Attending Clinician [facility] Attending Clinician Unavailable Hattie Lopez Attending Clinician HATTIE RODRIGUEZ Attending Clinician Unavailable Amor Rubio DO Attending Clinician Gadiel Gloria Attending Clinician Evi FLORES Admitting Clinician Unavailable Payers Payer Name Policy Type Policy Number Effective Date Expiration Date Pavan bustamante [employer] 2 [id number] 2022 00:00:00 [place] [id number] 2021 EMPLOYEE-[employer] 00:00:00 Problems Condition Condition Condition Status Onset Resolution Last Treating Co mments Source Name Details Category Date Date Treatment Clinician Date Other Other Disease Active Univers depression depression 03-23 it y of 00:00: [place] 00 Medical Branch Need for Need for Disease Active Unive rs HPV HPV 03-23 ity [place] Class 1 Class 1 Disease Active Univers obesity obesity 03-23 ity of with body with body 00:00: [...] 03-12 ity of adverse 00:00: [place] reaction 00 Medical s Branch LATEX DRUG Active Hives Univers INGREDI 03-12 ity of 00:00: Medical Branch Social History Social Habit Start Date Stop Date Quantity Comments Source History [facility] o f Alcohol Frequency [facility] edical Branch History [facility] o f Alcohol Std [place] [facility] Drinks Branch History [facility] o f Alcohol Binge [place] [facility] Exposure to 2022-06-22 2022-07-02 Not sure [facility] SARS-CoV-2 00:00:00 10:53:00 [facility] (event) Wink Alcohol intake 2021-06-07 2021-06-07 Ex-drinker [place] of 00:00:00 00:00:00 (finding) [facility] Alcohol Comment 2019-03-23 2019-03-23 social events Univer sity of 00:00:00 00:00:00 [facility] Tobacco use and 2013-03-12 2013-03-12 Smokeless tobacco Un iversity of exposure 00:00:00 00:00:00 non-user [facility] Sex Assigned At [birth year] Universit y of 00:00:00 00:00:00 [facility] Smoking Status Start Date Stop Date Source Never smoked tobacco [facility] Medications Ordered Filled Start Stop Current Ordering Indication Dosage Frequency Signature Comments Components Source Medication Medication Date Date Medication? Clinician (SIG) Name Name methylpredn 2021- No 125mg 125 mg, U nivers isolone sod 12-24 Slow IV ity of succ 05:00: 04:08 [place], [place] (SOLU-MEDRO 00 :00 ONCE, 1 Medic al L) dose, On Branch injection 12/24/21 125 mg at 0000, SHIRA ketorolac 2021- No 15mg 15 mg, Unive rs (TORADOL) 12-24 Slow IV ity of injection 03:15: 02:44 [place], [place] 15 mg 00 :00 ONCE, 1 Medical dose, On Branch 12/23/21 at 2215, SHIRA
Fa culty member approving Restricted medication : Evi CARPENTER famotidine No 20mg 20 mg, Univ ers (PEPCID 12-24 Slow IV ity of (PF)) 02:15: 01:28 [place], [place] injection 00 :00 ONCE, 1 Medical 20 mg dose, On Branch 12/23/21 at 2115, SHIRA maalox:diph 2021- No 15mL 15 mL, Uni vers enhydrAMINE 12-24 Oral ity of :lidocaine 02:15: 01:28 [place] % viscous 00 :00 Swallow), Med ical 1:1:1 ONCE, 1 Branch (FIRST-MOUT dose, On HWASH BLM) 12/23/21 oral at 2115, suspension Routine 15 mL methylPREDN Yes [id number] Take by [facility] ISolone 12-23 mouth ity of (MEDROL, 00:00: SEE-INSTRU Dyll[place] as NITA,) 4 mg 00 CTIONS. Medica l tablets follow Branch package directions methylPREDN Yes [id number] Take by [facility] ISolone 12-23 mouth ity of (MEDROL, 00:00: SEE-INSTRU Dyllan as NITA,) 4 mg 00 CTIONS. Medica l tablets follow Branch package directions methylPREDN 2021-0 Yes [id number] Take by [facility] 12-23 mouth ity of (MEDROL, 00:00: SEE-INSTRU Dyllan as NITA,) 4 mg 00 CTIONS. Medica l tablets follow Branch package directions methylPREDN 2021-0 Yes [id number] Take by [facility] 12-23 mouth ity of (MEDROL, 00:00: SEE-INSTRU Dyllan as NITA,) 4 mg 00 CTIONS. Medica l tablets follow Branch package directions norgestimat 2020-08 Yes [id number] 1{tbl} Take 1 Univers e-ethinyl 0-14 tablet by ity o f estradioL 00:00: mouth [place] (TRI-LO-SPR 00 daily. Medica l INTEC) Branch 0.18/0.215/ 0.25 mg-25 mcg tablet norgestimat 2020-08 Yes [id number] 1{tbl} Take 1 Univers e-ethinyl 0-14 tablet by ity o f estradioL 00:00: mouth [place] (TRI-LO-SPR 00 daily. Medica l INTEC) Branch 0.18/0.215/ 0.25 mg-25 mcg tablet norgestimat 2020-08 Yes [id number] 1{tbl} Take 1 Univers e-ethinyl 0-14 tablet by ity o f estradioL 00:00: mouth [place] (TRI-LO-SPR 00 daily. Medica l INTEC) Branch 0.18/0.215/ 0.25 mg-25 mcg tablet norgestimat 2020-08 Yes [id number] 1{tbl} Take 1 Univers e-ethinyl 0-14 tablet by ity o f estradioL 00:00: mouth [place] (TRI-LO-SPR 00 daily. Medica l INTEC) Branch 0.18/0.215/ 0.25 mg-25 mcg tablet norgestimat 2020-08 Yes [id number] 1{tbl} Take 1 Univers e-ethinyl 0-14 tablet by ity o f estradioL 00:00: mouth [place] (TRI-LO-SPR 00 daily. Medica l INTEC) Branch 0.18/0.215/ 0.25 mg-25 mcg tablet norgestimat 2020-08 Yes [id number] 1{tbl} Take 1 Univers e-ethinyl 0-14 tablet by ity o f estradioL 00:00: mouth [place] (TRI-LO-SPR 00 daily. Medica l INTEC) Branch 0.18/0.215/ 0.25 mg-25 mcg tablet No known No Univers medications 05-21 ity of 14:53: [address] No known No Univers medications 05-21 ity of 14:53: [address] Immunizations Ordered Immunization Filled Date Status Comments Sour ce Name Immunization Name [facility] 2021-05-21 Completed University of 00:00: [facility] [place] [facility] 2021-05-21 Completed University of 00:00:00 [facility] [place] [facility] 2021-05-21 Completed University of 00:00:00 [facility] [place] [facility] 2021-05-21 Completed University of 00:00:00 [facility] [place] [facility] 2021-05-21 Completed University of 00:00:00 [facility] [place] [facility] 2021-05-21 Completed University of 00:00:00 [facility] [place] [facility] 2021-05-21 Completed University of 00:00:00 [facility] [place] [facility] 2021-05-21 Completed University of 00:00:00 [facility] [place] [facility] 2020-03-23 Completed University of 00:00:00 [facility] HPV9 2020-03-23 Completed University of 00:00:00 [facility] HPV9 2020-03-23 Completed University of 00:00:00 [facility] HPV9 2020-03-23 Completed University of 00:00:00 [facility] HPV9 2020-03-23 Completed University of 00:00:00 [facility] HPV9 2020-03-23 Completed University of 00:00:00 [facility] HPV9 2020-03-23 Completed University of 00:00:00 [facility] HPV9 2020-03-23 Completed University of 00:00:00 [facility] [place] [facility] 2019-03-23 Completed University of 00:00:00 [facility] HPV9 2019-03-23 Completed University of 00:00:00 [facility] HPV9 2019-03-23 Completed University of 00:00:00 [facility] HPV9 2019-03-23 Completed University of 00:00:00 [facility] HPV9 2019-03-23 Completed University of 00:00:00 [facility] HPV9 2019-03-23 Completed University of 00:00:00 [facility] HPV9 2019-03-23 Completed University of 00:00:00 [facility] HPV9 2019-03-23 Completed University of 00:00:00 [facility] Meningococcal 2015-04-14 Completed University of Oligosaccharide 00:00:00 [...] University of (varivax)(chicken pox) 00:00:00 [facility] Varicella 2013-10-21 Completed University of (varivax)(chicken pox) 00:00:00 [facility] Varicella 2013-10-21 Completed University of (varivax)(chicken pox) 00:00:00 [facility] Varicella 2013-10-21 Completed University of (varivax)(chicken pox) 00:00:00 [facility] Varicella 2013-10-21 Completed University of (varivax)(chicken pox) 00:00:00 [facility] Varicella 2013-10-21 Completed University of (varivax)(chicken pox) 00:00:00 [facility] Varicella 2013-10-21 Completed University of (varivax)(chicken pox) 00:00:00 [facility] Varicella 2013-10-21 Completed University of (varivax)(chicken pox) 00:00:00 [facility] TDAP 2013-07-08 Completed University of 00:00:00 [facility] TDAP 2013-07-08 Completed University of 00:00:00 [facility] TDAP 2013-07-08 Completed University of 00:00:00 [facility] TDAP 2013-07-08 Completed University of 00:00:00 [facility] TDAP 2013-07-08 Completed University of 00:00:00 [facility] TDAP 2013-07-08 Completed University of 00:00:00 [facility] TDAP 2013-07-08 Completed University of 00:00:00 [facility] TDAP 2013-07-08 Completed University of 00:00:00 [facility] Influenza Virus 2013-05-13 Completed Universit y of Vaccine 00:00:00 [facility] Influenza Virus 2013-05-13 Completed Universit y of Vaccine 00:00:00 [facility] Influenza Virus 2013-05-13 Completed Universit y of Vaccine 00:00:00 [facility] Influenza Virus 2013-05-13 Completed Universit y of Vaccine 00:00:00 [facility] Influenza Virus 2013-05-13 Completed Universit y of Vaccine 00:00:00 [facility] Influenza Virus 2013-05-13 Completed Universit y of Vaccine 00:00:00 [facility] Influenza Virus 2013-05-13 Completed Universit y of Vaccine 00:00:00 [facility] Influenza Virus 2013-05-13 Completed Universit y of Vaccine 00:00:00 [facility] Meningococcal Vaccine 2008-12-22 Completed Uni versity of 00:00:00 [facility] TDAP 2008-12-22 Completed University of 00:00:00 [facility] Meningococcal Vaccine 2008-12-22 Completed Uni versity of 00:00:00 [facility] TDAP 2008-12-22 Completed University of 00:00:00 [facility] Meningococcal Vaccine 2008-12-22 Completed Uni versity of 00:00:00 [facility] TDAP 2008-12-22 Completed University of 00:00:00 [facility] Meningococcal Vaccine 2008-12-22 Completed Uni versity of 00:00:00 [facility] Branch TDAP 2008-12-22 Completed University of 00:00:00 [facility] Meningococcal Vaccine 2008-12-22 Completed Uni versity of 00:00:00 [facility] TDAP 2008-12-22 Completed University of 00:00:00 [facility] Meningococcal Vaccine 2008-12-22 Completed Uni versity of 00:00:00 [facility] TDAP 2008-12-22 Completed University of 00:00:00 [facility] Meningococcal Vaccine 2008-12-22 Completed Uni versity of 00:00:00 [facility] TDAP 2008-12-22 Completed University of 00:00:00 [facility] Meningococcal Vaccine 2008-12-22 Completed Uni versity of 00:00:00 [facility] TDAP 2008-12-22 Completed University of 00:00:00 [facility] HEPATITIS A 2004-09-04 Completed University of 00:00:00 [facility] HEPATITIS A 2004-09-04 Completed University of 00:00:00 [facility] HEPATITIS A 2004-09-04 Completed University of 00:00:00 [facility] HEPATITIS A 2004-09-04 Completed University of 00:00:00 [facility] Branch HEPATITIS A 2004-09-04 Completed University of 00:00:00 [facility] Branch HEPATITIS A 2004-09-04 Completed University of 00:00:00 [facility] Branch HEPATITIS A 2004-09-04 Completed University of 00:00:00 [facility] Branch HEPATITIS A 2004-09-04 Completed University of 00:00:00 [facility] HEPATITIS A 2002-05-31 Completed University of 00:00:00 [facility] HEPATITIS A 2002-05-31 Completed University of 00:00:00 [facility] HEPATITIS A 2002-05-31 Completed University of 00:00:00 [facility] Branch HEPATITIS A 2002-05-31 Completed University of 00:00:00 [place] [facility] HEPATITIS A 2002-05-31 Completed University of 00:00:00 [place] [facility] HEPATITIS A 2002-05-31 Completed University of 00:00:00 [place] [facility] HEPATITIS A 2002-05-31 Completed University of 00:00:00 [place] [facility] HEPATITIS A 2002-05-31 Completed University of 00:00:00 [place] [facility] HEPATITIS A 2001-03-24 Completed University of 00:00:00 [place] [facility] HEPATITIS A 2001-03-24 Completed University of 00:00:00 [place] [facility] HEPATITIS A 2001-03-24 Completed University of 00:00:00 [place] [facility] HEPATITIS A 2001-03-24 Completed University of 00:00:00 [place] [facility] HEPATITIS A 2001-03-24 Completed University of 00:00:00 [place] [facility] HEPATITIS A 2001-03-24 Completed University of 00:00:00 [place] [facility] HEPATITIS A 2001-03-24 Completed University of 00:00:00 [place] [facility] HEPATITIS A 2001-03-24 Completed University of 00:00:00 [facility] DTAP 2001-03-15 Completed University of 00:00:00 [place] [facility] DTAP 2001-03-15 Completed University of 00:00:00 [place] [facility] DTAP 2001-03-15 Completed University of 00:00:00 [place] [facility] DTAP 2001-03-15 Completed University of 00:00:00 [place] [facility] DTAP 2001-03-15 Completed University of 00:00:00 [place] [facility] DTAP 2001-03-15 Completed University of 00:00:00 [place] [facility] DTAP 2001-03-15 Completed University of 00:00:00 [place] [facility] DTAP 2001-03-15 Completed University of 00:00:00 [facility] MMR 2001-02-23 Completed University of 00:00:00 [facility] Polio (IPV/OPV) 2001-02-23 Completed Universit y of 00:00:00 [place] [facility] DTAP 2001-02-23 Completed University of 00:00:00 [place] [facility] MMR 2001-02-23 Completed University of 00:00:00 [facility] Polio (IPV/OPV) 2001-02-23 Completed Universit y of 00:00:00 [facility] DTAP 2001-02-23 Completed University of 00:00:00 [facility] MMR 2001-02-23 Completed University of 00:00:00 [facility] Polio (IPV/OPV) 2001-02-23 Completed Universit y of 00:00:00 [facility] DTAP 2001-02-23 Completed University of 00:00:00 [facility] MMR 2001-02-23 Completed University of 00:00:00 [facility] Polio (IPV/OPV) 2001-02-23 Completed Universit y of 00:00:00 [facility] DTAP 2001-02-23 Completed University of 00:00:00 [facility] MMR 2001-02-23 Completed University of 00:00:00 [facility] Polio (IPV/OPV) 2001-02-23 Completed Universit y of 00:00:00 [facility] DTAP 2001-02-23 Completed University of 00:00:00 [facility] MMR 2001-02-23 Completed University of 00:00:00 [facility] Polio (IPV/OPV) 2001-02-23 Completed Universit y of 00:00:00 [facility] DTAP 2001-02-23 Completed University of 00:00:00 [facility] MMR 2001-02-23 Completed University of 00:00:00 [facility] Polio (IPV/OPV) 2001-02-23 Completed Universit y of 00:00:00 [facility] DTAP 2001-02-23 Completed University of 00:00:00 [facility] MMR 2001-02-23 Completed University of 00:00:00 [facility] Polio (IPV/OPV) 2001-02-23 Completed Universit y of 00:00:00 [facility] DTAP 2001-02-23 Completed University of 00:00:00 [facility] HIB 3 Dose Schedule 2000-04-10 Completed Unive rsity of 00:00:00 [facility] DTAP 2000-04-10 Completed University of 00:00:00 [facility] HIB 3 Dose Schedule 2000-04-10 Completed Unive rsity of 00:00:00 [facility] DTAP 2000-04-10 Completed University of 00:00:00 [facility] HIB 3 Dose Schedule 2000-04-10 Completed Unive rsity of 00:00:00 [facility] DTAP 2000-04-10 Completed University of 00:00:00 [facility] HIB 3 Dose Schedule 2000-04-10 Completed Unive rsity of 00:00:00 [facility] DTAP 2000-04-10 Completed University of 00:00:00 [facility] HIB 3 Dose Schedule 2000-04-10 Completed Unive rsity of 00:00:00 [place] [facility] DTAP 2000-04-10 Completed University of 00:00:00 [facility] HIB 3 Dose Schedule 2000-04-10 Completed Unive rsity of 00:00:00 [place] [facility] DTAP 2000-04-10 Completed University of 00:00:00 [facility] HIB 3 Dose Schedule 2000-04-10 Completed Unive rsity of 00:00:00 [place] [facility] DTAP 2000-04-10 Completed University of 00:00:00 [facility] HIB 3 Dose Schedule 2000-04-10 Completed Unive rsity of 00:00:00 [facility] DTAP 2000-04-10 Completed University of 00:00:00 [facility] HIB 3 Dose Schedule 1999-05-16 Completed Unive rsity of 00:00:00 [facility] Polio (IPV/OPV) 1999-05-16 Completed Universit y of 00:00:00 [facility] Branch DTAP 1999-05-16 Completed University of 00:00:00 [facility] HIB 3 Dose Schedule 1999-05-16 Completed Unive rsity of 00:00:00 [facility] Polio (IPV/OPV) 1999-05-16 Completed Universit y of 00:00:00 [facility] Branch DTAP 1999-05-16 Completed University of 00:00:00 [facility] HIB 3 Dose Schedule 1999-05-16 Completed Unive rsity of 00:00:00 [facility] Polio (IPV/OPV) 1999-05-16 Completed Universit y of 00:00:00 [facility] Branch DTAP 1999-05-16 Completed University of 00:00:00 [facility] HIB 3 Dose Schedule 1999-05-16 Completed Unive rsity of 00:00:00 [facility] Polio (IPV/OPV) 1999-05-16 Completed Universit y of 00:00:00 [facility] Branch DTAP 1999-05-16 Completed University of 00:00:00 [facility] HIB 3 Dose Schedule 1999-05-16 Completed Unive rsity of 00:00:00 [facility] Branch Polio (IPV/OPV) 1999-05-16 Completed Universit y of 00:00:00 [facility] DTAP 1999-05-16 Completed University of 00:00:00 [place] [facility] HIB 3 Dose Schedule 1999-05-16 Completed Unive rsity of 00:00:00 [place] [facility] Polio (IPV/OPV) 1999-05-16 Completed Universit y of 00:00:00 [place] [facility] DTAP 1999-05-16 Completed University of 00:00:00 [place] [facility] HIB 3 Dose Schedule 1999-05-16 Completed Unive rsity of 00:00:00 [place] [facility] Polio (IPV/OPV) 1999-05-16 Completed Universit y of 00:00:00 [place] [facility] DTAP 1999-05-16 Completed University of 00:00:00 [facility] HIB 3 Dose Schedule 1999-05-16 Completed Unive rsity of 00:00:00 [place] [facility] Polio (IPV/OPV) 1999-05-16 Completed Universit y of 00:00:00 [facility] DTAP 1999-05-16 Completed University of 00:00:00 [facility] HIB 3 Dose Schedule 1999-03-28 Completed Unive rsity of 00:00:00 [facility] Branch Hep B, Adol or Pedi 1999-03-28 Completed Unive rsity of Dosage 00:00:00 [facility] Polio (IPV/OPV) 1999-03-28 Completed Universit y of 00:00:00 [place] [facility] DTAP 1999-03-28 Completed University of 00:00:00 [place] [facility] HIB 3 Dose Schedule 1999-03-28 Completed Unive rsity of 00:00:00 [place] [facility] Hep B, Adol or Pedi 1999-03-28 Completed Unive rsity of Dosage 00:00:00 [place] [facility] Polio (IPV/OPV) 1999-03-28 Completed Universit y of 00:00:00 [place] [facility] DTAP 1999-03-28 Completed University of 00:00:00 [place] [facility] HIB 3 Dose Schedule 1999-03-28 Completed Unive rsity of 00:00:00 [place] [facility] Hep B, Adol or Pedi 1999-03-28 Completed Unive rsity of Dosage 00:00:00 [facility] Polio (IPV/OPV) 1999-03-28 Completed Universit y of 00:00:00 [place] [facility] DTAP 1999-03-28 Completed University of 00:00:00 [place] [facility] HIB 3 Dose Schedule 1999-03-28 Completed Unive rsity of 00:00:00 [place] [facility] Hep B, Adol or Pedi 1999-03-28 Completed Unive rsity of Dosage 00:00:00 [facility] Polio (IPV/OPV) 1999-03-28 Completed Universit y of 00:00:00 [facility] DTAP 1999-03-28 Completed University of 00:00:00 [facility] HIB 3 Dose Schedule 1999-03-28 Completed Unive rsity of 00:00:00 [place] [facility] Hep B, Adol or Pedi 1999-03-28 Completed Unive rsity of Dosage 00:00:00 [facility] Polio (IPV/OPV) 1999-03-28 Completed Universit y of 00:00:00 [facility] DTAP 1999-03-28 Completed University of 00:00:00 [facility] HIB 3 Dose Schedule 1999-03-28 Completed Unive rsity of 00:00:00 [facility] Hep B, Adol or Pedi 1999-03-28 Completed Unive rsity of Dosage 00:00:00 [facility] Polio (IPV/OPV) 1999-03-28 Completed Universit y of 00:00:00 [facility] DTAP 1999-03-28 Completed University of 00:00:00 [facility] HIB 3 Dose Schedule 1999-03-28 Completed Unive rsity of 00:00:00 [facility] Hep B, Adol or Pedi 1999-03-28 Completed Unive rsity of Dosage 00:00:00 [facility] Polio (IPV/OPV) 1999-03-28 Completed Universit y of 00:00:00 [facility] DTAP 1999-03-28 Completed University of 00:00:00 [facility] HIB 3 Dose Schedule 1999-03-28 Completed Unive rsity of 00:00:00 [place] [facility] Hep B, Adol or Pedi 1999-03-28 Completed Unive rsity of Dosage 00:00:00 [facility] Polio (IPV/OPV) 1999-03-28 Completed Universit y of 00:00:00 [facility] DTAP 1999-03-28 Completed University of 00:00:00 [place] [facility] Hep B, Adol or Pedi 1998-04-17 Completed Unive rsity of Dosage 00:00:00 [facility] MMR 1998-04-17 Completed University of 00:00:00 [facility] Polio (IPV/OPV) 1998-04-17 Completed Universit y of 00:00:00 [facility] DTAP 1998-04-17 Completed University of 00:00:00 [facility] HIB 3 Dose Schedule 1998-04-17 Completed Unive rsity of 00:00:00 [facility] Hep B, Adol or Pedi 1998-04-17 Completed Unive rsity of Dosage 00:00:00 [facility] MMR 1998-04-17 Completed University of 00:00:00 [facility] Polio (IPV/OPV) 1998-04-17 Completed Universit y of 00:00:00 [facility] DTAP 1998-04-17 Completed University of 00:00:00 [facility] HIB 3 Dose Schedule 1998-04-17 Completed Unive rsity of 00:00:00 [facility] Hep B, Adol or Pedi 1998-04-17 Completed Unive rsity of Dosage 00:00:00 [facility] MMR 1998-04-17 Completed University of 00:00:00 [facility] Polio (IPV/OPV) 1998-04-17 Completed Universit y of 00:00:00 [facility] DTAP 1998-04-17 Completed University of 00:00:00 [facility] HIB 3 Dose Schedule 1998-04-17 Completed Unive rsity of 00:00:00 [facility] Hep B, Adol or Pedi 1998-04-17 Completed Unive rsity of Dosage 00:00:00 [facility] MMR 1998-04-17 Completed University of 00:00:00 [facility] Polio (IPV/OPV) 1998-04-17 Completed Universit y of 00:00:00 [facility] DTAP 1998-04-17 Completed University of 00:00:00 [facility] HIB 3 Dose Schedule 1998-04-17 Completed Unive rsity of 00:00:00 [facility] Hep B, Adol or Pedi 1998-04-17 Completed Unive rsity of Dosage 00:00:00 [facility] MMR 1998-04-17 Completed University of 00:00:00 [facility] Polio (IPV/OPV) 1998-04-17 Completed Universit y of 00:00:00 [facility] DTAP 1998-04-17 Completed University of 00:00:00 [facility] HIB 3 Dose Schedule 1998-04-17 Completed Unive rsity of 00:00:00 [facility] Hep B, Adol or Pedi 1998-04-17 Completed Unive rsity of Dosage 00:00:00 [facility] MMR 1998-04-17 Completed University of 00:00:00 [facility] Polio (IPV/OPV) 1998-04-17 Completed Universit y of 00:00:00 [facility] DTAP 1998-04-17 Completed University of 00:00:00 [facility] HIB 3 Dose Schedule 1998-04-17 Completed Unive rsity of 00:00:00 [facility] Hep B, Adol or Pedi 1998-04-17 Completed Unive rsity of Dosage 00:00:00 [facility] MMR 1998-04-17 Completed University of 00:00:00 [facility] Polio (IPV/OPV) 1998-04-17 Completed Universit y of 00:00:00 [facility] DTAP 1998-04-17 Completed University of 00:00:00 [facility] HIB 3 Dose Schedule 1998-04-17 Completed Unive rsity of 00:00:00 [facility] Hep B, Adol or Pedi 1998-04-17 Completed Unive rsity of Dosage 00:00:00 [facility] MMR 1998-04-17 Completed University of 00:00:00 [facility] Polio (IPV/OPV) 1998-04-17 Completed Universit y of 00:00:00 [facility] DTAP 1998-04-17 Completed University of 00:00:00 [facility] HIB 3 Dose Schedule 1998-04-17 Completed Unive rsity of 00:00:00 [facility] Hep B, Adol [...] 1997 Completed Unive rsity of Dosage 00:00:00 [facility] Hep B, Adol or Pedi 1997 Completed Unive rsity of Dosage 00:00:00 [facility] Hep B, Adol or Pedi 1997 Completed Unive rsity of Dosage 00:00:00 [facility] Hep B, Adol or Pedi 1997 Completed Unive rsity of Dosage 00:00:00 [facility] Varicella 1997 Completed University of (varivax)(chicken pox) 00:00:00 [facility] Varicella 1997 Completed University of (varivax)(chicken pox) 00:00:00 [facility] Varicella 1997 Completed University of (varivax)(chicken pox) 00:00:00 [facility] Varicella 1997 Completed University of (varivax)(chicken pox) 00:00:00 [facility] Varicella 1997 Completed University of (varivax)(chicken pox) 00:00:00 [facility] Varicella 1997 Completed University of (varivax)(chicken pox) 00:00:00 [facility] Varicella 1997 Completed University of (varivax)(chicken pox) 00:00:00 [facility] Varicella 1997 Completed University of (varivax)(chicken pox) 00:00:00 [facility] Hep B, Adol or Pedi 1997 Completed Unive rsity of Dosage 00:00:00 [facility] Hep B, Adol or Pedi 1997 Completed Unive rsity of Dosage 00:00:00 [facility] Hep B, Adol or Pedi 1997 Completed Unive rsity of Dosage 00:00:00 [facility] Hep B, Adol or Pedi 1997 Completed Unive rsity of Dosage 00:00:00 [facility] Hep B, Adol or Pedi 1997 Completed Unive rsity of Dosage 00:00:00 [facility] Hep B, Adol or Pedi 1997 Completed Unive rsity of Dosage 00:00:00 [facility] Hep B, Adol or Pedi 1997 Completed Unive rsity of Dosage 00:00:00 [facility] Hep B, Adol or Pedi 1997 Completed Unive rsity of Dosage 00:00:00 [facility] Vital Signs Vital Name Observation Time Observation Value Comments Source Systolic blood 2022-07-02 16:54:00 146 mm[Hg] Univer sity of pressure [facility] Diastolic blood 2022-07-02 16:54:00 97 mm[Hg] Unive rsity of pressure [facility] Heart rate 2022-07-02 16:54:00 68 /min Universi ty of [facility] Body temperature 2022-07-02 16:54:00 36.33 Alison Univ ersity of [facility] Respiratory rate 2022-07-02 16:54:00 18 /min Univ ersity of [facility] Body weight 2022-07-02 16:54:00 97.523 kg Universi ty of [facility] BMI 2022-07-02 16:54:00 36.90 kg/m2 Universi ty of [facility] Oxygen saturation in 2022-07-02 16:54:00 100 /min University of Arterial blood by [facility] Pulse oximetry Branch Systolic blood 2021-12-24 03:00:00 134 mm[Hg] Univer sity of pressure [facility] Diastolic blood 2021-12-24 03:00:00 84 mm[Hg] Unive rsity of pressure [facility] Heart rate 2021-12-24 03:00:00 64 /min Universi ty of [facility] Respiratory rate 2021-12-24 03:00:00 15 /min Univ ersity of [facility] Oxygen saturation in 2021-12-24 03:00:00 95 /min University of Arterial blood by [facility] Pulse oximetry Branch Body temperature 2021-12-24 00:41:00 37 Alison Univ ers[facility] Body height 2021-12-24 00:41:00 162.6 cm [facility] Body weight 2021-12-24 00:41:00 97.523 kg [facility] BMI 2021-12-24 00:41:00 36.90 kg/m2 Universi ty of [facility] Systolic blood 2021-06-07 14:13:00 123 mm[Hg] Univer sity of pressure [facility] Diastolic blood 2021-06-07 14:13:00 66 mm[Hg] Unive rsity of pressure [facility] Heart rate 2021-06-07 14:13:00 73 /min [facility] Body temperature 2021-06-07 14:13:00 36.83 Alison [facility] Respiratory rate 2021-06-07 14:13:00 18 /min Univ [facility] Body height 2021-06-07 14:13:00 162.6 cm [facility] Body weight 2021-06-07 14:13:00 94.62 kg [facility] BMI 2021-06-07 14:13:00 35.81 kg/m2 Universi ty of [facility] Systolic blood 2021-05-21 19:52:00 121 mm[Hg] Univer sity of pressure [facility] Diastolic blood 2021-05-21 19:52:00 73 mm[Hg] Unive rsity of pressure [facility] Heart rate 2021-05-21 19:52:00 73 /min [facility] Body temperature 2021-05-21 19:52:00 36.39 Alison Univ [facility] Respiratory rate 2021-05-21 19:52:00 18 /min Univ ers[facility] Body height 2021-05-21 19:52:00 162.6 cm [facility] Body weight 2021-05-21 19:52:00 92.851 kg [facility] BMI 2021-05-21 19:52:00 35.14 kg/m2 [facility] Procedures Procedure Date / Time Performing Clinician Source Performed CONSENT/REFUSAL FOR 2022-07-02 16:50:07 Doctor Unassigned, No [facility] CONSENT/REFUSAL FOR 2022-04-17 22:18:51 Doctor Unassigned, No [facility] [place] [facility] XR CHEST 1 VW 2021-12-24 01:25:29 Evi Carpenter [employer] o [facility] POCT TEST 2021-12-24 01:24:00 Evi Carpenter [facility] D-DIMER 2021-12-24 01:11:00 Evi Carpenter [facility] MAGNESIUM 2021-12-24 01:10:00 Evi Carpenter [facility] TROPONIN I 2021-12-24 01:10:00 Evi Carpenter [facility] COMP. METABOLIC PANEL 2021-12-24 01:10:00 Evi Carpenter Radha [facility] ([id number]) [facility] CBC WITH DIFF 2021-12-24 01:10:00 Jayden [facility] URINALYSIS 2021-12-24 01:10:00 Evi Carpenter [facility] POCT TEST 2021-06-07 14:18:00 Hattie Rodriguez [facility] THYROID STIMULATING 2021-05-21 21:16:00 Hattie Rodriguez [facility] HORMONE [facility] CBC WITH DIFF 2021-05-21 21:16:00 Hattie Rodriguez [facility] HIV 1/2 AG-AB WITH 2021-05-21 20:40:00 Hattie Rodriguez [facility] REFLEX [facility] GARDASIL 9 (HPV 9V) 2021-05-21 20:14:56 Hattie Rodriguez [facility] VACCINE [facility] Encounters Start End Encounter Admission Attending Care Care Encounter Source Date/Time Date/Time Type Type Clinicians Facility Department ID 2022-07-03 2022-07-03 Outpatient GEGE OLIVIA [id number] Gege 16:30:00 16:30:00 JUANA Duffol d 2022-07-02 2022-07-02 Emergency X SINGER INJOSH ERT [id number] Univers 10:55:00 12:08:00 SKYLAR dafne [facility] 2022-07-02 2022-07-02 Emergency Singer INJOSH [id number] Univers 10:55:00 12:08:00 Skylar CONNELL 350.1.13.10 i [facility] 4.2.7.2.686 [facility] [id number] [place] [id number] Wink 2022-07-02 2022-07-02 [facility]phone [facility] 1.2.840.114 [id number] Univers 00:00:00 00:00:00 Melonie Navarro 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 350.1.13.10 ity [facility] 4.2.7.2.686 [place]yllan as MATERNAL [id number] Med ical & CHILD [address] [place] [address] 2022-06-24 2022-06-24 Outpatient GEGE PIÑA [id number] Gege 10:45:00 10:45:00 ZULMA Seybol d 2022-06-10 2022-06-10 Outpatient GEGE PIÑA [id number] Gege 09:00:00 09:00:00 ZULMA Seybol d 2022-05-31 2022-05-31 Outpatient JOSH FLYNN [id number] Gege 15:30:00 15:30:00 Seybol d 2022-05-22 2022-05-22 Outpatient Viola BOYKIN [facility] [id number] Univers 09:45:00 09:45:00 GADIEL marcum f [facility] 2022-05-15 2022-05-15 Outpatient GEGE PIÑA [id number] Gege 00:00:00 00:00:00 NAOMIE Seybo ld 2022-05-02 2022-05-02 Outpatient GEGE PIÑA [id number] Gege 00:00:00 00:00:00 NAOMIE Seybo ld 2022-05-01 2022-05-01 Outpatient LAB47 GEGE MALHOTRA [id number] Gege 17:15:00 17:15:00 Seybol d 2022-05-01 2022-05-01 Office CHERYL Piña [id number] Gege 16:30:00 17:00:00 Visit Zulma 350.1.13.13 Se ybold 1.2.7.2.686 [id number] 2022-04-30 2022-04-30 Outpatient GEGE PIÑA [id number] Gege 00:00:00 00:00:00 ZULMA Griffith d 2022-04-17 2022-04-17 Outpatient R AKINSIPE, [facility] [id number] Univers 17:45:00 17:45:00 MELONIE ity o f [facility] 2022-04-17 2022-04-17 Orders Doctor ESPARZA 1.2.840.114 [id number] Univers 00:00:00 00:00:00 Only Unassigned, MARGARETH 350.1.13.[address] [facility] 4.2.7.2.686 [place] [id number] [facility] 009 Branch 2022-04-16 2022-04-16 Outpatient R AKINSIPE, [facility] [id number] Univers 13:00:00 13:00:00 MELONIE juney o [facility] 2022-02-21 2022-02-21 Outpatient R AKINSIPE, [facility] [id number] Univers 08:15:00 08:15:00 MELONIE ity o [facility] 2022-01-03 2022-01-03 Outpatient R AKINSIPE, [facility] [id number] Univers 08:15:00 08:15:00 MELONIE ity o [facility] 2021-12-23 2021-12-23 Emergency X JAYDEN, K [facility] ERT [id number] Univers 19:46:00 23:21:00 ity of [facility] 2021-12-23 2021-12-23 Emergency Jayden, K [facility] [id number] Univers 19:46:00 23:21:00 Radha CONNELL 350.1.13.10 i ty [facility] 4.2.7.2.686 [facility] [id number] [facility] 084 Branch 2021-09-06 2021-09-06 Outpatient R AKINSIPE, [facility] [id number] Univers 15:45:00 15:45:00 MELONIE ity o [facility] 2021-08-07 2021-08-07 Outpatient R AKINSIPE, [facility] [id number] Univers 15:00:00 15:00:00 MELONIE ity o f [facility] 2021-08-02 2021-08-02 Telephone John [facility] 1.2.840.114 [id number] Univers 00:00:00 00:00:00 Melonie Navarro 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 350.1.13.10 ity of REGIONAL 4.2.7.2.686 [place] as MATERNAL [id number] [facility] ical & CHILD [address] [place] [address] 2021-06-07 2021-06-07 [facility] 1.2 .840.114 [id number] Univers 09:00:25 09:28:03 Visit Melonie Lopez 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 350.1.13. 10 ity of REGIONAL 4.2.7.2.686 [place] as MATERNAL [id number] [facility] & CHILD [address] [place] [address] 2021-06-07 2021-06-07 Outpatient R [facility] [id number] Univers 09:00:00 09:00:00 ity of [facility] 2021-06-04 2021-06-04 Outpatient R [facility] [id number] Univers 09:00:00 09:00:00 ity of [facility] 2021-06-04 2021-06-04 [facility] 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 350.1.13.10 ity of REGIONAL 4.2.7.2.686 [place] as MATERNAL [id number] [facility] & CHILD [address] [place] [address] 2021-05-21 2021-05-21 Office Jennifer [facility] [id number] Univers 14:39:44 15:48:37 Visit Hattie Soriano 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 350.1.13.10 it y of REGIONAL 4.2.7.2.686 [place] as MATERNAL [id number] [facility] ical & [address] 2021-05-21 2021-05-21 Outpatient R JENNIFER [facility] [id number] Univers 14:30:00 14:30:00 HATTIE alarcon [facility] 2021-05-21 2021-05-21 Orders Doctor ISAIAS 1.2.840.114 [id number] Univers 00:00:00 00:00:00 Only Unassigned, MARGARETH 350.1.13.[address] [place] [facility] 4.2.7.2.686 [place] as [id number] [address] 2021-05-11 2021-05-11 [address] [facility] [id number] Univers 12:45:00 12:45:00 MELONIE perez [facility] 2020-11-14 2020-11-14 Patient [facility] 1.2.840.114 [id number] 00:00:00 00:00:00 Outreach Amor PRIMARY 350.1.13.10 [facility] 4.2.7.2.686 PAVILLION [id number] 2020-11-14 2020-11-14 Patient [facility] 1.2.840.114 [id number] Univers 00:00:00 00:00:00 Outreach Amor PRIMARY 350.1.13.10 i ty of [place] [facility].2.7.2.686 [place] [id number] N[place] dical 388 Wink 2020-08-29 2020-08-29 Outpatient R [facility] [id number] Univers 09:00:00 [facility] 2020-08-02 2020-08-02 Outpatient R [facility] [id number] Univers 14:00:00 14:00:00 [facility] 2020-08-02 2020-08-02 [address] [facility] [id number] Univers 14:00:00 14:00:00 MELONIE perez [facility] 2020-07-24 2020-07-24 Outpatient R [facility] [id number] Univers 09:30:00 09:30:00 [facility] 2020-06-27 2020-06-27 Office [facility] [id number] 15:14:20 15:49:12 Visit Melonie C 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 350.1.13.10 REGIONAL 4.2.7.2.686 MATERNAL [id number] & CHILD [address] [place] [address] 2020-06-27 2020-06-27 Office [facility] [id number] Univers 15:14:20 15:49:12 Visit Melonie C 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 350.1.13.10 ity of [facility] 4.2.7.2.686 [place]yllan as MATERNAL [id number] [facility] & CHILD [address] [place] [address] 2020-06-27 2020-06-27 Outpatient R AKINSIPE, [facility] [id number] Univers 15:15:00 15:15:00 MELONIE alarcon o [facility] 2020-06-27 2020-06-27 Outpatient R AKINSIPE, [facility] [id number] Univers 15:15:00 15:15:00 MELONIE juney o [facility] 2020-05-24 2020-05-24 Outpatient R AKINSIPE, [facility] [id number] Univers 10:30:00 10:30:00 MELONIE ity o [facility] 2020-05-24 2020-05-24 Outpatient R AKINSIPE, [facility] [id number] Univers 10:30:00 10:30:00 MELONIE ity o [facility] 2020-03-27 2020-03-27 Telephone [facility] 1.2.840.114 [id number] Univers 00:00:00 00:00:00 Melonie C 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 350.1.13.10 ity of [facility] 4.2.7.2.686 Dyllan as MATERNAL [id number] [facility] & CHILD [address] [place] [address] 2020-03-23 2020-03-23 Office [facility] [id number] Univers 09:05:31 10:07:13 Visit Melonie C 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 350.1.13.10 ity of [facility] 4.2.7.2.686 Dyllan as MATERNAL [id number] [facility] ical & CHILD [address] [place] [address] 2020-03-23 2020-03-23 Outpatient R [facility]SE [facility] [id number] Univers 09:00:00 09:00:00 MELONIE dorian marcum ana [facility] 2020-03-23 2020-03-23 Orders Doctor ISAIAS 1.2.840.114 [id number] Univers 00:00:00 00:00:00 Only Unassigned, MARGARETH 350.1.13.[address] [place] [facility] 4.2.7.2.686 Dyllan as [id number] [address] 2020-02-04 2020-02-04 Office [facility] [id number] Univers 08:06:19 08:53:19 Visit Melonie Navarro 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 350.1.13.10 ity of [facility] 4.2.7.2.686 [place]yllan as MATERNAL [id number] [facility] & CHILD [address] [place] [address] 2020-02-04 2020-02-04 [address] [facility] [id number] Univers 08:15:00 08:15:00 MELONIE dorian trixie perez [facility] 2019-03-24 2019-03-24 Telephone [facility] [id number] Univers 00:00:00 00:00:00 Gadiel Rod 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 350.1.13.10 ity of REGIONAL 4.2.7.2.686 [place] as MATERNAL [id number] [facility] & CHILD [address] [place] [address] 2019-03-23 2019-03-23 Office [facility] 1.2.840.114 [id number] Univers 09:47:46 10:44:24 Visit Gadiel Rod 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 350.1.13.10 ity of REGIONAL 4.2.7.2.686 [place] as MATERNAL [id number] [facility] & CHILD [address] [place] [address] 2019-03-23 2019-03-23 Orders Doctor ESPARZA 1.2.840.114 [id number] Univers 00:00:00 00:00:00 Only Unassigned, MARGARETH 350.1.13.[address] [place] [facility] 4.2.7.2.686 [place]an as [id number] [address] Results Test Description Test Time Test Comments Results Result Comments Source TROPONIN I 2021-12-24 01:46:28 Test Item Value Reference Range Interpretation Comme nts TROPONIN I (test code = 0.002 ng/mL See_Comment [Au tomated message] The [id number]) system which ge nerated this result tra [...] biotin. Lab Interpretation Normal (test code = 94222-1) [facility]. METABOLIC PANEL (38037)2021-12-24 01:34:25 Test Item Value Reference Range Interpretation Comments NA (test code = 139 mmol/L 135-145 8014252330) K (test code = 3.6 mmol/L 3.5-5.0 7170130759) CL (test code = 104 mmol/L 98-108 9574410272) CO2 TOTAL (test code 25 mmol/L 23-31 = 8767363219) AGAP (test code = 2-16 7892536265) BUN (test code = 10 mg/dL 7-23 1416911415) GLUCOSE (test code = 81 mg/dL 70-110 1772750440) CREATININE (test code 0.86 mg/dL 0.50-1.04 = 1554868420) TOTAL BILI (test code 0.7 mg/dL 0.1-1.1 = 9568561215) CALCIUM (test code = 9.6 mg/dL 8.6-10.6 2406636059) T PROTEIN (test code 7.8 g/dL 6.3-8.2 = 8574772814) ALBUMIN (test code = 4.4 g/dL 3.5-5.0 8728713668) ALK PHOS (test code = 105 U/L 34-122 0651389910) ALTv (test code = 24 U/L 5-35 1742-6) AST(SGOT) (test code 30 U/L 13-40 = 5096656214) eGFR (test code = mL/min/1.73m2 6334417165) GRSIELDA (test code = GRISELDA) Association of Glomerular [...] or urine or abnormalities in imaging tests). [facility]2022-05-02 01:34:25 Test Item Value Reference Range Interpretation Comments MAGNESIUM (test code = 4453907549) 1.8 mg/dL 1.7-2.4 Lab Interpretation (test code = Normal 30340-5) [facility]2022-05-02 01:31:04 Test Item Value Reference Interpretation Comments Range D-DIMER (test code = See_Comment [Autom ated 6117657430) message] The system which generated this result [...] diagnosis. Lab Interpretation Normal (test code = 01344-1) [id number] 01:24:00 Test Item Value Reference Range Interpretation Comments POCT PREG (test code = 1605) negative On board controls acceptable with present C Line (test code = 3574) POCT PREG LOT # (test code = 3575) [id number] POCT PREG TEST DATE (test code = 3576) Lab Interpretation (test code = Normal 04079-7) [facility] [id number] 01:20:27 Test Item Value Reference Range Interpretation Comments WBC (test code = See_Comment [Automated message] 6690-2) The system [employer] generated this result transmitted ref erence range: 4.30 - 1 1.10 10*3/?L. The re ference range was not u sed to interpret this result as normal/abnor mal. RBC (test code = See_Comment [Automated message] 789-8) The system [employer] generated this result transmitted ref erence range: [...] RDW-SD (test code 40.0 fL 39.0-49.9 = 57759-2) RDW-CV (test code 13.6 % 12.0-15.5 = 788-0) PLT (test code = See_Comment [Automated message] 777-3) The system [employer] generated this result transmitted ref erence range: 166 - 35 8 10*3/?L. The re ference range was not u sed to interpret this result as normal/abnor mal. MPV (test code = 10.0 fL 9.5-12.9 40236-3) NRBC/100 WBC (test See_Comment [Automat ed message] code = 1243256031) The syste m which generated this result transmitted ref erence range: 0.0 - 10 .0 /100 WBCs. The refer ence range was not u sed to interpret this result as normal/abnor mal. NRBC x10^3 (test <0.01 See_Comment [Automated message] code = 3799246297) The syste m which generated this result transmitted ref erence range: 10*3/?L. The reference range was not used to interpr et this result as normal/abnormal . GRAN MAT (NEUT) % 46.3 % (test code = 770-8) IMM GRAN % (test 0.20 % code = 0659301436) LYMPH % (test code 43.0 % = 736-9) MONO % (test code 8.6 % = 5905-5) EOS % (test code = 1.2 % 713-8) BASO % (test code 0.7 % = 706-2) GRAN MAT 2.75 10*3/uL 1.88-7.09 x10^3(ANC) (test code = 1273329235) IMM GRAN x10^3 <0.03 0.00-0.06 (test code = 6905980836) LYMPH x10^3 (test 2.55 10*3/uL 1.32-3.29 code = 731-0) MONO x10^3 (test 0.51 10*3/uL 0.33-0.92 code = 742-7) EOS x10^3 (test 0.07 10*3/uL 0.03-0.39 code = 711-2) BASO x10^3 (test 0.04 10*3/uL 0.01-0.07 code = 704-7) [facility] [id number] 14:20:00 Test Item Value Reference Range Interpretation Comments POCT PREG (test code = 1605) Negative On board controls acceptable with C Yes Line (test code = 3574) POCT PREG LOT # (test code = 3575) POCT PREG TEST DATE (test code = 3576) [facility]-AB WITH [id number] 05:35:57 Test Item Value Reference Range Interpretation Comments HIV Negative Negative Semi-quantitative (test code = 58479-4) GRISELDA (test code = Non-reactive for HIV-1 GRISELDA) antigen and HIV-1/HIV-2 antibodies. ?No laboratory evidence of HIV infection. ?Repeat in 2-4 weeks if acute HIV infection is suspected. [facility] [id number] 05:14:33 Test Item Value Reference Range Interpretation Comments TSH (test code = See_Comment Biotin has been [id number]) reported to cau se a negative bias, interpret resul ts relative to pat ient's use of biotin. [Automated mess age] The system [facility] generated this result transmitted ref erence range: 0.45 - 4 .70 mIU/L. The refe rence range was not u sed to interpret this result as normal/abnor mal. Lab Interpretation (test Normal code = 05233-8) [facility] [id number] 04:59:00 Test Item Value Reference Range Interpretation Comments WBC (test code = See_Comment [Automated message] 6690-2) The system [facility] generated this result transmitted ref erence range: 4.30 - 1 1.10 10*3/?L. The re ference range was not u sed to interpret this result as normal/abnor mal. RBC (test code = See_Comment [Automated message] 789-8) The system [facility] generated this result transmitted ref erence range: [...] RDW-SD (test code 41.9 fL 39.0-49.9 = 96781-4) RDW-CV (test code 13.9 % 12.0-15.5 = 788-0) PLT (test code = See_Comment [Automated message] 777-3) The system [facility] generated this result transmitted ref erence range: 166 - 35 8 10*3/?L. The re ference range was not u sed to interpret this result as normal/abnor mal. MPV (test code = 10.7 fL 9.5-12.9 44810-2) NRBC/100 WBC (test See_Comment [Automat ed message] code = 0454277212) The syste [employer] which generated this result transmitted ref erence range: 0.0 - 10 .0 /100 WBCs. The refer ence range was not u sed to interpret this result as normal/abnor mal. NRBC x10^3 (test <0.01 See_Comment [Automated message] code = 9674586194) The syste m which generated this result transmitted ref erence range: 10*3/?L. The reference range was not used to interpr et this result as normal/abnormal . GRAN MAT (NEUT) % 38.2 % (test code = 770-8) IMM GRAN % (test 0.20 % code = 6654087163) LYMPH % (test code 49.1 % = 736-9) MONO % (test code 10.0 % = 5905-5) EOS % (test code = 1.8 % 713-8) BASO % (test code 0.7 % = 706-2) GRAN MAT 2.07 10*3/uL 1.88-7.09 x10^3(ANC) (test code = 1186940800) IMM GRAN x10^3 <0.03 0.00-0.06 (test code = 7312896642) LYMPH x10^3 (test 2.66 10*3/uL 1.32-3.29 code = 731-0) MONO x10^3 (test 0.54 10*3/uL 0.33-0.92 code = 742-7) EOS x10^3 (test 0.10 10*3/uL 0.03-0.39 code = 711-2) BASO x10^3 (test 0.04 10*3/uL 0.01-0.07 code = 704-7) [facility]
[2022-07-02 13:48] LABS: Urine Blood 3+ (Negative); Urine Glucose Negative (Negative); Urine Protein 1+ (Negative); Urine Specific Gravity 1.025 (1.005-1.030)
[2022-07-02] MEDS ORDERED: KETOROLAC 30 MG/ML INJ ONE (13:55)
[2022-07-02 14:11] LABS: Absolute Lymphocytes (CBC) 2.7 K/uL (0.7-4.9); Hematocrit 37.8 % (36.0-45.0); MCV 81.7 fL (80-100); MPV 8.3 fL (7.6-11.3); RBC Red Blood Cell Count 4.62 M/uL (3.86-4.86)
[2022-07-02 14:25] LABS: Potassium 3.6 mmol/L (3.5-5.1)
--- NOTE | 2022-07-02 15:00 | RAD REPORT ---
EXAM DESCRIPTION: US - Transvaginal Study Probe - 07/02/2022 2:52 pm CLINICAL HISTORY: VAGINAL BLEEDING Pelvic pain. COMPARISON: TRANSVAGINAL STUDY PROBE dated 10/31/2015 FINDINGS: The uterus is normal in size, shape and echotexture. The uterus measures 7.8 x 4.6 x 3.7 c m. The endometrial stripe measures 6 mm, normal. Both ovaries are normal in size, shape and echotexture. The right ovary measures 2.9 x 3.1 cm. The left ovary measures 3.4 x 2.9 cm. No ovarian or parovarian lesions. No adnexal masses. Normal Doppler blood flow was demonstrated to both ovaries. No significant pelvic ascites. IMPRESSION: Unremarkable study.
--- NOTE | 2022-07-02 15:11 | EDPHYS ---
Physician Documentation [facility] Name: Troy Son Age: 27 yrs Sex: Female : 1995 Arrival Date: 07/02/2022 Time: 12:33 Bed 18 Private MD: ED Physician Kojo Maki HPI: 07/02 13:53 This 27 yrs old Black Female presents to ER via Ambulatory with complaints of Vaginal snw Bleeding, Near Syncope. 13:53 The patient presents with vaginal bleeding that is heavy, with clots, 1 tampon per snw hour. Onset: The symptoms/episode began/occurred acutely, 10 day(s) ago, and became persistent. Associated signs and symptoms: Pertinent positives: vaginal bleeding. The patient's method of control includes nothing. The patient has not experienced similar symptoms in the past, last cycle in November. The patient has not recently seen a physician. 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 - Social history:: Smoking status: Patient denies any tobacco usage or history of. ROS: 13:53 Constitutional: Negative for fever, chills, and weight loss, Eyes: Negative for injury, snw pain, redness, and discharge, ENT: Negative for injury, pain, and discharge, Neck: Negative for injury, pain, and swelling, Cardiovascular: Negative for chest pain, palpitations, and edema, Respiratory: Negative for shortness of breath, cough, wheezing, and pleuritic chest pain, Abdomen/GI: Negative for abdominal pain, nausea, vomiting, diarrhea, and constipation, Back: Negative for injury and pain, MS/Extremity: Negative for injury and deformity, Skin: Negative for injury, rash, and discoloration, Neuro: Negative for headache, weakness, numbness, tingling, and seizure, Psych: Negative for depression, anxiety, suicide ideation, homicidal ideation, and hallucinations. 13:53 : Positive for vaginal bleeding, menstrual abnormality. Exam: 13:52 Constitutional: This is a well developed, well nourished patient who is awake, alert, snw and in no acute distress. Head/Face: Normocephalic, atraumatic. Eyes: Pupils equal round and reactive to light, extra-ocular motions intact. Lids and lashes normal. Conjunctiva and sclera are non-icteric and not injected. Cornea within normal limits. Periorbital areas with no swelling, redness, or edema. ENT: Nares patent. No nasal discharge, no septal abnormalities noted. Tympanic membranes are normal and external auditory canals are clear. Oropharynx with no redness, swelling, or masses, exudates, or evidence of obstruction, uvula midline. Mucous membranes moist. Neck: Trachea midline, no thyromegaly or masses palpated, and no cervical lymphadenopathy. Supple, full range of motion without nuchal rigidity, or vertebral point tenderness. No Meningismus. Chest/axilla: Normal chest wall appearance and motion. Nontender with no deformity. No lesions are appreciated. Cardiovascular: Regular rate and rhythm with a normal S1 and S2. No gallops, murmurs, or rubs. Normal PMI, no JVD. No pulse deficits. Respiratory: Lungs have equal breath sounds bilaterally, clear to auscultation and percussion. No rales, rhonchi or wheezes noted. No increased work of breathing, no retractions or nasal flaring. Abdomen/GI: Soft, non-tender, with normal bowel sounds. No distension or tympany. No guarding or rebound. No evidence of tenderness throughout. Back: No spinal tenderness. No costovertebral tenderness. Full range of motion. Skin: Warm, dry with normal turgor. Normal color with no rashes, no lesions, and no evidence of cellulitis. MS/ Extremity: Pulses equal, no cyanosis. Neurovascular intact. Full, normal range of motion. Neuro: Awake and alert, GCS 15, oriented to person, place, time, and situation. Cranial nerves II-XII grossly intact. Motor strength 5/5 in all extremities. Sensory grossly intact. Cerebellar exam normal. Normal gait. Psych: Awake, alert, with orientation to person, place and time. Behavior, mood, and affect are within normal limits. Vital Signs: 12:57 BP 131 / 71; Pulse 65; Resp 18; Temp 98.7; Pulse Ox 100% ; Weight 99.79 kg; Height 5 jh5 ft. 5 in. (165.10 cm); Pain 5/10; 14:57 BP 123 / 73; Pulse 70; Resp 16; Pulse Ox 99% ; mb8 12:57 Body Mass Index 36.61 (99.79 kg, 165.10 cm) 5 MDM: 13:15 Patient medically screened. snw 15:07 Data reviewed: vital signs, nurses notes. Data interpreted: Pulse oximetry: on room air snw is 99 %. Interpretation: normal. Counseling: I had a detailed discussion with the patient and/or guardian regarding: the historical points, exam findings, and any diagnostic results supporting the discharge/admit diagnosis, lab results, radiology results, the need for outpatient follow up, for definitive care, to return to the emergency department if symptoms worsen or persist or if there are any questions or concerns that arise at home. Response to treatment:. 07/02 13:48 Order name: Urine Dipstick-Ancillary; Complete Time: 13:51 EDMS 07/02 13:48 Order name: Urine --Ancillary (enter results) bd 07/02 13:51 Order name: Abo/rh Typing; Complete Time: 15:11 snw 07/02 13:51 Order name: Basic Metabolic Panel; Complete Time: 14:28 snw 07/02 13:51 Order name: CBC with Diff; Complete Time: 14:28 snw 07/02 13:50 Order name: Urine Dipstick-Ancillary (obtain specimen); Complete Time: 13:50 mb8 07/02 13:50 Order name: Urine Test (obtain specimen); Complete Time: 13:50 mb8 07/02 13:51 Order name: IV Saline Lock; Complete Time: 14:03 snw 07/02 13:51 Order name: Labs collected and sent; Complete Time: 14:03 snw 07/02 13:51 Order name: NPO; Complete Time: 13:53 snw 07/02 14:49 Order name: Transvaginal Study Probe; Complete Time: 15:06 EDMS Administered Medications: 14:01 Drug: Ketorolac 15 mg Route: IVP; Site: right antecubital; mb8 14:48 Follow up: Response: No adverse reaction mb8 Disposition: 17:32 Co-signature as Attending Physician, Kojo Maki MD. rn Disposition Summary: 07/02/22 15:11 Discharge Ordered Location: Home snw Condition: Stable snw Diagnosis - Abnormal uterine and vaginal bleeding, unspecified snw Followup: snw - With: Emergency Department - When: As needed - Reason: Worsening of condition Followup: snw - With: Private Physician - When: 2 - 3 days - Reason: Recheck today's complaints, Continuance of care, Re-evaluation by your physician Discharge Instructions: - Discharge Summary Sheet snw - Dysfunctional Uterine Bleeding snw Forms: - Medication Reconciliation Form snw - Thank You Letter snw - Antibiotic Education snw - Prescription Opioid Use snw Prescriptions: - Diclofenac Sodium 75 mg Oral Tablet Sustained Release - take 1 tablet by ORAL route 2 times per day; 30 tablet; Refills: 0, Product snw Selection Permitted Signatures: Dispatcher [employer] EDGriselda Payne, SENIOR BRAND MANAGER-C SENIOR BRAND MANAGER-Csnw Kojo Maki MD MD rn Rees, Jessica RN RN jh5 Sandeep Toth RN RN mb8 Corrections: (The following items were deleted from the chart) 14:49 13:52 Pelvis Complete+US.RAD.BRZ ordered. EDCT EDMS
--- NOTE | 2022-07-02 15:11 | ER ---
Nurse's Notes [facility] Name: Troy Son Age: 27 yrs Sex: Female : 1995 Arrival Date: 07/02/2022 Time: 12:33 Bed 18 Private MD: Diagnosis: Abnormal uterine and vaginal bleeding, unspecified Presentation: 07/02 12:57 Chief complaint: Patient states: vag bleeding x10 days very, very heavy, with clotting jh5 and i feel dizzy and almost passing out. Havent had a period since December 22. Coronavirus screen: Vaccine status: Patient reports receiving the 2nd dose of the covid vaccine. Ebola Screen: Patient negative for fever greater than or equal to 101.5 degrees Fahrenheit, and additional compatible Ebola Virus Disease symptoms Patient denies exposure to infectious person. Patient denies travel to an Ebola-affected area in the 21 days before illness onset. Initial Sepsis Screen: Does the patient meet any 2 criteria? No. Patient's initial sepsis screen is negative. Does the patient have a suspected source of infection? No. Patient's initial sepsis screen is negative. Risk Assessment: Do you want to hurt yourself or someone else? Patient reports no desire to harm self or others. 12:57 Method Of Arrival: Ambulatory [facility] 12:57 Acuity: CARMEN 3 [facility] 13:40 Onset of symptoms is unknown. mb8 Triage Assessment: 13:00 General: Appears in no apparent distress. obese, well groomed, well developed, Behavior 5 is calm, cooperative, appropriate for age. Pain: Denies pain. : Reports vaginal bleeding that is with clots, heavy flow. 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 - Social history:: Smoking status: Patient denies any tobacco usage or history of. Screenin:40 Abuse screen: Denies threats or abuse. Denies injuries from another. Nutritional mb8 screening: No deficits noted. Tuberculosis screening: No symptoms or risk factors identified. Fall Risk None identified. Assessment: 13:37 General: Patient reports vaginal bleeding for 10 days. Before this episode started, mb8 patient reports LMP of 12/22/21 and states here menstrual cycle is never irregular. She reports clots in the stool and going through 1 tampon per hour with intermittent cramping.. Neuro: Reports dizziness. : Reports cramping, vaginal bleeding that is with clots, moderate flow. 13:40 : mb8 14:57 Reassessment: Patient and/or family updated on plan of care and expected duration. Pain mb8 level reassessed. Patient is alert, oriented x 3, equal unlabored respirations, skin warm/dry/pink. Patient states feeling better. Vital Signs: 12:57 BP 131 / 71; Pulse 65; Resp 18; Temp 98.7; Pulse Ox 100% ; Weight 99.79 kg; Height 5 [facility] ft. 5 in. (165.10 cm); Pain 5/10; 14:57 BP 123 / 73; Pulse 70; Resp 16; Pulse Ox 99% ; mb8 12:57 Body Mass Index 36.61 (99.79 kg, 165.10 cm) [facility] ED Course: 12:33 Patient arrived in ED. am2 12:44 Griselda Islas FNP-C [facility]. snw 12:44 Kojo Maki MD is Attending Physician. snw 13:00 Triage completed. [facility] 13:00 Arm band placed on right wrist. [facility] 13:29 Sandeep Toth, ALTON is Primary Nurse. mb8 13:40 Patient has correct armband on for positive identification. Placed in gown. Bed in low mb8 position. Call light in reach. Side rails up X2. Client placed on continuous cardiac and pulse oximetry monitoring. NIBP monitoring applied. 13:40 No provider procedures requiring assistance completed. mb8 13:50 Urine --Ancillary (enter results) Sent. mb8 13:57 Inserted saline lock: 20 gauge in right antecubital area, using aseptic technique. mb8 Blood collected. 14:04 Patient taken to ultrasound. via wheelchair. mb8 14:50 Patient moved back from ultrasound. mb8 14:54 Transvaginal Study Probe In Process Unspecified. EDMS 15:21 IV discontinued, intact, bleeding controlled, No redness/swelling at site. Pressure mb8 dressing applied. Administered Medications: 14:01 Drug: Ketorolac 15 mg Route: IVP; Site: right antecubital; mb8 14:48 Follow up: Response: No adverse reaction mb8 Medication: 13:40 VIS not applicable for this client. mb8 Outcome: 15:11 Discharge ordered by MD. vázquez 15:21 Discharged to home ambulatory. mb8 15:21 Condition: stable 15:21 Discharge instructions given to patient, Instructed on discharge instructions, follow up and referral plans. medication usage, Demonstrated understanding of instructions, follow-up care, medications, Prescriptions given X 1. 15:21 Patient left the ED. mb8 Signatures: Dispatcher [employer] EDMS Griselda Islas, ROAD CREW MEMBER-C ROAD CREW MEMBER-Csnw Margot Ac am2 Heidi Mcfarland, RN RN jh5 Sandeep Toth RN RN mb8
[2022-07-02 16:42] VITALS: BP 123/73; O2SAT 99
[2022-07-02 16:44] VITALS: TEMP 98.7
[2022-07-02 18:23] LABS: Urine Specific Gravity/Preg 1.025 (1.005-1.030)
== END 2022-07-02 15:21 | disposition home or self-care (01) ==
LOC: ER 12:31
DX: N93.9 Abnormal uterine and vaginal bleeding, unspecified (principal)
CPT/HCPCS: 36415; 76830; 80048; 81003; 81025; 85025; 86900; 86901; 96374; 99284

== ENCOUNTER 2022-10-06 14:26 | Emergency (ER) | payer OTHER ==
[2022-10-06 14:52] LABS: Urine Blood Negative (Negative); Urine Glucose Negative (Negative); Urine Protein 1+ (Negative); Urine Specific Gravity >=1.030 (1.005-1.030); Urine pH 5.5 (5.0-7.0)
[2022-10-06 15:09] LABS: Urine Bacteria <20 /HPF (<20); Urine Mucus 4+ /HPF (None Seen); Urine RBC <5 /HPF (None Seen)
--- OUTSIDE RECORDS SUMMARY | 2022-10-06 15:32 | XMS REPORT | Continuity of Care Document ---
:[address] [facility] t Address [address] [place] [address] Care Team Providers Name Role Phone MELONIE LOPEZ Primary Care Physician Unavailable MELONIE LOPEZ Attending Clinician Unavailable [id number] Attending Clinician Unavailable JHON MIRAMONTES Attending Clinician Unavailable NAOMIE PIÑA Attending Clinician Unavailable EMLY CORONADO Attending Clinician Unavailable Mely Coronado CNM Attending Clinician ProviderAdelaida Temsin Attending Clinician Unavailable JUANA OLIVIA Attending Clinician Unavailable SKYLAR MALDONADO Attending Clinician Unavailable Skylar Maldonado DO Attending Clinician Melonie Santiago Attending Clinician [phone] ZULMA PIÑA Attending Clinician Unavailable JOSH FLYNN Attending Clinician Unavailable GADIEL BOYKIN Attending Clinician Unavailable Zulma Piña MD Attending Clinician Doctor Unassigned, Mulga Attending Clinician Unavailable Evi CARPENTER Attending Clinician Unavailable Evi Francisco Attending Clinician Visit, [facility] Nurse Attending Clinician Unavailable Hattie Lopez Attending Clinician HATTIE RODRIGUEZ Attending Clinician Unavailable Amor Rubio DO Attending Clinician Gadiel Gloria Attending Clinician Evi CARPENTER Admitting Clinician Unavailable Payers Payer Name Policy Type Policy Number Effective Date Expiration Date [place] [id number] 2021 EMPLOYEE-[employer] 00:00:00 [employer] 2 [id number] 2022 00:00:00 [employer] 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 [id number] 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 ON 00:00:00 STANDARD Problems Condition Condition Condition Status Onset Resolution Last Treating Co mments Source Name Details Category Date Date Treatment Clinician Date Obesity Obesity Disease Active 2021-08 Univers (BMI (BMI 2-04 ity of 30-39.9) 30-39.9) 00:00: [place] [address] Medical Branch Other Other Disease Active Univers depression depression 7-30 it y of 00:00: [place] [address] Medical Branch Need for Need for Disease Active Unive rs HPV HPV 7-30 it[place] Branch LATEX DRUG Active Hives Univers INGREDI 7- ity of 00:00: [place] [address] Medical Branch Latex Propensi Active Swelling Gege ty to 03-12 Seybold adverse 00:00: - reaction 00 Externa s l Social History Social Habit Start Date Stop Date Quantity Comments Source History SDOH University o f Alcohol Frequency [facility] edical Branch History [facility] University o f Alcohol Std [place] [facility] Drinks Branch History [facility] o f Alcohol Binge [place] [facility] al Branch Alcohol intake 2022-09-12 2022-09-12 Ex-drinker Gege Hernandez bold - 00:00:00 00:00:00 (finding) External Exposure to 2022-07-16 2022-07-26 Not sure University of SARS-CoV-2 00:00:00 15:01:00 [facility] (event) Branch Tobacco use and 2022-05-01 2022-05-01 Smokeless tobacco Quentin madison Seybold - exposure 00:00:00 00:00:00 non-user External Alcohol Comment 2019-03-23 2019-03-23 social events Univer sity of 00:00:00 00:00:00 [facility] Sex Ass[birth year] At [birth year] Gege wells - 00:00:00 00:00:00 External Smoking Status Start Date Stop Date Source Never smoked tobacco Gege Duff old - External Medications Ordered Filled Start Stop Current Ordering Indication Dosage Frequency Signature Comments Components Source Medication Medication Date Date Medication? Clinician (SIG) Name Name Norethin Yes [id number] Take 1 Quentin madison Arturo-Eth 09-12 pill 3 Seybmatt Estrad-FE 00:00: times a - (Loestrin 00 day for 3 Exter na Fe 1.5) days, 1 l 1.5-30 pill 2 MG-MCG oral times a Tablet day for 2 days, then 1 pill daily for the remainder metroNIDAZO 2021-08- Yes [id number] 500mg Take 1 Univers LE 500 mg 09-29 tablet by ity of tablet 00:00: 05:59 mouth in [place] 00 :00 the Medical morning Branch and 1 tablet in the evening. Do all this for 7 days. Omeprazole Yes [id number] 40mg Take 1 K elsey 40 MG oral 05-01 capsule Seybol d Delayed 00:00: (40 mg - Release 00 total) by Externa Capsule mouth l daily methylpredn 2021- No 125mg 125 mg, U nivers isolone sod 12-24 Slow IV ity of succ 05:00: 04:08 [facility], [place] (SOLU-MEDRO 00 :00 ONCE, 1 Medic al [...] IV ity of (PF)) 02:15: 01:28 Push, [place] injection 00 :00 ONCE, 1 Medical 20 mg dose, On Branch 12/23/21 at 2115, SHIRA maalox:diph 2021- No 15mL 15 mL, Uni vers enhydrAMINE 12-24 Oral ity of :lidocaine 02:15: 01:28 [place] 2 % viscous 00 :00 Swallow), Med ical 1:1:1 ONCE, 1 Branch (FIRST-MOUT dose, On HWASH BLM) 12/23/21 oral at 2115, suspension Routine 15 mL methylPREDN 2021-0 Yes [id number] Take by [facility] [employer] 12-23 mouth ity of (MEDROL, 00:00: SEE-INSTRU Dyllan as NITA,) 4 mg 00 CTIONS. Medica l tablets follow Branch package directions methylPREDN 2021-0 Yes [id number] Take by [employer] 12-23 mouth ity of (MEDROL, 00:00: SEE-INSTRU Dyllan as NITA,) 4 mg 00 CTIONS. Medica l tablets follow Branch package directions methylPREDN 2021-0 Yes [id number] Take by [employer] 12-23 mouth ity of (MEDROL, 00:00: SEE-INSTRU Dyllan as NITA,) 4 mg 00 CTIONS. Medica l tablets follow Branch package directions methylPREDN 2021-0 Yes [id number] Take by [employer] 12-23 mouth ity of (MEDROL, 00:00: SEE-INSTRU Dyllan as NITA,) 4 mg 00 CTIONS. Medica l tablets follow Branch package directions methylPREDN 2021- No [id number] Take by [facility] 12-23 mouth ity of (MEDROL, 00:00: 00:00 [place] 4 mg 00 :00 CTIONS. Medica l tablets follow Branch package directions methylPREDN 2021- No [id number] Take by [facility] 12-23 mouth ity of (MEDROL, 00:00: 00:00 [place] NITA[place] 4 mg 00 :00 CTIONS. Medica l tablets follow Branch package directions norgestimat 2020-08 Yes [id number] 1{tbl} Take 1 Univers e-ethinyl 0-14 tablet by ity o f estradioL 00:00: mouth [place] (TRI-LO-SPR 00 daily. Medica l INTEC) Branch 0.18/0.215/ 0.25 mg-25 mcg tablet norgestimat 2020-08 Yes [id number] 1{tbl} Take 1 Univers e-ethinyl 0-14 tablet by ity o f estradioL 00:00: mouth [place] (TRI-LO-SPR 00 daily. Medica l INTEC) Branch 0.18/0.215/ 0.25 mg-25 mcg tablet norgestimat 2020-08 Yes [id number] 1{tbl} Take 1 Univers e-ethinyl 0-14 tablet by ity o f estradioL 00:00: mouth [place] (TRI-LO-SPR 00 daily. Medica l INTEC) Branch 0.18/0.215/ 0.25 mg-25 mcg tablet norgestimat 2020-08 Yes [id number] 1{tbl} Take 1 Univers e-ethinyl 0-14 tablet by ity o f estradioL 00:00: mouth [place] (TRI-LO-SPR 00 daily. Medica l INTEC) Branch 0.18/0.215/ 0.25 mg-25 mcg tablet norgestimat 2020-08 Yes [id number] 1{tbl} Take 1 Univers e-ethinyl 0-14 tablet by ity o f estradioL 00:00: mouth [place] (TRI-LO-SPR 00 daily. Medica l INTEC) Branch 0.18/0.215/ 0.25 mg-25 mcg tablet norgestimat 2020-08 Yes [id number] 1{tbl} Take 1 Univers e-ethinyl 0-14 tablet by ity o f estradioL 00:00: mouth [place] (TRI-LO-SPR 00 daily. Medica l INTEC) Branch 0.18/0.215/ 0.25 mg-25 mcg tablet norgestimat 2020-08- No [id number] 1{tbl} Take 1 Univers e-ethinyl 0-14 12-02 tablet by ity of estradioL 00:00: 00:00 mouth [place] (TRI-LO-SPR 00 :00 daily. Medica l INTEC) Branch 0.18/0.215/ 0.25 mg-25 mcg tablet norgestimat 2020-08- No [id number] 1{tbl} Take 1 Univers e-ethinyl 0-14 12-02 tablet by ity of estradioL 00:00: 00:00 mouth [place] (TRI-LO-SPR 00 :00 daily. Medica l INTEC) Branch 0.18/0.215/ 0.25 mg-25 mcg tablet No known No Univers medications 05-21 ity of 14:53: [address] No known No Univers medications 05-21 ity of 14:53: [address] Immunizations Ordered Immunization Filled Date Status Comments Sour ce Name Immunization Name [facility] 2021-05-21 Completed University of 00:00:00 [facility]9 2021-05-21 Completed University of 00:00:00 [facility] HPV9 2021-05-21 Completed University of 00:00:00 [facility] HPV9 2021-05-21 Completed University of 00:00:00 [facility] HPV9 2021-05-21 Completed University of 00:00:00 [facility]9 2021-05-21 Completed University of 00:00:00 [facility]9 2021-05-21 Completed University of 00:00:00 [facility]9 2021-05-21 Completed University of 00:00:00 [facility]9 2021-05-21 Completed University of 00:00:00 [facility]9 2021-05-21 Completed University of 00:00: [facility] HPV9 2021-05-21 Completed University of 00:00: [facility] HPV9 2020-03-23 Completed University of 00:00: [facility] Branch HPV9 2020-03-23 Completed University of 00:00: [facility] Branch HPV9 2020-03-23 Completed University of 00:00: [facility] Branch HPV9 2020-03-23 Completed University of 00:00: [facility] Branch HPV9 2020-03-23 Completed University of 00:00: [facility] Branch HPV9 2020-03-23 Completed University of 00:00: [facility] Branch HPV9 2020-03-23 Completed University of 00:00: [facility] Branch HPV9 2020-03-23 Completed University of 00:00:00 [facility] Branch HPV9 2020-03-23 Completed University of 00:00:00 [facility] Branch HPV9 2020-03-23 Completed University of 00:00:00 [facility] Branch HPV9 2020-03-23 Completed University of 00:00:00 [facility] Branch HPV9 2019-03-23 Completed University of 00:00:00 [facility] Branch HPV9 2019-03-23 Completed University of 00:00:00 [facility] Branch HPV9 2019-03-23 Completed University of 00:00:00 [facility] Branch HPV9 2019-03-23 Completed University of 00:00:00 [facility] Branch HPV9 2019-03-23 Completed University of 00:00:00 [facility] HPV9 2019-03-23 Completed University of 00:00:00 [facility] Branch HPV9 2019-03-23 Completed University of 00:00:00 [facility] Branch HPV9 2019-03-23 Completed University of 00:00:00 [facility] Branch HPV9 2019-03-23 Completed University of 00:00:00 [facility] HPV9 2019-03-23 Completed University of 00:00:00 [facility] HPV9 2019-03-23 Completed University of 00:00:00 [facility] Meningococcal 2015-04-14 Completed University of [...] 2013-10-21 Completed University of (varivax)(chicken pox) 00:00:00 [facility] Varicella 2013-10-21 Completed University of (varivax)(chicken pox) 00:00:00 [facility] Varicella 2013-10-21 Completed University of (varivax)(chicken pox) 00:00:00 [facility] Varicella 2013-10-21 Completed University of (varivax)(chicken pox) 00:00:00 [facility] Varicella 2013-10-21 Completed University of (varivax)(chicken pox) 00:00:00 [facility] Varicella 2013-10-21 Completed University of (varivax)(chicken pox) 00:00:00 [facility] Varicella 2013-10-21 Completed University of (varivax)(chicken pox) 00:00:00 [facility] Varicella 2013-10-21 Completed University of (varivax)(chicken pox) 00:00:00 [facility] Varicella 2013-10-21 Completed University of (varivax)(chicken pox) 00:00:00 [facility] Varicella 2013-10-21 Completed University of (varivax)(chicken pox) 00:00:00 [facility] Varicella 2013-10-21 Completed University of (varivax)(chicken pox) 00:00:00 [facility] TDAP 2013-07-08 Completed University of 00:00:00 [facility] TDAP 2013-07-08 Completed University of 00:00:00 [facility] TDAP 2013-07-08 Completed University of 00:00:00 [facility] TDAP 2013-07-08 Completed University of 00:00:00 [facility] TDAP 2013-07-08 Completed University of 00:00:00 [facility] TDAP 2013-07-08 Completed University of 00:00:00 [facility] TDAP 2013-07-08 Completed University of 00:00:00 [facility] TDAP 2013-07-08 Completed University of 00:00:00 [facility] TDAP 2013-07-08 Completed University of 00:00:00 [facility] TDAP 2013-07-08 Completed University of 00:00:00 [facility] TDAP 2013-07-08 Completed University of 00:00:00 [facility] Influenza Virus 2013-05-13 Completed Universit y of Vaccine 00:00:00 [facility] Influenza Virus 2013-05-13 Completed Universit y of Vaccine 00:00:00 [facility] Influenza Virus 2013-05-13 Completed Universit y of Vaccine 00:00:00 [facility] Influenza Virus 2013-05-13 Completed Universit y of Vaccine 00:00:00 [facility] Influenza Virus 2013-05-13 Completed Universit y of Vaccine 00:00:00 [place] [facility] Influenza Virus 2013-05-13 Completed Universit y of Vaccine 00:00:00 [facility] Influenza Virus 2013-05-13 Completed Universit y of Vaccine 00:00:00 [facility] Influenza Virus 2013-05-13 Completed Universit y of Vaccine 00:00:00 [facility] Influenza Virus 2013-05-13 Completed Universit y of Vaccine 00:00:00 [facility] Influenza Virus 2013-05-13 Completed Universit y of Vaccine 00:00:00 [facility] Influenza Virus 2013-05-13 Completed Universit y of Vaccine 00:00:00 [facility] Branch Meningococcal Vaccine 2008-12-22 Completed Uni versity of 00:00:00 [facility] Branch TDAP 2008-12-22 Completed University of 00:00:00 [facility] Branch Meningococcal Vaccine 2008-12-22 Completed Uni versity of 00:00:00 [facility] Branch TDAP 2008-12-22 Completed University of 00:00:00 [facility] Branch Meningococcal Vaccine 2008-12-22 Completed Uni versity of 00:00:00 [facility] Branch TDAP 2008-12-22 Completed University of 00:00:00 [facility] Branch Meningococcal Vaccine 2008-12-22 Completed Uni versity of 00:00:00 [facility] Branch TDAP 2008-12-22 Completed University of 00:00:00 [facility] Branch Meningococcal Vaccine 2008-12-22 Completed Uni versity of 00:00:00 [facility] Branch TDAP 2008-12-22 Completed University of 00:00:00 [facility] Branch Meningococcal Vaccine 2008-12-22 Completed Uni versity of 00:00:00 [facility] Branch TDAP 2008-12-22 Completed University of 00:00:00 [facility] Branch Meningococcal Vaccine 2008-12-22 Completed Uni versity of 00:00:00 [facility] Branch TDAP 2008-12-22 Completed University of 00:00:00 [facility] Branch Meningococcal Vaccine 2008-12-22 Completed Uni versity of 00:00:00 [facility] Branch TDAP 2008-12-22 Completed University of 00:00:00 [facility] Branch Meningococcal Vaccine 2008-12-22 Completed Uni versity of 00:00:00 [facility] Branch TDAP 2008-12-22 Completed University of 00:00:00 [facility] Branch Meningococcal Vaccine 2008-12-22 Completed Uni versity of 00:00:00 [facility] Branch TDAP 2008-12-22 Completed University of 00:00:00 [facility] Meningococcal Vaccine 2008-12-22 Completed Uni versity of 00:00:00 [facility] TDAP 2008-12-22 Completed University of 00:00:00 [facility] Branch HEPATITIS A 2004-09-04 Completed University of 00:00:00 [facility] Branch HEPATITIS A 2004-09-04 Completed University of 00:00:00 [facility] Branch HEPATITIS A 2004-09-04 Completed University of 00:00:00 [facility] Branch HEPATITIS A 2004-09-04 Completed University of 00:00:00 [place] [facility] HEPATITIS A 2004-09-04 Completed University of 00:00:00 [facility] Branch HEPATITIS A 2004-09-04 Completed University of 00:00:00 [facility] Branch HEPATITIS A 2004-09-04 Completed University of 00:00:00 [facility] Branch HEPATITIS A 2004-09-04 Completed University of 00:00:00 [facility] Branch HEPATITIS A 2004-09-04 Completed University of 00:00:00 [facility] Branch HEPATITIS A 2004-09-04 Completed University of 00:00:00 [facility] Branch HEPATITIS A 2004-09-04 Completed University of 00:00:00 [facility] Branch HEPATITIS A 2002-05-31 Completed University of 00:00:00 [place] [facility] HEPATITIS A 2002-05-31 Completed University of 00:00:00 [place] [facility] HEPATITIS A 2002-05-31 Completed University of 00:00:00 [place] [facility] HEPATITIS A 2002-05-31 Completed University of 00:00:00 [facility] Branch HEPATITIS A 2002-05-31 Completed University of 00:00:00 [facility] Branch HEPATITIS A 2002-05-31 Completed University of 00:00:00 [place] [facility] HEPATITIS A 2002-05-31 Completed University of 00:00:00 [place] [facility] HEPATITIS A 2002-05-31 Completed University of 00:00:00 [place] [facility] HEPATITIS A 2002-05-31 Completed University of 00:00:00 [place] [facility] HEPATITIS A 2002-05-31 Completed University of 00:00:00 [place] [facility] HEPATITIS A 2002-05-31 Completed University of 00:00:00 [place] [facility] HEPATITIS A 2001-03-24 Completed University of 00:00:00 [place] [facility] HEPATITIS A 2001-03-24 Completed University of 00:00:00 [place] [facility] HEPATITIS A 2001-03-24 Completed University of 00:00:00 [place] [facility] HEPATITIS A 2001-03-24 Completed University of 00:00:00 [place] [facility] HEPATITIS A 2001-03-24 Completed University of 00:00:00 [place] [facility] HEPATITIS A 2001-03-24 Completed University of 00:00:00 [place] [facility] HEPATITIS A 2001-03-24 Completed University of 00:00:00 [place] [facility] HEPATITIS A 2001-03-24 Completed University of 00:00:00 [place] [facility] HEPATITIS A 2001-03-24 Completed University of 00:00:00 [place] [facility] HEPATITIS A 2001-03-24 Completed University of 00:00:00 [place] [facility] HEPATITIS A 2001-03-24 Completed University of 00:00:00 [place] [facility] DTAP 2001-03-15 Completed University of 00:00:00 [place] [facility] DTAP 2001-03-15 Completed University of 00:00:00 [place] [facility] DTAP 2001-03-15 Completed University of 00:00:00 [place] [facility] DTAP 2001-03-15 Completed University of 00:00:00 [place] [facility] DTAP 2001-03-15 Completed University of 00:00:00 [place] [facility] DTAP 2001-03-15 Completed University of 00:00:00 [place] [facility] DTAP 2001-03-15 Completed University of 00:00:00 [place] [facility] DTAP 2001-03-15 Completed University of 00:00:00 [place] [facility] DTAP 2001-03-15 Completed University of 00:00:00 [place] [facility] DTAP 2001-03-15 Completed University of 00:00:00 [place] [facility] DTAP 2001-03-15 Completed University of 00:00:00 [facility] MMR 2001-02-23 Completed University of 00:00:00 [facility] Branch Polio (IPV/OPV) 2001-02-23 Completed Universit y of 00:00:00 [place] [facility] DTAP 2001-02-23 Completed University of 00:00:00 [place] [facility] MMR 2001-02-23 Completed University of 00:00:00 [place] [facility] Polio (IPV/OPV) 2001-02-23 Completed Universit y of 00:00:00 [place] [facility] DTAP 2001-02-23 Completed University of 00:00:00 [place] [facility] MMR 2001-02-23 Completed University of 00:00:00 [facility] Branch Polio (IPV/OPV) 2001-02-23 Completed Universit y of 00:00:00 [place] [facility] DTAP 2001-02-23 Completed University of 00:00:00 [place] [facility] MMR 2001-02-23 Completed University of 00:00:00 [place] [facility] Polio (IPV/OPV) 2001-02-23 Completed Universit y of 00:00:00 [place] [facility] DTAP 2001-02-23 Completed University of 00:00:00 [place] [facility] MMR 2001-02-23 Completed University of 00:00:00 [place] [facility] Polio (IPV/OPV) 2001-02-23 Completed Universit y of 00:00:00 [place] [facility] DTAP 2001-02-23 Completed University of 00:00:00 [place] [facility] MMR 2001-02-23 Completed University of 00:00:00 [place] [facility] Polio (IPV/OPV) 2001-02-23 Completed Universit y of 00:00:00 [facility] Branch DTAP 2001-02-23 Completed University of 00:00:00 [facility] Branch MMR 2001-02-23 Completed University of 00:00:00 [place] [facility] Polio (IPV/OPV) 2001-02-23 Completed Universit y of 00:00:00 [facility] Branch DTAP 2001-02-23 Completed University of 00:00:00 [place] [facility] MMR 2001-02-23 Completed University of 00:00:00 [place] [facility] Polio (IPV/OPV) 2001-02-23 Completed Universit y of 00:00:00 [facility] DTAP 2001-02-23 Completed University of 00:00:00 [place] [facility] MMR 2001-02-23 Completed University of 00:00:00 [place] [facility] Polio (IPV/OPV) 2001-02-23 Completed Universit y of 00:00:00 [place] [facility] DTAP 2001-02-23 Completed University of 00:00:00 [place] [facility] MMR 2001-02-23 Completed University of 00:00:00 [place] [facility] Polio (IPV/OPV) 2001-02-23 Completed Universit y of 00:00:00 [place] [facility] DTAP 2001-02-23 Completed University of 00:00:00 [place] [facility] MMR 2001-02-23 Completed University of 00:00:00 [place] [facility] Polio (IPV/OPV) 2001-02-23 Completed Universit y of 00:00:00 [place] [facility] DTAP 2001-02-23 Completed University of 00:00:00 [facility] HIB 3 Dose Schedule 2000-04-10 Completed Unive rsity of 00:00:00 [place] [facility] DTAP 2000-04-10 Completed University of 00:00:00 [place] [facility] HIB 3 Dose Schedule 2000-04-10 Completed Unive rsity of 00:00:00 [place] [facility] DTAP 2000-04-10 Completed University of 00:00:00 [facility] HIB 3 Dose Schedule 2000-04-10 Completed Unive rsity of 00:00:00 [place] [facility] DTAP 2000-04-10 Completed University of 00:00:00 [facility] HIB 3 Dose Schedule 2000-04-10 Completed Unive rsity of 00:00:00 [facility] Branch DTAP 2000-04-10 Completed University of 00:00:00 [facility] Branch HIB 3 Dose Schedule 2000-04-10 Completed Unive rsity of 00:00:00 [facility] Branch DTAP 2000-04-10 Completed University of 00:00:00 [facility] HIB 3 Dose Schedule 2000-04-10 Completed Unive rsity of 00:00:00 [facility] Branch DTAP 2000-04-10 Completed University of 00:00:00 [facility] HIB 3 Dose Schedule 2000-04-10 Completed Unive rsity of 00:00:00 [facility] DTAP 2000-04-10 Completed University of 00:00:00 [facility] HIB 3 Dose Schedule 2000-04-10 Completed Unive rsity of 00:00:00 [place] [facility] [facility] DTAP 2000-04-10 Completed [facility] 00:00:00 [facility] HIB 3 Dose Schedule 2000-04-10 Completed Unive rsity of 00:00:00 [facility] DTAP 2000-04-10 Completed [facility] 00:00:00 [facility] HIB 3 Dose Schedule 2000-04-10 Completed Unive rsity of 00:00:00 [facility] DTAP 2000-04-10 Completed [facility] 00:00:00 [facility] HIB 3 Dose Schedule 2000-04-10 Completed [facility]ive rsity of 00:00:00 [facility] DTAP 2000-04-10 Completed [facility] 00:00:00 [facility] HIB 3 Dose Schedule 1999-05-16 Completed [facility]ive rsity of 00:00:00 [facility] Polio (IPV/OPV) 1999-05-16 Completed [facility]it [facility] 00:00:00 [facility] DTAP 1999-05-16 Completed [facility] 00:00:00 [facility] HIB 3 Dose Schedule 1999-05-16 Completed [facility]ive rsity of 00:00:00 [facility] Polio (IPV/OPV) 1999-05-16 Completed [facility]it [facility] 00:00:00 [facility] DTAP 1999-05-16 Completed [facility] 00:00:00 [facility] HIB 3 Dose Schedule 1999-05-16 Completed [facility]ive rsity of 00:00:00 [facility] Polio (IPV/OPV) 1999-05-16 Completed [facility] 00:00:00 [facility] DTAP 1999-05-16 Completed [facility] 00:00:00 [facility] HIB 3 Dose Schedule 1999-05-16 Completed [facility]ive rsity [facility] 00:00:00 [facility] Polio (IPV/OPV) 1999-05-16 Completed [facility]it [facility] 00:00:00 [facility] DTAP 1999-05-16 Completed [facility] 00:00:00 [facility] HIB 3 Dose Schedule 1999-05-16 Completed [facility]ive rsity of 00:00:00 [facility] Polio (IPV/OPV) 1999-05-16 Completed [facility] 00:00:00 [facility] DTAP 1999-05-16 Completed [facility] 00:00:00 [facility] HIB 3 Dose Schedule 1999-05-16 Completed [facility]ity [facility] 00:00:00 [facility] Polio (IPV/OPV) 1999-05-16 Completed [facility] 00:00:00 [facility] DTAP 1999-05-16 Completed [facility] 00:00:00 [facility] HIB 3 Dose Schedule 1999-05-16 Completed [facility]ive rsity of 00:00:00 [facility] Polio (IPV/OPV) 1999-05-16 Completed [facility] 00:00:00 [facility] DTAP 1999-05-16 Completed [facility] 00:00:00 [facility] HIB 3 Dose Schedule 1999-05-16 Completed [facility]ity of 00:00:00 [facility] Polio (IPV/OPV) 1999-05-16 Completed [facility] 00:00:00 [facility] DTAP 1999-05-16 Completed [facility] 00:00:00 [facility] HIB 3 Dose Schedule 1999-05-16 Completed [facility]ive rsity of 00:00:00 [facility] Polio (IPV/OPV) 1999-05-16 Completed [facility] 00:00:00 [facility] DTAP 1999-05-16 Completed [facility] 00:00:00 [facility] HIB 3 Dose Schedule 1999-05-16 Completed [facility]ive rsity of 00:00:00 [facility] Polio (IPV/OPV) 1999-05-16 Completed [facility] 00:00:00 [facility] DTAP 1999-05-16 Completed [facility] 00:00:00 [facility] HIB 3 Dose Schedule 1999-05-16 Completed [facility]ive rsity of 00:00:00 [facility] Polio (IPV/OPV) 1999-05-16 Completed [facility]it [facility] 00:00:00 [facility] DTAP 1999-05-16 Completed [facility] 00:00:00 [facility] HIB 3 Dose Schedule 1999-03-28 Completed [facility]ive rsity of 00:00:00 [facility] Hep B, Adol or Pedi 1999-03-28 Completed Unive rsity of Dosage 00:00:00 [facility] Polio (IPV/OPV) 1999-03-28 Completed [facility]it [facility] 00:00:00 [facility] DTAP 1999-03-28 Completed [facility] 00:00:00 [facility] HIB 3 Dose Schedule 1999-03-28 Completed [facility]ive rsity of 00:00:00 [facility] Hep B, Adol or Pedi 1999-03-28 Completed Unive rsity of Dosage 00:00:00 [facility] Polio (IPV/OPV) 1999-03-28 Completed [facility] 00:00:00 [facility] DTAP 1999-03-28 Completed [facility] 00:00:00 [facility] HIB 3 Dose Schedule 1999-03-28 Completed [facility]ity of 00:00:00 [facility] Hep B, Adol or Pedi 1999-03-28 Completed Unive rsity of Dosage 00:00:00 [facility] Polio (IPV/OPV) 1999-03-28 Completed [facility]it [facility] of 00:00:00 [facility] DTAP 1999-03-28 Completed [facility] 00:00:00 [facility] HIB 3 Dose Schedule 1999-03-28 Completed [facility]ive [facility]ity of 00:00:00 [facility] Hep B, Adol or Pedi 1999-03-28 Completed Unive rsity of Dosage 00:00:00 [facility] Polio (IPV/OPV) 1999-03-28 Completed [facility] 00:00:00 [facility] DTAP 1999-03-28 Completed [facility] 00:00:00 [facility] HIB 3 Dose Schedule 1999-03-28 Completed [facility]ive rsity of 00:00:00 [facility] Hep B, Adol or Pedi 1999-03-28 Completed Unive rsity of Dosage 00:00:00 [facility] Polio (IPV/OPV) 1999-03-28 Completed [facility] 00:00:00 [facility] DTAP 1999-03-28 Completed [facility] 00:00:00 [facility] HIB 3 Dose Schedule 1999-03-28 Completed [facility]ive rsity of 00:00:00 [facility] Hep B, Adol or Pedi 1999-03-28 Completed Unive rsity of Dosage 00:00:00 [facility] Polio (IPV/OPV) 1999-03-28 Completed [facility] 00:00:00 [facility] DTAP 1999-03-28 Completed [facility] 00:00:00 [facility] HIB 3 Dose Schedule 1999-03-28 Completed [facility]ive [facility]ity of 00:00:00 [facility] Hep B, Adol or Pedi 1999-03-28 Completed Unive rsity of Dosage 00:00:00 [facility] Polio (IPV/OPV) 1999-03-28 Completed [facility] of 00:00:00 [facility] DTAP 1999-03-28 Completed [facility] 00:00:00 [facility] HIB 3 Dose Schedule 1999-03-28 Completed [facility]ive [facility]ity of 00:00:00 [facility] Hep B, Adol or Pedi 1999-03-28 Completed [facility]ive rsity of Dosage 00:00:00 [facility] Polio (IPV/OPV) 1999-03-28 Completed [facility] 00:00:00 [facility] DTAP 1999-03-28 Completed [facility] 00:00:00 [facility] HIB 3 Dose Schedule 1999-03-28 Completed [facility]ive rsity of 00:00:00 [facility] Hep B, Adol or Pedi 1999-03-28 Completed Unive rsity of Dosage 00:00:00 [facility] Polio (IPV/OPV) 1999-03-28 Completed [facility]it [facility] of 00:00:00 [facility] DTAP 1999-03-28 Completed [facility] 00:00:00 [facility] HIB 3 Dose Schedule 1999-03-28 Completed [facility]ive rsity of 00:00:00 [facility] Hep B, Adol or Pedi 1999-03-28 Completed Unive rsity of Dosage 00:00:00 [facility] Polio (IPV/OPV) 1999-03-28 Completed [facility]it [facility] 00:00:00 [facility] DTAP 1999-03-28 Completed [facility] of 00:00:00 [facility] HIB 3 Dose Schedule 1999-03-28 Completed [facility]ive rsity of 00:00:00 [facility] Hep B, Adol or Pedi 1999-03-28 Completed Unive rsity of Dosage 00:00:00 [facility] Polio (IPV/OPV) 1999-03-28 Completed [facility]it [facility] 00:00:00 [facility] DTAP 1999-03-28 Completed [facility] 00:00:00 [facility] Hep B, Adol or Pedi 1998-04-17 Completed Unive rsity of Dosage 00:00:00 [facility] MMR 1998-04-17 Completed [facility] 00:00:00 [facility] Polio (IPV/OPV) 1998-04-17 Completed [facility] 00:00:00 [facility] DTAP 1998-04-17 Completed [facility] 00:00:00 [facility] HIB 3 Dose Schedule 1998-04-17 Completed [facility]ive rsity of 00:00:00 [facility] Hep B, Adol or Pedi 1998-04-17 Completed Unive rsity of Dosage 00:00:00 [facility] MMR 1998-04-17 Completed [facility] 00:00:00 [facility] Polio (IPV/OPV) 1998-04-17 Completed [facility] 00:00:00 [facility] DTAP 1998-04-17 Completed [facility] 00:00:00 [facility] HIB 3 Dose Schedule 1998-04-17 Completed [facility]ive rsity of 00:00:00 [facility] Hep B, Adol or Pedi 1998-04-17 Completed Unive rsity of Dosage 00:00:00 [facility] MMR 1998-04-17 Completed [facility] 00:00:00 [facility] Polio (IPV/OPV) 1998-04-17 Completed [facility] 00:00:00 [facility] DTAP 1998-04-17 Completed [facility] 00:00:00 [facility] HIB 3 Dose Schedule 1998-04-17 Completed [facility]ive rsity of 00:00:00 [facility] Hep B, Adol or Pedi 1998-04-17 Completed Unive rsity of Dosage 00:00:00 [facility] MMR 1998-04-17 Completed [facility] 00:00:00 [facility] Polio (IPV/OPV) 1998-04-17 Completed [facility] 00:00:00 [facility] DTAP 1998-04-17 Completed [facility] 00:00:00 [facility] HIB 3 Dose Schedule 1998-04-17 Completed [facility]ive rsity of 00:00:00 [facility] Hep B, Adol or Pedi 1998-04-17 Completed Unive rsity of Dosage 00:00:00 [facility] MMR 1998-04-17 Completed [facility] 00:00:00 [facility] Polio (IPV/OPV) 1998-04-17 Completed [facility] 00:00:00 [facility] DTAP 1998-04-17 Completed [facility] 00:00:00 [facility] HIB 3 Dose Schedule 1998-04-17 Completed [facility]ive rsity of 00:00:00 [facility] Hep B, Adol or Pedi 1998-04-17 Completed [facility]ive rsity of Dosage 00:00:00 [facility] MMR 1998-04-17 Completed [facility] 00:00:00 [facility] Polio (IPV/OPV) 1998-04-17 Completed [facility] 00:00:00 [facility] DTAP 1998-04-17 Completed [facility] 00:00:00 [facility] HIB 3 Dose Schedule 1998-04-17 Completed [facility]ive rsity of 00:00:00 [facility] Hep B, Adol or Pedi 1998-04-17 Completed [facility]ive rsity of Dosage 00:00:00 [facility] MMR 1998-04-17 Completed [facility] 00:00:00 [facility] Polio (IPV/OPV) 1998-04-17 Completed [facility]it [facility] 00:00:00 [facility] DTAP 1998-04-17 Completed [facility] 00:00:00 [facility] HIB 3 Dose Schedule 1998-04-17 Completed [facility]ive [facility]ity of 00:00:00 [facility] Hep B, Adol or Pedi 1998-04-17 Completed Unive rsity of Dosage 00:00:00 [facility] MMR 1998-04-17 Completed [facility] 00:00:00 [facility] Polio (IPV/OPV) 1998-04-17 Completed [facility] 00:00:00 [facility] DTAP 1998-04-17 Completed [facility] 00:00:00 [facility] HIB 3 Dose Schedule 1998-04-17 Completed [facility]ive rsity of 00:00:00 [facility] Hep B, Adol or Pedi 1998-04-17 Completed [facility]ive rsity of Dosage 00:00:00 [facility] MMR 1998-04-17 Completed [facility] 00:00:00 [facility] Polio (IPV/OPV) 1998-04-17 Completed [facility] 00:00:00 [facility] DTAP 1998-04-17 Completed [facility] 00:00:00 [facility] HIB 3 Dose Schedule 1998-04-17 Completed [facility]ive [facility]ity of 00:00:00 [facility] Hep B, Adol or Pedi 1998-04-17 Completed Unive rsity of Dosage 00:00:00 [facility] MMR 1998-04-17 Completed [facility] 00:00:00 [facility] Polio (IPV/OPV) 1998-04-17 Completed [facility] 00:00:00 [facility] DTAP 1998-04-17 Completed [facility] 00:00:00 [facility] HIB 3 Dose Schedule 1998-04-17 Completed [facility]ive [facility]ity of 00:00:00 [facility] Hep B, Adol or Pedi 1998-04-17 Completed Unive rsity of Dosage 00:00:00 [facility] MMR 1998-04-17 Completed [facility] 00:00:00 [facility] Polio (IPV/OPV) 1998-04-17 Completed [facility] 00:00:00 [facility] DTAP 1998-04-17 Completed [facility] 00:00:00 [facility] HIB 3 Dose Schedule 1998-04-17 Completed [facility]ive [facility]ity of 00:00:00 [facility] Hep B, Adol or Pedi 1997 Completed Unive rsity of Dosage 00:00:00 [facility] Hep B, Adol or Pedi 1997 Completed [facility]ive [facility]ity of Dosage 00:00:00 [facility] Hep B, Adol or Pedi 1997 Completed [facility]ive [facility] of Dosage 00:00:00 [facility] Hep B, Adol or Pedi 1997 Completed [facility]ive [facility] of Dosage 00:00:00 [facility] Hep B, Adol or Pedi 1997 Completed Unive rsity of Dosage 00:00:00 [facility] Hep B, Adol or Pedi 1997 Completed [facility]ive [facility] of Dosage 00:00:00 [facility] Hep B, Adol or Pedi 1997 Completed [facility]ive [facility] of Dosage 00:00:00 [facility] Hep B, Adol or Pedi 1997 Completed [facility]ive [facility]ity of Dosage 00:00:00 [facility] Hep B, Adol or Pedi 1997 Completed [facility]ive [facility]ity of Dosage 00:00:00 [facility] Hep B, Adol or Pedi 1997 Completed [facility]ive [facility]ity of Dosage 00:00:00 [facility] Hep B, Adol or Pedi 1997 Completed [facility]ive [facility]ity of Dosage 00:00:00 [facility] Varicella 1997 Completed University of (varivax)(chicken pox) 00:00:00 [facility] Varicella 1997 Completed [facility] of (varivax)(chicken pox) 00:00:00 [facility] Varicella 1997 Completed [facility] of (varivax)(chicken pox) 00:00:00 [facility] Varicella 1997 Completed [facility] of (varivax)(chicken pox) 00:00:00 [facility] Varicella 1997 Completed [facility] of (varivax)(chicken pox) 00:00:00 [facility] Varicella 1997 Completed [facility] of (varivax)(chicken pox) 00:00:00 [facility] Varicella 1997 Completed [facility] of (varivax)(chicken pox) 00:00:00 [facility] Varicella 1997 Completed [facility] of (varivax)(chicken pox) 00:00:00 [facility] Varicella 1997 Completed [facility] of (varivax)(chicken pox) 00:00:00 [facility] Varicella 1997 Completed [facility] of (varivax)(chicken pox) 00:00:00 [facility] Varicella 1997 Completed [facility] of (varivax)(chicken pox) 00:00:00 [facility] Hep B, Adol or Pedi 1997 Completed Unive rsity of Dosage 00:00:00 [facility] Hep B, Adol or Pedi 1997 Completed [facility]ive [facility]ity of Dosage 00:00:00 [facility] Hep B, Adol or Pedi 1997 Completed [facility]ive [facility]ity of Dosage 00:00:00 [facility] Hep B, Adol or Pedi 1997 Completed [facility]ive [facility]ity of Dosage 00:00:00 [facility] Hep B, Adol or Pedi 1997 Completed [facility]ive rsity of Dosage 00:00:00 [facility] Hep B, Adol or Pedi 1997 Completed [facility]ive rsity of Dosage 00:00:00 [facility] Hep B, Adol or Pedi 1997 Completed [facility]ive [facility]ity of Dosage 00:00:00 [facility] Hep B, Adol or Pedi 1997 Completed [facility]ive [facility]ity of Dosage 00:00:00 [facility] Hep B, Adol or Pedi 1997 Completed [facility]ive [facility]ity of Dosage 00:00:00 [facility] Hep B, Adol or Pedi 1997 Completed [facility]ity of Dosage 00:00:00 [facility] Hep B, Adol or Pedi 1997 Completed [facility] of Dosage 00:00:00 [facility] Vital Signs Vital Name Observation Time Observation Value Comments Source Systolic blood 2022-09-12 21:20:00 108 mm[Hg] Gege Jauregui - pressure External Diastolic blood 2022-09-12 21:20:00 76 mm[Hg] Lashae Jauregui - pressure External Heart rate 2022-09-12 21:20:00 84 /min Gege zamudio - External Body height 2022-09-12 21:20:00 162.6 cm Gege wileybold - External Body weight 2022-09-12 21:20:00 102.059 kg Gege Browne eybold - External BMI 2022-09-12 21:20:00 38.62 kg/m2 Gege wileybold - External Systolic blood 2022-07-26 21:00:00 109 mm[Hg] Univer [facility]ity of pressure [facility] Diastolic blood 2022-07-26 21:00:00 74 mm[Hg] Unive rsity of pressure [facility] Heart rate 2022-07-26 21:00:00 82 /min [facility] of [facility] Body temperature 2022-07-26 21:00:00 36.67 Alison Univ ersity of [facility] Respiratory rate 2022-07-26 21:00:00 20 /min Univ ersity of [facility] Body height 2022-07-26 21:00:00 162.6 cm [facility]i ty of [facility] Body weight 2022-07-26 21:00:00 105.688 kg [facility] BMI 2022-07-26 21:00:00 39.99 kg/m2 [facility] Systolic blood 2022-07-02 16:54:00 146 mm[Hg] Univer sity of pressure [facility] Diastolic blood 2022-07-02 16:54:00 97 mm[Hg] Unive rsity of pressure [facility] Heart rate 2022-07-02 16:54:00 68 /min [facility] Body temperature 2022-07-02 16:54:00 36.33 Alison [facility] Respiratory rate 2022-07-02 16:54:00 18 /min Univ ers[facility] Body weight 2022-07-02 16:54:00 97.523 kg [facility] BMI 2022-07-02 16:54:00 36.90 kg/m2 [facility] [place] Oxygen saturation in 2022-07-02 16:54:00 100 /min [facility] Arterial blood by [facility] Systolic blood 2021-12-24 03:00:00 134 mm[Hg] Univer sity of pressure [facility] Diastolic blood 2021-12-24 03:00:00 84 mm[Hg] Unive rsity of pressure [facility] Heart rate 2021-12-24 03:00:00 64 /min [facility] Respiratory rate 2021-12-24 03:00:00 15 /min Univ [facility] Oxygen saturation in 2021-12-24 03:00:00 95 /min University of Arterial blood by [facility] Body temperature 2021-12-24 00:41:00 37 Alison [facility] Body height 2021-12-24 00:41:00 162.6 cm [facility] Body weight 2021-12-24 00:41:00 97.523 kg [facility] BMI 2021-12-24 00:41:00 36.90 kg/m2 [facility] Systolic blood 2021-06-07 14:13:00 123 mm[Hg] Univer [facility]ity of pressure [facility] Diastolic blood 2021-06-07 14:13:00 66 mm[Hg] Unive rsity of pressure [facility] Heart rate 2021-06-07 14:13:00 73 /min [facility] Body temperature 2021-06-07 14:13:00 36.83 Alison [facility] Respiratory rate 2021-06-07 14:13:00 18 /min [facility] Body height 2021-06-07 14:13:00 162.6 cm [facility] Body weight 2021-06-07 14:13:00 94.62 kg [facility] BMI 2021-06-07 14:13:00 35.81 kg/m2 [facility] Systolic blood 2021-05-21 19:52:00 121 mm[Hg] Univer [facility]ity of pressure [facility] Diastolic blood 2021-05-21 19:52:00 73 mm[Hg] Unive rsity of pressure [facility] Heart rate 2021-05-21 19:52:00 73 /min [facility] Body temperature 2021-05-21 19:52:00 36.39 Alison [facility] Respiratory rate 2021-05-21 19:52:00 18 /min Univ [facility] Body height 2021-05-21 19:52:00 162.6 cm [facility] Body weight 2021-05-21 19:52:00 92.851 kg [facility] BMI 2021-05-21 19:52:00 35.14 kg/m2 [facility] Procedures Procedure Date / Time Performing Clinician Source Performed CBC WITH DIFF 2022-07-26 21:36:00 Mely Coronado [facility] CONSENT/REFUSAL FOR 2022-07-02 16:50:07 [facility] Unassigned, No [facility] Name [facility] CONSENT/REFUSAL FOR 2022-04-17 22:18:51 [facility] XR CHEST 1 VW 2021-12-24 01:25:29 Evi Carpenter [facility] POCT TEST 2021-12-24 01:24:00 Evi Carpenter [facility] D-DIMER 2021-12-24 01:11:00 Evi Carpenter [facility] MAGNESIUM 2021-12-24 01:10:00 Jr [facility] TROPONIN I 2021-12-24 01:10:00 Jr [facility] COMP. METABOLIC PANEL 2021-12-24 01:10:00 Evi Carpenter Radha [facility] ([id number]) [facility] CBC WITH DIFF 2021-12-24 01:10:00 Evi Carpenter [facility] URINALYSIS 2021-12-24 01:10:00 Evi Carpenter [facility] POCT TEST 2021-06-07 14:18:00 Hattie Rodriguez [facility] THYROID STIMULATING 2021-05-21 21:16:00 Hattie Rodriguez [facility] CBC WITH DIFF 2021-05-21 21:16:00 Hattie Rodriguez [facility] HIV 1/2 AG-AB WITH 2021-05-21 20:40:00 Hattie Rodriguez [facility] GARDASIL 9 (HPV 9V) 2021-05-21 20:14:56 Hattie Rodriguez [facility] Encounters Start End Encounter Admission Attending Care Care Encounter Source Date/Time Date/Time Type Type Clinicians Facility Department ID 2022-10-25 2022-10-25 Outpatient Viola LOPEZ [facility] [id number] Univers 09:15:00 09:15:00 MELONIE ity o f [facility] 2022-09-12 2022-09-12 Outpatient LAB47 GEGE MALHOTRA [id number] Gege 16:00:00 16:00:00 Seybol d 2022-09-12 2022-09-12 Outpatient GEGE MIRAMONTES [id number] Gege 15:00:00 15:00:00 JHON Duff old 2022-09-12 2022-09-12 Outpatient GEGE PIÑA [id number] Gege 00:00:00 00:00:00 NAOMIE Seybo ld 2022-08-16 2022-08-16 Outpatient Viola CORONADO [facility] [id number] Univers 00:00:00 00:00:00 MELY [facility] 2022-08-08 2022-08-08 Outpatient Viola CORONADO [facility] [id number] Univers 00:00:00 00:00:00 MELY [facility] 2022-07-29 2022-07-29 [facility] [id number] Univers 00:00:00 00:00:00 Management Mely [id number] Dyllan as MATERNAL [id number] Med ical & CHILD [address] [place] [address] 2022-07-26 2022-07-26 Outpatient Viola CORONADO [facility] [id number] Univers 14:30:00 15:36:48 MELY [facility] 2022-07-26 2022-07-26 [id number] Univers 14:30:00 15:36:48 Visit Mely Coronado [facility]AMP [facility]PER[id number] Dyllan as MATERNAL [id number] Med ical & CHILD [address] [place] [address] 2022-07-03 2022-07-03 Outpatient GEGE OLIVIA [id number] Gege 16:30:00 16:30:00 JUANA Seybol d 2022-07-02 2022-07-02 Emergency X [facility] ERT [id number] Univers 10:55:00 12:08:00 SKYLAR itdafne [facility] 2022-07-02 2022-07-02 Emergency [facility] [id number] Univers 10:55:00 12:08:00 [facility] 350.1.13.10 i [facility] 4.2.7.2.686 [facility] [phone] [address] 2022-07-02 2022-07-02 Telephone [facility] 1.2.840.114 [id number] [facility] 00:00:00 00:00:00 Melonie Navraro CLAMP OPERATOR [facility].2.7.2.[facility] [place] MATERNAL [phone] Med ical & CHILD [address] [place] [address] 2022-06-24 2022-06-24 Outpatient GEGE PIÑA [id number] [facility] 10:45:00 10:45:00 ZULMA Seybol d 2022-06-10 2022-06-10 Outpatient GEGE PIÑA [id number] [facility] 09:00:00 09:00:00 ZULMA Seybol d 2022-05-31 2022-05-31 Outpatient JOSH FLYNN [id number] [facility] 15:30:00 15:30:00 Seybol d 2022-05-22 2022-05-22 Outpatient Viola BOYKIN [facility] [id number] [facility] 09:45:00 09:45:00 YAAKOVA ity o f [facility] 2022-05-15 2022-05-15 Outpatient GEGE PIÑA [id number] [facility] 00:00:00 00:00:00 NAOMIE Seybo ld 2022-05-02 2022-05-02 Outpatient GEGE PIÑA [id number] [facility] 00:00:00 00:00:00 NAOMIE Seybo ld 2022-05-01 2022-05-01 Outpatient LAB47 GEGE MALHOTRA [id number] [facility] 17:15:00 17:15:00 Seybol d 2022-05-01 2022-05-01 Office CHERYL Piña [id number] [facility] 16:30:00 17:00:00 Visit Zulma 350.1.13.13 [facility] 1.2.7.2.686 [id number] 2022-04-30 2022-04-30 Outpatient GEGE PIÑA [id number] [facility] 00:00:00 00:00:00 ZULMA Seybol d 2022-04-17 2022-04-17 Outpatient R AKINTONA, [facility] [id number] Univers 17:45:00 17:45:00 MELONIE ity o [facility] 2022-04-17 2022-04-17 Orders Doctor ESPARZA 1.2.840.114 [id number] Univers 00:00:00 00:00:00 Only Unassigned, MARGARETH 350.1.13.10 ity of [place] [facility] 4.2.7.2.686 [place] as [phone] [address] 2022-04-16 2022-04-16 Outpatient R AKINSIPE, [facility] [id number] Univers 13:00:00 13:00:00 MELONIE juney o f [facility] 2022-02-21 2022-02-21 Outpatient R AKINSIPE, [facility] [id number] Univers 08:15:00 08:15:00 MELONIE juney o [facility] 2022-01-03 2022-01-03 Outpatient R JOHN [facility] [id number] Univers 08:15:00 08:15:00 MELONIE perez [facility] 2021-12-23 2021-12-23 Emergency X Evi CARPENTER [facility] ERT [id number] Univers 19:46:00 23:21:00 ity of [facility] 2021-12-23 2021-12-23 Emergency Evi Carpenter [facility] 1.2.840.114 [id number] Univers 19:46:00 23:21:00 Radha BUCKNER 350.1.13.10 i ty [facility] 4.2.7.2.686 [place] [facility] [id number] [address] 2021-09-06 2021-09-06 [facility] [id number] Univers 15:45:00 15:45:00 MELONIE shayleedafne o [facility] 2021-08-07 2021-08-07 Out[facility] [id number] Univers 15:00:00 15:00:00 MELONIE shayleedafne o [facility] 2021-08-02 2021-08-02 [facility]phone [facility] 1.2.840.114 [id number] Univers 00:00:00 00:00:00 Melonie Navarro CLAMP OPERATOR 350.1.13.10 ity [facility] 4.2.7.2.686 [place] MATERNAL [id number] [facility] ical & CHILD [address] [place] [address] 2021-06-07 2021-06-07 Nurse Visit, Brandon-Rmchp Nurse [facility] 1.2 .840.114 [id number] Univers 09:00:25 09:28:03 Visit Melonie Lopez CLAMP OPERATOR 350.1.13. [address] [facility] 4.2.7.2.686 [place] as MATERNAL [id number] [facility] [address] [place] [address] 2021-06-07 2021-06-07 Outpatient R [facility] [id number] Univers 09:00:00 09:00:00 ity [facility] 2021-06-04 2021-06-04 Outpatient R [facility] [id number] Univers 09:00:00 09:00:00 ity [facility] 2021-06-04 2021-06-04 Outpatient [facility] [id number] Univers 09:00:00 09:00:00 MELONIE juney o f [facility] 2021-05-25 2021-05-25 [facility] 1.2.840.114 [id number] Univers 00:00:00 00:00:00 Melonie Navarro CLAMP OPERATOR 350.1.13.[address] [facility] 4.2.7.2.686 [place] as MATERNAL [id number] [facility] & [address] 2021-05-21 2021-05-21 Office [facility] [id number] Univers 14:39:44 15:48:37 Visit Hattie Soriano CLAMP OPERATOR 350.1.13.[address] [facility] 4.2.7.2.686 [place] as MATERNAL [phone] [facility] & [address] 2021-05-21 2021-05-21 Out[facility] [id number] Univers 14:30:00 14:30:00 HATTIE alarocn [facility] 2021-05-21 2021-05-21 Orders Doctor ISAIAS 1.2.840.114 [id number] Univers 00:00:00 00:00:00 Only Unassigned, MARGARETH 350.1.13.10 ity of [place] [facility] 4.2.7.2.686 [place] [id number] [address] 2021-05-11 2021-05-11 Outpatient R JOHN [facility] [id number] Univers 12:45:00 12:45:00 MELONIE marcum f [facility] 2020-11-14 2020-11-14 Patient Ramiro NYJOSH 1.2.840.114 [id number] 00:00:00 00:00:00 Outreach [facility] 350.1.13.10 [facility] 4.2.7.2.686 PAVILLION [id number] 2020-11-14 2020-11-14 [facility] 1.2.840.114 [id number] Univers 00:00:00 00:00:00 Outreach Amor [facility]IMARY 350.1.13.10 [facility] 4.2.7.2.686 Nevin OTTO [id number] [address] 2020-08-29 2020-08-29 Outpatient R [facility] [id number] Univers 09:00:00 09:00:00 ity [facility] 2020-08-02 2020-08-02 Outpatient R [facility] [id number] Univers 14:00:00 14:00:00 ity [facility] 2020-08-02 2020-08-02 Outpatient R JOHN, [facility] [id number] Univers 14:00:00 14:00:00 MELONIE perez [facility] 2020-07-24 2020-07-24 Outpatient R [facility] [id number] Univers 09:30:00 09:30:00 ity [facility] 2020-06-27 2020-06-27 Office Akinsipe, [facility] 1.2.164.003 [id number] 15:14:20 15:49:12 Visit Melonie Navarro CLAMP OPERATOR 350.1.13.10 [facility] 4.2.7.2.686 MATERNAL [id number] & CHILD [address] [place] [address] 2020-06-27 2020-06-27 Office [facility] [id number] Univers 15:14:20 15:49:12 Visit Melonie C CLAMP OPERATOR [facility]13.10 [facility].2.7.2.686 [place] MATERNAL [id number] Med ical & CHILD [address] [place] [address] 2020-06-27 2020-06-27 Outpatient R AKINTONA, [facility] [id number] Univers 15:15:00 15:15:00 MELONIE perez [facility] 2020-06-27 2020-06-27 Outpatient R AKINSISHARA, [facility] [id number] Univers 15:15:00 15:15:00 MELONIE perez [facility] 2020-05-24 2020-05-24 Outpatient R AKINSISHARA, [facility] [id number] Univers 10:30:00 10:30:00 MELONIE perez [facility] 2020-05-24 2020-05-24 Outpatient R NAUNSHARA, [facility] [id number] Univers 10:30:00 10:30:00 MELONIE alarcon o ana [facility] 2020-03-27 2020-03-27 [facility]phone [facility] 1.2.840.114 [id number] Univers 00:00:00 00:00:00 Melonie C CLAMP OPERATOR 350.1.13.[address] [facility] 4.2.7.2.686 [place] as MATERNAL [id number] [facility] [address] [place] [address] 2020-03-23 2020-03-23 Office [facility] [id number] Univers 09:05:31 10:07:13 Visit Melonie C CLAMP OPERATOR 350.1.13.[address] [facility] 4.2.7.2.686 [place] as MATERNAL [id number] [facility] [address] [place] [address] 2020-03-23 2020-03-23 Outpatient R NAUNSHARA, [facility] [id number] Univers 09:00:00 09:00:00 MELONIE perez [facility] 2020-03-23 2020-03-23 Orders Doctor ISAIAS 1.2.840.114 [id number] Univers 00:00:00 00:00:00 Only Unassigned, MARGARETH 350.1.13.10 ity of [place] [facility] 4.2.7.2.686 [place] as [phone] [address] 2020-02-04 2020-02-04 [facility] 1.2.155.542 [id number] Univers 08:06:19 08:53:19 Visit Melonie C CLAMP OPERATOR 350.1.13.[address] [facility] 4.2.7.2.686 [place] as MATERNAL [id number] [facility] [address] [place] [address] 2020-02-04 2020-02-04 Outpatient R JOHN, [facility] [id number] Univers 08:15:00 08:15:00 MELONIE ity o f [facility] 2019-03-24 2019-03-24 Telephone DEVON Boykin 1.2.325.341 [id number] Univers 00:00:00 00:00:00 Gadiel Viola CLAMP OPERATOR 350.1.13.[address] [facility] 4.2.7.2.686 [place] as MATERNAL [id number] [facility] ical & CHILD [address] [place] [address] 2019-03-23 2019-03-23 Office DEVON Boykin 1.2.840.114 [id number] Univers 09:47:46 10:44:24 Visit Gadiel Viola CLAMP OPERATOR 350.1.13.[address] [facility] 4.2.7.2.686 [place] as MATERNAL [id number] [facility] & [address] 2019-03-23 2019-03-23 Orders Doctor ISAIAS 1.2.840.114 [id number] Univers 00:00:00 00:00:00 Only Unassigned, MARGARETH 350.1.13.10 ity of [place] [facility] 4.2.7.2.686 [place] as [id number] [address] Results Test Description Test Time Test Comments Results Result Comments Source CBC WITH DIFF 2022-07-27 05:48:20 Test Item Value Reference Range Interpretation Comme nts WBC (test code = 6690-2) See_Comment [A utomated message] The system which generated this result transmitted ref erence range: 4.30 - 11.10 10*3/?L . The reference range was not u sed to interpret this result as normal/abnormal. RBC (test code = 789-8) See_Comment [Au tomated message] The system which generated this result transmitted ref erence range: 3.93 - 5.25 10*6/?L. The reference range was not u sed to interpret this result as normal/abnormal. HGB (test code = 718-7) 11.7 g/dL 11.6-15.0 HCT (test code = 4544-3) 36.2 % 35.7-45.2 MCV (test code = 787-2) 82.1 fL 80.6-95.5 MCH (test code = 785-6) 26.5 pg 25.9-32.8 MCHC (test code = 786-4) 32.3 g/dL 31.6-35.1 RDW-SD (test code = 41.8 fL 39.0-49.9 88033-1) RDW-CV (test code = 14.1 % 12.0-15.5 788-0) PLT (test code = 777-3) See_Comment [Au tomated message] The system which generated this result transmitted ref erence range: 166 - 358 10*3/?L. The reference range was not u sed to interpret this result as normal/abnormal. MPV (test code = 47724-2) 11.1 fL 9.5-12.9 NRBC/100 WBC (test code = See_Comment [ Automated message] The system [id number]) which generated this result transmitted ref erence range: 0.0 - 10.0 /100 WBC s. The reference range was not u sed to interpret this result as normal/abnormal. NRBC x10^3 (test code = See_Comment [Au tomated message] The system [id number]) which generated this result transmitted ref erence range: 10*3/?L. The re ference range was not used to int erpret this result as normal/abnor mal. GRAN MAT (NEUT) % (test 54.0 % code = 770-8) IMM GRAN % (test code = 0.10 % 9111616630) LYMPH % (test code = 36.4 % 736-9) MONO % (test code = 8.1 % 5905-5) EOS % (test code = 713-8) 1.0 % BASO % (test code = 0.4 % 706-2) GRAN MAT x10^3(ANC) (test 3.63 10*3/uL 1.88-7.09 code = 7720676380) IMM GRAN x10^3 (test code 0.00-0.06 = 0094966449) LYMPH x10^3 (test code = 2.46 10*3/uL 1.32-3.29 731-0) MONO x10^3 (test code = 0.55 10*3/uL 0.33-0.92 742-7) EOS x10^3 (test code = 0.07 10*3/uL 0.03-0.39 711-2) BASO x10^3 (test code = 0.03 10*3/uL 0.01-0.07 704-7) [facility] WITH [id number] 05:48:20 Test Item Value Reference Range Interpretation Comments WBC (test code = See_Comment [Automated message] 2890-2) The system Tindie generated this result transmitted ref erence range: 4.30 - 1 1.10 10*3/?L. The re ference range was not u sed to interpret this result as normal/abnor mal. RBC (test code = See_Comment [Automated message] 729-8) The system Tindie generated this result transmitted ref erence range: 3.93 - 5 .25 10*6/?L. The re ference range was not u sed to interpret this result as normal/abnor mal. HGB (test code = 11.7 g/dL 11.6-15.0 718-7) HCT (test code = 36.2 % 35.7-45.2 4544-3) MCV (test code = 82.1 fL 80.6-95.5 787-2) MCH (test code = 26.5 pg 25.9-32.8 785-6) MCHC (test code = 32.3 g/dL 31.6-35.1 786-4) RDW-SD (test code 41.8 fL 39.0-49.9 = 20465-9) RDW-CV (test code 14.1 % 12.0-15.5 = 788-0) PLT (test code = See_Comment [Automated message] 507-3) The system Tindie generated this result transmitted ref erence range: 166 - 35 8 10*3/?L. The re ference range was not u sed to interpret this result as normal/abnor mal. MPV (test code = 11.1 fL 9.5-12.9 07271-8) NRBC/100 WBC (test See_Comment [Automat ed message] code = 0604471860) The [employer] which generated this result transmitted ref erence range: 0.0 - 10 .0 /100 WBCs. The refer ence range was not u sed to interpret this result as normal/abnor mal. NRBC x10^3 (test See_Comment [Automated message] code = 6097201075) [employer] which generated this result transmitted ref erence range: 10*3/?L. The reference range was not used to interpr et this result as normal/abnormal . GRAN MAT (NEUT) % 54.0 % (test code = 770-8) IMM GRAN % (test 0.10 % code = 3712987127) LYMPH % (test code 36.4 % = 736-9) MONO % (test code 8.1 % = 5905-5) EOS % (test code = 1.0 % 713-8) BASO % (test code 0.4 % = 706-2) GRAN MAT 3.63 10*3/uL 1.88-7.09 x10^3(ANC) (test code = 4757685006) IMM GRAN x10^3 0.00-0.06 (test code = 6351865354) LYMPH x10^3 (test 2.46 10*3/uL 1.32-3.29 code = 731-0) MONO x10^3 (test 0.55 10*3/uL 0.33-0.92 code = 742-7) EOS x10^3 (test 0.07 10*3/uL 0.03-0.39 code = 711-2) BASO x10^3 (test 0.03 10*3/uL 0.01-0.07 code = 704-7) [id number] 01:46:28 Test Item Value Reference Interpretation Comments Range TROPONIN I (test 0.002 ng/mL See_Comment [Automated code = 3859685471) message] The system which generated this result transmitted reference range : <=0.034. The reference range was not used to interpret this result as normal/abnormal . GRISELDA (test code = Reference (Normal) GRISELDA) Range (defined by the 99th percentile reference [...] biotin. Lab Interpretation Normal (test code = 04850-3) [facility]. METABOLIC PANEL (85587)2021-12-24 01:34:25 Test Item Value Reference Range Interpretation Comments NA (test code = 139 mmol/L 135-145 4134730966) K (test code = 3.6 mmol/L 3.5-5.0 9657628744) CL (test code = 104 mmol/L 98-108 0675048730) CO2 TOTAL (test code 25 mmol/L 23-31 = 4553470512) AGAP (test code = 2-16 2285963403) BUN (test code = 10 mg/dL 7-23 4415087154) GLUCOSE (test code = 81 mg/dL 70-110 7622245332) CREATININE (test code 0.86 mg/dL 0.50-1.04 = 3793906552) TOTAL BILI (test code 0.7 mg/dL 0.1-1.1 = 8846878712) CALCIUM (test code = 9.6 mg/dL 8.6-10.6 8478894904) T PROTEIN (test code 7.8 g/dL 6.3-8.2 = 1543334836) ALBUMIN (test code = 4.4 g/dL 3.5-5.0 9030747334) ALK PHOS (test code = 105 U/L 34-122 1151068505) ALTv (test code = 24 U/L 5-35 1742-6) AST(SGOT) (test code 30 U/L 13-40 = 3822697033) eGFR (test code = mL/min/1.73m2 5964238085) GRISELDA (test code = GRISELDA) Association of [...] or urine or abnormalities in imaging tests). [facility] 01:34:25 Test Item Value Reference Range Interpretation Comments MAGNESIUM (test code = 5897013423) 1.8 mg/dL 1.7-2.4 Lab Interpretation (test code = Normal 46231-6) [id number] 01:31:04 Test Item Value Reference Interpretation Comments Range D-DIMER (test code = See_Comment [Autom ated 5667738235) message] The system which generated this result [...] diagnosis. Lab Interpretation Normal (test code = 90526-5) [facility] [id number] 01:24:00 Test Item Value Reference Range Interpretation Comments POCT PREG (test code = 1605) negative On board controls acceptable with present C Line (test code = 3574) POCT PREG LOT # (test code = 3575) [id number] POCT PREG TEST DATE (test code = 3576) Lab Interpretation (test code = Normal 57345-3) [facility] WITH [id number] 01:20:27 Test Item Value Reference Range Interpretation Comments WBC (test code = See_Comment [Automated message] 8490-2) The system Tindie generated this result transmitted ref erence range: 4.30 - 1 1.10 10*3/?L. The re ference range was not u sed to interpret this result as normal/abnor mal. RBC (test code = See_Comment [Automated message] 699-8) The system Tindie generated this result transmitted ref erence range: [...] RDW-SD (test code 40.0 fL 39.0-49.9 = 93451-2) RDW-CV (test code 13.6 % 12.0-15.5 = 788-0) PLT (test code = See_Comment [Automated message] 375-3) The system whic h generated this result transmitted ref erence range: 166 - 35 8 10*3/?L. The re ference range was not u sed to interpret this result as normal/abnor mal. MPV (test code = 10.0 fL 9.5-12.9 44681-2) NRBC/100 WBC (test See_Comment [Automat ed message] code = 9919761507) The syste m which generated this result transmitted ref erence range: 0.0 - 10 .0 /100 WBCs. The refer ence range was not u sed to interpret this result as normal/abnor mal. NRBC x10^3 (test <0.01 See_Comment [Automated message] code = 7950414419) The syste m which generated this result transmitted ref erence range: 10*3/?L. The reference range was not used to interpr et this result as normal/abnormal . GRAN MAT (NEUT) % 46.3 % (test code = 770-8) IMM GRAN % (test 0.20 % code = 1143030633) LYMPH % (test code 43.0 % = 736-9) MONO % (test code 8.6 % = 5905-5) EOS % (test code = 1.2 % 713-8) BASO % (test code 0.7 % = 706-2) GRAN MAT 2.75 10*3/uL 1.88-7.09 x10^3(ANC) (test code = 5171068832) IMM GRAN x10^3 <0.03 0.00-0.06 (test code = 7891375555) LYMPH x10^3 (test 2.55 10*3/uL 1.32-3.29 code = 731-0) MONO x10^3 (test 0.51 10*3/uL 0.33-0.92 code = 742-7) EOS x10^3 (test 0.07 10*3/uL 0.03-0.39 code = 711-2) BASO x10^3 (test 0.04 10*3/uL 0.01-0.07 code = 704-7) [facility] [id number] 14:20:00 Test Item Value Reference Range Interpretation Comments POCT PREG (test code = 1605) Negative On board controls acceptable with C Yes Line (test code = 3574) POCT PREG LOT # (test code = 3575) POCT PREG TEST DATE (test code = 3576) [facility] AG-AB WITH [id number] 05:35:57 Test Item Value Reference Range Interpretation Comments HIV Negative Negative Semi-quantitative (test code = 94928-5) GRISELDA (test code = Non-reactive for HIV-1 GRISELDA) antigen and HIV-1/HIV-2 antibodies. ?No laboratory evidence of HIV infection. ?Repeat in 2-4 weeks if acute HIV infection is suspected. [facility] HospitalTHYROID STIMULATING [id number] 05:14:33 Test Item Value Reference Range Interpretation Comments TSH (test code = See_Comment Biotin has been 7379181176) reported to cau se a negative bias, interpret resul ts relative to pat olive's use of biotin. [Automated mess age] The system Tindie generated this result transmitted ref erence range: 0.45 - 4 .70 mIU/L. The refe rence range was not u sed to interpret this result as normal/abnor mal. Lab Interpretation (test Normal code = 49293-0) [facility] WITH [id number] 04:59:00 Test Item Value Reference Range Interpretation Comments WBC (test code = See_Comment [Automated message] 6690-2) The system Tindie generated this result transmitted ref erence range: 4.30 - 1 1.10 10*3/?L. The re ference range was not u sed to interpret this result as normal/abnor mal. RBC (test code = See_Comment [Automated message] 789-8) The system Tindie generated this result transmitted ref erence range: [...] RDW-SD (test code 41.9 fL 39.0-49.9 = 34823-6) RDW-CV (test code 13.9 % 12.0-15.5 = 788-0) PLT (test code = See_Comment [Automated message] 777-3) The system whic h generated this result transmitted ref erence range: 166 - 35 8 10*3/?L. The re ference range was not u sed to interpret this result as normal/abnor mal. MPV (test code = 10.7 fL 9.5-12.9 33383-7) NRBC/100 WBC (test See_Comment [Automat ed message] code = 0461149092) The syste m which generated this result transmitted ref erence range: 0.0 - 10 .0 /100 WBCs. The refer ence range was not u sed to interpret this result as normal/abnor mal. NRBC x10^3 (test <0.01 See_Comment [Automated message] code = 4266351147) The syste m which generated this result transmitted ref erence range: 10*3/?L. The reference range was not used to interpr et this result as normal/abnormal . GRAN MAT (NEUT) % 38.2 % (test code = 770-8) IMM GRAN % (test 0.20 % code = 2686091428) LYMPH % (test code 49.1 % = 736-9) MONO % (test code 10.0 % = 5905-5) EOS % (test code = 1.8 % 713-8) BASO % (test code 0.7 % = 706-2) GRAN MAT 2.07 10*3/uL 1.88-7.09 x10^3(ANC) (test code = 3265221271) IMM GRAN x10^3 <0.03 0.00-0.06 (test code = 3586429740) LYMPH x10^3 (test 2.66 10*3/uL 1.32-3.29 code = 731-0) MONO x10^3 (test 0.54 10*3/uL 0.33-0.92 code = 742-7) EOS x10^3 (test 0.10 10*3/uL 0.03-0.39 code = 711-2) BASO x10^3 (test 0.04 10*3/uL 0.01-0.07 code = 704-7) [facility]
[2022-10-06] MEDS ORDERED: KETOROLAC 30 MG/ML INJ ONE (16:09)
[2022-10-06] MEDS ORDERED: FAMOTIDINE 20 MG/2 ML VIAL IV ONE (16:09)
[2022-10-06 16:31] LABS: Absolute Lymphocytes (CBC) 2.1 K/uL (0.7-4.9); Hematocrit 34.2 % (36.0-45.0); Lymphocytes % 43.6 % (15.3-44.8); MCV 81.1 fL (80-100); MPV 8.5 fL (7.6-11.3); RBC Red Blood Cell Count 4.21 M/uL (3.86-4.86)
[2022-10-06 16:49] LABS: Albumin 3.4 g/dL (3.4-5.0); Bilirubin Total 0.2 mg/dL (0.2-1.0); Potassium 3.9 mmol/L (3.5-5.1); Protein, Total 7.1 g/dL (6.4-8.2); Thyroid Stimulating Hormone 0.857 uIU/mL (0.358-3.740)
--- NOTE | 2022-10-06 16:57 | RAD REPORT ---
EXAM DESCRIPTION: CTAbdomen Pelvis W Contrast - 10/06/2022 4:19 pm CLINICAL HISTORY: Abdominal pain. ABD PAIN COMPARISON: Abdomen Pelvis W Contrast dated 01/15/2020; Abdomen Pelvis W Contrast dated 02/12/2019 ; Abdomen Pelvis W Contrast dated 05/03/2017; CT ABD PELVIS W CONTRAST dated 10/31/2015 TECHNIQUE: Biphasic CT imaging of the abdomen and pelvis was performed with 100 ml non-ionic IV cont rast. All CT scans are performed using dose optimization technique as appropriate and may include automated exposure control or mA/KV adjustment according to patient size. FINDINGS: The lung bases are clear.Cholecystectomy. The liver, spleen, pancreas, adrenal glands and kidneys are within normal limits. No bowel obstruction, free air, free fluid or abscess. The appendix is normal. No evidence of signi ficant lymphadenopathy. No suspicious bony findings. IMPRESSION: No acute intra-abdominal or pelvic finding.
--- NOTE | 2022-10-06 17:19 | ER ---
Nurse's Notes [facility] Name: Troy Son Age: 27 yrs Sex: Female : 1995 Arrival Date: 10/06/2022 Time: 14:29 Bed 12 Private MD: Diagnosis: Lower abdominal pain, unspecified Presentation: 10/06 14:37 Chief complaint: Patient states: L sided abd pain for 3 days. Not better with OTC meds. ll1 Seeing OB for PCOS and mass on uterus. Coronavirus screen: Vaccine status: Patient reports being unvaccinated. Client denies travel out of the [place] in the last 14 days. At this time, the client does not indicate any symptoms associated with coronavirus-19. Ebola Screen: Patient denies travel to an Ebola-affected area in the 21 days before illness onset. Initial Sepsis Screen: Does the patient meet any 2 criteria? No. Patient's initial sepsis screen is negative. Does the patient have a suspected source of infection? Yes: Acute abdominal pain. Risk Assessment: Do you want to hurt yourself or someone else? Patient reports no desire to harm self or others. Onset of symptoms was October 04, 2022. 14:37 Method Of Arrival: Ambulatory ll1 14:37 Acuity: CARMEN 3 ll1 Triage Assessment: 14:38 General: Appears uncomfortable, Behavior is calm, cooperative, appropriate for age. ll1 Pain: Complains of pain in left lower quadrant Quality of pain is described as aching. GI: Reports lower abdominal pain. : Reports cramping, vaginal bleeding that is. VP REVENUE CYCLE: 18:17 LMP N/A - control method, UPT negative ll1 Historical: - Allergies: 14:37 No Known Allergies; ll1 - PMHx: 14:37 ibs; PCOS; mass on uterus; ll1 - PSHx: 14:37 section; Cholecystectomy; ll1 - Immunization history:: Client reports having NOT received the Covid vaccine. - Social history:: Smoking status: Patient denies any tobacco usage or history of. Screenin:31 [facility] ED Fall Risk Assessment (Adult) Score/Fall Risk Level 0 - 2 = Low Risk ll1 Oriented to surroundings, Maintained a safe environment, Educated pt \T\ family on fall prevention, incl call for assistance when getting out of bed, Hourly rounding (assess needs \T\ fall precautionary measures) done. Abuse screen: Denies threats or abuse. Nutritional screening: No deficits noted. Tuberculosis screening: No symptoms or risk factors identified. Assessment: 15:56 Reassessment: No changes from previously documented assessment. Patient and/or family ll1 updated on plan of care and expected duration. Pain level reassessed. Patient is alert, oriented x 3, equal unlabored respirations, skin warm/dry/pink. 16:10 Reassessment: No changes from previously documented assessment. Patient and/or family ll1 updated on plan of care and expected duration. Pain level reassessed. Patient is alert, oriented x 3, equal unlabored respirations, skin warm/dry/pink. 16:33 Reassessment: No changes from previously documented assessment. Patient and/or family ll1 updated on plan of care and expected duration. Pain level reassessed. Patient is alert, oriented x 3, equal unlabored respirations, skin warm/dry/pink. Patient states feeling better. 17:30 Reassessment: Patient appears in no apparent distress at this time. No changes from ll1 previously documented assessment. Patient and/or family updated on plan of care and expected duration. Pain level reassessed. Patient is alert, oriented x 3, equal unlabored respirations, skin warm/dry/pink. Patient states feeling better. Vital Signs: 14:37 BP 128 / 96; Pulse 93; Resp 17; Temp 97.9; Pulse Ox 100% ; Weight 99.79 kg; Height 5 ll1 ft. 5 in. (165.10 cm); Pain 3/10; 14:37 Body Mass Index 36.61 (99.79 kg, 165.10 cm) ll1 ED Course: 14:29 Patient arrived in ED. rg4 14:34 Griselda Islas FNP-C is PHCP. snw 14:34 Gary Marshall MD is Attending Physician. snw 14:39 Triage completed. ll1 14:39 Arm band placed on. ll1 14:54 Urine Microscopic Only Sent. ll1 14:56 Maranda Rao, ALTON is Primary Nurse. ll1 14:56 Patient placed in an exam room, on a stretcher. ll1 15:00 Patient has correct armband on for positive identification. Bed in low position. Call ll1 light in reach. Cardiac monitoring not applicable on this patient. 15:56 Inserted saline lock: 22 gauge in right antecubital area, using aseptic technique. ll1 Blood collected. 16:32 IV discontinued, intact, bleeding controlled, Pressure dressing applied, IV infiltrated ll1 at the end of her CT. Warm packs to site. Tolerated well. 17:31 No provider procedures requiring assistance completed. ll1 Administered Medications: 16:06 Drug: Pepcid (famotidine) 20 mg Route: IVP; Site: right antecubital; ll1 16:32 Follow up: Response: No adverse reaction ll1 16:08 Drug: Ketorolac 30 mg Route: IVP; Site: right antecubital; ll1 16:32 Follow up: Response: No adverse reaction; Pain is decreased; RASS: Alert and Calm (0) 1 Medication: 18:18 VIS not applicable for this client. ll1 Outcome: 17:19 Discharge ordered by . snesth 17:31 Patient left the ED. 17:31 Discharged to home ambulatory. 1 17:31 Condition: stable 17:31 Discharge instructions given to patient, Instructed on discharge instructions, follow up and referral plans. medication usage, Demonstrated understanding of instructions, follow-up care, medications, Prescriptions given X 2. Signatures: Griselda Islas, [facility]-Pia Fulton, RN RN Yessi Rizo4 Maranda Rao RN RN 1
--- NOTE | 2022-10-06 17:19 | EDPHYS ---
Physician Documentation [facility] Name: Troy Son Age: 27 yrs Sex: Female : 1995 Arrival Date: 10/06/2022 Time: 14:29 Bed 12 Private MD: IRIS Physician Gary Marshall HPI: 10/06 15:45 This 27 yrs old Black Female presents to ER via Ambulatory with complaints of Low snw Abdominal Pain. 15:45 Onset: The symptoms/episode began/occurred acutely. Associated signs and symptoms: The snw patient has no apparent associated signs or symptoms. Modifying factors: The patient symptoms are alleviated by nothing, the patient symptoms are aggravated by sitting up, straining abd musculature. Sharp in nature. The patient has not experienced similar symptoms in the past. saw Area Safety Manager, + PCOS, placed on OCP 2 weeks ago. Bleeding has stopped but sharp pain continues. Pt states Area Safety Manager recently told her she has a mass on her uterus. 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 - Social history:: Smoking status: Patient denies any tobacco usage or history of. ROS: 15:44 Constitutional: Negative for fever, chills, and weight loss, Eyes: Negative for injury, snw pain, redness, and discharge, ENT: Negative for injury, pain, and discharge, Neck: Negative for injury, pain, and swelling, Cardiovascular: Negative for chest pain, palpitations, and edema, Respiratory: Negative for shortness of breath, cough, wheezing, and pleuritic chest pain, Back: Negative for injury and pain, : Negative for injury, bleeding, discharge, and swelling, MS/Extremity: Negative for injury and deformity, Skin: Negative for injury, rash, and discoloration, Neuro: Negative for headache, weakness, numbness, tingling, and seizure, Psych: Negative for depression, anxiety, suicide ideation, homicidal ideation, and hallucinations. 15:44 Abdomen/GI: Positive for abdominal pain, abdominal cramps, of the left lower abd, +PCOS with recent menorrhagia.. Exam: 15:43 Constitutional: This is a well developed, well nourished patient who is awake, alert, snw and in no acute distress. Head/Face: Normocephalic, atraumatic. Eyes: Pupils equal round and reactive to light, extra-ocular motions intact. Lids and lashes normal. Conjunctiva and sclera are non-icteric and not injected. Cornea within normal limits. Periorbital areas with no swelling, redness, or edema. ENT: Nares patent. No nasal discharge, no septal abnormalities noted. Tympanic membranes are normal and external auditory canals are clear. Oropharynx with no redness, swelling, or masses, exudates, or evidence of obstruction, uvula midline. Mucous membranes moist. Neck: Trachea midline, no thyromegaly or masses palpated, and no cervical lymphadenopathy. Supple, full range of motion without nuchal rigidity, or vertebral point tenderness. No Meningismus. Chest/axilla: Normal chest wall appearance and motion. Nontender with no deformity. No lesions are appreciated. Cardiovascular: Regular rate and rhythm with a normal S1 and S2. No gallops, murmurs, or rubs. Normal PMI, no JVD. No pulse deficits. Respiratory: Lungs have equal breath sounds bilaterally, clear to auscultation and percussion. No rales, rhonchi or wheezes noted. No increased work of breathing, no retractions or nasal flaring. Back: No spinal tenderness. No costovertebral tenderness. Full range of motion. Skin: Warm, dry with normal turgor. Normal color with no rashes, no lesions, and no evidence of cellulitis. MS/ Extremity: Pulses equal, no cyanosis. Neurovascular intact. Full, normal range of motion. Neuro: Awake and alert, GCS 15, oriented to person, place, time, and situation. Cranial nerves II-XII grossly intact. Motor strength 5/5 in all extremities. Sensory grossly intact. Cerebellar exam normal. Normal gait. Psych: Awake, alert, with orientation to person, place and time. Behavior, mood, and affect are within normal limits. 15:43 Abdomen/GI: Inspection: abdomen appears normal, Bowel sounds: normal, Palpation: moderate abdominal tenderness, in the left lower quadrant. Vital Signs: 14:37 BP 128 / 96; Pulse 93; Resp 17; Temp 97.9; Pulse Ox 100% ; Weight 99.79 kg; Height 5 ll1 ft. 5 in. (165.10 cm); Pain 3/10; 14:37 Body Mass Index 36.61 (99.79 kg, 165.10 cm) ll1 MDM: 14:48 Patient medically screened. snw 16:43 Differential diagnosis: viral Infection, bacterial infection, gastroenteritis. Data snw reviewed: vital signs, nurses notes, lab test result(s), radiologic studies. Counseling: I had a detailed discussion with the patient and/or guardian regarding: the historical points, exam findings, and any diagnostic results supporting the discharge/admit diagnosis, the presence of at least one elevated blood pressure reading (>120/80) during this emergency department visit, lab results, radiology results, the need for outpatient follow up, to return to the emergency department if symptoms worsen or persist or if there are any questions or concerns that arise at home. Special discussion: Based on the patient's Hx, exam, and Dx evaluation, there is no indication for emergent surgery or inpatient Tx. It is understood by the patient/guardian that if the Sx's persist or worsen they need to return immediately for re-evaluation. Based on the history and exam findings, there is no indication for further emergent testing or inpatient evaluation. I discussed with the patient/guardian the need to see the OB Gyne specialist for further evaluation of the symptoms. I discussed with the patient/guardian the need to see the primary care provider for further evaluation of the symptoms. 10/06 14:48 Order name: Urine Culture [facility] 10/06 14:48 Order name: Urine Microscopic Only [facility] 10/06 14:53 Order name: Urine Dipstick-Ancillary; Complete Time: 15:09 EDFL 10/06 15:10 Order name: Urine Microscopic Only; Complete Time: 15:28 EDFL 10/06 15:42 Order name: CBC with Diff [facility] 10/06 15:42 Order name: CMP [facility] 10/06 15:42 Order name: Lipase [facility] 10/06 15:42 Order name: CT Abd/Pelvis - IV Contrast Only [facility] 10/06 15:42 Order name: TS [facility] 10/06 15:42 Order name: TSH [facility] 10/06 16:36 Order name: CBC with Automated Diff; Complete Time: 16:38 EDMS 10/06 17:20 Order name: Comprehensive Metabolic Panel; Complete Time: 17:24 EDMS 10/06 17:20 Order name: Lipase; Complete Time: 17:24 EDMS 10/06 17:20 Order name: Thyroid Stimulating Hormone; Complete Time: 17:24 EDMS 10/06 14:48 Order name: Urine Dipstick-Ancillary (obtain specimen); Complete Time: 14:54 snw 10/06 14:48 Order name: Urine Test (obtain specimen); Complete Time: 14:54 snw 10/06 15:42 Order name: IV Saline Lock; Complete Time: 15:45 snw 10/06 15:42 Order name: Labs collected and sent; Complete Time: 15:45 snw 10/06 16:58 Order name: CT; Complete Time: 17:18 EDMS Administered Medications: 16:06 Drug: Pepcid (famotidine) 20 mg Route: IVP; Site: right antecubital; ll1 16:32 Follow up: Response: No adverse reaction ll1 16:08 Drug: Ketorolac 30 mg Route: IVP; Site: right antecubital; ll1 16:32 Follow up: Response: No adverse reaction; Pain is decreased; RASS: Alert and Calm (0) ll1 Disposition Summary: 10/06/22 17:19 Discharge Ordered Location: Home snw Condition: Stable snw Diagnosis - Lower abdominal pain, unspecified snw Followup: snw - With: Emergency Department - When: As needed - Reason: Worsening of condition Followup: snw - With: Private Physician - When: 2 - 3 days - Reason: Recheck today's complaints, Continuance of care, Re-evaluation by your physician Discharge Instructions: - Discharge Summary Sheet snw - Abdominal Pain, Adult snw - Gas and Gas Pains, Pediatric snw - [place] Diet snw Forms: - Medication Reconciliation Form snw - Thank You Letter snw - Antibiotic Education snw - Prescription Opioid Use snw - Work release form ll1 Prescriptions: - Mobic 7.5 mg Oral Tablet - take 1 tablet by ORAL route once daily take with food; 20 tablet; Refills: 0, snw Product Selection Permitted - promethazine 25 mg Oral Tablet - take 1 tablet by ORAL route every 6 hours As needed; 20 tablet; Refills: 0, snw Product Selection Permitted Signatures: Dispatcher [employer] EDMS Islas, Griselda, CHEMICAL OPERATIONS SPECIALIST-C CHEMICAL OPERATIONS SPECIALIST-Csnw Maranda Rao, RN RN ll1
[2022-10-06 17:52] VITALS: BP 128/96; TEMP 97.9; O2SAT 100
== END 2022-10-06 17:31 | disposition home or self-care (01) ==
LOC: ER 14:26
DX: R10.32 Left lower quadrant pain (principal)
CPT/HCPCS: 87088; 85025; 87086; 36415; 86900; 86850; 86901; 84443; 83690; 80053; 74177; 96375; 96374; 99284; Q9967; 81003; 81015

== ENCOUNTER 2023-03-30 09:38 | Emergency (ER) | payer OTHER ==
--- OUTSIDE RECORDS SUMMARY | 2023-03-30 09:46 | XMS REPORT | Continuity of Care Document ---
:1995 Author Organization [facility] t Address [address] [place] [address] Care Team Providers Name Role Phone No , Pcp Primary Care Physician Unavailable STEFANY ASHLEY Attending Clinician Unavailable MARIA ESTHER FONTENOT Attending Clinician Unavailable PROVIDER, AFFILIATE Attending Clinician Unavailable Brenna Sinha Attending Clinician TEJAS MORGAN JR Attending Clinician Unavailable PEREZ LOPEZ Attending Clinician Unavailable LAB47 Attending Clinician Unavailable JHON MIRAMONTES Attending Clinician Unavailable NAOMIE PIÑA Attending Clinician Unavailable MELY CORONADO Attending Clinician Unavailable Mely Coronado CNM Attending Clinician Provider, [facility] Temp Attending Clinician Unavailable JUANA OLIVIA Attending Clinician Unavailable YOGESH MALDONADO Attending Clinician Unavailable Yogesh Maldonado DO Attending Clinician Perez Santiago Attending Clinician [phone] NIVIA PIÑA Attending Clinician Unavailable JOSH FLYNN Attending Clinician Unavailable GADIEL BOYKIN Attending Clinician Unavailable Nivia Piña MD Attending Clinician Doctor Unassigned, Yarnell Attending Clinician Unavailable Evi CARPENTER Attending Clinician Unavailable Evi Francisco Attending Clinician Visit, [facility] Nurse Attending Clinician Unavailable Nory Lopez Attending Clinician NORY RODRIGUEZ Attending Clinician Unavailable Amor Rubio DO Attending Clinician Asif MCKEONP, Gadiel Rod Attending Clinician Brenna Sinha Admitting Clinician Evi CARPENTER Admitting Clinician Unavailable Payers Payer Name Policy Type Policy Number Effective Date Expiration Date S ource OPEN ACCESS AETNA [id number] 2021 [employer] EPO 00:00:00 AETNA 2 [id number] 2022 00:00:00 AETNA MP CVS 9 [id number] 2022 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:00: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 [place] [id number] 2021 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-AETNA 00:00:00 Problems Condition Condition Condition Status Onset Resolution Last Treating Co mments Source Name Details Category Date Date Treatment Clinician Date Acetabulum Acetabulum Disease Active U T fracture, fracture, 3-28 Heal th left left 00:00: 00 Obesity Obesity Disease Active 2021-08 Univers (BMI (BMI 2-04 ity of 30-39.9) 30-39.9) 00:00: [place] 00 Medical Branch Other Other Disease Active Univers depression depression 7-30 it y of 00:00: [place] Medical [facility] Need for Need for Disease [...] serious comorbidit comorbidit y present y present Diagnosis Active 2013-08-28 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 1-03 01:09:00 l Active 00:00: Jesus 08/27/2013 00 [facility] Born by Born by Diagnosis 2022-11-08 Memcece caesarean caesarean 00:55:02 l section section Jesus (context-d (context-d ependent ependent category) category) Diagnosis 11/08/2022 [facility] Single Single Problem 2022-11-11 Mem oria liveborn liveborn 07:10:19 l , infant, Jesus delivered delivered by by 11/11/2022 [facility] THREAT THREAT Diagnosis Active 2013-08-28 Me moria LABOR LABOR 01:09:00 l NEC-UNSPEC NEC-UNSPEC He rmann Active [facility] Allergies, Adverse Reactions, Alerts Allergy Allergy Status Severity Reaction(s) Onset Inactive Treating Comm ents Source Name Type Date Date Clinician Latex Propensi Active Swelling Univer s ty to 03-12 ity of adverse 00:00: [place] reaction 00 Medical s Branch LATEX DRUG Active Hives Univers INGREDI 03-12 ity of 00:00: [place] 00 Medical Branch Latex Propensi Active Swelling Gege ty to 03-12 Seybold adverse 00:00: - reaction 00 Externa s l Social History Social Habit Start Date Stop Date Quantity Comments Source History SDOH University o f Alcohol Frequency [place] M edical Branch History SDOH University o f Alcohol Std [place] Medical Drinks Branch History SDOH University o f Alcohol Binge [place] Medic al Branch Exposure to 2022-12-08 2022-12-18 Not sure [facility] SARS-CoV-2 00:00:00 00:13:00 (event) Alcohol intake 2022-09-12 2022-09-12 Ex-drinker Gege Hernandez bold - 00:00:00 00:00:00 (finding) External Tobacco use and 2022-05-01 2022-05-01 Smokeless tobacco Quentin madison Seybold - exposure 00:00:00 00:00:00 non-user External Alcohol Comment 2019-03-23 2019-03-23 social events Univer sity of 00:00:00 00:00:00 [facility] Sex Assigned At [birth year] [facility] 00:00:00 00:00:00 Smoking Status Start Date Stop Date Source Tobacco smoking consumption unknown [facility] Social History [facility] Medications Ordered Filled Start Stop Current Ordering Indication Dosage Frequency Signature Comments Components Source Medication Medication Date Date Medication? Clinician (SIG) Name Name traMADol Yes [id number] 50mg Q6H Take 1 UT (Ultram) 50 3-29 tablet (50 He alth MG tablet 00:00: mg total) 00 by mouth every 6 (six) hours if needed for severe pain. traMADol Yes [id number] 50mg Q6H Take 1 UT (Ultram) 50 3-29 tablet (50 He alth MG tablet 00:00: mg total) 00 by mouth every 6 (six) hours if needed for severe pain. traMADol Yes [id number] 50mg Q6H Take 1 UT (Ultram) 50 3-29 tablet (50 He alth MG tablet 00:00: mg total) 00 by mouth every 6 (six) hours if needed for severe pain. traMADol Yes [id number] 50mg Q6H Take 1 UT (Ultram) 50 3-29 tablet (50 He alth MG tablet 00:00: mg total) 00 by mouth every 6 (six) hours if needed for severe pain. docusate-se No 2 tab, PO, Memoria nna 50 3-14 Daily, X 4 l mg-8.6 mg 14:14: day, # 8 Herm marialuisa oral tablet 00 tab, 0 Refill(s), [id number] 162.56, cm, 11/04/22 15:53:00 CDT, Height, 100, kg, 11/04/22 15:53:00 CDT, Weight Adult Yes 325 mg = 1 Memori a Aspirin 325 3-14 tab, PO, l mg oral 14:13: BID, # 40 Cinda nn tablet 00 tab, 0 Refill(s), Pharmacy: [facility] ST[facility] #[id number], 162.56, cm, 11/04/22 15:53:00 CDT, Height, 100, kg, 11/04/22 15:53:00 CDT, Weight tramadol 50 No 50 mg = 1 M emoria mg oral 3-14 tab, PO, l tablet 14:12: TID, PRN Pain Score 7-10, X 3 day, # 9 tab, 0 Refill(s), Pharmacy: [facility] #[id number], 162.56, cm, 11/04/22 15:53:00 CDT, Height, 100, kg, 11/04/22 15:53:00 CDT, Weight acetaminoph No 1,000 mg = Memoria en 500 mg 3-14 2 tab, PO, l oral 14:11: TID, X 5 Jesus tablet. 00 day, # 30 tab, 0 Refill(s), Pharmacy: [facility] #[id number], 162.56, cm, 11/04/22 15:53:00 CDT, Height, 100, kg, 11/04/22 15:53:00 CDT, Weight remove No Notes: Memoria patch 3-14 Remove l 01:00: patch 12 00 hours after applicatio n each day. lidocaine No Route: IV, Me moria (ANES) 3-13 Drug form: l 19:11: INJ, ONCE, Stop date: 11/04/22 14:11:00 CDT fentaNYL No Route: IV, Mem oria (ANES) 3-13 Drug form: l 19:11: INJ, ONCE, Stop date: 11/04/22 14:11:00 CDT propofol No Route: IV, Mem oria (ANES) 3-13 Drug form: l 19:11: INJ, ONCE, Stop date: 11/04/22 14:11:00 CDT ceFAZolin No Route: IV, Me moria (ANES) 3-13 Drug form: l 19:11: INJ, ONCE, Stop date: 11/04/22 14:11:00 CDT ondansetron No Route: IV, Memoria (ANES) 3-13 Drug form: l 19:11: INJ, ONCE, Stop date: 11/04/22 14:11:00 CDT midazolam No Route: IV, Me moria (ANES) 3-13 Drug form: l 19:09: SOLN, Jesus 00 ONCE, Stop date: 11/04/22 14:09:00 CDT Isolyte S No Notes: Memori a PH-7.4 3-13 (Same as: l (Bolus) IV 18:53: Isolyte S He rm PH7.4, Normosol-R PH 7.4, Plasma-Lyt e A ) ANES No Notes: Memoria hydrALAZINE 3-13 (Same as: l 18:53: Apresoline ) Push over 5 minutes ANES No 10 mg, 2 Memoria labetalol 3-13 mL, Route: l 18:53: IVP, Drug form: INJ, Q5Min, Dosing Weight 77.273, kg, PRN Elevated BP, Start date: 11/04/22 13:53:00 CDT, Duration: 5 doses or times, Stop date: Limited # of times, 0 ANE No Notes: Memoria oxyCODONE 5 3-13 (Same as: l mg 18:53: Roxicodone ) release tablet ANES No Notes: Memoria HYDROmorpho 3-13 Same as l ne 18:53: Dilaudid ANE No Notes: Memoria flumazenil 3-13 (Same as: l 18:53: Romazicon) ANES No Notes: Memoria naloxone 3-13 Same as l 18:53: Narcan ANE No Notes: Memoria ePHEDrine 3-13 (Same as: l 18:53: ePHEDrine Sulfate) ANES No Notes: Memoria ondansetron 3-13 (Same as: l 18:53: Zofran) MEDICATION WASTE Product Size: 4 mg Product Wasted: ___ mg ANES No Notes: Do Memoria promethazin 3-13 not give l e + Sodium 18:53: IV push. Her gonsalves Chloride 00 (Same as: 0.9% IV 50 Phenergan) mL Lactated No Route: IV, Mem oria Ringers 3-13 Total l Injection 18:15: Volume: Cinda nn IV (ANES) 00 1,000, 1000 mL Start date: 11/04/22 13:15:00 CDT, Stop date: 11/04/22 14:15:00 CDT Lovenox No Notes: Memoria 3-13 (Same as: l 14:00: Lovenox) Tilden polyethylen No Notes: Desmond paulo e glycol 3-13 Dissolve l 3350 14:00: in 8 oz of [place] water or juice. (Same as: Miralax) docusate-se No Notes: Desmond paulo nna 50 3-13 (Same as l mg-8.6 mg 14:00: Senokot-S) He rmann oral tablet 00 Equiv. to Veronica-Colac e. lidocaine No Notes: Memori a 4% topical 3-13 Patch is l film 13:00: applied to Jesus 00 intact skin to cover painful area for up to 12 hours in a 24-hour period (12 hours on and 12 hours off). Please indicate the location of applicatio n site. Site 1: Remove old patch before applicatio n of new patch. (Same as Aspercreme Lidocaine Patch) methocarbam No Notes: Desmond paulo ol 3-13 (Same l 13:00: as:Robaxin ) acetaminoph No Notes: Max Memoria en 3-13 acetaminop l 12:05: hen 4000 Jesus 00 mg/day (4 gm/day). (Same as: Tylenol Extra Strength) gabapentin No Notes: Memor ia 3-13 (Same as: l 12:05: Neurontin) [place] tramadol No Notes: Not Mem oria 3-13 to exceed l 12:05: 400mg/day. Tilden 00 (Same As: Ultram) potassium No Notes: Memori a chloride 3-13 (Same as: l 12:04: Potassium [place] 00 Chloride) Dextrose No 12.5 gm, Memor ia 50% Syringe 3-13 25 mL, l (D50W) 11:23: Route: Jesus IVP, Drug Form: INJ, Dosing Weight 77.273, kg, PRN, PRN Blood Glucose Results, Start date: 11/04/22 6:23:00 CDT, Duration: 30 day, Stop date: 12/04/22 6:22:00 CDT, 0 glucagon No 1 mg, Memoria 3-13 Route: IM, l 11:23: Drug form: [place] PDR/INJ, PRN, Dosing Weight 77.273, kg, PRN Blood Glucose Results, Start date: 11/04/22 6:23:00 CDT, Duration: 30 day, Stop date: 12/04/22 6:22:00 CDT, 0 bisacodyl No Notes: Memori a 3-13 (Same As: l 11:23: Dulcolax, [place] 00 Bisco-Lax) ondansetron No Notes: Desmond paulo 3-13 (Same as: l 11:23: Zofran) Jesus 00 MEDICATION WASTE Product Size: 4 mg Product Wasted: ___ mg melatonin No Notes: Memori a 3-13 (Same as: l 11:23: Melatonin) Jesus 00 Lubricant No Notes: Memori a Eye Drops 3-13 (Same as: l ophthalmic 11:23: Aquasite) He rmann solution 00 Nasal No Notes: Memoria Saline 3-13 (Same as: l 0.65% 11:23: Bracken, Jesus solution 00 Deep Sea Nasal [place]). Tums No Notes: Memoria 3-13 (Same As: l 11:23: Tums) Jesus 00 Calcium Carbonate 500 mg = 200 mg elemental calcium Dose = mg calcium carbonate ( mg elemental calcium) Cepacol No Notes: Memoria Sore Throat 3-13 Cepacol l 15 mg-3.6 11:23: lozenges Herm marialuisa mg mucous 00 Dispense 1 membrane box = 16 lozenge lozenges (Same As: Cepacol Lozenges) Flonase No Notes: Memoria 0.05 mg/inh 3-13 (Same as: l nasal spray 11:23: Flonase) He rmann Calmoseptin No Notes: Desmond paulo e topical 3-13 (Same as: l ointment 11:23: Calmosepti Her gonsalves 00 ne) cetirizine No Notes: Memor ia 3-13 (Same As: l 11:23: Zyrtec) [place] Blistex No Notes: Memoria topical 3-13 Same as: l ointment 11:23: Blistex Holden n 00 Aquaphor No 1 appl, Memori a 3-13 Route: l 11:23: TOP, Q4H, Drug form: OINT, PRN as needed for dry skin, Start date: 11/04/22 6:23:00 CDT, Duration: 30 day, Stop date: 12/04/22 6:22:00 CDT, 0 morphine No 4 mg, Memoria Sulfate 11-04 Route: l 10:15: IVP, ONCE, Dosing Weight 77.273, kg, Priority: STAT, Start date: 11/04/22 5:15:00 CDT, Stop date: 11/04/22 5:15:00 CDT Zofran 2022-0 No 4 mg, Memoria - Route: l 10:15: IVP, Drug form: INJ, ONCE, Dosing Weight 77.273, kg, Priority: STAT, Start date: 11/04/22 5:15:00 CDT, Stop date: 11/04/22 5:15:00 CDT Omnipaque 2022-0 No 100 mL, Memor ia 350 mg/mL - Route: l 02:27: IVP, Drug Form: SOLN, Dosing Weight 77.273, kg, ONCALL, STAT, Start date: 11/03/22 21:27:00 CDT, Duration: 1 doses or times, Dose = 2.2ml/kg, Max dose = 100ml -- "To be infused by Radiology Staff ONLY" Madeline No 1 tab, Memoria 10/325 oral 3-13 Route: PO, l tablet 02:09: Drug Form: Cinda nn 00 TAB, Dosing Weight 77.273, kg, ONCE, STAT, Start date: 11/03/22 21:09:00 CDT, Stop date: 11/03/22 21:09:00 CDT Saline No Notes: Memoria Flush 0.9% 3-13 Same as: l 00:03: BD Posiflush Sterile fentaNYL No Notes: Memoria 3-13 (Same as: l 00:03: Sublimaze) Preservati ve free. ondansetron No Notes: Desmond paulo 3-13 (Same as: l 00:03: Zofran) MEDICATION WASTE Product Size: 4 mg Product Wasted: ___ mg Norethin Yes [id number] Take 1 Ke lsey Arturo-Eth 1-19 pill 3 Seybold Estrad-FE 00:00: times a - (Loestrin 00 day for 3 Exter na Fe 1.01/21) days, 1 l 1.5-30 pill 2 MG-MCG oral times a Tablet day for 2 days, then 1 pill daily for the remainder metroNIDAZO 2021-08- No [id number] 500mg Take 1 Univers LE 500 mg 09-29 tablet by ity of tablet 00:00: 05:59 mouth in [place] 00 :00 the Medical morning Branch and 1 tablet in the evening. Do all this for 7 days. Omeprazole Yes [id number] 40mg Take 1 K elsey 40 MG oral 05-01 capsule Seybol d Delayed 00:00: (40 mg - Release 00 total) by Externa Capsule mouth l daily methylpredn 2021- No 125mg 125 mg, U nivers isolone sod 12-24 Slow IV ity of succ 05:00: 04:08 Push, Valerie (SOLU-MEDRO 00 :00 ONCE, 1 Medic al L) dose, On Branch injection 12/24/21 125 mg at 0000, SHIRA ketorolac 2021- No 15mg 15 mg, Unive rs (TORADOL) 12-24 Slow IV ity of injection 03:15: 02:44 Push, [place] 15 mg 00 :00 ONCE, 1 Medical dose, On Branch 12/23/21 at 2215, SHIRA
Fa culty member approving Restricted medication : JREvi STORM famotidine 2021- No 20mg 20 mg, [facility] (PEPCID 12-24 Slow IV ity of (PF)) [...] suspension Routine 15 mL methylPREDN 2021-0 Yes [id number] [facility] 12-23 mouth ity of (MEDROL, 00:00: SEE-INSTRU Dyllan as NITA,) 4 mg 00 CTIONS. Medica l tablets follow Branch package directions methylPREDN 2021-0 Yes [id number] Take by [facility] [employer] 12-23 mouth ity of (MEDROL, 00:00: SEE-INSTRU Dyllan as NITA,) 4 mg 00 CTIONS. Medica l tablets follow Branch package directions methylPREDN 2021-0 Yes [id number] Take by [facility] 12-23 mouth ity of (MEDROL, 00:00: SEE-INSTRU Dyllan as NITA,) 4 mg 00 CTIONS. Medica l tablets follow Branch package directions methylPREDN 2021-0 Yes [id number] [facility] 12-23 mouth ity of (MEDROL, 00:00: SEE-INSTRU Dyllan as NITA,) 4 mg 00 CTIONS. Medica l tablets follow Branch package directions methylPREDN 2021-0 2021- No [id number] Take [facility] 12-23 mouth ity of (MEDROL, 00:00: 00:00 [place]IN[place] NITA,) 4 mg 00 :00 CTIONS. Medica l tablets follow Branch package directions methylPREDN 0 2021- No [id number] Take by Univers ISolone 12-23 mouth ity of (MEDROL, 00:00: 00:00 [place]INSTRU [place] NITA,) 4 mg 00 :00 CTIONS. Medica l tablets follow Branch package directions norgestimat 2020-08 Yes [id number] 1{tbl} Take 1 Univers e-ethinyl 0-14 tablet by ity o f estradioL 00:00: mouth [place] (TRI-LO-SPR 00 daily. Medica l INTEC) Branch 0.18/0.215/ 0.25 mg-25 mcg tablet norgestimat 2020-08 Yes [id number] 1{tbl} Take 1 Univers e-ethinyl 0-14 tablet by ity o f estradioL 00:00: mouth [place] (TRI-LO-SPR 00 daily. Medica l INTEC) Branch 0.18/0.215/ 0.25 mg-25 mcg tablet norgestimat 2020-08 Yes [id number] 1{tbl} Take 1 Univers e-ethinyl 0-14 tablet by ity o f estradioL 00:00: mouth [place] (TRI-LO-SPR 00 daily. Medica l INTEC) Branch 0.18/0.215/ 0.25 mg-25 mcg tablet norgestimat 2020-08 Yes [id number] 1{tbl} Take 1 Univers e-ethinyl 0-14 tablet by ity o f estradioL 00:00: mouth [place] (TRI-LO-SPR 00 daily. Medica l INTEC) Branch 0.18/0.215/ 0.25 mg-25 mcg tablet norgestimat 2020-08 Yes [id number] 1{tbl} Take 1 Univers e-ethinyl 0-14 tablet by ity o f estradioL 00:00: mouth [place] (TRI-LO-SPR 00 daily. Medica l INTEC) Branch 0.18/0.215/ 0.25 mg-25 mcg tablet norgestimat 2020-08 Yes [id number] 1{tbl} Take 1 Univers e-ethinyl 0-14 tablet by ity o f estradioL 00:00: mouth [place] (TRI-LO-SPR 00 daily. Medica l INTEC) Branch 0.18/0.215/ 0.25 mg-25 mcg tablet norgestimat 2020-08- No [id number] 1{tbl} Take 1 Univers e-ethinyl 0-14 07-26 tablet by ity of estradioL 00:00: 00:00 mouth [place] (TRI-LO-SPR 00 :00 daily. Medica l INTEC) Branch 0.18/0.215/ 0.25 mg-25 mcg tablet norgestimat 2020-08- No [id number] 1{tbl} Take 1 Univers e-ethinyl 0-14 07-26 tablet by ity of estradioL 00:00: 00:00 mouth [place] (TRI-LO-SPR 00 :00 daily. Medica l INTEC) Branch 0.18/0.215/ 0.25 mg-25 mcg tablet No known No Univers medications 05-21 ity of 14:53: [address] No known No Univers medications 05-21 ity of 14:53: [address] ferrous Yes Marycruz 325 mg = 1 Memoria sulfate 325 07 Jennifer tab, PO, l mg oral 11:54: Ramiro TID, # 90 Herm marialuisa enteric 00 tab, 0 coated Refill(s) tablet ibuprofen Yes Marycruz 800 mg = 1 Memoria 800 mg oral 08-31 Jennifer tab, PO, l tablet 11:54: Ramiro Q8H, Pain, Herm marialuisa 00 # 30 tab, 0 Refill(s) acetaminoph Yes Marycruz 1-2 tab, Memoria en-hydrocod 08-31 Jennifer PO, Q6H, l one 325 11:54: Ramiro as needed Herm marialuisa mg-5 mg 00 for pain, oral tablet # 30 tab, 0 Refill(s) Colace 100 Yes Marycruz 100 mg = 1 Memoria mg oral 07 Jennifer cap, PO, l capsule 11:54: Ramiro BID, # 60 Herm marialuisa 00 cap, 0 Refill(s) ferrous No Marycruz 325 mg, 1 Memoria sulfate 08-30 Jennifer tab, l 15:00: Ramiro Route: PO, Holden n 00 Drug form: ECTAB, TID, Dosing Weight 89.091, kg, Start date: 08/30/13 9:00:00, Duration: 30 day, Stop date: 09/28/13 17:00:00Gi ve with food. "Do Not Crush" Colace 100 No Nguyễn Doug 100 mg, 1 Memoria mg oral 08-29 Lindsey cap, l capsule 23:00: Route: PO, Herm marialuisa 00 Drug form: CAP, BID, Dosing Weight 89.091, kg, Start date: 08/29/13 17:00:00, Duration: 30 day, Stop date: 09/28/13 9:00:00(Sa me as: Colace) (Do Not Crush) ferrous No Delma 324 mg, 1 Mem oria gluconate 08-29 Selga tab, l 324 mg oral 15:00: Refuerzo Route: PO, Jesus tablet 00 Drug form: TAB, BID, Dosing Weight 89.091, kg, Start date: 08/29/13 9:00:00, Duration: 30 day, Stop date: 09/27/13 17:00:00Gi ve with food. iron elemental 38 mf=557 mg as ferrous sulfate Dose=___mg elemental iron Benadryl No Jo Ann 25 mg, 1 M emoria 08-28 Jane Gong cap, l 22:49: Route: PO, Jesus 00 Drug form: CAP, Q6H, Dosing Weight 89.091, kg, PRN Itching, Start date: 08/28/13 16:49:00, Duration: 30 day, Stop date: 09/27/13 16:48:00(S velasquez as: Benadryl) Saline No Reem 5 ml, Memoria Flush 0.9% 08-28 Sabouni Route: l 15:00: IVP, Drug Jesus 00 Form: INJ, Dosing Weight 89.091, kg, Q12H, Start date: 08/28/13 9:00:00, Duration: 30 day, Stop date: 09/26/13 21:00:00(S velasquez as: BD Posiflush) No Reem 1 tab, Memoria Multivitami 08-28 Sabouni Route: PO, l ns oral 15:00: Drug Form: Herm marialuisa tablet 00 TAB, Dosing Weight 89.091, kg, Daily, Start date: 08/28/13 9:00:00, Duration: 30 day, Stop date: 09/26/13 9:00:00 Motrin 2013-0 No Sonal 600 mg, 1 Desmond paulo 1-04 Tynese tab, l 14:00: Littlejohn Route: PO, Jesus 00 Drug form: TAB, Q6H-02, Start date: 08/28/13 8:00:00, Duration: 24 hr, Stop date: 08/29/13 2:00:00(Sa me as: Motrin) "Do Not Crush" Take with food. ketorolac 2013- No Sonal 30 mg, 1 Me moria 30 mg/mL 1-04 Tynese mL, Route: l injectable 14:00: Littlejohn IVP, Drug He rmann solution 00 form: INJ, Q6H-02, Start date: 08/28/13 8:00:00, Duration: 2 doses or times, Stop date: 08/28/13 14:00:00(S velasquez as:Toradol ) IV bolus must be given >15 seconds. Give IM administra tion slowly and deeply into the muscle. Not for use > 4 days Zofran 2013-0 No Sonal 4 mg, 2 Memori a 1-04 Tynese mL, Route: l 13:31: Littlejohn IVP, Drug [place] 00 form: INJ, PRN, PRN Nausea, Start date: 08/28/13 7:31:00, Duration: 24 hr, Stop date: 08/29/13 7:30:00(Sa me as: Zofran) naloxone No Sonal 0.4 mg, 1 Me moria 1-04 Tynese mL, Route: l 13:31: Littlejohn IVP, Drug [place] 00 form: INJ, PRN, PRN Narcotic Reversal, Start date: 08/28/13 7:31:00, Duration: 24 hr, Stop date: 08/29/13 7:30:00(Sa ky as: Narcan) ketorolac 2013-0 No Gregory 30 mg, 1 Me moria 30 mg/mL 1-04 Peter mL, Route: l injectable 06:02: Hernesto IV, Drug Jesus solution 00 form: INJ, Q6H, Priority: NOW, Start date: 08/28/13 0:02:00, Duration: 2 doses or times, Stop date: 08/28/13 6:00:00(Sa me as:Toradol ) IV bolus must be given >15 seconds. Give IM administra tion slowly and deeply into the muscle. Not for use > 4 days M-M-R II No Reem 0.5 mL, Memori a 08-28ouni Route: l 06:00: SUB-Q, Drug Form: PDR/INJ, Dosing Weight 89.091, kg, ONCALL, Start date: 08/28/13 0:00:00, Duration: 1 doses or times(Same as: M-M-R II) (measles-m umps-rubel la virus vaccine 0.5 ml INJ VL) GIVE PRIOR TO DISCHARGE Saline No Reem 5 ml, Memoria Flush 0.9% 08-28 Route: l 05:31: IVP, Drug Form: INJ, Dosing Weight 89.091, kg, PRN, PRN Line Flush, Start date: 08/27/13 23:31:00, Duration: 30 day, Stop date: 09/26/13 23:30:00(S velasquez as: BD Posiflush) zolpidem No Reem 5 mg, 1 Memori a 08-28ouni tab, l 05:31: Route: PO, Drug form: TAB, Bedtime, Dosing Weight 89.091, kg, PRN Insomnia, Start date: 08/27/13 23:31:00, Duration: 30 day, Stop date: 09/26/13 23:30:00(S velasquez As: Ambien) simethicone No Reem 160 mg, 2 M emoria 08-28oun tab, l 05:31: Route: PO, Drug form: CHEWTAB, Q8H, Dosing Weight 89.091, kg, PRN Gas, Start date: 08/27/13 23:31:00, Duration: 30 day, Stop date: 09/26/13 23:30:00(S velasquez as: Mylicon) acetaminoph No Reem 650 mg, Mem oria en 08-28 Sabouni 20.3 mL, l 05:31: Route: PO, Jesus Drug form: LIQ, Q4H, Dosing Weight 89.091, kg, PRN Other -See Comment, Start date: 08/27/13 23:31:00, Duration: 30 day, Stop date: 09/26/13 23:30:00Ma x acetaminop hen = 4000mg/day (4 gm/day). (Same as: Tylenol) lanolin No Reem 1 appl, Memoria topical 08-28 Route: l cream 05:31: TOP, PRN, Drug form: OINT, PRN Other -See Comment, Start date: 08/27/13 23:31:00, Duration: 30 day, Stop date: 09/26/13 23:30:00 bisacodyl No Reem 10 mg, 1 Desmond paulo 08-28 Sabouni supp, l 05:31: Route: WA, Drug form: SUPP, PRN, Dosing Weight 89.091, kg, PRN Other -See Comment, Start date: 08/27/13 23:31:00, Duration: 30 day, Stop date: 09/26/13 23:30:00(S velasquez As: Dulcolax, Bisco-Lax) acetaminoph No Reem 2 tab, Desmond paulo en-hydrocod 08-28 Route: PO, l one 325 05:31: Drug Form: Herm marialuisa mg-5 mg 00 TAB, oral tablet Dosing Weight 89.091, kg, Q4H, PRN Pain Score 4-6, Start date: 08/27/13 23:31:00, Duration: 30 day, Stop date: 09/26/13 23:30:00(S velasquez as: Madeline 325/5) Do not exceed 4gm/day of acetaminop hen. ibuprofen No Reem 600 mg, 1 Mem oria 08-28 Sabouni tab, l 05:31: Route: PO, Tilden 00 Drug form: TAB, Q6H, Dosing Weight 89.091, kg, PRN Pain Score 1-5, Start date: 08/27/13 23:31:00, Duration: 30 day, Stop date: 09/26/13 23:30:00(S velasquez as: Motrin) "Do Not Crush" Take with food. Lactated No Reem 1,000 mL, Desmond paulo Ringers IV - Sabouni Rate: 100 l 1,000 mL 05:31: ml/hr, [place] 00 Infuse over: 10 hr, Route: IV, Dosing Weight 89.091 kg, Total Volume: 1,000, Start date: 08/27/13 23:31:00, Duration: 30 day, Stop date: 09/26/13 23:30:00 Lactated No Reem 20 unit, Memor ia Ringers - Sabouni 1,000 mL, l 1000ml+[place] 05:31: Rate: 125 H ermann gunjan 20 00 ml/hr, units IV Infuse (Premix) 20 over: 8 unit hr, Dosing Weight 89.091, kg, Route: IV, Total Volume: 1,000 mL, Start date: 08/27/13 23:31:00, Duration: 2 day, Stop date: 08/29/13 23:30:00, Replace Every: 8 hrConc = 0.02unit/m l = 20milliuni t/ml Sodium No Maria Esther 250 mL, Memor ia Chloride -04 Ashley Carrasquillo Rate: On l 0.9% 00:41: call for [place] (titrate) 00 use with 250 mL blood product administra tion, Dosing Weight 89.091, kg, Route: IV, Total Volume: 250, Start Date: 08/27/13 18:41:00, Duration: 1 day, Stop date: 08/28/13 18:40:00, Replace Every: 24 hr ceFAZolin No Jo Ann 2 gm, 50 Memoria 1-03 Jane Gong mL, Route: l 22:00: IVPB, Drug Jesus 00 form: INJ, ONCALL, kg, Start date: 08/27/13 16:00:00, Duration: 1 doses or times, Stop date: 08/29/13 0:00:00 azithromyci No Jo Ann 500 mg, Memoria n 1- Jane Gong Route: l 22:00: IVPB, Drug form: PDR/INJ, ONCALL, kg, Start date: 08/27/13 16:00:00, Duration: 1 doses or times, Stop date: 08/29/13 0:00:00(Sa me As: Zithromax IV) methylergon No Jo Ann 0.2 mg, 1 Memoria ovine - Jane Gong mL, Route: l 22:00: IM, Drug form: INJ, ONCALL, kg, Start date: 08/27/13 16:00:00, Duration: 30 day, Stop date: 09/26/13 15:59:00(S velasquez as:Metherg ine) misoprostol No Jo Ann 1,000 M emoria 08-27 Jane Gong microgram, l 22:00: 5 tab, Route: WA, Drug form: TAB, ONCALL, kg, Start date: 08/27/13 16:00:00, Duration: 30 day, Stop date: 09/26/13 15:59:00(S velasquez as:Cytotec ) Take with food carboprost No Jo Ann 250 Mem oria 08-27 Jane Gong microgram, l 22:00: 1 mL, Route: IM, Drug form: INJ, ONCALL, kg, Start date: 08/27/13 16:00:00, Duration: 30 day, Stop date: 09/26/13 15:59:00(S velasquez As: Hemabate) Lactated No Jo Ann 1,000 mL, Memoria Ringers 08-27 Jane Gong Rate: 125 l Injection 21:32: ml/hr, Holden n IV 1,000 mL 00 Infuse over: 8 hr, Route: IV, Total Volume: 1,000, Start date: 08/27/13 15:32:00, Duration: 30 day, Stop date: 09/26/13 15:31:00 ondansetron No Jo Ann 4 mg, 2 Memoria -03 Jane Gong mL, Route: l 21:32: IVP, Drug form: INJ, Q8H, kg, PRN Nausea & Vomiting, Start date: 08/27/13 15:32:00, Duration: 30 day, Stop date: 09/26/13 15:31:00(S velasquez as: Zofran) morphine No Jo Ann 2 mg, 1 Me moria Sulfate 1- Jane Gong mL, Route: l 21:32: IVP, Drug Tilden 00 form: INJ, Q2H, kg, PRN Pain Score 7-10, Start date: 08/27/13 15:32:00, Duration: 30 day, Stop date: 09/26/13 15:31:00(S velasquez as:MORPhin e Sulfate) terbutaline No Jo Ann 0.25 mg, Memoria 08-27 Jane Gong 0.25 mL, l 21:32: Route: Jesus 00 SUB-Q, Drug form: INJ, ONCALL, kg, PRN Other -See Comment, Start date: 08/27/13 15:32:00, Duration: 1 doses or times, Stop date: 08/29/13 0:00:00D O NOT USE IN INJECTION M[employer] AREA (Same As: Margotthine) citric No Jo Ann 30 mL, Memor ia acid-sodium 08-27 Jane Gong Route: PO, l citrate 21:32: Drug Form: Herm marialuisa 00 SOLN, kg, ONCE, Start date: 08/27/13 15:32:00, Duration: 1 doses or times, Stop date: 08/27/13 15:32:00(S velasquez As: Bicitra, Cytra-2) Sodium citrate-ci tric acid (500-334 mg/5 mL): 1 mL contains sodium 1 mEq/mL and bicarbonat e 1 mEq/mL Lactated No Jo Ann 20 unit, M emoria Ringers 08-27 Jane Gong 1,000 mL, l 1000ml+Oxyt 21:32: Rate: 125 H ermann ocin 20 00 ml/hr, units IV Infuse (Premix) 20 over: 8 unit hr, Route: IV, Total Volume: 1,000 mL, Start date: 08/27/13 15:32:00, Duration: 2 day, Stop date: 08/29/13 15:31:00, Replace Every: 8 hrConc = 0.02unit/m l = 20milliuni t/ml Immunizations Ordered Immunization Filled Date Status Comments Sour ce Name Immunization Name [facility] 2021-05-21 Completed [facility] 00:00:00 [facility] 2021-05-21 Completed [facility] 00:00:00 [facility] 2021-05-21 Completed [facility] 00:00:00 [facility] 2021-05-21 Completed [facility] 00:00:00 [facility] HPV9 2021-05-21 Completed [facility] 00:00:00 [facility] HPV9 2021-05-21 Completed [facility] 00:00:00 [facility] 2021-05-21 Completed [facility] 00:00:00 [facility] HPV9 2021-05-21 Completed [facility] 00:00:00 [facility] 2021-05-21 Completed [facility] 00:00:00 [facility] 2021-05-21 Completed [facility] 00:00:00 [facility] 2021-05-21 Completed [facility] 00:00:00 [facility] HPV9 2020-03-23 Completed [facility] 00:00:00 [facility] HPV9 2020-03-23 Completed [facility] 00:00:00 [facility] HPV9 2020-03-23 Completed [facility] 00:00:00 [facility] HPV9 2020-03-23 Completed [facility] 00:00:00 [facility] HPV9 2020-03-23 Completed [facility] 00:00:00 [facility] HPV9 2020-03-23 Completed [facility] 00:00:00 [facility] HPV9 2020-03-23 Completed [facility] 00:00:00 [facility] HPV9 2020-03-23 Completed [facility] 00:00:00 [facility] HPV9 2020-03-23 Completed [facility] 00:00:00 [facility] HPV9 2020-03-23 Completed [facility] 00:00:00 [facility] HPV9 2020-03-23 Completed [facility] 00:00:00 [facility] HPV9 2019-03-23 Completed [facility] 00:00:00 [facility] HPV9 2019-03-23 Completed [facility] 00:00:00 [facility] HPV9 2019-03-23 Completed [facility] 00:00:00 [facility] HPV9 2019-03-23 Completed [facility] 00:00: [facility] HPV9 2019-03-23 Completed [facility] 00:00: [facility] HPV9 2019-03-23 Completed [facility] 00:00: [facility] HPV9 2019-03-23 Completed [facility] 00:00: [facility] HPV9 2019-03-23 Completed [facility] 00:00: [facility] HPV9 2019-03-23 Completed [facility] 00:00: [facility] HPV9 2019-03-23 Completed [facility] 00:00: [facility] HPV9 2019-03-23 Completed [facility] 00:00:00 [facility] Meningococcal 2015-04-14 Completed [facility] of Oligosaccharide [...] Meningococcal 2015-04-14 Completed [facility] Oligosaccharide 00:00:00 [place] [facility] (groups A, C, Y and Branc h W-135) conjugate vaccine (MCV4O) Meningococcal 2015-04-14 Completed [facility] Oligosaccharide 00:00:00 [facility] [place] [facility] (groups A, C, Y and Branc h W-135) conjugate vaccine (MCV4O) Varicella 2013-10-21 Completed [facility] of (varivax)(chicken pox) 00:00:00 [facility] Varicella 2013-10-21 Completed [facility] (varivax)(chicken pox) 00:00:00 [facility] Varicella 2013-10-21 Completed [facility] (varivax)(chicken pox) 00:00:00 [facility] Varicella 2013-10-21 Completed [facility] (varivax)(chicken pox) 00:00:00 [facility] Varicella 2013-10-21 Completed [facility] (varivax)(chicken pox) 00:00:00 [facility] Varicella 2013-10-21 Completed [facility] (varivax)(chicken pox) 00:00:00 [facility] Varicella 2013-10-21 Completed [facility] (varivax)(chicken pox) 00:00:00 [facility] Varicella 2013-10-21 Completed [facility] (varivax)(chicken pox) 00:00:00 [facility] Varicella 2013-10-21 Completed [facility] (varivax)(chicken pox) 00:00:00 [facility] Varicella 2013-10-21 Completed [facility] (varivax)(chicken pox) 00:00:00 [facility] Varicella 2013-10-21 Completed [facility] (varivax)(chicken pox) 00:00:00 [facility] TDAP 2013-07-08 Completed [facility] 00:00:00 [facility] TDAP 2013-07-08 Completed [facility] 00:00:00 [facility] TDAP 2013-07-08 Completed [facility] 00:00:00 [facility] TDAP 2013-07-08 Completed [facility] 00:00:00 [facility] TDAP 2013-07-08 Completed [facility] 00:00:00 [facility] TDAP 2013-07-08 Completed [facility] 00:00:00 [facility] TDAP 2013-07-08 Completed [facility] 00:00:00 [facility] TDAP 2013-07-08 Completed [facility] 00:00:00 [facility] TDAP 2013-07-08 Completed [facility] 00:00:00 [facility] TDAP 2013-07-08 Completed [facility] 00:00:00 [facility] TDAP 2013-07-08 Completed [facility] 00:00:00 [facility] Influenza Virus 2013-05-13 Completed [facility]it [facility] Vaccine 00:00:00 [facility] Influenza Virus 2013-05-13 Completed [facility] Vaccine 00:00:00 [facility] Influenza Virus 2013-05-13 Completed [facility] Vaccine 00:00:00 [facility] Influenza Virus 2013-05-13 Completed [facility] Vaccine 00:00:00 [facility] Influenza Virus 2013-05-13 Completed [facility] Vaccine 00:00:00 [facility] Influenza Virus 2013-05-13 Completed [facility] Vaccine 00:00:00 [facility] Influenza Virus 2013-05-13 Completed [facility] Vaccine 00:00:00 [facility] Influenza Virus 2013-05-13 Completed [facility] Vaccine 00:00:00 [facility] Influenza Virus 2013-05-13 Completed [facility] Vaccine 00:00:00 [facility] Influenza Virus 2013-05-13 Completed [facility] Vaccine 00:00:00 [facility] Influenza Virus 2013-05-13 Completed [facility] Vaccine 00:00:00 [facility] Meningococcal Vaccine 2008-12-22 Completed Uni versity of 00:00:00 [facility] TDAP 2008-12-22 Completed [facility] 00:00:00 [facility] Meningococcal Vaccine 2008-12-22 Completed Uni vers[facility] of 00:00:00 [facility] TDAP 2008-12-22 Completed [facility] 00:00:00 [facility] Meningococcal Vaccine 2008-12-22 Completed Uni versity of 00:00:00 [facility] TDAP 2008-12-22 Completed [facility] 00:00:00 [facility] Meningococcal Vaccine 2008-12-22 Completed Uni versity of 00:00:00 [facility] TDAP 2008-12-22 Completed [facility] 00:00:00 [facility] Meningococcal Vaccine 2008-12-22 Completed Uni versity of 00:00:00 [facility] TDAP 2008-12-22 Completed [facility] 00:00:00 [facility] Meningococcal Vaccine 2008-12-22 Completed Uni versity of 00:00:00 [facility] TDAP 2008-12-22 Completed [facility] 00:00:00 [facility] Meningococcal Vaccine 2008-12-22 Completed Uni vers[facility] 00:00:00 [facility] TDAP 2008-12-22 Completed [facility] 00:00:00 [facility] Meningococcal Vaccine 2008-12-22 Completed Uni versity of 00:00:00 [facility] TDAP 2008-12-22 Completed [facility] 00:00:00 [facility] Meningococcal Vaccine 2008-12-22 Completed Uni versity of 00:00:00 [facility] TDAP 2008-12-22 Completed [facility] 00:00:00 [facility] Meningococcal Vaccine 2008-12-22 Completed Uni versity of 00:00:00 [facility] TDAP 2008-12-22 Completed [facility] 00:00:00 [facility] Meningococcal Vaccine 2008-12-22 Completed Uni versity of 00:00:00 [facility] TDAP 2008-12-22 Completed [facility] 00:00:00 [facility] HEPATITIS A 2004-09-04 Completed [facility] 00:00:00 [facility] HEPATITIS A 2004-09-04 Completed [facility] 00:00:00 [facility] HEPATITIS A 2004-09-04 Completed [facility] 00:00:00 [facility] HEPATITIS A 2004-09-04 Completed [facility] 00:00:00 [facility] HEPATITIS A 2004-09-04 Completed [facility] 00:00:00 [facility] HEPATITIS A 2004-09-04 Completed [facility] 00:00:00 [facility] HEPATITIS A 2004-09-04 Completed [facility] 00:00:00 [facility] HEPATITIS A 2004-09-04 Completed [facility] 00:00:00 [facility] HEPATITIS A 2004-09-04 Completed [facility] 00:00:00 [facility] HEPATITIS A 2004-09-04 Completed [facility] 00:00:00 [facility] HEPATITIS A 2004-09-04 Completed [facility] 00:00:00 [facility] HEPATITIS A 2002-05-31 Completed [facility] 00:00:00 [facility] HEPATITIS A 2002-05-31 Completed [facility] 00:00:00 [...] HEPATITIS A 2002-05-31 Completed [facility] 00:00:00 [facility] HEPATITIS A 2001-03-24 Completed [facility] 00:00:00 [facility] HEPATITIS A 2001-03-24 Completed [facility] 00:00:00 [facility] HEPATITIS A 2001-03-24 Completed [facility] 00:00:00 [facility] HEPATITIS A 2001-03-24 Completed [facility] 00:00:00 [facility] HEPATITIS A 2001-03-24 Completed [facility] 00:00:00 [facility] HEPATITIS A 2001-03-24 Completed [facility] 00:00:00 [facility] HEPATITIS A 2001-03-24 Completed [facility] 00:00:00 [facility] HEPATITIS A 2001-03-24 Completed [facility] 00:00:00 [facility] HEPATITIS A 2001-03-24 Completed [facility] 00:00:00 [facility] HEPATITIS A 2001-03-24 Completed [facility] 00:00:00 [facility] HEPATITIS A 2001-03-24 Completed [facility] 00:00:00 [facility] DTAP 2001-03-15 Completed [facility] 00:00:00 [facility] DTAP 2001-03-15 Completed [facility] 00:00:00 [facility] DTAP 2001-03-15 Completed [facility] 00:00:00 [facility] DTAP 2001-03-15 Completed [facility] 00:00:00 [facility] DTAP 2001-03-15 Completed [facility] 00:00:00 [facility] DTAP 2001-03-15 Completed [facility] 00:00:00 [facility] DTAP 2001-03-15 Completed [facility] 00:00:00 [facility] DTAP 2001-03-15 Completed [facility] 00:00:00 [facility] DTAP 2001-03-15 Completed [facility] 00:00:00 [facility] DTAP 2001-03-15 Completed [facility] 00:00:00 [facility] DTAP 2001-03-15 Completed [facility] 00:00:00 [facility] MMR 2001-02-23 Completed [facility] 00:00:00 [facility] Polio (IPV/OPV) 2001-02-23 Completed [facility] 00:00:00 [facility] DTAP 2001-02-23 Completed [facility] 00:00:00 [facility] MMR 2001-02-23 Completed [facility] 00:00:00 [facility] Polio (IPV/OPV) 2001-02-23 Completed [facility] 00:00:00 [facility] DTAP 2001-02-23 Completed [facility] 00:00:00 [facility] MMR 2001-02-23 Completed [facility] 00:00:00 [facility] Polio (IPV/OPV) 2001-02-23 Completed [facility] 00:00:00 [facility] DTAP 2001-02-23 Completed [facility] 00:00:00 [facility] MMR 2001-02-23 Completed [facility] 00:00:00 [facility] Polio (IPV/OPV) 2001-02-23 Completed [facility] 00:00:00 [facility] DTAP 2001-02-23 Completed [facility] 00:00:00 [facility] MMR 2001-02-23 Completed [facility] 00:00:00 [facility] Polio (IPV/OPV) 2001-02-23 Completed [facility] 00:00:00 [facility] DTAP 2001-02-23 Completed [facility] 00:00:00 [facility] MMR 2001-02-23 Completed [facility] 00:00:00 [facility] Polio (IPV/OPV) 2001-02-23 Completed [facility] 00:00:00 [facility] DTAP 2001-02-23 Completed [facility] 00:00:00 [facility] MMR 2001-02-23 Completed [facility] 00:00:00 [facility] Polio (IPV/OPV) 2001-02-23 Completed [facility] 00:00:00 [facility] DTAP 2001-02-23 Completed [facility] 00:00:00 [facility] MMR 2001-02-23 Completed [facility] 00:00:00 [facility] Polio (IPV/OPV) 2001-02-23 Completed [facility] 00:00:00 [facility] DTAP 2001-02-23 Completed [facility] 00:00:00 [facility] MMR 2001-02-23 Completed [facility] 00:00:00 [facility] Polio (IPV/OPV) 2001-02-23 Completed [facility] 00:00:00 [facility] DTAP 2001-02-23 Completed [facility] 00:00:00 [facility] MMR 2001-02-23 Completed [facility] 00:00:00 [facility] Polio (IPV/OPV) 2001-02-23 Completed [facility] 00:00:00 [facility] DTAP 2001-02-23 Completed [facility] 00:00:00 [facility] MMR 2001-02-23 Completed [facility] 00:00:00 [facility] Polio (IPV/OPV) 2001-02-23 Completed [facility] 00:00:00 [facility] DTAP 2001-02-23 Completed [facility] 00:00:00 [facility] HIB 3 Dose Schedule 2000-04-10 Completed [facility]ive rs[facility] of 00:00:00 [facility] DTAP 2000-04-10 Completed [facility] 00:00:00 [facility] HIB 3 Dose Schedule 2000-04-10 Completed [facility]ive rs[facility] of 00:00:00 [facility] DTAP 2000-04-10 Completed [facility] 00:00:00 [facility] HIB 3 Dose Schedule 2000-04-10 Completed [facility]ive rs[facility] of 00:00:00 [facility] DTAP 2000-04-10 Completed [facility] 00:00:00 [facility] HIB 3 Dose Schedule 2000-04-10 Completed [facility]ive rs[facility] 00:00:00 [facility] DTAP 2000-04-10 Completed [facility] 00:00:00 [facility] HIB 3 Dose Schedule 2000-04-10 Completed [facility]ive rs[facility] of 00:00:00 [facility] DTAP 2000-04-10 Completed [facility] 00:00:00 [facility] HIB 3 Dose Schedule 2000-04-10 Completed [facility]ive rs[facility] of 00:00:00 [facility] DTAP 2000-04-10 Completed [facility] 00:00:00 [facility] HIB 3 Dose Schedule 2000-04-10 Completed [facility]ive rs[facility] of 00:00:00 [facility] DTAP 2000-04-10 Completed [facility] 00:00:00 [facility] HIB 3 Dose Schedule 2000-04-10 Completed [facility]ive rs[facility] 00:00:00 [facility] DTAP 2000-04-10 Completed [facility] 00:00:00 [facility] HIB 3 Dose Schedule 2000-04-10 Completed [facility]ive rs[facility] of 00:00:00 [facility] DTAP 2000-04-10 Completed [facility] 00:00:00 [facility] HIB 3 Dose Schedule 2000-04-10 Completed [facility]ive rs[facility] of 00:00:00 [facility] DTAP 2000-04-10 Completed [facility] 00:00:00 [facility] HIB 3 Dose Schedule 2000-04-10 Completed [facility]ive rs[facility] 00:00:00 [facility] DTAP 2000-04-10 Completed [facility] 00:00:00 [facility] HIB 3 Dose Schedule 1999-05-16 Completed [facility]ive rs[facility] 00:00:00 [facility] Polio (IPV/OPV) 1999-05-16 Completed [facility] 00:00:00 [facility] DTAP 1999-05-16 Completed [facility] 00:00:00 [facility] HIB 3 Dose Schedule 1999-05-16 Completed [facility]ive rs[facility] of 00:00:00 [facility] Polio (IPV/OPV) 1999-05-16 Completed [facility] 00:00:00 [facility] DTAP 1999-05-16 Completed [facility] 00:00:00 [facility] HIB 3 Dose Schedule 1999-05-16 Completed [facility]ive rs[facility] of 00:00:00 [facility] Polio (IPV/OPV) 1999-05-16 Completed [facility] 00:00:00 [facility] DTAP 1999-05-16 Completed [facility] 00:00:00 [facility] HIB 3 Dose Schedule 1999-05-16 Completed [facility]ive rs[facility] of 00:00:00 [facility] Polio (IPV/OPV) 1999-05-16 Completed [facility] 00:00:00 [facility] DTAP 1999-05-16 Completed [facility] 00:00:00 [facility] HIB 3 Dose Schedule 1999-05-16 Completed [facility]ive rs[facility] of 00:00:00 [facility] Polio (IPV/OPV) 1999-05-16 Completed [facility] 00:00:00 [facility] DTAP 1999-05-16 Completed [facility] 00:00:00 [facility] HIB 3 Dose Schedule 1999-05-16 Completed [facility]ive rs[facility] of 00:00:00 [facility] Polio (IPV/OPV) 1999-05-16 Completed [facility] 00:00:00 [facility] DTAP 1999-05-16 Completed [facility] 00:00:00 [facility] HIB 3 Dose Schedule 1999-05-16 Completed [facility] rs[facility] 00:00:00 [facility] Polio (IPV/OPV) 1999-05-16 Completed [facility] 00:00:00 [facility] DTAP 1999-05-16 Completed [facility] 00:00:00 [facility] HIB 3 Dose Schedule 1999-05-16 Completed [facility] 00:00:00 [facility] Polio (IPV/OPV) 1999-05-16 Completed [facility] 00:00:00 [facility] DTAP 1999-05-16 Completed [facility] 00:00:00 [facility] HIB 3 Dose Schedule 1999-05-16 Completed [facility] 00:00:00 [facility] Polio (IPV/OPV) 1999-05-16 Completed [facility] 00:00:00 [facility] DTAP 1999-05-16 Completed [facility] 00:00:00 [facility] HIB 3 Dose Schedule 1999-05-16 Completed [facility] 00:00:00 [facility] Polio (IPV/OPV) 1999-05-16 Completed [facility] 00:00:00 [facility] DTAP 1999-05-16 Completed [facility] 00:00:00 [facility] HIB 3 Dose Schedule 1999-05-16 Completed [facility] 00:00:00 [facility] Polio (IPV/OPV) 1999-05-16 Completed [facility] 00:00:00 [facility] DTAP 1999-05-16 Completed [facility] 00:00:00 [facility] HIB 3 Dose Schedule 1999-03-28 Completed [facility] 00:00:00 [facility] Hep B, Adol or Pedi 1999-03-28 Completed Unive rsity of Dosage 00:00:00 [facility] Polio (IPV/OPV) 1999-03-28 Completed [facility] 00:00:00 [facility] DTAP 1999-03-28 Completed [facility] 00:00:00 [facility] HIB 3 Dose Schedule 1999-03-28 Completed [facility] 00:00:00 [facility] Hep B, Adol or Pedi 1999-03-28 Completed [facility]ive rsity of Dosage 00:00:00 [facility] Polio (IPV/OPV) 1999-03-28 Completed [facility] 00:00:00 [facility] DTAP 1999-03-28 Completed [facility] 00:00:00 [facility] HIB 3 Dose Schedule 1999-03-28 Completed [facility] 00:00:00 [facility] Hep B, Adol or Pedi 1999-03-28 Completed [facility]ive rs[facility] of Dosage 00:00:00 [facility] Polio (IPV/OPV) 1999-03-28 Completed [facility] 00:00:00 [facility] DTAP 1999-03-28 Completed [facility] 00:00:00 [facility] HIB 3 Dose Schedule 1999-03-28 Completed [facility] 00:00:00 [facility] Hep B, Adol or Pedi 1999-03-28 Completed Unive rsity of Dosage 00:00:00 [facility] Polio (IPV/OPV) 1999-03-28 Completed [facility] 00:00:00 [facility] DTAP 1999-03-28 Completed [facility] 00:00:00 [facility] HIB 3 Dose Schedule 1999-03-28 Completed [facility] 00:00:00 [facility] Hep B, Adol or Pedi 1999-03-28 Completed [facility]ive [facility] of Dosage 00:00:00 [facility] Polio (IPV/OPV) 1999-03-28 Completed [facility] 00:00:00 [facility] DTAP 1999-03-28 Completed [facility] 00:00:00 [facility] HIB 3 Dose Schedule 1999-03-28 Completed [facility] 00:00:00 [facility] Hep B, Adol or Pedi 1999-03-28 Completed [facility]ive rsity of Dosage 00:00:00 [facility] Polio (IPV/OPV) 1999-03-28 Completed [facility] 00:00:00 [facility] DTAP 1999-03-28 Completed [facility] of 00:00:00 [facility] HIB 3 Dose Schedule 1999-03-28 Completed [facility]ity [facility] 00:00:00 [facility] Hep B, Adol or Pedi 1999-03-28 Completed Unive rsity of Dosage 00:00:00 [facility] Polio (IPV/OPV) 1999-03-28 Completed [facility]it y [facility] 00:00:00 [facility] DTAP 1999-03-28 Completed University of 00:00:00 [facility] HIB 3 Dose Schedule 1999-03-28 Completed [facility]ive rsity of 00:00:00 [facility] Hep B, Adol or Pedi 1999-03-28 Completed Unive rsity of Dosage 00:00:00 [facility] Polio (IPV/OPV) 1999-03-28 Completed Universit y of 00:00:00 [facility] DTAP 1999-03-28 Completed University of 00:00:00 [facility] HIB 3 Dose Schedule 1999-03-28 Completed Unive rsity of 00:00:00 [facility] Hep B, Adol or Pedi 1999-03-28 Completed Unive rsity of Dosage 00:00:00 [facility] Polio (IPV/OPV) 1999-03-28 Completed Universit y of 00:00:00 [facility] DTAP 1999-03-28 Completed University of 00:00:00 [facility] HIB 3 Dose Schedule 1999-03-28 Completed [facility]ive rsity [facility] 00:00:00 [facility] Hep B, Adol or Pedi 1999-03-28 Completed Unive rsity of Dosage 00:00:00 [facility] Polio (IPV/OPV) 1999-03-28 Completed Universit y [facility] 00:00:00 [facility] DTAP 1999-03-28 Completed University of 00:00:00 [facility] HIB 3 Dose Schedule 1999-03-28 Completed [facility]ive rsity of 00:00:00 [facility] Hep B, Adol or Pedi 1999-03-28 Completed [facility]ive rsity of Dosage 00:00:00 [facility] Polio (IPV/OPV) 1999-03-28 Completed Universit y of 00:00:00 [facility] DTAP 1999-03-28 Completed University of 00:00:00 [facility] Hep B, Adol or Pedi 1998-04-17 Completed Unive rsity of Dosage 00:00:00 [facility] MMR 1998-04-17 Completed University of 00:00:00 [facility] Polio (IPV/OPV) 1998-04-17 Completed Universit y [facility] 00:00:00 [facility] DTAP 1998-04-17 Completed University of 00:00:00 [facility] HIB 3 Dose Schedule 1998-04-17 Completed [facility]ive rsity of 00:00:00 [facility] Hep B, Adol or Pedi 1998-04-17 Completed Unive rsity of Dosage 00:00:00 [facility] MMR 1998-04-17 Completed University of 00:00:00 [facility] Polio (IPV/OPV) 1998-04-17 Completed Universit y of 00:00:00 [facility] DTAP 1998-04-17 Completed University of 00:00:00 [facility] HIB 3 Dose Schedule 1998-04-17 Completed Unive rsity of 00:00:00 [facility] Hep B, Adol or Pedi 1998-04-17 Completed Unive rsity of Dosage 00:00:00 [facility] MMR 1998-04-17 Completed University of 00:00:00 [facility] Polio (IPV/OPV) 1998-04-17 Completed Universit y of 00:00:00 [facility] DTAP 1998-04-17 Completed University of 00:00:00 [facility] HIB 3 Dose Schedule 1998-04-17 Completed [facility]ive rsity of 00:00:00 [facility] Hep B, Adol or Pedi 1998-04-17 Completed Unive rsity of Dosage 00:00:00 [facility] MMR 1998-04-17 Completed University of 00:00:00 [facility] Polio (IPV/OPV) 1998-04-17 Completed Universit [facility] 00:00:00 [facility] DTAP 1998-04-17 Completed University of 00:00:00 [facility] HIB 3 Dose Schedule 1998-04-17 Completed [facility]ive rsity of 00:00:00 [facility] Hep B, Adol or Pedi 1998-04-17 Completed Unive rsity of Dosage 00:00:00 [facility] MMR 1998-04-17 Completed University of 00:00:00 [facility] Polio (IPV/OPV) 1998-04-17 Completed Universit y of 00:00:00 [facility] DTAP 1998-04-17 Completed University of 00:00:00 [facility] HIB 3 Dose Schedule 1998-04-17 Completed [facility]ive rsity of 00:00:00 [facility] Hep B, Adol or Pedi 1998-04-17 Completed Unive rsity of Dosage 00:00:00 [facility] MMR 1998-04-17 Completed University of 00:00:00 [facility] Polio (IPV/OPV) 1998-04-17 Completed Universit y [facility] 00:00:00 [facility] DTAP 1998-04-17 Completed University of 00:00:00 [facility] HIB 3 Dose Schedule 1998-04-17 Completed Unive rsity of 00:00:00 [facility] Hep B, Adol or Pedi 1998-04-17 Completed [facility]ive rsity of Dosage 00:00:00 [facility] MMR 1998-04-17 Completed University of 00:00:00 [facility] Polio (IPV/OPV) 1998-04-17 Completed Universit y of 00:00:00 [facility] DTAP 1998-04-17 Completed University of 00:00:00 [facility] HIB 3 Dose Schedule 1998-04-17 Completed [facility]ive rsity of 00:00:00 [facility] Hep B, Adol or Pedi 1998-04-17 Completed Unive rsity of Dosage 00:00:00 [facility] MMR 1998-04-17 Completed University of 00:00:00 [facility] Polio (IPV/OPV) 1998-04-17 Completed Universit y of 00:00:00 [facility] DTAP 1998-04-17 Completed University of 00:00:00 [facility] HIB 3 Dose Schedule 1998-04-17 Completed [facility]ive rsity of 00:00:00 [facility] Hep B, Adol or Pedi 1998-04-17 Completed [facility]ive rsity of Dosage 00:00:00 [facility] MMR 1998-04-17 Completed University of 00:00:00 [facility] Polio (IPV/OPV) 1998-04-17 Completed Universit y of 00:00:00 [facility] DTAP 1998-04-17 Completed University of 00:00:00 [facility] HIB 3 Dose Schedule 1998-04-17 Completed Unive rsity of 00:00:00 [facility] Hep B, Adol or Pedi 1998-04-17 Completed Unive rsity of Dosage 00:00:00 [facility] MMR 1998-04-17 Completed University of 00:00:00 [facility] Polio (IPV/OPV) 1998-04-17 Completed Universit y of 00:00:00 [facility] DTAP 1998-04-17 Completed University of 00:00:00 [facility] HIB 3 Dose Schedule 1998-04-17 Completed Unive rsity of 00:00:00 [facility] Hep B, Adol or Pedi 1998-04-17 Completed Unive rsity of Dosage 00:00:00 [facility] MMR 1998-04-17 Completed University of 00:00:00 [facility] Polio (IPV/OPV) 1998-04-17 Completed Universit y of 00:00:00 [facility] DTAP 1998-04-17 Completed University of 00:00:00 [facility] HIB 3 Dose Schedule 1998-04-17 Completed [facility]ive rsity of 00:00:00 [facility] Hep B, Adol or Pedi 1997 Completed Unive rsity of Dosage 00:00:00 [facility] Hep B, Adol or Pedi 1997 Completed Unive rsity of Dosage 00:00:00 [facility] Hep B, Adol or Pedi 1997 Completed Unive rsity of Dosage 00:00:00 [facility] Hep B, Adol or Pedi 1997 Completed Unive rsity of Dosage 00:00:00 [facility] Hep B, Adol or Pedi 1997 Completed [facility]ive rsity of Dosage 00:00:00 [facility] Hep B, Adol or Pedi 1997 Completed [facility]ive rsity of Dosage 00:00:00 [facility] Hep B, Adol or Pedi 1997 Completed Unive rsity of Dosage 00:00:00 [facility] Hep B, Adol or Pedi 1997 Completed Unive rsity of Dosage 00:00:00 [facility] Hep B, Adol or Pedi 1997 Completed Unive rsity of Dosage 00:00:00 [facility] Hep B, Adol or Pedi 1997 Completed Unive rsity of Dosage 00:00:00 [facility] Hep B, Adol or Pedi 1997 Completed Unive rsity of Dosage 00:00:00 [facility] Varicella 1997 Completed University of (varivax)(chicken pox) 00:00:00 [facility] Varicella 1997 Completed University of (varivax)(chicken pox) 00:00:00 [facility] Varicella 1997 Completed University of (varivax)(chicken pox) 00:00:00 [facility] Varicella 1997 Completed University of (varivax)(chicken pox) 00:00:00 [facility] Varicella 1997 Completed University of (varivax)(chicken pox) 00:00:00 [facility] Varicella 1997 Completed University of (varivax)(chicken pox) 00:00:00 [facility] Varicella 1997 Completed University of (varivax)(chicken pox) 00:00:00 [facility] Varicella 1997 Completed University of (varivax)(chicken pox) 00:00:00 [facility] Varicella 1997 Completed University of (varivax)(chicken pox) 00:00:00 [facility] Varicella 1997 Completed University of (varivax)(chicken pox) 00:00:00 [facility] Varicella 1997 Completed University of (varivax)(chicken pox) 00:00:00 [facility] Hep B, Adol or Pedi 1997 Completed Unive rsity of Dosage 00:00:00 [facility] Hep B, Adol or Pedi 1997 Completed Unive rsity of Dosage 00:00:00 [facility] Hep B, Adol or Pedi 1997 Completed Unive rsity of Dosage 00:00:00 [facility] Hep B, Adol or Pedi 1997 Completed Unive rsity of Dosage 00:00:00 [facility] Hep B, Adol or Pedi 1997 Completed Unive rsity of Dosage 00:00:00 [facility] Hep B, Adol or Pedi 1997 Completed Unive rsity of Dosage 00:00:00 [facility] Hep B, Adol or Pedi 1997 Completed Unive rsity of Dosage 00:00:00 [facility] Hep B, Adol or Pedi 1997 Completed Unive rsity of Dosage 00:00:00 [facility] Hep B, Adol or Pedi 1997 Completed Unive rsity of Dosage 00:00:00 [facility] Hep B, Adol or Pedi 1997 Completed Unive rsity of Dosage 00:00:00 [facility] Hep B, Adol or Pedi 1997 Completed Unive rsity of Dosage 00:00:00 [facility] Vital Signs Vital Name Observation Time Observation Value Comments Source Systolic blood 2022-09-12 21:20:00 108 mm[Hg] Gege Seybold - pressure External Diastolic blood 2022-09-12 21:20:00 76 mm[Hg] Nghiase leos Seybold - pressure External Heart rate 2022-09-12 21:20:00 84 /min Gege S saurabhbold - External Body height 2022-09-12 21:20:00 162.6 cm Gege S eybold - External Body weight 2022-09-12 21:20:00 102.059 kg Gege S eybold - External BMI 2022-09-12 21:20:00 38.62 kg/m2 Gege S eybold - External Systolic blood 2022-07-26 21:00:00 109 mm[Hg] Univer sity of pressure [facility] Diastolic blood 2022-07-26 21:00:00 74 mm[Hg] Unive rsity of pressure [facility] Heart rate 2022-07-26 21:00:00 82 /min [facility] Body temperature 2022-07-26 21:00:00 36.67 Alison Univ ersity of [facility] Respiratory rate 2022-07-26 21:00:00 20 /min Univ ersity of [facility] Body height 2022-07-26 21:00:00 162.6 cm [facility] Body weight 2022-07-26 21:00:00 105.688 kg [facility] BMI 2022-07-26 21:00:00 39.99 kg/m2 [facility] Systolic blood 2022-07-02 16:54:00 146 mm[Hg] Univer sity of pressure [facility] Diastolic blood 2022-07-02 16:54:00 97 mm[Hg] Unive rsity of pressure [facility] Heart rate 2022-07-02 16:54:00 68 /min [facility] Body temperature 2022-07-02 16:54:00 36.33 Alison Univ [facility] Respiratory rate 2022-07-02 16:54:00 18 /min Univ ers[facility] of [facility] Body weight 2022-07-02 16:54:00 97.523 kg [facility] BMI 2022-07-02 16:54:00 36.90 kg/m2 [facility] Oxygen saturation in 2022-07-02 16:54:00 100 /min University of Arterial blood by [place] [facility] Systolic blood 2021-12-24 03:00:00 134 mm[Hg] Univer sity of pressure [facility] Diastolic blood 2021-12-24 03:00:00 84 mm[Hg] Unive rsity of pressure [facility] Heart rate 2021-12-24 03:00:00 64 /min [facility] Respiratory rate 2021-12-24 03:00:00 15 /min Univ ersity of [facility] Oxygen saturation in 2021-12-24 03:00:00 95 /min University of Arterial blood by [place] [facility] Pulse oxim[facility] Body temperature 2021-12-24 00:41:00 37 Alison [facility] Body height 2021-12-24 00:41:00 162.6 cm [facility] Body weight 2021-12-24 00:41:00 97.523 kg [facility] BMI 2021-12-24 00:41:00 36.90 kg/m2 [facility] Systolic blood 2021-06-07 14:13:00 123 mm[Hg] Univer sity of pressure [facility] Diastolic blood 2021-06-07 14:13:00 66 mm[Hg] Unive rsity of pressure [facility] Heart rate 2021-06-07 14:13:00 73 /min [facility] Body temperature 2021-06-07 14:13:00 36.83 Alison [facility] ersity of [place] [facility] [place] Respiratory rate 2021-06-07 14:13:00 18 /min [facility] ersity of [facility] Body height 2021-06-07 14:13:00 162.6 cm [facility] Body weight 2021-06-07 14:13:00 94.62 kg Universi ty of [facility] BMI 2021-06-07 14:13:00 35.81 kg/m2 Universi ty of [facility] Systolic blood 2021-05-21 19:52:00 121 mm[Hg] Univer sity of pressure [facility] Diastolic blood 2021-05-21 19:52:00 73 mm[Hg] Unive rsity of pressure [facility] Heart rate 2021-05-21 19:52:00 73 /min [facility] Body temperature 2021-05-21 19:52:00 36.39 Ailson [facility] 2021-05-21 19:52:00 18 /min [facility] ersity of [facility] Body height 2021-05-21 19:52:00 162.6 cm [facility] Body weight 2021-05-21 19:52:00 92.851 kg [facility] BMI 2021-05-21 19:52:00 35.14 kg/m2 [facility] Heart Rate 2022-11-05 16:36:55 [facility] Respitory Rate 2022-11-05 16:36:55 [facility] Systolic (mm Hg) 2022-11-05 16:36:42 Demsond rial Jesus Diastolic (mm Hg) 2022-11-05 16:36:42 Mem orial [facility] Heart Rate 2022-11-05 16:36:42 [facility] Temperature Oral (F) 2022-11-05 16:36:31 97.9 F [facility] Height 2022-11-05 16:01:00 5 [ft_i] [facility] Weight 2022-11-05 16:01:00 [facility] Heart Rate 2022-11-05 12:40:42 [facility] Respitory Rate 2022-11-05 12:40:42 [facility] Systolic (mm Hg) 2022-11-05 12:40:37 Desmond [facility] Diastolic (mm Hg) 2022-11-05 12:40:37 [facility] [place] Temperature Oral (F) 2022-11-05 12:40:16 97.7 F [facility] Respitory Rate 2022-11-05 08:33:01 [facility] [place] Temperature Oral (F) 2022-11-05 08:32:52 97.7 F [facility] Systolic (mm Hg) 2022-11-05 08:32:15 Desmond [facility] [place] Diastolic (mm Hg) 2022-11-05 08:32:15 Mem orial [facility] Temperature Oral (F) 2022-11-04 21:20:59 98.5 F [facility] Height 2022-11-04 20:53:00 162.56 cm [facility] Weight 2022-11-04 20:53:00 [facility] BMI Calculated 2022-11-04 20:53:00 Memori [facility] Height 2022-11-03 23:49:00 162.56 cm [facility] BMI Calculated 2022-11-03 23:49:00 [facility] Weight 2022-11-03 23:49:00 [facility] Weight 2013-08-28 00:01:00 [facility] Height 2013-08-28 00:01:00 165.1 cm [facility] Procedures Procedure Date / Time Performing Clinician Source Performed CBC WITH DIFF 2022-07-26 21:36:00 Mely Coronado [facility] CONSENT/REFUSAL FOR 2022-07-02 16:50:07 Doctor Unassigned, No [facility] [place] [facility] CONSENT/REFUSAL FOR 2022-04-17 22:18:51 Doctor Unassigned, No [facility] [place] [facility] Name [facility] XR CHEST 1 VW 2021-12-24 01:25:29 Evi Carpenter [facility] POCT TEST 2021-12-24 01:24:00 Evi Carpenter [facility] D-DIMER 2021-12-24 01:11:00 Evi Carpenter [facility] MAGNESIUM 2021-12-24 01:10:00 Evi Carpenter Radha [facility] TROPONIN I 2021-12-24 01:10:00 Evi Carpenter [facility] COMP. METABOLIC PANEL 2021-12-24 01:10:00 Evi Carpenter [facility] ([id number]) [facility] CBC WITH DIFF 2021-12-24 01:10:00 Jr [facility] URINALYSIS 2021-12-24 01:10:00 Jr [facility] POCT TEST 2021-06-07 14:18:00 Nory Rodriguez [facility] THYROID STIMULATING 2021-05-21 21:16:00 Nory Rodriguez [facility] HORMONE [facility] CBC WITH DIFF 2021-05-21 21:16:00 Nory Rodriguez [facility] HIV 1/2 AG-AB WITH 2021-05-21 20:40:00 Nory Rodriguez [facility] REFLEX [facility] GARDASIL 9 (HPV 9V) 2021-05-21 20:14:56 Nory Rodriguez [facility] VACCINE [facility] Encounters Start End Encounter Admission Attending Care Care Encounter Source Date/Time Date/Time Type Type Clinicians Facility Department ID 2023-01-06 Outpatient [facility] [id number] [place] 10:59:58 [id number] [facility] 2022-12-17 Outpatient [facility] [id number] [facility] 10:01:21 [id number] [facility] 2022-11-20 Outpatient [facility] [id number] [facility] 09:34:32 [id number] [facility] 2022-11-19 Outpatient [facility] [id number] [facility] 06:13:45 [id number] [facility] 2022-11-15 Outpatient [facility] [id number] [facility] 12:42:35 [id number] [facility] 2022-11-07 Outpatient [facility] [id number] [facility] 10:12:11 [id number] [facility] 2023-01-29 2023-01-29 Outpatient GABI [facility] [id number] [place] 10:30:00 10:30:00 [facility] 2023-01-29 2023-01-29 Outpatient [facility] [id number] [place] 10:30:00 10:30:00 Health 2022-12-18 2022-12-18 Office Gabi ANDREW [id number] [place] 09:30:00 10:52:[address] [id number] Health [id number] 2022-12-18 2022-12-18 Outpatient [facility] [id number] [place] 09:30:00 09:30:00 Health 2022-11-27 2022-11-27 Outpatient GABI [facility] [id number] [place] 10:15:00 10:15:00 [facility] 2022-11-20 2022-11-20 Office Gabi ANDREW [id number] [place] 09:30:00 10:33:[address] [id number] Health [id number] 2022-11-20 2022-11-20 Outpatient [facility] [id number] [place] 09:00:00 09:00:00 [facility] 2022-11-13 2022-11-13 Outpatient GEGE FONTENOT [id number] Gege 09:45:00 09:45:00 MARIA ESTHER tello 2022-11-06 2022-11-06 Outpatient PROVIDERGEGE [id number] Gege 00:00:00 00:00:00 AFFILIATE Omega gutierrez 2022-11-03 2022-11-05 Inpatient [facility] [id number] Memoria 23:30:14 18:35:[address] 2022-11-03 2022-11-05 Outpatient Bharath [facility] [id number] 18:30:14 13:35:[address] [place] [address] 2022-11-03 2022-11-05 Outpatient Bharath [facility] [id number] 18:30:14 13:35:00 Brenna Gale [facility] 2022-11-04 2022-11-04 Outpatient CATHY EDGAR, [facility] [id number] [place] 06:30:00 06:30:00 [facility] 2022-10-25 2022-10-25 Outpatient R JOHN [facility] [id number] Univers 09:15:00 09:15:00 PEREZ alarcon o f [facility] 2022-09-12 2022-09-12 Outpatient LAB47 GEGE MALHOTRA [id number] Gege 16:00:00 16:00:00 Seybol d 2022-09-12 2022-09-12 Outpatient GEGE MIRAMONTES [id number] Gege 15:00:00 15:00:00 JHON Seyb old 2022-09-12 2022-09-12 Outpatient GEGE PIÑA [id number] Gege 00:00:00 00:00:00 NAOMIE Seybo ld 2022-08-16 2022-08-16 [id number] Univers 00:00:00 00:00:00 MELY [facility] 2022-08-08 2022-08-08 Outpatient R REBECCA [facility] [id number] Univers 00:00:00 00:00:00 MELY [facility] 2022-07-29 2022-07-29 [facility] [id number] Univers 00:00:00 00:00:00 Management Mely Gonzalez INJECTION MOLDING SUPERVISOR [id number] [id number] Dyllan as MATERNAL [id number] [facility] & CHILD [address] [place] [address] 2022-07-26 2022-07-26 Outpatient R REBECCA [facility] [id number] Univers 14:30:00 15:36:48 MELY [facility] 2022-07-26 2022-07-26 Office [facility] .[id number] Univers 14:30:00 15:36:48 Visit Mely Coronado INJECTION MOLDING SUPERVISOR 350.1.13.1 [facility] [id number] Dyllan as MATERNAL [id number] Med ical & CHILD [address] [place] [address] 2022-07-03 2022-07-03 Outpatient GEGE OLIVIA [id number] Gege 16:30:00 16:30:00 JUANA Seybol d 2022-07-02 2022-07-02 Emergency X [facility] ERT [id number] Univers 10:55:00 12:08:00 YOGESH alarcon [facility] 2022-07-02 2022-07-02 [facility] [id number] Univers 10:55:00 12:08:00 Yogesh [place] [id number] i [facility] [id number] [id number] [address] 2022-07-02 2022-07-02 Telephone [facility] [id number] [facility] 00:00:00 00:00:00 Perez Navarro INJECTION MOLDING SUPERVISOR [id number] ity [facility] [id number] Dyllan as MATERNAL [id number] Med ical & CHILD [address] [place] [address] 2022-06-24 2022-06-24 Outpatient GEGE PIÑA [id number] Gege 10:45:00 10:45:00 NIVIA Seybol d 2022-06-10 2022-06-10 Outpatient GEGE PIÑA [id number] Gege 09:00:00 09:00:00 NIVIA Seybol d 2022-05-31 2022-05-31 Outpatient JOSH FLYNN [id number] Gege 15:30:00 15:30:00 Seybol d 2022-05-22 2022-05-22 Outpatient Viola BOYKIN [facility] [id number] Univers 09:45:00 09:45:00 GADIEL alarcon o f [facility] 2022-05-15 2022-05-15 Outpatient GEGE PIÑA [id number] Gege 00:00:00 00:00:00 NAOMIE Seybo ld 2022-05-02 2022-05-02 Outpatient RADHA GEGE MALHOTRA [id number] Gege 00:00:00 00:00:00 NAOMIE Seybo ld 2022-05-01 2022-05-01 Outpatient LAB47 GEGE MALHOTRA [id number] Gege 17:15:00 17:15:00 Seybol d 2022-05-01 2022-05-01 Office CHERYL Piña [id number] Gege 16:30:00 17:00:00 Visit Nivia 350.1.13.13 [place] [id number] 2022-04-30 2022-04-30 Outpatient DILCIAEviADANOAH GEGE GEGE [id number] Gege 00:00:00 00:00:00 NIVIA Seybol d 2022-04-17 2022-04-17 Outpatient R AKINSIPE, [facility] [id number] Univers 17:45:00 17:45:00 PEREZ ity o f [facility] 2022-04-17 2022-04-17 Orders Doctor ISAIAS [id number] Univers 00:00:00 00:00:00 Only Unassigned, MARGARETH 350.1.13.10 ity of Yarnell [facility] [id number] Dyllan as [id number] [address] 2022-04-16 2022-04-16 Outpatient R AKINSIPE, [facility] [id number] Univers 13:00:00 13:00:00 PEREZ ity o f [facility] 2022-02-21 2022-02-21 Outpatient R AKINSIPE, [facility] [id number] Univers 08:15:00 08:15:00 PEREZ ity o f [facility] 2022-01-03 2022-01-03 Outpatient R AKINSIPE, [facility] [id number] Univers 08:15:00 08:15:00 PEREZ ity o f [facility] 2021-12-23 2021-12-23 Emergency X Evi CARPENTER [facility] ERT [id number] Univers 19:46:00 23:21:00 ity [facility] 2021-12-23 2021-12-23 Emergency Evi Carpenter [facility] 1.2.840.114 [id number] Univers 19:46:00 23:21:00 Radha [place] 350.1.13.10 i ty [facility] 4.2.7.2.686 [place] [facility] [phone] [place] [id number] [place] 2021-09-06 2021-09-06 Outpatient R JOHN [facility] [id number] Univers 15:45:00 15:45:00 PEREZ perez [facility] 2021-08-07 2021-08-07 [facility] [id number] Univers 15:00:00 15:00:00 PEREZ perez [facility] 2021-08-02 2021-08-02 [facility] [id number] Univers 00:00:00 00:00:00 Perez Navarro INJECTION MOLDING SUPERVISOR 350.1.13.10 ity of [facility] [id number] [place] as MATERNAL [phone] [facility] ical & CHILD [address] [place] [address] 2021-06-07 2021-06-07 Nurse Visit, [employer] [facility] 1.2 .840.114 [id number] Univers 09:00:25 09:28:03 Visit Perez Lopez INJECTION MOLDING SUPERVISOR 350.1.13. 10 ity [facility] 4.2.7.2.686 [place] as MATERNAL [phone] [facility] ical & CHILD [address] [place] [address] 2021-06-07 2021-06-07 Outpatient R [facility] [id number] Univers 09:00:00 09:00:00 ity [facility] 2021-06-04 2021-06-04 Outpatient R [facility] [id number] Univers 09:00:00 09:00:00 ity [facility] 2021-06-04 2021-06-04 [facility] [id number] Univers 09:00:00 09:00:00 PEREZ juney o f [facility] 2021-05-25 2021-05-25 Telephone John [facility] [id number] Univers 00:00:00 00:00:00 Perez Navarro INJECTION MOLDING SUPERVISOR 350.1.13.10 ity of [facility] 4.2.7.2.686 [place] as MATERNAL [phone] [facility] & CHILD [address] [place] [address] 2021-05-21 2021-05-21 [facility] [id number] [facility] 14:39:44 15:48:37 Visit Nory Bo INJECTION MOLDING SUPERVISOR 350.1.13.10 it y of [facility] 4.2.7.2.686 [place] as MATERNAL [phone] [facility] & [address] 2021-05-21 2021-05-21 [facility] [id number] Univers 14:30:00 14:30:00 NORY alarcon [facility] 2021-05-21 2021-05-21 Orders Doctor ISAIAS 1.2.840.114 [id number] Univers 00:00:00 00:00:00 Only Unassigned, MARGARETH 350.1.13.10 ity of [place] [facility] 4.2.7.2.686 [place] as [phone] [address] 2021-05-11 2021-05-11 Outpatient R JOHN [facility] [id number] Univers 12:45:00 12:45:00 PEREZ alarcon o f [facility] 2020-11-14 2020-11-14 Patient [facility] 1.2.840.114 [id number] Univers 00:00:00 00:00:00 Outreach Amor PRIMARY 350.1.13.10 i ty of [facility] 4.2.7.2.686 Nevin OTTO [phone] [address] 2020-11-14 2020-11-14 Patient Ramiro [facility] 1.2.840.114 [id number] 00:00:00 00:00:00 Outreach Amor PRIMARY 350.1.13.10 [facility] 4.2.7.2.686 [place] [phone] [id number] 2020-08-29 2020-08-29 Outpatient R [facility] [id number] Univers 09:00:00 09:00:00 ity [facility] 2020-08-02 2020-08-02 Outpatient R [facility] [id number] Univers 14:00:00 14:00:00 [facility] 2020-08-02 2020-08-02 Outpatient R AKINSIPE, [facility] [id number] Univers 14:00:00 14:00:00 PEREZ ity o f [facility] 2020-07-24 2020-07-24 Outpatient R [facility] [id number] Univers 09:30:00 09:30:00 [facility] 2020-06-27 2020-06-27 Office Akinsipe, [facility] [id number] Univers 15:14:20 15:49:12 Visit [facility] INJECTION MOLDING SUPERVISOR 350.1.13.10 [facility] 4.2.7.2.686 [place]yll[place] as MATERNAL [phone] Med ical & CHILD [address] [place] [address] 2020-06-27 2020-06-27 Office Akinsipe, [facility] [id number] 15:14:20 15:49:12 Visit [facility] C INJECTION MOLDING SUPERVISOR 350.1.13.10 [facility] 4.2.7.2.686 MATERNAL [phone] & CHILD [address] [place] [address] 2020-06-27 2020-06-27 Outpatient R AKINSIPE, [facility] [id number] Univers 15:15:00 15:15:00 PEREZ ity o f [facility] 2020-06-27 2020-06-27 Outpatient R AKINSIPE, [facility] [id number] Univers 15:15:00 15:15:00 PEREZ ity o f [facility] 2020-05-24 2020-05-24 Outpatient R AKINSIPE, [facility] [id number] Univers 10:30:00 10:30:00 PEREZ ity o f [facility] 2020-05-24 2020-05-24 Outpatient R AKINSIPE, [facility] [id number] Univers 10:30:00 10:30:00 PEREZ dorian o ana [facility] 2020-03-27 2020-03-27 [facility] 1.2.840.114 [id number] Univers 00:00:00 00:00:00 Perez Navarro INJECTION MOLDING SUPERVISOR 350.1.13.10 ity of [facility] 4.2.7.2.686 [place]yllan as MATERNAL [phone] [facility] & CHILD [address] [place] [address] 2020-03-23 2020-03-23 [facility] [id number] Univers 09:05:31 10:07:13 Visit Perez Navarro INJECTION MOLDING SUPERVISOR 350.1.13.10 ity of [facility] 4.2.7.2.686 [place] as MATERNAL [phone] [facility] & [address] 2020-03-23 2020-03-23 Outpatient [facility] [id number] Univers 09:00:00 09:00:00 PEREZ shayleedafne trixie ana [facility] 2020-03-23 2020-03-23 Orders Doctor ISAIAS 1.2.840.114 [id number] Univers 00:00:00 00:00:00 Only Unassigned, MARGARETH 350.1.13.10 ity of [place] [facility] 4.2.7.2.686 [place] as [phone] [address] 2020-02-04 2020-02-04 [facility] [id number] Univers 08:06:19 08:53:19 Visit Perez Navarro INJECTION MOLDING SUPERVISOR 350.1.13.10 ity of [facility] 4.2.7.2.686 [place] as MATERNAL [phone] [facility] & [address] 2020-02-04 2020-02-04 Outpatient [facility] [id number] Univers 08:15:00 08:15:00 PEREZ dorian marcum ana [facility] 2019-03-24 2019-03-24 [facility] [id number] Univers 00:00:00 00:00:00 Roshunda R INJECTION MOLDING SUPERVISOR 350.1.13.10 ity of [facility] 4.2.7.2.686 [place] as MATERNAL [phone] [facility] ical & CHILD [address] [place] [address] 2019-03-23 2019-03-23 Office DEVON Boykin 1.2.840.114 [id number] Univers 09:47:46 10:44:24 Visit Gadiel R INJECTION MOLDING SUPERVISOR 350.1.13.10 ity of [facility] 4.2.7.2.686 [place] as MATERNAL [phone] [facility] ical & CHILD [address] [place] [address] 2019-03-23 2019-03-23 Orders Doctor ISAIAS 1.2.840.114 [id number] Univers 00:00:00 00:00:00 Only Unassigned, MARGARETH 350.1.13.10 ity of [place] [facility] 4.2.7.2.686 [place] as [phone] [address] 2013-08-27 2013-08-31 Outpatient 2.16.840. 2.16.840.1. 4 [id number] Memoria 13:13:00 14:13:00 [id number] 118151.3.61 l 3.615.0.1 5.0.100 [facility] 2013-08-27 2013-08-27 [facility] [id number] Memoria 13:13:00 13:13:00 r Medical 03 l [facility] Results Test Description Test Time Test Comments Results Result Comments Source CHEM PANEL 2022-11-05 09:41:00 Test Item Value Reference Range Interpretation Comme nts BUN (test code = BUN) 9 7-22 [facility] [email or web address] [id number] 09:41:00 Test Item Value Reference Range Interpretation Comments Creatinine Lvl (test code = Creatinine 0.76 0.50-1.40 Lvl) [facility] [email or web address] [id number] 09:41:00 Test Item Value Reference Range Interpretation Comments Sodium Lvl (test code = Sodium Lvl) 137 135-145 [facility] [email or web address] [id number] 09:41:00 Test Item Value Reference Range Interpretation Comments Potassium Lvl (test code = Potassium 3.7 3.5-5.1 Lvl) [place] 19073-03-14 09:41:00 Test Item Value Reference Range Interpretation Comments Chloride Lvl (test code = Chloride Lvl) 111 95-109 [place] [address]-03-14 09:41:00 Test Item Value Reference Range Interpretation Comments CO2 (test code = CO2) 25 24-32 [place] [address]-03-14 09:41:00 Test Item Value Reference Range Interpretation Comments Calcium Lvl (test code = Calcium Lvl) 8.9 8.5-10.5 [place] [address]-03-14 09:41:00 Test Item Value Reference Range Interpretation Comments AGAP (test code = AGAP) 4.7 10.0-20.0 [place] [address]-03-14 09:41:00 Test Item Value Reference Range Interpretation Comments eGFR (test code = eGFR) 112 [place] [address]-03-14 09:41:00 Test Item Value Reference Range Interpretation Comments Magnesium Lvl (test code = Magnesium 2.2 1.8-2.4 Lvl) [place] 148613-03-14 09:41:00 Test Item Value Reference Range Interpretation Comments Phosphorus (test code = Phosphorus) 4.0 2.5-4.5 [place] [address]-03-14 09:41:00 Test Item Value Reference Range Interpretation Comments Glucose Lvl (test code = Glucose Lvl) 81 70-99 [place] [address]-03-14 09:41:00 Test Item Value Reference Range Interpretation Comments BUN (test code = BUN) 9 7-22 [place] [address]-03-14 09:41:00 Test Item Value Reference Range Interpretation Comments Creatinine Lvl (test code = Creatinine 0.76 0.50-1.40 Lvl) [place] [address]-03-14 09:41:00 Test Item Value Reference Range Interpretation Comments Sodium Lvl (test code = Sodium Lvl) 137 135-145 [place] [address]-03-14 09:41:00 Test Item Value Reference Range Interpretation Comments Potassium Lvl (test code = Potassium 3.7 3.5-5.1 Lvl) [place] [address]-03-14 09:41:00 Test Item Value Reference Range Interpretation Comments Chloride Lvl (test code = Chloride Lvl) 111 95-109 [facility] CenterJwmiaqhIBAPNURRG1941-38-76 09:41:00 Test Item Value Reference Range Interpretation Comments CO2 (test code = CO2) 25 24-32 [place] 229443-03-14 09:41:00 Test Item Value Reference Range Interpretation Comments Calcium Lvl (test code = Calcium Lvl) 8.9 8.5-10.5 [place] 229443-03-14 09:41:00 Test Item Value Reference Range Interpretation Comments AGAP (test code = AGAP) 4.7 10.0-20.0 [facility] CenterXdszaamELWSOHCXD0829-61-23 09:41:00 Test Item Value Reference Range Interpretation Comments eGFR (test code = eGFR) 112 [facility] CenterPolppfvNXWEHDROV4515-69-82 09:41:00 Test Item Value Reference Range Interpretation Comments Magnesium Lvl (test code = Magnesium 2.2 1.8-2.4 Lvl) [facility] CenterMocouxoRRFYELBXT5785-49-06 09:41:00 Test Item Value Reference Range Interpretation Comments Phosphorus (test code = Phosphorus) 4.0 2.5-4.5 [facility]wdcmthKUZFTWYJVS3781-21-11 09:41:00 Test Item Value Reference Range Interpretation Comments Segs (test code = Segs) 47.3 45.0-75.0 [place] 374173-03-14 09:41:00 Test Item Value Reference Range Interpretation Comments Lymphocytes (test code = Lymphocytes) 43.2 20.0-40.0 [facility] HospitalIaabdwwJZVWXBZKRL1978-60-66 09:41:00 Test Item Value Reference Range Interpretation Comments Monocytes (test code = Monocytes) 8.3 2.0-12.0 [place] [address]-03-14 09:41:00 Test Item Value Reference Range Interpretation Comments Eosinophils (test code = 0.9 See_Comment [A utomated message] The Eosinophils) system which ge nerated this result tra nsmitted reference range : <=4.0. The reference r gillian was not used to int erpret this result as normal/abnormal . [place] 374173-03-14 09:41:00 Test Item Value Reference Range Interpretation Comments Basophils (test code = 0.3 See_Comment [Aut omated message] The Basophils) system which ge nerated this result tra nsmitted reference range : <=1.0. The reference r gillian was not used to int erpret this result as normal/abnormal . [place] 374173-03-14 09:41:00 Test Item Value Reference Range Interpretation Comments Neutrophils # (test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 0.1 See_Comment [Aut omated message] The = Basophils #) system which generated this result tra nsmitted reference range : <=0.2. The reference r gillian was not used to int erpret this result as normal/abnormal . [facility] WITH TLIJ3559-24-12 05:48:20 Test Item Value Reference Range Interpretation Comments WBC (test code = See_Comment [Automated message] 3190-2) The system [employer] generated this result transmitted ref erence range: 4.30 - 1 1.10 10*3/?L. The re ference range was not u sed to interpret this result as normal/abnor mal. RBC (test code = See_Comment [Automated message] 789-8) The system [employer] generated this result transmitted ref erence range: [...] RDW-SD (test code 41.8 fL 39.0-49.9 = 82142-3) RDW-CV (test code 14.1 % 12.0-15.5 = 788-0) PLT (test code = See_Comment [Automated message] 777-3) The system [employer] generated this result transmitted ref erence range: 166 - 35 8 10*3/?L. The re ference range was not u sed to interpret this result as normal/abnor mal. MPV (test code = 11.1 fL 9.5-12.9 22270-3) NRBC/100 WBC (test See_Comment [Automat ed message] code = 9422200580) The syste m which generated this result transmitted ref erence range: 0.0 - 10 .0 /100 WBCs. The refer ence range was not u sed to interpret this result as normal/abnor mal. NRBC x10^3 (test See_Comment [Automated message] code = 2080671595) The syste m which generated this result transmitted ref erence range: 10*3/?L. The reference range was not used to interpr et this result as normal/abnormal . GRAN MAT (NEUT) % 54.0 % (test code = 770-8) IMM GRAN % (test 0.10 % code = 5775095103) LYMPH % (test code 36.4 % = 736-9) MONO % (test code 8.1 % = 5905-5) EOS % (test code = 1.0 % 713-8) BASO % (test code 0.4 % = 706-2) GRAN MAT 3.63 10*3/uL 1.88-7.09 x10^3(ANC) (test code = 8149434189) IMM GRAN x10^3 0.00-0.06 (test code = 0302022023) LYMPH x10^3 (test 2.46 10*3/uL 1.32-3.29 code = 731-0) MONO x10^3 (test 0.55 10*3/uL 0.33-0.92 code = 742-7) EOS x10^3 (test 0.07 10*3/uL 0.03-0.39 code = 711-2) BASO x10^3 (test 0.03 10*3/uL 0.01-0.07 code = 704-7) [facility] WITH [id number] 05:48:20 Test Item Value Reference Range Interpretation Comments WBC (test code = See_Comment [Automated message] 6690-2) The system whic h generated this result transmitted ref erence range: 4.30 - 1 1.10 10*3/?L. The re ference range was not u sed to interpret this result as normal/abnor mal. RBC (test code = See_Comment [Automated message] 789-8) The system [employer] generated this result transmitted ref erence range: [...] RDW-SD (test code 41.8 fL 39.0-49.9 = 10228-0) RDW-CV (test code 14.1 % 12.0-15.5 = 788-0) PLT (test code = See_Comment [Automated message] 777-3) The system [employer] generated this result transmitted ref erence range: 166 - 35 8 10*3/?L. The re ference range was not u sed to interpret this result as normal/abnor mal. MPV (test code = 11.1 fL 9.5-12.9 80482-6) NRBC/100 WBC (test See_Comment [Automat ed message] code = 8145753196) The syste [employer] which generated this result transmitted ref erence range: 0.0 - 10 .0 /100 WBCs. The refer ence range was not u sed to interpret this result as normal/abnor mal. NRBC x10^3 (test See_Comment [Automated message] code = 0747863084) The syste m which generated this result transmitted ref erence range: 10*3/?L. The reference range was not used to interpr et this result as normal/abnormal . GRAN MAT (NEUT) % 54.0 % (test code = 770-8) IMM GRAN % (test 0.10 % code = 8426910729) LYMPH % (test code 36.4 % = 736-9) MONO % (test code 8.1 % = 5905-5) EOS % (test code = 1.0 % 713-8) BASO % (test code 0.4 % = 706-2) GRAN MAT 3.63 10*3/uL 1.88-7.09 x10^3(ANC) (test code = 7624506289) IMM GRAN x10^3 0.00-0.06 (test code = 5298749069) LYMPH x10^3 (test 2.46 10*3/uL 1.32-3.29 code = 731-0) MONO x10^3 (test 0.55 10*3/uL 0.33-0.92 code = 742-7) EOS x10^3 (test 0.07 10*3/uL 0.03-0.39 code = 711-2) BASO x10^3 (test 0.03 10*3/uL 0.01-0.07 code = 704-7) [facility] [id number] 01:46:28 Test Item Value Reference Interpretation Comments Range TROPONIN I (test 0.002 ng/mL See_Comment [Automated code = 4616886105) message] The system which generated this result [...] biotin. Lab Interpretation Normal (test code = 47310-2) [facility]. MET[facility]OLIC PANEL (02142)2021-12-24 01:34:25 Test Item Value Reference Range Interpretation Comments NA (test code = 139 mmol/L 135-145 9145211861) K (test code = 3.6 mmol/L 3.5-5.0 2870007658) CL (test code = 104 mmol/L 98-108 3945511911) CO2 TOTAL (test code 25 mmol/L 23-31 = 7648713486) AGAP (test code = 2-16 7381737356) BUN (test code = 10 mg/dL 7-23 0284359002) GLUCOSE (test code = 81 mg/dL 70-110 4005359554) CREATININE (test code 0.86 mg/dL 0.50-1.04 = 3681750926) TOTAL BILI (test code 0.7 mg/dL 0.1-1.1 = 8919483197) CALCIUM (test code = 9.6 mg/dL 8.6-10.6 3502078175) T PROTEIN (test code 7.8 g/dL 6.3-8.2 = 5437454610) ALBUMIN (test code = 4.4 g/dL 3.5-5.0 0035295533) ALK PHOS (test code = 105 U/L 34-122 6258607613) ALTv (test code = 24 U/L 5-35 2-6) AST(SGOT) (test code 30 U/L 13-40 = 8766828701) eGFR (test code = mL/min/1.73m2 8465233045) GRISELDA (test code = GRISELDA) Association of [...] or urine or abnormalities in imaging tests). [facility]2022-[facility]-02 01:34:25 Test Item Value Reference Range Interpretation Comments MAGNESIUM (test code = 5897817944) 1.8 mg/dL 1.7-2.4 Lab Interpretation (test code = Normal 58145-7) [facility] ArlingtonD-WGRSM7205-08-88 01:31:04 Test Item Value Reference Interpretation Comments Range D-DIMER (test code = See_Comment [Autom ated 2455132924) message] The system which generated this result [...] diagnosis. Lab Interpretation Normal (test code = 15115-3) [facility]PO[facility] [id number] 01:24:00 Test Item Value Reference Range Interpretation Comments POCT PREG (test code = 1605) negative On board controls acceptable with present C Line (test code = 3574) POCT PREG LOT # (test code = 3575) [id number] POCT PREG TEST DATE (test code = 3576) Lab Interpretation (test code = Normal 92155-8) [facility] WITH IWBI0288-09-77 01:20:27 Test Item Value Reference Range Interpretation Comments WBC (test code = See_Comment [Automated message] 6690-2) The system [employer] generated this result transmitted ref erence range: 4.30 - 1 1.10 10*3/?L. The re ference range was not u sed to interpret this result as normal/abnor mal. RBC (test code = See_Comment [Automated message] 789-8) The system [employer] generated this result transmitted ref erence range: [...] RDW-SD (test code 40.0 fL 39.0-49.9 = 46850-9) RDW-CV (test code 13.6 % 12.0-15.5 = 788-0) PLT (test code = See_Comment [Automated message] 777-3) The system [employer] generated this result transmitted ref erence range: 166 - 35 8 10*3/?L. The re ference range was not u sed to interpret this result as normal/abnor mal. MPV (test code = 10.0 fL 9.5-12.9 38011-4) NRBC/100 WBC (test See_Comment [Automat ed message] code = 5381752480) The [employer] which generated this result transmitted ref erence range: 0.0 - 10 .0 /100 WBCs. The refer ence range was not u sed to interpret this result as normal/abnor mal. NRBC x10^3 (test <0.01 See_Comment [Automated message] code = 1884342367) The syste m which generated this result transmitted ref erence range: 10*3/?L. The reference range was not used to interpr et this result as normal/abnormal . GRAN MAT (NEUT) % 46.3 % (test code = 770-8) IMM GRAN % (test 0.20 % code = 0042432788) LYMPH % (test code 43.0 % = 736-9) MONO % (test code 8.6 % = 5905-5) EOS % (test code = 1.2 % 713-8) BASO % (test code 0.7 % = 706-2) GRAN MAT 2.75 10*3/uL 1.88-7.09 x10^3(ANC) (test code = 3136408070) IMM GRAN x10^3 <0.03 0.00-0.06 (test code = 6020360187) LYMPH x10^3 (test 2.55 10*3/uL 1.32-3.29 code = 731-0) MONO x10^3 (test 0.51 10*3/uL 0.33-0.92 code = 742-7) EOS x10^3 (test 0.07 10*3/uL 0.03-0.39 code = 711-2) BASO x10^3 (test 0.04 10*3/uL 0.01-0.07 code = 704-7) [facility]PO[facility] [id number] 14:20:00 Test Item Value Reference Range Interpretation Comments POCT PREG (test code = 1605) Negative On board controls acceptable with C Yes Line (test code = 3574) POCT PREG LOT # (test code = 3575) POCT PREG TEST DATE (test code = 3576) [facility]HIV 1/2 AG-AB WITH [id number] 05:35:57 Test Item Value Reference Range Interpretation Comments HIV Negative Negative Semi-quantitative (test code = 97218-8) GRISELDA (test code = Non-reactive for HIV-1 GRISELDA) antigen and HIV-1/HIV-2 antibodies. ?No laboratory evidence of HIV infection. ?Repeat in 2-4 weeks if acute HIV infection is suspected. [facility] ArlingtonTHYROID STIMULATING EDLSVGC6608-55-32 05:14:33 Test Item Value Reference Range Interpretation Comments TSH (test code = See_Comment Biotin has been 0532195675) reported to cau se a negative bias, interpret resul ts relative to yadi schaefer's use of biotin. [Automated mess age] The system [employer] generated this result transmitted ref erence range: 0.45 - 4 .70 mIU/L. The refe rence range was not u sed to interpret this result as normal/abnor mal. Lab Interpretation (test Normal code = 82470-8) [facility] WITH [id number] 04:59:00 Test Item Value Reference Range Interpretation Comments WBC (test code = See_Comment [Automated message] 1890-2) The system [employer] generated this result transmitted ref erence range: 4.30 - 1 1.10 10*3/?L. The re ference range was not u sed to interpret this result as normal/abnor mal. RBC (test code = See_Comment [Automated message] 139-8) The system [employer] generated this result transmitted ref erence range: [...] RDW-SD (test code 41.9 fL 39.0-49.9 = 18399-9) RDW-CV (test code 13.9 % 12.0-15.5 = 788-0) PLT (test code = See_Comment [Automated message] 087-3) The system [employer] generated this result transmitted ref erence range: 166 - 35 8 10*3/?L. The re ference range was not u sed to interpret this result as normal/abnor mal. MPV (test code = 10.7 fL 9.5-12.9 83221-4) NRBC/100 WBC (test See_Comment [Automat ed message] code = 2950951769) The syste m which generated this result transmitted ref erence range: 0.0 - 10 .0 /100 WBCs. The refer ence range was not u sed to interpret this result as normal/abnor mal. NRBC x10^3 (test <0.01 See_Comment [Automated message] code = 5419907925) The syste m which generated this result transmitted ref erence range: 10*3/?L. The reference range was not used to interpr et this result as normal/abnormal . GRAN MAT (NEUT) % 38.2 % (test code = 770-8) IMM GRAN % (test 0.20 % code = 2670146542) LYMPH % (test code 49.1 % = 736-9) MONO % (test code 10.0 % = 5905-5) EOS % (test code = 1.8 % 713-8) BASO % (test code 0.7 % = 706-2) GRAN MAT 2.07 10*3/uL 1.88-7.09 x10^3(ANC) (test code = 1757541882) IMM GRAN x10^3 <0.03 0.00-0.06 (test code = 0798300485) LYMPH x10^3 (test 2.66 10*3/uL 1.32-3.29 code = 731-0) MONO x10^3 (test 0.54 10*3/uL 0.33-0.92 code = 742-7) EOS x10^3 (test 0.10 10*3/uL 0.03-0.39 code = 711-2) BASO x10^3 (test 0.04 10*3/uL 0.01-0.07 code = 704-7) [facility]26 Test Item Value Reference Range Interpretation Comments Hct (test code = Hct) 23.3 36.0-48.0 L [facility]YnvghpgHHBUAZSKJB6112-27-25 09:25:26 Test Item Value Reference Range Interpretation Comments Hgb (test code = Hgb) 7.5 12.0-16.0 L [facility] HospitalIrkkcbuHKNCKVEYHH4330-23-28 12:53:01 Test Item Value Reference Range Interpretation Comments Hct (test code = Hct) 25.2 36.0-48.0 L [facility] HospitalRzydicqLTIUYKYWTC1339-78-83 12:53:01 Test Item Value Reference Range Interpretation Comments Hgb (test code = Hgb) 8.0 12.0-16.0 L [facility]WshasrfAVTQEVWLJ0271-85-63 04:21:36 Test Item Value Reference Range Interpretation Comments HCO3 Cord Mc (test code = HCO3 Cord 22 Mc) [facility] CenterWavlrszILJTLAWMU0651-75-65 04:21:36 Test Item Value Reference Range Interpretation Comments BE Cord Mc (test code = BE Cord Mc) -5 [facility] CenterSotwkubFMBPCPGEC6763-75-12 04:21:36 Test Item Value Reference Range Interpretation Comments Temp Cord Mc (test code = Temp Cord 37.0 Mc) [facility] CenterWiybpywHVFZRIZEI7108-46-70 04:21:36 Test Item Value Reference Range Interpretation Comments pH Cord Mc (test code = pH Cord Mc) 7.28 7.16-7.41 N [facility] CenterFeqkiegDUOESWZXI8651-65-08 04:21:36 Test Item Value Reference Range Interpretation Comments PCO2 Cord Mc (test code = PCO2 Cord 47 31-65 N Mc) [facility] CenterJecpuorBHPKWUYQA3395-10-76 04:21:36 Test Item Value Reference Range Interpretation Comments PO2 Cord Mc (test code = PO2 Cord Mc) 20 13-39 N [facility] CenterYfglxtdADASGMVOP6262-23-94 04:21:00 Test Item Value Reference Range Interpretation Comments PCO2 Cord Art (test code = PCO2 Cord 57 37-77 N Art) [facility] CenterDitwnygZFVEJXRTU5175-80-93 04:21:00 Test Item Value Reference Range Interpretation Comments PO2 Cord Art (test code = PO2 Cord Art) 18 3-33 N [facility] CenterRufqiqhNEJLKPLBT8903-59-10 04:21:00 Test Item Value Reference Range Interpretation Comments pH Cord Art (test code = pH Cord Art) 7.21 7.11-7.36 N [facility] CenterXvdwmtzUIGKTQITA3043-17-33 04:21:00 Test Item Value Reference Range Interpretation Comments HCO3 Cord Art (test code = HCO3 Cord 23 Art) [facility] CenterDlgfsmfXQSQGUTRF5270-71-44 04:21:00 Test Item Value Reference Range Interpretation Comments BE Cord Art (test code = BE Cord Art) -6 [facility]UmtvitwVOVGPZZTY4411-70-41 04:21:00 Test Item Value Reference Range Interpretation Comments Temp Cord Art (test code = Temp Cord 37.0 Art) [facility] CenterIuhpbupTMEDPMMUZ4694-42-20 04:21:00 Test Item Value Reference Range Interpretation Comments Temp Cord Mc (test code = Temp Cord 37.0 Mc) [facility] CenterLwksxzwHMQOLQPKG4787-74-88 04:21:00 Test Item Value Reference Range Interpretation Comments BE Cord Mc (test code = BE Cord Mc) -5 [facility]UzxkjhkVRYBHMUXO0404-07-89 04:21:00 Test Item Value Reference Range Interpretation Comments HCO3 Cord Mc (test code = HCO3 Cord 22 Mc) [facility] CenterVhkzmowSXQROBYYK8337-40-69 04:21:00 Test Item Value Reference Range Interpretation Comments PO2 Cord Mc (test code = PO2 Cord Mc) 23 13-39 N [facility] CenterSlfxwtfGHGUHNJVY5520-08-23 04:21:00 Test Item Value Reference Range Interpretation Comments PCO2 Cord Mc (test code = PCO2 Cord 45 31-65 N Mc) [facility] CenterStkezkwFRCABMZTA2821-01-28 04:21:00 Test Item Value Reference Range Interpretation Comments pH Cord Mc (test code = pH Cord Mc) 7.29 7.16-7.41 N [facility] BANK CTFHHUJ3033-47-56 00:58:51 Test Item Value Reference Range Interpretation Comments RBC product (test code Product available N = RBC product) (08/27/2013 18:58:51) [facility] HospitalVsonqkyVNPRHJSZRX0356-00-42 00:01:15 Test Item Value Reference Range Interpretation Comments UA Glucose (test code = UA Negative mg/dL Glucose) [facility] HospitalOvzmzlpCHMZLAEGAU3116-07-02 00:01:15 Test Item Value Reference Range Interpretation Comments UA Bili (test code = Negative *NA*(08/27/2013 UA Bili) 18:01:15) [facility] HospitalZruyhrpWSADYPLGXP4399-00-65 00:01:15 Test Item Value Reference Range Interpretation Comments UA Blood (test code = Negative (08/27/2013 N UA Blood) 18:01:15) [facility] HospitalDdsjndzLKLGZLFHGZ4324-99-25 00:01:15 Test Item Value Reference Range Interpretation Comments UA Spec Grav (test code = UA Spec Grav) 1.012 N [facility] HospitalJegytkrQQEHVFZJHS0129-03-57 00:01:15 Test Item Value Reference Range Interpretation Comments UA pH (test code = UA pH) 6.5 5.0-8.0 N [facility] HospitalJmagkswPHAIGJSIER6716-58-14 00:01:15 Test Item Value Reference Range Interpretation Comments UA Protein (test code = UA Protein) 10 mg/dL A [facility] HospitalMrojlubBLZBAYCUHO0684-86-65 00:01:15 Test Item Value Reference Range Interpretation Comments UA Sq Epi (test code = UA Sq Epi) Many /LPF A [facility] HospitalGzrernoIPVYIPFGAP2227-94-96 00:01:15 Test Item Value Reference Range Interpretation Comments UA Leuk Est (test Negative (08/27/2013 N code = UA Leuk Est) 18:01:15) [facility]sywkrxQYJSGAALVW3863-02-89 00:01:15 Test Item Value Reference Range Interpretation Comments UA Urobilinogen (test code = UA 2.0 0.1-1.0 H Urobilinogen) [facility] HospitalPbwcgiiTIREKMKLJQ8654-60-59 00:01:15 Test Item Value Reference Range Interpretation Comments UA Nitrite (test code Negative (08/27/2013 N = UA Nitrite) 18:01:15) [facility] HospitalDkjavfdIXDVEIEVAU4903-62-03 00:01:15 Test Item Value Reference Range Interpretation Comments UA Mucus (test code = UA Mucus) Few /LPF [facility] HospitalZlyywfgYYFRYJTLBW8012-55-31 00:01:15 Test Item Value Reference Range Interpretation Comments UA Bacteria (test code = UA Moderate /HPF A Bacteria) [facility] HospitalJmvaekiSNOJNXHOOI9011-48-85 00:01:15 Test Item Value Reference Range Interpretation Comments UA Ketones (test code = UA Ketones) 10 mg/dL A [facility] HospitalOqxeqxnKYMKQLKJAG6125-78-05 00:01:15 Test Item Value Reference Range Interpretation Comments UA Color (test code = Yellow *NA*(08/27/2013 UA Color) 18:01:15) [facility] HospitalNqsyfvbJAQQMJWSKG9978-62-68 00:01:15 Test Item Value Reference Range Interpretation Comments UA Turbidity (test code = Clear (08/27/2013 N UA Turbidity) 18:01:15) [facility] HospitalGnkgljjOQJDWPLZN0922-29-76 00:01:13 Test Item Value Reference Range Interpretation Comments U Nunu Scr (test code Negative *NA*(08/27/2013 = U Nunu Scr) 18:01:13) [facility] CenterSferzexVMEFARHLP2326-71-13 00:01:13 Test Item Value Reference Range Interpretation Comments U Cannab Scr (test Negative code = U Cannab Scr) *NA*(08/27/2013 18:01:13) [facility] CenterIcyzsotOCQFLEEHX3880-65-67 00:01:13 Test Item Value Reference Range Interpretation Comments U Cocaine Scr (test Negative code = U Cocaine Scr) *NA*(08/27/2013 18:01:13) [facility] CenterAcrthniJCDWBBZEH3411-69-55 00:01:13 Test Item Value Reference Range Interpretation Comments U Propoxyph Scr (test Negative code = U Propoxyph Scr) *NA*(08/27/2013 18:01:13) [facility] CenterXewkppqQMXVSSDEN1888-31-89 00:01:13 Test Item Value Reference Range Interpretation Comments U Methadone Scr (test Negative code = U Methadone Scr) *NA*(08/27/2013 18:01:13) [facility] CenterKhrhomvRTRWOJGLN2665-82-03 00:01:13 Test Item Value Reference Range Interpretation Comments U Amph Scr (test code Negative *NA*(08/27/2013 = U Amph Scr) 18:01:13) [facility]XldxfmvTBFHKMFWB8421-02-07 00:01:13 Test Item Value Reference Range Interpretation Comments U Benzodia Scr (test Negative code = U Benzodia Scr) *NA*(08/27/2013 18:01:13) [facility] CenterHtemjrnPOZTSYEWQ6868-40-51 00:01:13 Test Item Value Reference Range Interpretation Comments U Phencyc Scr (test Negative code = U Phencyc Scr) *NA*(08/27/2013 18:01:13) [facility] CenterMxgmefzKGSQUKYLB3742-92-09 00:01:13 Test Item Value Reference Range Interpretation Comments U Opiate Scr (test Negative code = U Opiate Scr) *NA*(08/27/2013 18:01:13) [facility] CenterNychlvvCFQKWIXJT6240-25-88 00:01:13 Test Item Value Reference Range Interpretation Comments UDS Note (test code = See Note 1(08/27/2013 N UDS Note) 18:01:13) [facility] CenterOsezqdkKHTRUJAGR4140-72-51 00:01:13 Test Item Value Reference Range Interpretation Comments U Alcohol (test code = Negative U Alcohol) *NA*(08/27/2013 18:01:13) [facility] HospitalZmiwiypCZFHZJYXZA5098-71-19 22:16:00 Test Item Value Reference Range Interpretation Comments Lymphocytes (test code = Lymphocytes) 23.5 20.0-40.0 N [facility] HospitalBuvwjzuAPXVIBXBBW8916-38-88 22:16:00 Test Item Value Reference Range Interpretation Comments Segs (test code = Segs) 64.7 45.0-75.0 N [facility] HospitalNajfvfjWLGCJGFCQX9621-97-49 22:16:00 Test Item Value Reference Range Interpretation Comments Monocytes (test code = Monocytes) 10.3 2.0-12.0 N [facility] HospitalOoqsbcyIZXAHEXLXE2191-69-60 22:16:00 Test Item Value Reference Range Interpretation Comments Eosinophils (test code = 1.0 See_Comment N [A utomated message] The Eosinophils) system which ge nerated this result tra nsmitted reference range : <=4.0. The reference r gillian was not used to int erpret this result as normal/abnormal . [facility] HospitalKowqebbRNVWXUQMSQ0007-81-97 22:16:00 Test Item Value Reference Range Interpretation Comments Eosinophils # (test code 0.1 See_Comment N [A utomated message] The = Eosinophils #) system ic h generated this result tra nsmitted reference range : <=0.5. The reference r gillian was not used to int erpret this result as normal/abnormal . [facility] HospitalUxoekxsGFRKCIMDUX4661-43-12 22:16:00 Test Item Value Reference Range Interpretation Comments Microcyte (test code = 2+ *ABN*(08/27/2013 A Microcyte) 16:16:00) [facility] HospitalLwtgrsuAESIXWLFUL1153-76-06 22:16:00 Test Item Value Reference Range Interpretation Comments Basophils (test code = 0.5 See_Comment N [Aut omated message] The Basophils) system which ge nerated this result tra nsmitted reference range : <=1.0. The reference r gillian was not used to int erpret this result as normal/abnormal . [facility] HospitalKttvoibZAIJZOAYDW0396-82-99 22:16:00 Test Item Value Reference Range Interpretation Comments Monocytes # (test code 0.8 See_Comment N [Aut omated message] The = Monocytes #) system which generated this result tra nsmitted reference range : <=0.8. The reference r gillian was not used to int erpret this result as normal/abnormal . [facility] HospitalOyxmlyqGJEOZHPYWQ0973-45-12 22:16:00 Test Item Value Reference Range Interpretation Comments Segs-Bands # (test code = Segs-Bands #) 5.1 1.5-8.1 N [facility] HospitalEwbpsiwZPQIBVJKPR2839-78-09 22:16:00 Test Item Value Reference Range Interpretation Comments Lymphocytes # (test code = Lymphocytes 1.9 1.0-5.5 N #) [facility] HospitalBqpqofiBTHIUFXDQG6856-76-94 22:16:00 Test Item Value Reference Range Interpretation Comments MPV (test code = MPV) 9.5 7.4-10.4 N [facility] HospitalEnjjaqxIVZVHLRKWZ7232-42-79 22:16:00 Test Item Value Reference Range Interpretation Comments Platelet (test code = Platelet) 241 133-450 N [facility] HospitalSlxlguaDTMDCBLHAZ1322-76-45 22:16:00 Test Item Value Reference Range Interpretation Comments RDW (test code = RDW) 16.3 11.5-14.5 H [facility] HospitalOgfsnbqNOGANFTZUS2129-75-45 22:16:00 Test Item Value Reference Range Interpretation Comments MCH (test code = MCH) 23.7 pg 27.0-31.0 L [facility] HospitalEcyifmjEXBFJPOYUM7728-87-68 22:16:00 Test Item Value Reference Range Interpretation Comments MCHC (test code = MCHC) 32.4 32.0-36.0 N [facility] HospitalNewjireLMSXYYWFCD1230-42-40 22:16:00 Test Item Value Reference Range Interpretation Comments RBC X 10x6 (test code = RBC X 10x6) 3.70 4.20-5.40 L [facility] HospitalBqtpvbiFWWQLIOMOY7036-40-15 22:16:00 Test Item Value Reference Range Interpretation Comments WBC X 10x3 (test code = WBC X 10x3) 7.9 3.7-10.4 N [facility] HospitalTquacpjHBMSDCVXLY5060-53-45 22:16:00 Test Item Value Reference Range Interpretation Comments Hct (test code = Hct) 27.1 36.0-48.0 L [facility] HospitalRvhphqwMVTJZEAMUU9101-20-76 22:16:00 Test Item Value Reference Range Interpretation Comments Hgb (test code = Hgb) 8.8 12.0-16.0 L [facility] HospitalNxxdaliFBMCFAKEUQ7406-50-50 22:16:00 Test Item Value Reference Range Interpretation Comments MCV (test code = MCV) 73.3 81.0-99.0 L [facility] HospitalMnpzyylMSOFDPGZCK8914-56-71 22:16:00 Test Item Value Reference Range Interpretation Comments Treponemal Scr (test Non Reactive code = Treponemal Scr) *NA*(08/27/2013 16:16:00) [facility] HospitalBckfkauUETFXQBLVR2359-68-69 22:16:00 Test Item Value Reference Range Interpretation Comments Hep Bs Ag (test code Negative *NA*(08/27/2013 = Hep Bs Ag) 16:16:00) [facility] HospitalWgizrshPUBZWRPRUE4854-70-62 22:16:00 Test Item Value Reference Range Interpretation Comments HIV. (test code = Negative *NA*(08/27/2013 HIV.) 16:16:00) [facility] Plynked EPHYAVT0925-99-72 22:14:00 Test Item Value Reference Range Interpretation Comments ABO/Rh (test code = ABO/Rh) A POS [facility] Plynked TUUFQNT0301-47-84 22:14:00 Test Item Value Reference Range Interpretation Comments Antibody Scrn (test Negative (08/27/2013 N code = Antibody Scrn) 16:14:00) [facility] History and Physical Notes Date/Time Note Provider Source 2022-11-05 Shakila Eddy DO: [facility] 18:35:00-00:00 Display: History and Center PhysicalAuthored Date: [id number] and Physical Primary Team Name:Team Contact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
[2023-03-30] MEDS ORDERED: ONDANSETRON 4 MG/2 ML VIAL ONE ×2 (10:34→13:54)
[2023-03-30] MEDS ORDERED: NA CHLORIDE 0.9% 1,000 ML ONE (10:35)
[2023-03-30] MEDS ORDERED: FAMOTIDINE 20 MG/2 ML VIAL IV ONE (10:35)
[2023-03-30 11:19] LABS: Absolute Lymphocytes (CBC) 1.6 K/uL (0.7-4.9); Hematocrit 36.7 % (36.0-45.0); Lymphocytes % 22.8 % (15.3-44.8); MCV 81.2 fL (80-100); MPV 8.1 fL (7.6-11.3); RBC Red Blood Cell Count 4.51 M/uL (3.86-4.86)
[2023-03-30 11:35] LABS: Albumin 3.5 g/dL (3.4-5.0); Bilirubin Total 0.2 mg/dL (0.2-1.0); Potassium 3.8 mEq/L (3.5-5.1); Protein, Total 7.6 g/dL (6.4-8.2)
[2023-03-30 13:26] LABS: Specific Gravity 1.025 (1.005-1.030); Urine Bacteria <20 /HPF (<20); Urine Bilirubin NEGATIVE (Negative); Urine Blood Negative (Negative); Urine Clarity Turbid (Clear); Urine Color Light-Yellow (Yellow); Urine Glucose NEGATIVE (Negative); Urine Mucus 1+ /HPF (None Seen); Urine Protein TRACE (Negative); Urine RBC <5 /HPF (None Seen); Urine Urobilinogen Normal (Normal); Urine pH 7.5 (5.0-7.0)
--- NOTE | 2023-03-30 13:38 | ER ---
Nurse's Notes [facility] Name: Troy Son Age: 28 yrs Sex: Female : 1995 Arrival Date: 03/30/2023 Time: 09:38 Bed 18 Private MD: Diagnosis: Nausea with vomiting, unspecified Presentation: 03/30 09:54 Chief complaint: Patient states: this morning i started vomiting and when i vomit I get iw really hot and then I pass out, ice will bring me out of it, it's been happening to me for years but today it is worse, my stomach feels like it's burning. Coronavirus screen: At this time, the client does not indicate any symptoms associated with coronavirus-19. Ebola Screen: Patient negative for fever greater than or equal to 101.5 degrees Fahrenheit, and additional compatible Ebola Virus Disease symptoms Patient denies exposure to infectious person. Patient denies travel to an Ebola-affected area in the 21 days before illness onset. No symptoms or risks identified at this time. Initial Sepsis Screen: Does the patient meet any 2 criteria? No. Patient's initial sepsis screen is negative. Does the patient have a suspected source of infection? No. Patient's initial sepsis screen is negative. Risk Assessment: Do you want to hurt yourself or someone else? Patient reports no desire to harm self or others. Onset of symptoms was March 30, 2023. 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 - Social history:: Smoking status: . Screenin:00 [facility] ED Fall Risk Assessment (Adult) Score/Fall Risk Level 0 - 2 = Low Risk. Abuse eh3 screen: Denies threats or abuse. Denies injuries from another. Nutritional screening: No deficits noted. Tuberculosis screening: No symptoms or risk factors identified. Assessment: 10:00 General: Appears in no apparent distress. uncomfortable, Behavior is cooperative, eh3 appropriate for age. Pain: Complains of pain in right upper quadrant. Neuro: Level of Consciousness is awake, alert, obeys commands, Oriented to person, place, time, situation. Cardiovascular: Capillary refill < 3 seconds Patient's skin is warm and dry. Respiratory: Airway is patent Respiratory effort is even, unlabored, Respiratory pattern is regular, symmetrical. GI: Abdomen is round non-distended. Derm: Skin is healthy with good turgor, Skin is clammy, Skin temperature is warm. Musculoskeletal: Circulation, motion, and sensation intact. 11:00 Reassessment: Patient appears in no apparent distress at this time. Patient and/or eh3 family updated on plan of care and expected duration. Pain level reassessed. Patient is alert, oriented x 3, equal unlabored respirations, skin warm/dry/pink. 12:00 Reassessment: Patient appears in no apparent distress at this time. Patient and/or eh3 family updated on plan of care and expected duration. Pain level reassessed. Patient is alert, oriented x 3, equal unlabored respirations, skin warm/dry/pink. Patient states symptoms have improved. 13:00 Reassessment: Patient appears in no apparent distress at this time. Patient and/or eh3 family updated on plan of care and expected duration. Pain level reassessed. Patient is alert, oriented x 3, equal unlabored respirations, skin warm/dry/pink. 13:29 GI: Reports nausea. [facility] Vital Signs: 09:54 BP 156 / 102; Pulse 78; Resp 18; Temp 97.3; Pulse Ox 100% on R/A; Weight 95.25 kg; iw Height 5 ft. 5 in. ; Pain 6/10; 11:00 BP 126 / 88; Pulse 68; Resp 18; Pulse Ox 99% on R/A; eh3 12:00 BP 119 / 75; Pulse 66; Resp 18; Pulse Ox 99% on R/A; eh3 13:00 BP 120 / 60; Pulse 62; Resp 18; Pulse Ox 98% on R/A; eh3 09:54 Body Mass Index 34.95 (95.25 kg, 165.1 cm) iw 09:54 Pain Scale: Adult iw ED Course: 09:43 Patient arrived in ED. im 09:47 Ellyn Murphy FNP-C is PHCP. kb 09:47 Priyank Palma MD is Attending Physician. kb 09:55 Triage completed. iw 09:55 Arm band placed on. iw 10:00 Patient has correct armband on for positive identification. Bed in low position. Call eh3 light in reach. Side rails up X2. Provided Education on: Use of call gaffney. Pulse ox on. NIBP on. Door closed. Noise minimized. Lights dimmed. Warm blanket given. 10:00 Inserted saline lock: 20 gauge in right antecubital area, using aseptic technique. eh3 Blood collected. 10:19 Dee Palacios, RN is Primary Nurse. eh3 13:51 No provider procedures requiring assistance completed. IV discontinued, intact, eh3 bleeding controlled, No redness/swelling at site. Pressure dressing applied. Administered Medications: 10:50 Drug: NS 0.9% IV 1000 ml Route: IV; Rate: 1 bolus; Site: right antecubital; eh3 12:00 Follow up: IV Status: Completed infusion; IV Intake: 1000ml eh3 10:50 Drug: Famotidine IVP 20 mg Route: IVP; Site: right antecubital; eh3 12:00 Follow up: Response: No adverse reaction eh3 10:50 Drug: Ondansetron IVP 4 mg Route: IVP; Site: right antecubital; eh3 12:00 Follow up: Response: No adverse reaction eh3 13:40 Drug: Ondansetron IVP 4 mg Route: IVP; Site: right antecubital; eh3 13:51 Follow up: Response: No adverse reaction eh3 Medication: 13:51 VIS not applicable for this client. eh3 Intake: 12:00 IV: 1000ml; Total: 1000ml. eh3 Outcome: 13:38 Discharge ordered by MD. kb 13:51 Discharged to home ambulatory. eh3 13:51 Condition: stable 13:51 Discharge instructions given to patient, Instructed on discharge instructions, follow up and referral plans. medication usage, Demonstrated understanding of instructions, follow-up care, medications, Prescriptions given X 2. 13:51 Patient left the ED. eh3 Signatures: Ellyn Murphy, DIRECTOR OF REHABILITATION AND WELLNESS-C DIRECTOR OF REHABILITATION AND WELLNESS-CkBeronica Sandoval RN RN iw Dee Palacios RN RN 3 Patti Mijares Corrections: (The following items were deleted from the chart) 09:56 09:54 Pulse 78bpm; Resp 18bpm; Pulse Ox 100% RA; Temp 97.3F; iw iw 13:29 12:00 Reassessment: Patient appears in no apparent distress at this time. Patient eh3 and/or family updated on plan of care and expected duration. Pain level reassessed. Patient is alert, oriented x 3, equal unlabored respirations, skin warm/dry/pink. eh3
--- NOTE | 2023-03-30 13:38 | EDPHYS ---
Physician Documentation [facility] Name: Tryo Son Age: 28 yrs Sex: Female : 1995 Arrival Date: 03/30/2023 Time: 09:38 Bed 18 Private MD: ED Physician Priyank Palma HPI: 03/30 10:51 This 28 yrs old Black Female presents to ER via Wheelchair with complaints of kb Nausea/Vomiting, Fever, Near Syncope. 10:51 The patient presents to the emergency department with nausea, vomiting, abdominal pain. kb Onset: The symptoms/episode began/occurred this morning. Possible causes: unknown. The symptoms are aggravated by nothing. The symptoms are alleviated by nothing. Associated signs and symptoms: Pertinent positives: abdominal pain, nausea, vomiting, Pertinent negatives: fever. Severity of symptoms: At their worst the symptoms were moderate in the emergency department the symptoms are unchanged. The patient has not experienced similar symptoms in the past. The patient has not recently seen a physician. Pt reports upper abd pain, nausea and vomiting that started this morning. Reports when she vomits it causes her to pass out which has been happening to her for years every times she vomits. 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 - Social history:: Smoking status: . ROS: 10:50 Constitutional: Negative for fever, chills, and weight loss. kb 10:50 Abdomen/GI: Positive for abdominal pain, nausea and vomiting, Negative for diarrhea, constipation. 10:50 All other systems are negative. Exam: 10:50 Constitutional: This is a well developed, well nourished patient who is awake, alert, kb and in no acute distress. Head/Face: Normocephalic, atraumatic. ENT: Moist Mucous membranes Cardiovascular: Regular rate and rhythm with a normal S1 and S2. No gallops, murmurs, or rubs. No pulse deficits. Respiratory: Respirations even and unlabored. No increased work of breathing. Talking in full sentences Skin: Warm, dry with normal turgor. Normal color. MS/ Extremity: Pulses equal, no cyanosis. Neurovascular intact. Full, normal range of motion. Neuro: Awake and alert, GCS 15, oriented to person, place, time, and situation. Moves all extremities. Normal gait. 10:50 Abdomen/GI: Inspection: abdomen appears normal, Bowel sounds: normal, Palpation: soft, in all quadrants, moderate abdominal tenderness, in the right upper quadrant. Vital Signs: 09:54 BP 156 / 102; Pulse 78; Resp 18; Temp 97.3; Pulse Ox 100% on R/A; Weight 95.25 kg; iw Height 5 ft. 5 in. ; Pain 6/10; 11:00 BP 126 / 88; Pulse 68; Resp 18; Pulse Ox 99% on R/A; eh3 12:00 BP 119 / 75; Pulse 66; Resp 18; Pulse Ox 99% on R/A; eh3 13:00 BP 120 / 60; Pulse 62; Resp 18; Pulse Ox 98% on R/A; eh3 09:54 Body Mass Index 34.95 (95.25 kg, 165.1 cm) iw 09:54 Pain Scale: Adult iw MDM: 09:46 Patient medically screened. kb 13:37 Differential diagnosis: Nonspecific abd pain, gastritis, pancreatitis, viral kb gastroenteritis, GERD. Data reviewed: vital signs, nurses notes. Counseling: I had a detailed discussion with the patient and/or guardian regarding: the historical points, exam findings, and any diagnostic results supporting the discharge/admit diagnosis, lab results, the need for outpatient follow up, a family practitioner, to return to the emergency department if symptoms worsen or persist or if there are any questions or concerns that arise at home. ED course: Pt feeling better after treatment. 03/30 09:57 Order name: CBC with Diff; Complete Time: 11:31 kb 03/30 09:57 Order name: CMP; Complete Time: 11:39 kb 03/30 09:57 Order name: Lipase; Complete Time: 11:39 kb 03/30 09:57 Order name: Test, Urine; Complete Time: 13:37 kb 03/30 09:57 Order name: Urinalysis w/ reflexes; Complete Time: 13:37 kb 03/30 09:57 Order name: IV Saline Lock; Complete Time: 11:14 kb 03/30 09:57 Order name: Labs collected and sent; Complete Time: 11:14 kb Administered Medications: 10:50 Drug: NS 0.9% IV 1000 ml Route: IV; Rate: 1 bolus; Site: right antecubital; 3 12:00 Follow up: IV Status: Completed infusion; IV Intake: 1000ml 3 10:50 Drug: Famotidine IVP 20 mg Route: IVP; Site: right antecubital; 3 12:00 Follow up: Response: No adverse reaction eh3 10:50 Drug: Ondansetron IVP 4 mg Route: IVP; Site: right antecubital; eh3 12:00 Follow up: Response: No adverse reaction eh3 13:40 Drug: Ondansetron IVP 4 mg Route: IVP; Site: right antecubital; eh3 13:51 Follow up: Response: No adverse reaction 3 Disposition: 18:56 Co-signature as Attending Physician, Priyank Palma MD I reviewed the patient's care rt provided by the Advanced Practice Provider and agree with the diagnosis and treatment plan. Disposition Summary: 03/30/23 13:38 Discharge Ordered Location: Home kb Condition: Stable kb Diagnosis - Nausea with vomiting, unspecified kb Followup: kb - With: Emergency Department - When: As needed - Reason: Worsening of condition Followup: kb - With: Private Physician - When: 2 - 3 days - Reason: Recheck today's complaints, Continuance of care, Re-evaluation by your physician Discharge Instructions: - Discharge Summary Sheet kb - Nausea and Vomiting, Adult, [id number] kb Forms: - Medication Reconciliation Form kb - Thank You Letter kb - Antibiotic Education kb - Prescription Opioid Use kb - Patient Portal Instructions kb Prescriptions: - Zofran 4 mg Oral Tablet - take 1 tablet by ORAL route every 6 hours As needed; 12 tablet; Refills: 0, kb Product Selection Permitted - dicyclomine 20 mg Oral Tablet - take 1 tablet by ORAL route 4 times per day As needed; 20 tablet; Refills: 0, kb Product Selection Permitted Signatures: Dispatcher [employer] Ellyn Mckinney FNP-C FNP-Beronica Knight, RN ALTON iw Dee Palacios RN RN 3 Priyank Palma MD MD rt
[2023-03-30 14:08] VITALS: TEMP 97.3
[2023-03-30 14:11] VITALS: BP 120/60; O2SAT 98
== END 2023-03-30 13:51 | disposition home or self-care (01) ==
LOC: ER 09:38
DX: R11.2 Nausea with vomiting, unspecified (principal); R10.9 Unspecified abdominal pain; Z88.1 Allergy status to other antibiotic agents
CPT/HCPCS: 96361; 85025; 81001; 36415; 81025; 83690; 80053; 96375; 96374; 99284; J2405 ×2; J7030

== ENCOUNTER 2024-06-14 05:27 | Emergency (ER) | payer SELFPAY ==
--- OUTSIDE RECORDS SUMMARY | 2024-06-14 05:31 | XMS REPORT | Continuity of Care Document ---
Author Name Unknown Address [address] [facility] [address] [place] [address] [facility] thconnect Address [address] 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 Name Role Phone No , Pcp Primary Care Physician Unavailab STEFANY Astudillo Attending Clinician Unavailable MARIA ESTHER FONTENOT Attending Clinician Unavailable PROVIDER, AFFILIATE Attending Clinician UnavailTEJAS Sanchez JR Attending Clinician Unavailable PEREZ LOPEZ Attending Clinician Unavail able LAB47 Attending Clinician Unavailable JHON MIRAMONTES Attending Clinician Unavailable NAOMIE PIÑA Attending Clinician UnavailMELY Addison Attending Clinician UnavailMely Matos CNM Attending Clinician [phone] Provider, [facility] Temp Attending Clinician Brittany JUANA Holden Attending Clinician Unavailable YOGESH MALDONADO Attending Clinician Unavailable Yogesh Maldonado DO Attending Clinician [phone] Perez Santiago Attending Clinician + NIVIA PIÑA Attending Clinician Unavailable JOSH FLYNN Attending Clinician Unavailable GADIEL BOYKIN Attending Clinician Unavailab Nivia Santamaria MD Attending Clinician [phone] Doctor Unassigned, Mcdonough Attending Clinician U Evi Cota Attending Clinician Unavailable Evi Francisco Attending Clinician [phone] [facility] Dylan MCKEONP, Nory Soriano Attending Clinician [phone] NORY RODRIGUEZ Attending Clinician Unavaileron Rubio DO, Amor Chavez Attending Clinician [phone] Asif TILE MASON, Gadiel Rod Attending Clinician + [phone] Evi CARPENTER Admitting Clinician Unavailable Payers Payer Name Policy Type Policy Number Effective Date Expirati on Date Source OPEN ACCESS AETNA SELECT EPO [id number] 2021 00:00:00 [employer]ET[employer] 2 [id number] 2022 00:00:00 [employer] MP [employer] [employer]: 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 9 [id number] 2022 00:00:00 [place] [employer] [id number] 2021 00:00:00 Problems Condition Name Condition Details Condition Category Status Onset Date Resolution Date Last Treatment Date Treating Clinician Comments Source Acetabulum fracture, left Acetabulum fracture, left Disease Active 11-19 00:00: 00 [facility] Obesity (BMI 30-39.9) Obesity (BMI 30-39.9) Disease Active 2021-08 00:00: 00 [facility] Other depression Other depression Disease Active 03-23 00:00: 00 [facility] Need for HPV vaccinatio n Need for HPV vaccinatio n Disease Active 03-23 00:00: 00 [facility] Class 1 obesity with body mass index (BMI) of 34.0 to 34.9 in adult, unspecifie d obesity type, unspecifie d whether serious comorbidit y present Class 1 obesity with body mass index (BMI) of 34.0 to 34.9 in adult, unspecifie d obesity type, unspecifie d whether serious comorbidit y present Disease Active 03-23 00:00: 00 [facility] LABOR LABOR Active 08/27/2013 [facility] Diagnosis Active 08-27 00:00: 00 2013-08-28 01:09:00 Yazmin Lee Born by caesarean section (context-d ependent category) Born by caesarean section (context-d ependent category) Diagnosis 11/08/2022 [facility] Diagnosis 2022-11-08 00:55:02 Ejcece george Lee Single liveborn infant, delivered by Single liveborn , delivered by 11/11/2022 [facility] Problem 2022-11-11 07:10:19 Yazmin Lee THREAT LABOR NEC-UNSPEC THREAT LABOR NEC-UNSPEC Active [facility] Diagnosis Active 2013-08-28 01:09:00 Yazmin Lee Allergies, Adverse Reactions, Alerts Allergy Name Allergy Type Status Severity Reaction(s) Onset Date Inactive Date Treating Clinician Comments Source Latex Propensi ty to adverse reaction s Active Swelling 03-12 00:00: 00 [facility] LATEX DRUG INGREDI Active Hives 03-12 00:00: 00 [facility] Latex Propensi ty to adverse reaction s Active Swelling 03-12 00:00: 00 Gege Weber Externjamaal vazquez Social History Social Habit Start Date Stop Date Quantity Comments Source History SDOH Alcohol Frequency [facility] History SDOH Alcohol Std Drinks [facility] History SDOH Alcohol Binge [facility] Exposure to SARS-CoV-2 (event) 2022-12-08 00:00:00 2022-12-18 00:13:00 Not sure [facility] Alcohol intake 2022-09-12 00:00:00 2022-09-12 00:00:00 Ex-drinker (finding) Gege Jauregui - External Tobacco use and exposure 2022-05-01 00:00:00 2022-05-01 00:00:00 Smokeless tobacco non-user Gege Jauregui - External Alcohol Comment 2019-03-23 00:00:00 2019-03-23 00:00:00 social events [facility] Sex Assigned At 1995 00:00:00 1995 00:00:00 [facility] Smoking Status Start Date Stop Date Source Tobacco smoking consumption unknown [facility] Social History [facility] Ehsan elam Medications Ordered Medication Name Filled Medication Name Start Date Stop Date Current Medication? Ordering Clinician Indication Dosage Frequency Signature (SIG) Comments Components Source traMADol (Ultram) 50 MG tablet 11-20 00:00: 00 Yes [id number] 50mg Q6H Take 1 tablet (50 mg total) by mouth every 6 (six) hours if needed for severe pain. [facility] docusate-se nna 50 mg-8.6 mg oral tablet 11-05 14:14: 00 No 2 tab, PO, Daily, X 4 day, # 8 tab, 0 Refill(s), Pharmacy: [facility] #[id number], 162.56, cm, 11/04/22 15:53:00 CDT, Height, 100, kg, 11/04/22 15:53:00 CDT, Weight Memoria george Lee Adult Aspirin 325 mg oral tablet 11-05 14:13: 00 Yes 325 mg = 1 tab, PO, BID, # 40 tab, 0 Refill(s), Pharmacy: [facility] #[id number], 162.56, cm, 11/04/22 15:53:00 CDT, Height, 100, kg, 11/04/22 15:53:00 CDT, Weight Memoria george Lee tramadol 50 mg oral tablet 11-05 14:12: 00 No 50 mg = 1 tab, PO, TID, PRN Pain Score 7-10, X 3 day, # 9 tab, 0 Refill(s), Pharmacy: [facility] #[id number], 162.56, cm, 11/04/22 15:53:00 CDT, Height, 100, kg, 11/04/22 15:53:00 CDT, Weight Memoria l Jesus acetaminoph en 500 mg oral tablet. 11-05 14:11: 00 No 1,000 mg = 2 tab, PO, TID, X 5 day, # 30 tab, 0 Refill(s), Pharmacy: [facility] #[id number], 162.56, cm, 11/04/22 15:53:00 CDT, Height, 100, kg, 11/04/22 15:53:00 CDT, Weight Memoria l Jesus remove patch 11-05 01:00: 00 No Notes: Remove patch 12 hours after applicatio n each day. Yazmin Lee lidocaine (ANES) 11-04 19:11: 00 No Route: IV, Drug form: INJ, ONCE, Stop date: 11/04/22 14:11:00 CDT Yazmin Lee fentaNYL (ANES) 11-04 19:11: 00 No Route: IV, Drug form: INJ, ONCE, Stop date: 11/04/22 14:11:00 CDT Yazmin Lee propofol (ANES) 11-04 19:11: 00 No Route: IV, Drug form: INJ, ONCE, Stop date: 11/04/22 14:11:00 CDT Yazmin Lee ceFAZolin (ANES) 11-04 19:11: 00 No Route: IV, Drug form: INJ, ONCE, Stop date: 11/04/22 14:11:00 CDT Yazmin Lee ondansetron (ANES) 11-04 19:11: 00 No Route: IV, Drug form: INJ, ONCE, Stop date: 11/04/22 14:11:00 CDT Yazmin Lee midazolam (ANES) 11-04 19:09: 00 No Route: IV, Drug form: SOLN, ONCE, Stop date: 11/04/22 14:09:00 CDT Yazmin Lee Isolyte S PH-7.4 (Bolus) IV 11-04 18:53: 00 No Notes: (Same as: Isolyte S PH7.4, Normosol-R PH 7.4, Plasma-Lyt e A ) Yazmin SERVIN hydrALAZINE 11-04 18:53: 00 No Notes: (Same as: Apresoline ) Push over 5 minutes Yazmin SERVIN labetalol 11-04 18:53: 00 No 10 mg, 2 mL, Route: IVP, Drug form: INJ, Q5Min, Dosing Weight 77.273, kg, PRN Elevated BP, Start date: 11/04/22 13:53:00 CDT, Duration: 5 doses or times, Stop date: Limited # of times, 0 Ejcece george SERVIN oxyCODONE 5 mg immediate release tablet 11-04 18:53: 00 No Notes: (Same as: Roxicodone ) Yazmin george Jesus ANGELINAPavan HYDROmorpho ne 11-04 18:53: 00 No Notes: Same as Dilaudid Ejcece vazquez Jesus ANEPavan flumazenil 11-04 18:53: 00 No Notes: (Same as: Romazicon) Yazmin george Jesus ANEPavan naloxone 11-04 18:53: 00 No Notes: Same as Narcan Ejcece vazquez Jesus ANEPavan ePHEDrine 11-04 18:53: 00 No Notes: (Same as: ePHEDrine Sulfate) Yazmin george Jesus ANEPavan ondansetron 11-04 18:53: 00 No Notes: (Same as: Zofran) MEDICATION WASTE Product Size: 4 mg Product Wasted: ___ mg Ejcece george SERVIN promethazin e + Sodium Chloride 0.9% IV 50 mL 11-04 18:53: 00 No Notes: Do not give IV push. (Same as: Phenergan) Yazmin Lee Lactated Ringers Injection IV (ANES) 1000 mL 11-04 18:15: 00 No Route: IV, Total Volume: 1,000, Start date: 11/04/22 13:15:00 CDT, Stop date: 11/04/22 14:15:00 CDT Yazmin Lee Lovenox 11-04 14:00: 00 No Notes: (Same as: Lovenox) Yazmin Lee polyethylen e glycol 3350 11-04 14:00: 00 No Notes: Dissolve in 8 oz of water or juice. (Same as: Miralax) Yazmin Lee docusate-se nna 50 mg-8.6 mg oral tablet 11-04 14:00: 00 No Notes: (Same as Elva-S) Equiv. to Veronica-Colac e. Yazmin Lee lidocaine 4% topical film 11-04 13:00: 00 No Notes: Patch is applied to intact skin to cover painful area for up to 12 hours in a 24-hour period (12 hours on and 12 hours off). Please indicate the location of applicatio n site. Site 1: Remove old patch before applicatio n of new patch. (Same as Aspercreme Lidocaine Patch) Yazmin Lee methocarbam ol 11-04 13:00: 00 No Notes: (Same as:Robaxin ) Yazmin Lee acetaminoph en 11-04 12:05: 00 No Notes: Max acetaminop hen 4000 mg/day (4 gm/day). (Same as: Tylenol Extra Strength) Yazmin Moserann gabapentin 11-04 12:05: 00 No Notes: (Same as: Neurontin) Yazmin Moserann tramadol 11-04 12:05: 00 No Notes: Not to exceed 400mg/day. (Same As: Ultram) Yazmin Lee potassium chloride 11-04 12:04: 00 No Notes: (Same as: Potassium Chloride) Yazmin Lee Dextrose 50% Syringe (D50W) 11-04 11:23: 00 No 12.5 gm, 25 mL, Route: IVP, Drug Form: INJ, Dosing Weight 77.273, kg, PRN, PRN Blood Glucose Results, Start date: 11/04/22 6:23:00 CDT, Duration: 30 day, Stop date: 12/04/22 6:22:00 CDT, 0 Yazmin Lee glucagon 11-04 11:23: 00 No 1 mg, Route: IM, Drug form: PDR/INJ, PRN, Dosing Weight 77.273, kg, PRN Blood Glucose Results, Start date: 11/04/22 6:23:00 CDT, Duration: 30 day, Stop date: 12/04/22 6:22:00 CDT, 0 Yazmin Moserann bisacodyl 11-04 11:23: 00 No Notes: (Same As: Dulcolax, Bisco-Lax) Yazmin george Morning Sun ondansetron 11-04 11:23: 00 No Notes: (Same as: Zofran) MEDICATION WASTE Product Size: 4 mg Product Wasted: ___ mg Yazmin george Morning Sun melatonin 11-04 11:23: 00 No Notes: (Same as: Melatonin) Yazmin Lee Lubricant Eye Drops ophthalmic solution 11-04 11:23: 00 No Notes: (Same as: Aquasite) Yazmin Lee Nasal Saline 0.65% solution 11-04 11:23: 00 No Notes: (Same as: [place], Deep Sea Nasal [place]). Yazmin Lee Tums 11-04 11:23: 00 No Notes: (Same As: Tums) Calcium Carbonate 500 mg = 200 mg elemental calcium Dose = mg calcium carbonate ( mg elemental calcium) Yazmin Lee Cepacol Sore Throat 15 mg-3.6 mg mucous membrane lozenge 11-04 11:23: 00 No Notes: Cepacol lozenges Dispense 1 box = 16 lozenges (Same As: Cepacol Lozenges) Yazmin Lee Flonase 0.05 mg/inh nasal spray 11-04 11:23: 00 No Notes: (Same as: Flonase) Yazmin Lee Calmoseptin e topical ointment 11-04 11:23: 00 No Notes: (Same as: Calmosepti ne) Yazmin Lee cetirizine 11-04 11:23: 00 No Notes: (Same As: Zyrtec) Yazmin Lee Blistex topical ointment 11-04 11:23: 00 No Notes: Same as: Blistex Yazmin Lee Aquaphor 11-04 11:23: 00 No 1 appl, Route: TOP, Q4H, Drug form: OINT, PRN as needed for dry skin, Start date: 11/04/22 6:23:00 CDT, Duration: 30 day, Stop date: 12/04/22 6:22:00 CDT, 0 Yazmin Lee morphine Sulfate 11-04 10:15: 00 No 4 mg, Route: IVP, ONCE, Dosing Weight 77.273, kg, Priority: STAT, Start date: 11/04/22 5:15:00 CDT, Stop date: 11/04/22 5:15:00 CDT Yazmin Lee Zofran 11-04 10:15: 00 No 4 mg, Route: IVP, Drug form: INJ, ONCE, Dosing Weight 77.273, kg, Priority: STAT, Start date: 11/04/22 5:15:00 CDT, Stop date: 11/04/22 5:15:00 CDT Yazmin Lee Omnipaque 350 mg/mL 11-04 02:27: 00 No 100 mL, Route: IVP, Drug Form: SOLN, Dosing Weight 77.273, kg, ONCALL, STAT, Start date: 11/03/22 21:27:00 CDT, Duration: 1 doses or times, Dose = 2.2ml/kg, Max dose = 100ml -- "To be infused by Radiology Staff ONLY" Yazmin george Morning Sun [place] 10/325 oral tablet 11-04 02:09: 00 No 1 tab, Route: PO, Drug Form: TAB, Dosing Weight 77.273, kg, ONCE, STAT, Start date: 11/03/22 21:09:00 CDT, Stop date: 11/03/22 21:09:00 CDT Yazmin Lee Saline Flush 0.9% 11-04 00:03: 00 No Notes: Same as: BD Posiflush Sterile Ejcece george Lee fentaNYL 11-04 00:03: 00 No Notes: (Same as: Sublimaze) Preservati ve free. Ejcece george Lee ondansetron 11-04 00:03: 00 No Notes: (Same as: Zofran) MEDICATION WASTE Product Size: 4 mg Product Wasted: ___ mg Ejcece george Lee Norethin Arturo-Eth Estrad-FE (Loestrin Fe 1.5/30) 1.5-30 MG-MCG oral Tablet 00:00: 00 Yes [id number] Take 1 pill 3 times a day for 3 days, 1 pill 2 times a day for 2 days, then 1 pill daily for the remainder Gege vazquez metroNIDAZO LE 500 mg tablet 2021-08 00:00: 00 08-06 05:59 :00 No [id number] 500mg Take 1 tablet by mouth in the morning and 1 tablet in the evening. Do all this for 7 days. [facility] Omeprazole 40 MG oral Delayed Release Capsule 05-01 00:00: 00 Yes [id number] 40mg Take 1 capsule (40 mg total) by mouth daily Gege vazquez methylpredn isolone sod succ (SOLU-MEDRO L) injection 125 mg 12-24 05:00: 00 12-24 04:08 :00 No 125mg 125 mg, Slow IV Push, ONCE, 1 dose, On 12/24/21 at 0000, SHIRA [facility] ketorolac (TORADOL) injection 15 mg 12-24 03:15: 00 12-24 02:44 :00 No 15mg 15 mg, Slow IV Push, ONCE, 1 dose, On 12/23/21 at 2215, SHIRA
Fa culty member approving Restricted medication : Evi CARPENTER [facility] famotidine (PEPCID (PF)) injection 20 mg 12-24 02:15: 00 12-24 01:28 :00 No 20mg 20 mg, Slow IV Push, ONCE, 1 dose, On 12/23/21 at 2115, SHIRA [facility] maalox:diph enhydrAMINE :lidocaine 2 % viscous 1:1:1 (FIRST-MOUT HWASH BLM) oral suspension 15 mL 12-24 02:15: 00 12-24 01:28 :00 No 15mL 15 mL, Oral (Swish & Swallow), ONCE, 1 dose, On 12/23/21 at 2115, Routine [facility] methylPREDN ISolone (MEDROL, NITA,) 4 mg tablets 12-23 00:00: 00 07-26 00:00 :00 No [id number] Take by mouth SEE-INSTRU CTIONS. follow package directions [facility] norgestimat e-ethinyl estradioL (TRI-LO-SPR INTEC) 0.18/0.215/ 0.25 mg-25 mcg tablet 2020-08 00:00: 00 07-26 00:00 :00 No [id number] 1{tbl} Take 1 tablet by mouth daily. [facility] No known medications 05-21 14:53: 37 No [facility] ferrous sulfate 325 mg oral enteric coated tablet 08-31 11:54: 00 Yes Marycruz Rubio 325 mg = 1 tab, PO, TID, # 90 tab, 0 Refill(s) Memcece Lee ibuprofen 800 mg oral tablet 08-31 11:54: 00 Yes Marycruz Rubio 800 mg = 1 tab, PO, Q8H, Pain, # 30 tab, 0 Refill(s) Memcece Lee acetaminoph en-hydrocod one 325 mg-5 mg oral tablet 08-31 11:54: 00 Yes Marycruz Rubio 1-2 tab, PO, Q6H, as needed for pain, # 30 tab, 0 Refill(s) Memcece Lee Colace 100 mg oral capsule 08-31 11:54: 00 Yes Marycruz Rubio 100 mg = 1 cap, PO, BID, # 60 cap, 0 Refill(s) Memcece Lee ferrous sulfate 08-30 15:00: 00 No Marycruz Rubio 325 mg, 1 tab, Route: PO, Drug form: ECTAB, TID, Dosing Weight 89.091, kg, Start date: 08/30/13 9:00:00, Duration: 30 day, Stop date: 09/28/13 17:00:00Gi ve with food. "Do Not Crush" Memcece Moserann Colace 100 mg oral capsule 08-29 23:00: 00 No Gopi Valderramaen 100 mg, 1 cap, Route: PO, Drug form: CAP, BID, Dosing Weight 89.091, kg, Start date: 08/29/13 17:00:00, Duration: 30 day, Stop date: 09/28/13 9:00:00(Sa me as: Colace) (Do Not Crush) Yazmin Lee ferrous gluconate 324 mg oral tablet 08-29 15:00: 00 No Delma Junior Refuerzo 324 mg, 1 tab, Route: PO, Drug form: TAB, BID, Dosing Weight 89.091, kg, Start date: 08/29/13 9:00:00, Duration: 30 day, Stop date: 09/27/13 17:00:00Gi ve with food. iron elemental 38 kx=992 mg as ferrous sulfate Dose=___mg elemental iron Yazmin Lee Benadryl 08-28 22:49: 00 No Jo Ann Lara Gong 25 mg, 1 cap, Route: PO, Drug form: CAP, Q6H, Dosing Weight 89.091, kg, PRN Itching, Start date: 08/28/13 16:49:00, Duration: 30 day, Stop date: 09/27/13 16:48:00(S velasquez as: Benadryl) Yazmin Lee Saline Flush 0.9% 08-28 15:00: 00 No Reem Sabouni 5 ml, Route: IVP, Drug Form: INJ, Dosing Weight 89.091, kg, Q12H, Start date: 08/28/13 9:00:00, Duration: 30 day, Stop date: 09/26/13 21:00:00(S velasquez as: BD Posiflush) Yazmin Lee Multivitami ns oral tablet 08-28 15:00: 00 No Reem Sabouni 1 tab, Route: PO, Drug Form: TAB, Dosing Weight 89.091, kg, Daily, Start date: 08/28/13 9:00:00, Duration: 30 day, Stop date: 09/26/13 9:00:00 Yazmin Lee Motrin 08-28 14:00: 00 No Sonal Cam Littlejohn 600 mg, 1 tab, Route: PO, Drug form: TAB, Q6H-02, Start date: 08/28/13 8:00:00, Duration: 24 hr, Stop date: 08/29/13 2:00:00(Sa me as: Motrin) "Do Not Crush" Take with food. Yazmin Lee ketorolac 30 mg/mL injectable solution 08-28 14:00: 00 No Sonal Tynese Littlejohn 30 mg, 1 mL, Route: IVP, Drug form: INJ, Q6H-02, Start date: 08/28/13 8:00:00, Duration: 2 doses or times, Stop date: 08/28/13 14:00:00(S velasquez as:Toradol ) IV bolus must be given >15 seconds. Give IM administra tion slowly and deeply into the muscle. Not for use > 4 days Yazmin Lee Zofran 08-28 13:31: 00 No Sonal Tynese Littlejohn 4 mg, 2 mL, Route: IVP, Drug form: INJ, PRN, PRN Nausea, Start date: 08/28/13 7:31:00, Duration: 24 hr, Stop date: 08/29/13 7:30:00(Sa me as: Zofran) Yazmin Lee naloxone 08-28 13:31: 00 No Sonal Tynese Littlejohn 0.4 mg, 1 mL, Route: IVP, Drug form: INJ, PRN, PRN Narcotic Reversal, Start date: 08/28/13 7:31:00, Duration: 24 hr, Stop date: 08/29/13 7:30:00(Sa me as: Narcan) Yazmin Lee ketorolac 30 mg/mL injectable solution 08-28 06:02: 00 No Gregory Eric 30 mg, 1 mL, Route: IV, Drug form: INJ, Q6H, Priority: NOW, Start date: 08/28/13 0:02:00, Duration: 2 doses or times, Stop date: 08/28/13 6:00:00(Sa me as:Toradol ) IV bolus must be given >15 seconds. Give IM administra tion slowly and deeply into the muscle. Not for use > 4 days Yazmin LoboR II 08-28 06:00: 00 No Reem Sabouni 0.5 mL, Route: SUB-Q, Drug Form: PDR/INJ, Dosing Weight 89.091, kg, ONCALL, Start date: 08/28/13 0:00:00, Duration: 1 doses or times(Same as: M-M-R II) (measles-m umps-rubel la virus vaccine 0.5 ml INJ VL) GIVE PRIOR TO DISCHARGE Yazmin george Jesus Saline Flush 0.9% 08-28 05:31: 00 No Reem Sabouni 5 ml, Route: IVP, Drug Form: INJ, Dosing Weight 89.091, kg, PRN, PRN Line Flush, Start date: 08/27/13 23:31:00, Duration: 30 day, Stop date: 09/26/13 23:30:00(S velasquez as: BD Posiflush) Yazmin Lee zolpidem 08-28 05:31: 00 No Reem Sabouni 5 mg, 1 tab, Route: PO, Drug form: TAB, Bedtime, Dosing Weight 89.091, kg, PRN Insomnia, Start date: 08/27/13 23:31:00, Duration: 30 day, Stop date: 09/26/13 23:30:00(S velasquez As: Ambien) Yazmin Lee simethicone 08-28 05:31: 00 No Reem Sabouni 160 mg, 2 tab, Route: PO, Drug form: CHEWTAB, Q8H, Dosing Weight 89.091, kg, PRN Gas, Start date: 08/27/13 23:31:00, Duration: 30 day, Stop date: 09/26/13 23:30:00(S velasquez as: Mylicon) Ejcece george Lee acetaminoph en 08-28 05:31: 00 No Reem Sabouni 650 mg, 20.3 mL, Route: PO, Drug form: LIQ, Q4H, Dosing Weight 89.091, kg, PRN Other -See Comment, Start date: 08/27/13 23:31:00, Duration: 30 day, Stop date: 09/26/13 23:30:00Ma x acetaminop hen = 4000mg/day (4 gm/day). (Same as: Tylenol) Yazmin Lee lanolin topical cream 08-28 05:31: 00 No Reem Sabouni 1 appl, Route: TOP, PRN, Drug form: OINT, PRN Other -See Comment, Start date: 08/27/13 23:31:00, Duration: 30 day, Stop date: 09/26/13 23:30:00 Yazmin Lee bisacodyl 08-28 05:31: 00 No Reem Sabouni 10 mg, 1 supp, Route: UT, Drug form: SUPP, PRN, Dosing Weight 89.091, kg, PRN Other -See Comment, Start date: 08/27/13 23:31:00, Duration: 30 day, Stop date: 09/26/13 23:30:00(S velasquez As: Dulcolax, Bisco-Lax) Yazmin Lee acetaminoph en-hydrocod one 325 mg-5 mg oral tablet 08-28 05:31: 00 No Reem Sabouni 2 tab, Route: PO, Drug Form: TAB, Dosing Weight 89.091, kg, Q4H, PRN Pain Score 4-6, Start date: 08/27/13 23:31:00, Duration: 30 day, Stop date: 09/26/13 23:30:00(S velasquez as: [place] 325/5) Do not exceed 4gm/day of acetaminop hen. Yazmin Lee ibuprofen 08-28 05:31: 00 No Reem Sabouni 600 mg, 1 tab, Route: PO, Drug form: TAB, Q6H, Dosing Weight 89.091, kg, PRN Pain Score 1-5, Start date: 08/27/13 23:31:00, Duration: 30 day, Stop date: 09/26/13 23:30:00(S velasquez as: Motrin) "Do Not Crush" Take with food. Yazmin Lee Lactated Ringers IV 1,000 mL 08-28 05:31: 00 No Reem Sabouni 1,000 mL, Rate: 100 ml/hr, Infuse over: 10 hr, Route: IV, Dosing Weight 89.091 kg, Total Volume: 1,000, Start date: 08/27/13 23:31:00, Duration: 30 day, Stop date: 09/26/13 23:30:00 Yazmin Lee Lactated Ringers 1000ml+Darien gunjan 20 units IV (Premix) 20 unit 08-28 05:31: 00 No Gayathri Garyi 20 unit, 1,000 mL, Rate: 125 ml/hr, Infuse over: 8 hr, Dosing Weight 89.091, kg, Route: IV, Total Volume: 1,000 mL, Start date: 08/27/13 23:31:00, Duration: 2 day, Stop date: 08/29/13 23:30:00, Replace Every: 8 hrConc = 0.02unit/m l = 20milliuni t/ml Yazmin Lee Sodium Chloride 0.9% (titrate) 250 mL 08-28 00:41: 00 No Maria Esther Carrasquillo 250 mL, Rate: call or contact centre operator for use with blood product administra tion, Dosing Weight 89.091, kg, Route: IV, Total Volume: 250, Start Date: 08/27/13 18:41:00, Duration: 1 day, Stop date: 08/28/13 18:40:00, Replace Every: 24 hr Yazmin Lee ceFAZolin 08-27 22:00: 00 No Jo Ann Lara Gong 2 gm, 50 mL, Route: IVPB, Drug form: INJ, ONCALL, kg, Start date: 08/27/13 16:00:00, Duration: 1 doses or times, Stop date: 08/29/13 0:00:00 Yazmin Lee azithromyci n 08-27 22:00: 00 No Jo Ann Jane Gong 500 mg, Route: IVPB, Drug form: PDR/INJ, ONCALL, kg, Start date: 08/27/13 16:00:00, Duration: 1 doses or times, Stop date: 08/29/13 0:00:00(Sa me As: Zithromax IV) Yazmin Lee methylergon ovine 08-27 22:00: 00 No Jo Ann Jane Gong 0.2 mg, 1 mL, Route: IM, Drug form: INJ, ONCALL, kg, Start date: 08/27/13 16:00:00, Duration: 30 day, Stop date: 09/26/13 15:59:00(S velasquez as:Metherg ine) Yazmin Lee misoprostol 08-27 22:00: 00 No Jo Ann Jane Gong 1,000 microgram, 5 tab, Route: UT, Drug form: TAB, ONCALL, kg, Start date: 08/27/13 16:00:00, Duration: 30 day, Stop date: 09/26/13 15:59:00(S velasquez as:Cytotec ) Take with food Yazmin Lee carboprost 08-27 22:00: 00 No Jo Ann Jane Gong 250 microgram, 1 mL, Route: IM, Drug form: INJ, ONCALL, kg, Start date: 08/27/13 16:00:00, Duration: 30 day, Stop date: 09/26/13 15:59:00(S velasquez As: Hemabate) Yazmin Lee Lactated Ringers Injection IV 1,000 mL 08-27 21:32: 00 No Jo Ann Jane Gong 1,000 mL, Rate: 125 ml/hr, Infuse over: 8 hr, Route: IV, Total Volume: 1,000, Start date: 08/27/13 15:32:00, Duration: 30 day, Stop date: 09/26/13 15:31:00 Yazmin Lee ondansetron 08-27 21:32: 00 No Jo Ann Jane Gong 4 mg, 2 mL, Route: IVP, Drug form: INJ, Q8H, kg, PRN Nausea & Vomiting, Start date: 08/27/13 15:32:00, Duration: 30 day, Stop date: 09/26/13 15:31:00(S velasquez as: Zofran) Yazmin Lee morphine Sulfate 08-27 21:32: 00 No Jo Ann Jane Gong 2 mg, 1 mL, Route: IVP, Drug form: INJ, Q2H, kg, PRN Pain Score 7-10, Start date: 08/27/13 15:32:00, Duration: 30 day, Stop date: 09/26/13 15:31:00(S velasquez as:MORPhin e Sulfate) Yazmin Lee terbutaline 08-27 21:32: 00 No Jo Ann Jane Gong 0.25 mg, 0.25 mL, Route: SUB-Q, Drug form: INJ, ONCALL, kg, PRN Other -See Comment, Start date: 08/27/13 15:32:00, Duration: 1 doses or times, Stop date: 08/29/13 0:00:00D O NOT USE IN [employer] (Same As: Glenna) Yazmin Lee citric acid-sodium citrate 08-27 21:32: 00 No Jo Ann Jane Gong 30 mL, Route: PO, Drug Form: SOLN, kg, ONCE, Start date: 08/27/13 15:32:00, Duration: 1 doses or times, Stop date: 08/27/13 15:32:00(S velasquez As: Bicitra, Cytra-2) Sodium citrate-ci tric acid (500-334 mg/5 mL): 1 mL contains sodium 1 mEq/mL and bicarbonat e 1 mEq/mL Yazmin Lee Lactated Ringers 1000ml+Oxyt ocin 20 units IV (Premix) 20 unit 08-27 21:32: 00 No Jo Ann Jane Gong 20 unit, 1,000 mL, Rate: 125 ml/hr, Infuse over: 8 hr, Route: IV, Total Volume: 1,000 mL, Start date: 08/27/13 15:32:00, Duration: 2 day, Stop date: 08/29/13 15:31:00, Replace Every: 8 hrConc = 0.02unit/m l = 20milliuni t/ml Yazmin Lee Vital Signs Vital Name Observation Time Observation Value Comments S robby Systolic blood pressure 2022-09-12 21:20:00 108 mm[Hg] Gege Seybo ld - External Diastolic blood pressure 2022-09-12 21:20:00 76 mm[Hg] Gege Godienzybo ld - External Heart rate 2022-09-12 21:20:00 84 /min Kelse y Seybold - External Body height 2022-09-12 21:20:00 162.6 cm Lilliana ey Seybold - External Body weight 2022-09-12 21:20:00 102.059 kg Lilliana ey Seybold - External BMI 2022-09-12 21:20:00 38.62 kg/m2 Lilliana ey Seybold - External Systolic blood pressure 2022-07-26 21:00:00 109 mm[Hg]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 (test code = 5427267898) 0.7 mg/dL 0.1-1.1 CALCIUM (test code = 7475210780) 9.6 mg/dL 8.6-10.6 T PROTEIN (test code = 2518064870) 7.8 g/dL 6.3-8.2 ALBUMIN (test code = 7470010927) 4.4 g/dL 3.5-5.0 ALK PHOS (test code = 2156907687) 105 U/L 34-122 ALTv (test code = 1742-6) 24 U/L 5-35 AST(SGOT) (test code = 6167414867) 30 U/L 13-40 eGFR (test code = 6825775170) mL/min/1.73m2 GRISELDA (test code = GRISELDA) Association of [...] or urine or abnormalities in imaging tests). [facility]MAG[facility]22-[facility] 01:34:25* Test Item Value Reference Range Interpretation Comme nts MAGNESIUM (test code = 3293400479) 1.8 mg/dL 1.7-2.4 Lab Interpretation (test cod e = 04402-9) Normal [facility] HospitalD-KNIVB4781-33-21 01:31:04* Test Item Value Reference Range Interpretation Comments D-DIMER (test code = 2860730122) See_Comment [Automated message] The system which generated this result transmitted reference range: <0.41 ?g/mL (FEU). The reference range was not used to interpret this result as normal/abnormal. GRISELDA (test code = GRISELDA) This test may be used in conjunction with a clinical pretest [...] context, in forming a diagnosis. Lab Interpretation (test code = 45773-7) Normal [facility] HospitalPOCT IBET4694-79-61 01:24:00* Test Item Value Reference Range Interpretation Comme nts POCT PREG (test code = 1605) negative On board controls acceptable with C Line (test code = 3574) present POCT PREG LOT # (test code = 3575) [id number] POCT PREG TEST DATE ( test code = 3576) Lab Interpretation (test cod e = 74357-3) Normal [facility] WITH [id number] 01:20:27* Test Item Value Reference Range Interpretation Comme nts WBC (test code = 6690-2) See_Comment [Automated messa ge] The system which generated this result transmitted reference range: 4.30 - 11.10 10*3/?L. The reference range was not used to interpret this result as normal/abnormal. RBC (test code = 789-8) See_Comment [Automated messa ge] The system which generated this result transmitted reference range: 3.93 - 5.25 10*6/?L. The reference range was not used to interpret this result as normal/abnormal. HGB (test code = 718-7) 12.5 g/dL 11.6-15.0 HCT (test code = 4544-3) 38.2 % 35.7-45.2 MCV (test code = 787-2) 81.8 fL 80.6-95.5 MCH (test code = 785-6) 26.8 pg 25.9-32.8 MCHC (test code = 786-4) 32.7 g/dL 31.6-35.1 RDW-SD (test code = 65977-8) 40.0 fL 39.0-49.9 RDW-CV (test code = 788-0) 13.6 % 12.0-15.5 PLT (test code = 777-3) See_Comment [Automated messa ge] The system which generated this result transmitted reference range: 166 - 358 10*3/?L. The reference range was not used to interpret this result as normal/abnormal. MPV (test code = 19681-7) 10.0 fL 9.5-12.9 NRBC/100 WBC (test code = 4310383895) See_Comment [Automated me ssage] The system which generated this result transmitted reference range: 0.0 - 10.0 /100 WBCs. The reference range was not used to interpret this result as normal/abnormal. NRBC x10^3 (test code = 2282521753) <0.01 See_Comment [Automated me ssage] The system which generated this result transmitted reference range: 10*3/?L. The reference range was not used to interpret this result as normal/abnormal. GRAN MAT (NEUT) % (test code = 770-8) 46.3 % IMM GRAN % (test code = 6502436417) 0.20 % LYMPH % (test code = 736-9) 43.0 % MONO % (test code = 5905-5) 8.6 % EOS % (test code = 713-8) 1.2 % BASO % (test code = 706-2) 0.7 % GRAN MAT x10^3(ANC) (test code = 6015272223) 2.75 10*3/uL 1.88-7.09 IMM GRAN x10^3 (test code = 2164872509) <0.03 0.00-0.06 LYMPH x10^3 (test code = 731-0) 2.55 10*3/uL 1.32-3.29 MONO x10^3 (test code = 742-7) 0.51 10*3/uL 0.33-0.92 EOS x10^3 (test code = 711-2) 0.07 10*3/uL 0.03-0.39 BASO x10^3 (test code = 704-7) 0.04 10*3/uL 0.01-0.07 [facility]PO[facility] [id number] 14:20:00* Test Item Value Reference Range Interpretation Comme nts POCT PREG (test code = 1605) Negative On board controls acceptable with C Line (test code = 3574) Yes POCT PREG LOT # (test code = 3575) POCT PREG TEST DATE ( test code = 3576) [facility] HospitalHIV [facility]/2 AG-AB WITH TQAJRQ7481-21-23 05:35:57* Test Item Value Reference Range Interpretation Comme [facility] HIV Semi-quantitative (test code = 90532-4) Negative Negative GRISELDA (test code = GRISELDA) Non-reactive for HIV-1 antigen and HIV-1/HIV-2 antibodies. ?No laboratory evidence of HIV infection. ?Repeat in 2-4 weeks if acute HIV infection is suspected. [facility] HospitalTHYROID STIMULATING SMHMPYO2335-89-14 05:14:33 * Test Item Value Reference Range Interpretation Comme nts TSH (test code = 0329131050) See_Comment Biotin has been reported to cause a negative bias, interpret results relative to patient's use of biotin. [Automated message] The system which generated this result transmitted reference range: 0.45 - 4.70 mIU/L. The reference range was not used to interpret this result as normal/abnormal. Lab Interpretation (test code = 03552-5) Normal [facility] WITH [id number] 04:59:00* Test Item Value Reference Range Interpretation Comme nts WBC (test code = 6690-2) See_Comment [Automated messa ge] The system which generated this result transmitted reference range: 4.30 - 11.10 10*3/?L. The reference range was not used to interpret this result as normal/abnormal. RBC (test code = 789-8) See_Comment [Automated messa ge] The system which generated this result transmitted reference range: 3.93 - 5.25 10*6/?L. The reference range was not used to interpret this result as normal/abnormal. HGB (test code = 718-7) 12.3 g/dL 11.6-15.0 HCT (test code = 4544-3) 38.5 % 35.7-45.2 MCV (test code = 787-2) 83.5 fL 80.6-95.5 MCH (test code = 785-6) 26.7 pg 25.9-32.8 MCHC (test code = 786-4) 31.9 g/dL 31.6-35.1 RDW-SD (test code = 24678-5) 41.9 fL 39.0-49.9 RDW-CV (test code = 788-0) 13.9 % 12.0-15.5 PLT (test code = 777-3) See_Comment [Automated messa ge] The system which generated this result transmitted reference range: 166 - 358 10*3/?L. The reference range was not used to interpret this result as normal/abnormal. MPV (test code = 98776-5) 10.7 fL 9.5-12.9 NRBC/100 WBC (test code = 5343604962) See_Comment [Automated [employer] ssage] The system which generated this result transmitted reference range: 0.0 - 10.0 /100 WBCs. The reference range was not used to interpret this result as normal/abnormal. NRBC x10^3 (test code = 4747146081) <0.01 See_Comment [Automated me ssage] The system which generated this result transmitted reference range: 10*3/?L. The reference range was not used to interpret this result as normal/abnormal. GRAN MAT (NEUT) % (test code = 770-8) 38.2 % IMM GRAN % (test code = 5409562379) 0.20 % LYMPH % (test code = 736-9) 49.1 % MONO % (test code = 5905-5) 10.0 % EOS % (test code = 713-8) 1.8 % BASO % (test code = 706-2) 0.7 % GRAN MAT x10^3(ANC) (test code = 4387091176) 2.07 10*3/uL 1.88-7.09 IMM GRAN x10^3 (test code = 3493327330) <0.03 0.00-0.06 LYMPH x10^3 (test code = 731-0) 2.66 10*3/uL 1.32-3.29 MONO x10^3 (test code = 742-7) 0.54 10*3/uL 0.33-0.92 EOS x10^3 (test code = 711-2) 0.10 10*3/uL 0.03-0.39 BASO x10^3 (test code = 704-7) 0.04 10*3/uL 0.01-0.07 [facility] HospitalHEMATOLOGY2014 09:25:26* Test Item Value Reference Range Interpretation Comme nts Hct (test code = Hct) 23.3 36.0-48.0 L [facility]NmgqvwsBTFGEDIRQS8753-40-13 12:53:01* Test Item Value Reference Range Interpretation Comme nts Hct (test code = Hct) 25.2 36.0-48.[address] [facility]EuaznziTHTWZPQXU4298-44-77 04:21:36* Test Item Value Reference Range Interpretation Comme nts HCO3 Cord Mc (test code = H CO3 Cord Mc) 22 [facility] HospitalQylfmamUVOFQCYUE4791-44-60 04:21:00* Test Item Value Reference Range Interpretation Comme nts PCO2 Cord Art (test code = P CO2 Cord Art) 57 37-77 N [facility] PasoBioGasol BTNTKCP9661-59-82 00:58:51* Test Item Value Reference Range Interpretation Comme nts RBC product (test code = RBC product) Product available (08/27/2013 18:58:51) N [facility] PasoQscapkpEVJNODKFLN0486-71-57 00:01:15* Test Item Value Reference Range Interpretation Comme nts UA Glucose (test code = UA Glucose) Negative mg/dL [facility] PasoVaqsziyVWVGUMXXQ0310-34-63 00:01:13* Test Item Value Reference Range Interpretation Comme nts U Nunu Scr (test code = U Nunu Scr) Negative *NA*(08/27/2013 18:01:13) [facility] PasoAabalonBVPZXFOKLD9435-38-22 22:16:00* Test Item Value Reference Range Interpretation Comme nts Lymphocytes (test code = Lymphocytes) 23.5 20.0-40.0 N [facility] PasoRzctrvbXANNGBRFOG0610-57-68 22:16:00* Test Item Value Reference Range Interpretation Comme nts Treponemal Scr (test code = Treponemal Scr) Non Reactive *NA*(08/27/2013 16:16:00) [facility] PasoBioGasol DYJZUCG1011-06-98 22:14:00* Test Item Value Reference Range Interpretation Comme nts ABO/Rh (test code = ABO/Rh) A POS [facility] History and Physical Notes Date/Time Note Provider Source 2022-11-05 18:35:00 Shakila Eddy DO : [employer] Display: History and PhysicalAuthored Date: [id number] and Physical Primary Team Name:Team Contact Info:PCP [...] (METS): >45) Imaging: imaging not needed6) Outpatient egg caser: N/A7) Last stress test or coronary angiogram [...] 6. Tetrahydrocannabinol (THC) dependence (F12.20) Discussed cessation [place] [facility] Hospitalist is primary service. Please perfectserve for questions. Prophylaxis lovenox Disposition ORS final recommendations pending.Shakila Eddy DOElectronically Signed: 11/04/22 07:10 [facility] 2022-11-05 18:35:00 Shakila Eddy DO : [employer] Display: History and PhysicalAuthored Date: [id number] and Physical Primary Team Name:Team Contact Info:PCP [...] LOS: 2 Midnights, Brenna Sinha MD, Admit MD Review/Approve Yes, Isolation: Contact, Droplet, Closed posterior wall fracture of left acetabulum | Hypokalemia | Ac... 2. Hypokalemia (E87.6) Replete and monitor. Ordered: Admit/Condition, 11/04/22 6:23:00 CDT, Status: Inpatient, Acute, Location: 7 sarofim, Expected LOS: 2 Midnights, Brenna Sinha MD, Admit MD Review/Approve Yes, Isolation: Contact, Droplet, Closed posterior [...] (METS): >45) Imaging: imaging not needed6) Outpatient egg caser: N/A7) Last stress test or coronary angiogram [...] 6. Tetrahydrocannabinol (THC) dependence (F12.20) Discussed cessation [place] [facility] Hospitalist is primary service. Please perfectserve for questions. Prophylaxis lovenox Disposition ORS final recommendations pending.Shakila Eddy DOElectronically Signed: 11/04/22 07:10 [facility]
--- NOTE | 2024-06-14 05:51 | EDPHYS ---
Physician Documentation [facility] Name: Troy Son Age: 29 yrs Sex: Female : 1995 Arrival Date: 06/14/2024 Time: 05:27 Bed 7 Private MD: ED Physician Gerard Ortiz HPI: 06/14 05:47 This 29 yrs old Black Female presents to ER via Ambulatory with complaints of ms3 Toothache, Headache, Worst Ever. 05:47 29-year-old female with past medical history of PCOS presents to the emergency ms3 department for left lower tooth pain that has been ongoing for 4 weeks. Patient states the pain is a 10/10 described as burning. Patient states she took Advil and Tylenol prior to arrival without relief of her pain. Patient states she has seen her dentist and her wisdom teeth were removed. Patient states air and cold make her symptoms worse. She denies any alleviating factors. 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 - Infectious Disease History:: Denies. - Social history:: Smoking status: Patient denies any tobacco usage or history of. ROS: 05:47 Constitutional: Negative for fever, and chills. Neck: Negative for injury, pain, and ms3 swelling, Cardiovascular: Negative for chest pain, and palpitations. Respiratory: Negative for shortness of breath, cough, wheezing, and pleuritic chest pain, Abdomen/GI: Negative for abdominal pain, nausea, vomiting, diarrhea, and constipation, MS/Extremity: Negative for injury and deformity, Skin: Negative for injury, rash, and discoloration, 05:47 ENT: Positive for Teeth pain Exam: 05:47 Constitutional: This is a well developed, well nourished patient who is awake, alert, ms3 and in no acute distress. Chest/axilla: Normal chest wall appearance and motion. Nontender with no deformity. Cardiovascular: Regular rate and rhythm with a normal S1 and S2. No gallops, murmurs, or rubs. Normal PMI, no JVD. No pulse deficits. Respiratory: Lungs have equal breath sounds bilaterally, clear to auscultation and percussion. No rales, rhonchi or wheezes noted. No increased work of breathing, no retractions or nasal flaring. Abdomen/GI: Soft, non-tender, with normal bowel sounds. No distension or tympany. No guarding or rebound. No evidence of tenderness throughout. 05:47 ENT: Dental exam: dental caries, that is severe, specifically in the lower left second molar (#18), Vital Signs: 05:42 BP 158 / 104; Pulse 75; Resp 20; Temp 97; Pulse Ox 100% ; Weight 90.72 kg; Height 5 ft. vc1 8 in. ; Pain 10/10; 05:59 BP 152 / 94; Pulse 73; Resp 19; Pulse Ox 100% ; dd2 05:42 Body Mass Index 30.41 (90.72 kg, 172.72 cm) vc1 05:42 Pain Scale: Adult vc1 MDM: 05:43 Medical Screening Exam initiated ms3 05:47 Differential diagnosis: dental caries, gingivitis, dental abscess. Data reviewed: vital ms3 signs, nurses notes, and as a result, I will discharge patient. I considered the following discharge prescriptions or medication management in the emergency department Medications were administered in the Emergency Department. See MAR. Counseling: I had a detailed discussion with the patient and/or guardian regarding the historical points, exam findings, and any diagnostic results supporting the discharge/admit diagnosis, the need for outpatient follow up, to return to the emergency department if symptoms worsen or persist or if there are any questions or concerns that arise at home. Special discussion: I discussed with the patient/guardian in detail that at this point there is no indication for admission to the hospital. It is understood, however, that if the symptoms persist or worsen the patient needs to return immediately for re-evaluation. ED course: Discussed physical exam findings with patient. Patient given morphine p.o. in the emergency department, clindamycin p.o. Patient to follow-up with her dentist today. All questions were answered. Return precautions discussed include worsening symptoms, or any other concerns. No signs of [place] angina present on exam.. Administered Medications: 05:59 Drug: morphine IM 1 mg IM once Route: IM; Site: right deltoid; dd2 06:13 Follow up: Response: No adverse reaction dd2 05:59 Drug: Clindamycin PO 300 mg PO once Route: PO; dd2 06:13 Follow up: Response: No adverse reaction dd2 06:13 Drug: morphine PO 15 mg PO once Route: PO; dd2 06:13 Follow up: Response: Medication administered at discharge. dd2 Disposition Summary: 06/14/24 05:51 Discharge Ordered Notes: Location: Home ms3 Condition: Stable ms3 Diagnosis - Dental pain ms3 - Dental caries, unspecified ms3 Followup: ms3 - With: Private Physician - When: Today - Reason: Recheck today's complaints Discharge Instructions: - Discharge Summary Sheet ms3 - Dental Caries, Adult ms3 - Dental Pain ms3 Forms: - Medication Reconciliation Form ms3 - Antibiotic Education ms3 - Prescription Opioid Use ms3 - Patient Portal Instructions ms3 - Leadership Thank You Letter ms3 - Work release form dd2 Prescriptions: - Clindamycin HCl 300 mg Oral capsule - take 1 capsule ORAL route every 8 hours for 10 days; 21 capsule; Refills: 0, ms3 Product Selection Permitted - Ibuprofen 600 mg Oral Tablet - take 1 tablet ORAL route every 6 hours As needed take with food; 30 tablet; ms3 Refills: 0, Product Selection Permitted Signatures: Gerard Ortiz DO DO ms3 Macy Melendez RN RN vc1 LISSY YI RN RN dd2
--- NOTE | 2024-06-14 05:51 | ER ---
Nurse's Notes [facility] Name: Troy Son Age: 29 yrs Sex: Female : 1995 Arrival Date: 06/14/2024 Time: 05:27 Bed 7 Private MD: Diagnosis: Dental pain;Dental caries, unspecified Presentation: 06/14 05:42 Chief complaint: Patient states: left lower tooth pain that radiates to left side of vc1 head, worse with breathing in cold air. Coronavirus screen: Client denies travel out of the [place] in the last 14 days. At this time, the client does not indicate any symptoms associated with coronavirus-19. Ebola Screen: Patient negative for fever greater than or equal to 101.5 degrees Fahrenheit, and additional compatible Ebola Virus Disease symptoms Patient denies exposure to infectious person. Patient denies travel to an Ebola-affected area in the 21 days before illness onset. No symptoms or risks identified at this time. Initial Sepsis Screen: Does the patient meet any 2 criteria? No. Patient's initial sepsis screen is negative. Does the patient have a suspected source of infection? No. Patient's initial sepsis screen is negative. Risk Assessment: Do you want to hurt yourself or someone else? Patient reports no desire to harm self or others. Onset of symptoms was June 14, 2024. 05:42 Method Of Arrival: Ambulatory vc1 05:42 Acuity: CARMEN 4 vc1 Triage Assessment: 05:49 General: Appears distressed, uncomfortable, Behavior is cooperative, crying, restless. vc1 Pain: Complains of pain in lower left second molar (#18) Pain radiates to left temporal area and left anglican Pain currently is 10 out of 10 on a pain scale. Quality of pain is described as radiating, sharp. EENT: Reports pain in lower left second molar (#18). Neuro: Level of Consciousness is awake, alert, obeys commands, Oriented to person, place, time, situation, Appropriate for age. Cardiovascular: Capillary refill Patient's skin is warm and dry. Respiratory: Airway is patent Respiratory effort is even, unlabored, Respiratory pattern is regular, symmetrical. GI: No deficits noted. No signs and/or symptoms were reported involving the gastrointestinal system. : No deficits noted. No signs and/or symptoms were reported regarding the genitourinary system. Derm: Skin is intact, is healthy with good turgor, Skin is dry, Skin is normal, Skin temperature is warm. Musculoskeletal: Circulation, motion, and sensation intact. Range of motion: intact in all extremities. 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 - Infectious Disease History:: Denies. - Social history:: Smoking status: Patient denies any tobacco usage or history of. Screenin:47 [facility] ED Fall Risk Assessment (Adult) History of falling in the last 3 months, vc1 including since admission No falls in past 3 months (0 pts) Confusion or Disorientation No (0 pts) Intoxicated or Sedated No (0 pts) Impaired Gait No (0 pts) Mobility Assist Device Used No (0 pt) Altered Elimination No (0 pt) Score/Fall Risk Level 0 - 2 = Low Risk Oriented to surroundings, Maintained a safe environment, Educated pt \T\ family on fall prevention, incl call for assistance when getting out of bed. Abuse screen: Denies threats or abuse. Nutritional screening: No deficits noted. Tuberculosis screening: No symptoms or risk factors identified. Assessment: 06:01 Reassessment: SEE TRIAGE ASSESSMENT FOR FULL ASSESSMENT. dd2 Vital Signs: 05:42 BP 158 / 104; Pulse 75; Resp 20; Temp 97; Pulse Ox 100% ; Weight 90.72 kg; Height 5 ft. vc1 8 in. ; Pain 10/10; 05:59 BP 152 / 94; Pulse 73; Resp 19; Pulse Ox 100% ; dd2 05:42 Body Mass Index 30.41 (90.72 kg, 172.72 cm) vc1 05:42 Pain Scale: Adult vc1 ED Course: 05:28 Patient arrived in ED. [id number] 05:30 Gerard Ortiz DO is Attending Physician. ms3 05:45 LISSY YI, RN is Primary Nurse. dd2 05:46 Triage completed. vc1 05:46 Arm band placed on right wrist. vc1 05:48 Patient has correct armband on for positive identification. Bed in low position. Call vc1 light in reach. drapery hand on. Pulse ox on. NIBP on. 05:51 Provided Education on: f/u with dentist. vc1 05:59 No provider procedures requiring assistance completed. Patient did not have IV access dd2 during this emergency room visit. Administered Medications: 05:59 Drug: morphine IM 1 mg IM once Route: IM; Site: right deltoid; dd2 06:13 Follow up: Response: No adverse reaction dd2 05:59 Drug: Clindamycin PO 300 mg PO once Route: PO; dd2 06:13 Follow up: Response: No adverse reaction dd2 06:13 Drug: morphine PO 15 mg PO once Route: PO; dd2 06:13 Follow up: Response: Medication administered at discharge. dd2 Medication: 05:49 VIS not applicable for this client. vc1 Outcome: 05:51 Discharge ordered by MD. ms3 06:13 Discharged to home ambulatory, dd2 06:13 Condition: stable 06:13 Discharge instructions given to patient, Instructed on discharge instructions, follow up and referral plans. medication usage, Demonstrated understanding of instructions, follow-up care, medications, Prescriptions given X 2, 06:14 Patient left the ED. dd2 Signatures: Gerard Ortiz DO DO ms3 Kori Tee [id number] Macy Melendez RN RN vc1 LISSY YI RN RN dd2
[2024-06-14] MEDS ORDERED: MORPHINE 2 MG/ML SYR ONE (05:52)
[2024-06-14] MEDS ORDERED: MORPHINE 15 MG IR TAB PO ONE (06:08)
[2024-06-14 09:37] VITALS: TEMP 97; O2SAT 100
[2024-06-14 09:39] VITALS: BP 152/94
== END 2024-06-14 06:14 | disposition home or self-care (01) ==
LOC: ER 05:27
DX: K02.9 Dental caries, unspecified (principal)
CPT/HCPCS: 96372; 99284; J2270

== ENCOUNTER 2024-09-12 05:02 | Emergency (ER) | payer SELFPAY ==
--- OUTSIDE RECORDS SUMMARY | 2024-09-12 05:06 | XMS REPORT | Continuity of Care Document ---
Author Name Unknown Address [address] [facility] [address] [place] [address] [facility] thconnect Address [address] [facility]. [address] [place] [address] Care Team Providers Care Vp Of Marketing Name Role Phone No , Pcp Primary Care Physician Unavailab STEFANY Astudillo Attending Clinician Unavailable MARIA ESTHER FONTENOT Attending Clinician Unavailable PROVIDER, AFFILIATE Attending Clinician UnavailTEJAS Sanchez JR Attending Clinician Unavailable PEREZ LOPEZ Attending Clinician Unavail able LAB47 Attending Clinician Unavailable JHON MIRAMONTES Attending Clinician Unavailable NAOMIE GARCIA Attending Clinician UnavailMELY Addison Attending Clinician UnavailMely Matos CNM Attending Clinician [phone] Provider, [facility] Temp Attending Clinician Brittany JUANA Holden Attending Clinician Unavailable YOGESH MALDONADO Attending Clinician Unavailable Yogesh Maldonado DO Attending Clinician [phone] Perez Santiago Attending Clinician + NIVIA GARCIA Attending Clinician Unavailable JOSH FLYNN Attending Clinician Unavailable GADIEL BOYKIN Attending Clinician Unavailab Nivia Santamaria MD Attending Clinician [phone] Doctor Unassigned, [place] Attending Clinician U Evi Cota Attending Clinician Unavailable Evi Francisco Attending Clinician [phone] [facility]ending [facility]ician Dylan MCKEONP, Nory Soriano Attending Clinician [phone] NORY RODRIGUEZ Attending Clinician Unavaileron Rubio DO, Amor Chavez Attending Clinician [phone] Asif POLITICAL SCIENCE PROFESSOR, Gadiel Rod Attending Clinician + [phone] Evi CARPENTER Admitting Clinician Unavailable Payers Payer Name Policy Type Policy Number Effective Date Expirati on Date Source OPEN ACCESS AETNA SELECT EPO [id number] 2021 00:00:00 [employer]ET[employer] 2 [id number] 2022 00:00:00 [employer]ET[employer] MP [facility]: 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 Obesity (BMI 30-39.9) Obesity (BMI 30-39.9) Disease Active 2021-08 00:00: 00 [facility] Other depression Other depression Disease Active 03-23 00:00: 00 [facility] Need for HPV vaccinatio n Need for HPV vaccinatio n Disease Active 03-23 00:00: 00 [facility] Class 1 obesity with body mass index (BMI) of 34.0 to 34.9 in adult, unspecifie d obesity type, unspecifie d whether serious comorbidit y present Class 1 obesity with body mass index (BMI) of 34.0 to 34.9 in adult, unspecifie d obesity type, unspecifie d whether serious comorbidit y present Disease Active 03-23 00:00: 00 [facility] LABOR LABOR Active 08/27/2013 [facility] Diagnosis Active 08-27 00:00: 00 2013-08-28 01:09:00 Yazmin Lee Born by caesarean section (context-d ependent category) Born by caesarean section (context-d ependent category) Diagnosis 11/08/2022 [facility] Diagnosis 2022-11-08 00:55:02 Ejcece george Lee Single liveborn infant, delivered by Single liveborn , delivered by 11/11/2022 [facility] Problem 2022-11-11 07:10:19 Yazmin Lee THREAT LABOR NEC-UNSPEC THREAT LABOR NEC-UNSPEC Active [facility] Diagnosis Active 2013-08-28 01:09:00 Yazmin Lee Allergies, Adverse Reactions, Alerts Allergy Name Allergy Type Status Severity Reaction(s) Onset Date Inactive Date Treating Clinician Comments Source Latex Propensi ty to adverse reaction s Active Swelling 03-12 00:00: 00 [facility] LATEX DRUG INGREDI Active Hives 03-12 00:00: 00 [facility] Latex Propensi ty to adverse reaction s Active Swelling 03-12 00:00: 00 Gege Weber Externjamaal vazquez Social History Social Habit Start Date Stop Date Quantity Comments Source History SDOH Alcohol Frequency [facility] History SDOH Alcohol Std Drinks [facility] History SDOH Alcohol Binge [facility] Exposure to SARS-CoV-2 (event) 2022-12-08 00:00:00 2022-12-18 00:13:00 Not sure [facility] Alcohol intake 2022-09-12 00:00:00 2022-09-12 00:00:00 Ex-drinker (finding) Gege Jauregui - External Tobacco use and exposure 2022-05-01 00:00:00 2022-05-01 00:00:00 Smokeless tobacco non-user Gege Jauregui - External Alcohol Comment 2019-03-23 00:00:00 2019-03-23 00:00:00 social events [facility] Sex Assigned At 1995 00:00:00 1995 00:00:00 [facility] Smoking Status Start Date Stop Date Source Tobacco smoking consumption unknown [facility] Social History [facility] Ehsan elam Medications Ordered Medication Name Filled Medication Name Start Date Stop Date Current Medication? Ordering Clinician Indication Dosage Frequency Signature (SIG) Comments Components Source traMADol (Ultram) 50 MG tablet 11-20 00:00: 00 Yes [id number] 50mg Q6H Take 1 tablet (50 mg total) by mouth every 6 (six) hours if needed for severe pain. [facility] docusate-se nna 50 mg-8.6 mg oral tablet 11-05 14:14: 00 No 2 tab, PO, Daily, X 4 day, # 8 tab, 0 Refill(s), Pharmacy: [facility] #[id number], 162.56, cm, 11/04/22 15:53:00 CDT, Height, 100, kg, 11/04/22 15:53:00 CDT, Weight Memoria george Lee Adult Aspirin 325 mg oral tablet 11-05 14:13: 00 Yes 325 mg = 1 tab, PO, BID, # 40 tab, 0 Refill(s), Pharmacy: [facility] #[id number], 162.56, cm, 11/04/22 15:53:00 CDT, Height, 100, kg, 11/04/22 15:53:00 CDT, Weight Memoria george Lee tramadol 50 mg oral tablet 11-05 14:12: 00 No 50 mg = 1 tab, PO, TID, PRN Pain Score 7-10, X 3 day, # 9 tab, 0 Refill(s), Pharmacy: [facility] #[id number], 162.56, cm, 11/04/22 15:53:00 CDT, Height, 100, kg, 11/04/22 15:53:00 CDT, Weight Memoria l Jesus acetaminoph en 500 mg oral tablet. 11-05 14:11: 00 No 1,000 mg = 2 tab, PO, TID, X 5 day, # 30 tab, 0 Refill(s), Pharmacy: [facility] #[id number], 162.56, cm, 11/04/22 15:53:00 CDT, Height, 100, [...] Stop date: Limited # of times, 0 Yazmin george Jesus SERVIN oxyCODONE 5 mg immediate release tablet 11-04 18:53: 00 No Notes: (Same as: Roxicodone ) Yazmin george Jesus ANGELINAPavan HYDROmorpho ne 11-04 18:53: 00 No Notes: Same as Dilaudid Yazmin george Jesus ANEPavan flumazenil 11-04 18:53: 00 No Notes: (Same as: Romazicon) Yazmin george Jesus ANGELINAS naloxone 11-04 18:53: 00 No Notes: Same as Narcan Yazmin george Jesus ANES ePHEDrine 11-04 18:53: 00 No Notes: (Same as: ePHEDrine Sulfate) Yazmin george Jesusmarialuisa SERVIN promethazin e + Sodium Chloride 0.9% IV 50 mL 11-04 18:53: 00 No Notes: Do not give IV push. (Same as: Phenergan) Yazmin george [place] Lactated Ringers Injection IV (ANES) 1000 mL 11-04 18:15: 00 No Route: IV, Total Volume: 1,000, Start date: 11/04/22 13:15:00 CDT, Stop date: 11/04/22 14:15:00 CDT Yazmin george Jesus Lovenox 11-04 14:00: 00 No Notes: (Same as: Lovenox) Yazmin george Lee polyethylen e glycol 3350 11-04 14:00: 00 No Notes: Dissolve in 8 oz of water or juice. (Same as: Miralax) Ejcece george Lee docusate-se nna 50 mg-8.6 mg oral tablet 11-04 14:00: 00 No Notes: (Same as Senvikash-S) Equiv. to Veronica-Colac e. Yazmin Lee lidocaine [...] gm/day). (Same as: Tylenol Extra Strength) Yazmin Lee gabapentin 11-04 12:05: 00 No Notes: (Same as: Neurontin) Yazmin Lee tramadol 11-04 12:05: 00 No Notes: Not [...] date: 12/04/22 6:22:00 CDT, 0 Yazmin Lee bisacodyl 11-04 11:23: 00 No Notes: (Same As: Dulcolax, Bisco-Lax) Yazmin Lee ondansetron 11-04 11:23: 00 No Notes: (Same as: Zofran) MEDICATION WASTE Product Size: 4 mg Product Wasted: ___ mg Yazmin Lee melatonin 11-04 11:23: 00 No Notes: (Same as: Melatonin) Yazmin Lee Lubricant Eye Drops ophthalmic solution 11-04 11:23: 00 No Notes: (Same as: Aquasite) Yazmin Lee Nasal Saline 0.65% solution 11-04 11:23: 00 No Notes: (Same as: Barnes, Deep Sea Nasal [place]). Yazmin Lee Tums 11-04 11:23: 00 No Notes: (Same As: Tums) Calcium Carbonate 500 mg = 200 mg elemental calcium Dose = mg calcium carbonate ( mg elemental calcium) Yazmin Moserann Cepacol Sore Throat 15 mg-3.6 mg mucous membrane lozenge 11-04 11:23: 00 No Notes: Cepacol lozenges Dispense 1 box = 16 lozenges (Same As: Cepacol Lozenges) Yazmin george Jesus Flonase 0.05 mg/inh nasal spray 11-04 11:23: 00 No Notes: (Same as: Flonase) Yazmin Lee Calmoseptin e topical ointment 11-04 11:23: 00 No Notes: (Same as: Calmosepti ne) Yazmin Moserann cetirizine 11-04 11:23: 00 No Notes: (Same As: Zyrtec) Yazmin Lee Blistex topical ointment 11-04 11:23: 00 No Notes: Same as: Blistex Yazmin Lee Aquaphor 11-04 11:23: 00 No 1 appl, Route: TOP, Q4H, Drug form: OINT, PRN as needed for dry skin, Start date: 11/04/22 6:23:00 CDT, Duration: 30 day, Stop date: 12/04/22 6:22:00 CDT, 0 Ejcece Lee morphine Sulfate 11-04 10:15: 00 No 4 mg, Route: IVP, ONCE, Dosing Weight 77.273, kg, Priority: STAT, Start date: 11/04/22 5:15:00 CDT, Stop date: 11/04/22 5:15:00 CDT Ejcece george Jesus Zofran 11-04 10:15: 00 No 4 mg, [...] be infused by Radiology Staff ONLY" Yazmin Lee [place] 10/325 oral tablet 11-04 02:09: 00 No 1 tab, Route: PO, Drug Form: TAB, Dosing Weight 77.273, kg, ONCE, STAT, Start date: 11/03/22 21:09:00 CDT, Stop date: 11/03/22 21:09:00 CDT Yazmin Lee ondansetron 11-04 00:03: 00 No Notes: (Same as: Zofran) MEDICATION WASTE Product Size: 4 mg Product Wasted: ___ mg Yazmin Lee Saline Flush 0.9% 11-04 00:03: 00 No Notes: Same as: BD Posiflush Sterile Yazmin Lee fentaNYL 11-04 00:03: 00 No Notes: (Same as: Sublimaze) Preservati ve free. Yazmin Lee Norethin Arturo-Eth Estrad-FE (Loestrin Fe 1.5/30) 1.5-30 MG-MCG oral Tablet -19 00:00: 00 Yes [id number] Take 1 pill 3 times a day for 3 days, 1 pill 2 times a day for 2 days, then 1 pill daily for the remainder Gege vazquez metroNIDAZO LE 500 mg tablet 2021-08 00:00: 00 08-06 05:59 :00 No [id number] 500mg Take 1 tablet by mouth in the morning and 1 tablet in the evening. Do all this for 7 days. [facility] Omeprazole 40 MG oral Delayed Release Capsule 05-01 00:00: 00 Yes [id number] 40mg Take 1 capsule (40 mg total) by mouth daily Gege Jauregui - Externa george methylpredn isolone sod succ (SOLU-MEDRO L) injection 125 mg 12-24 05:00: 00 12-24 04:08 :00 No 125mg 125 mg, Slow IV Push, ONCE, 1 dose, On 12/24/21 at 0000, [facility] ketorolac (TORADOL) injection 15 mg 12-24 03:15: 00 12-24 02:44 :00 No 15mg 15 mg, Slow IV Push, ONCE, 1 dose, On 12/23/21 at 2215, [facility]
Fa culty member approving Restricted medication : Evi CARPENTER [facility] famotidine (PEPCID (PF)) injection 20 mg 12-24 02:15: 00 12-24 01:28 :00 No 20mg 20 mg, Slow IV Push, ONCE, 1 dose, On 12/23/21 at 2115, [facility] maalox:diph enhydrAMINE :lidocaine 2 % viscous 1:1:1 (FIRST-MOUT HWASH BLM) oral suspension 15 mL 12-24 02:15: 00 12-24 01:28 :00 No 15mL 15 mL, Oral (Swish & Swallow), ONCE, 1 dose, On 12/23/21 at 2115, Routine [facility] methylPREDN ISolone (MEDROL, NITA,) 4 mg tablets 12-23 00:00: 00 07-26 00:00 :00 No [id number] Take by mouth SEE-INSTRU CTIONS. follow package directions [facility] norgestimat e-ethinyl estradioL (TRI-LO-SPR INTE) 0.18/0.215/ 0.25 mg-25 mcg tablet 2020-08 00:00: 00 07-26 00:00 :00 No [id number] 1{tbl} Take 1 tablet by mouth daily. [facility] No known medications 05-21 14:53: 37 No [facility] ferrous sulfate 325 mg oral enteric coated tablet 08-31 11:54: 00 Yes Marycruz Rubio 325 mg = 1 tab, PO, TID, # 90 tab, 0 Refill(s) Yazmin Lee ibuprofen 800 mg oral tablet 08-31 11:54: 00 Yes Marycruz Rubio 800 mg = 1 tab, PO, Q8H, Pain, # 30 tab, 0 Refill(s) Yazmin Lee ferrous sulfate 08-30 15:00: 00 No Marycruz Rubio 325 mg, 1 tab, Route: PO, Drug form: ECTAB, TID, Dosing Weight 89.091, kg, Start date: 08/30/13 9:00:00, Duration: 30 day, Stop date: 09/28/13 17:00:00Gi ve with food. "Do Not Crush" Ejcece george Lee Colace 100 mg oral capsule 08-29 23:00: 00 No Nguyễn Doug Lindsey 100 mg, 1 cap, Route: PO, Drug form: CAP, BID, Dosing Weight 89.091, kg, Start date: 08/29/13 17:00:00, Duration: 30 day, Stop date: 09/28/13 9:00:00(Sa hi as: Colace) (Do Not Crush) Ejcece george Lee ferrous gluconate 324 mg oral tablet 08-29 15:00: 00 No Delma Marshuerjacob 324 mg, 1 tab, Route: PO, Drug form: TAB, BID, Dosing Weight 89.091, kg, Start date: 08/29/13 9:00:00, Duration: 30 day, Stop date: 09/27/13 17:00:00Gi ve with food. iron elemental 38 ce=699 mg as ferrous sulfate Dose=___mg elemental iron Yazmin Lee Benadryl 08-28 22:49: 00 No Jo Ann Lara Gong 25 mg, 1 cap, Route: PO, Drug form: CAP, Q6H, Dosing Weight 89.091, kg, PRN Itching, Start date: 08/28/13 16:49:00, Duration: 30 day, Stop date: 09/27/13 16:48:00(S velasquez as: Benadryl) Yazmin Lee Multivitami ns oral tablet 08-28 15:00: 00 No Reenj Sabouni 1 tab, Route: PO, Drug Form: TAB, Dosing Weight 89.091, kg, Daily, Start date: 08/28/13 9:00:00, Duration: 30 day, Stop date: 09/26/13 9:00:00 Yazmin Lee Motrin 08-28 14:00: 00 No Sonal Tynese Littlejohn 600 mg, 1 tab, Route: PO, Drug form: TAB, Q6H-02, Start date: 08/28/13 8:00:00, Duration: 24 hr, Stop date: 08/29/13 2:00:00(Sa me as: Motrin) "Do Not Crush" Take with food. Yazmin Lee Zofran 08-28 13:31: 00 No [...] 2 doses or times, Stop date: 08/28/13 6:00:00([facility] as:Toradol ) IV bolus must be given >15 seconds. Give IM administra tion slowly and deeply into the muscle. Not for use > 4 days Yazmin Lee M-M-R II 08-28 06:00: 00 No Reem Sabouni 0.5 mL, Route: SUB-Q, Drug Form: PDR/INJ, Dosing Weight 89.091, kg, ONCALL, Start date: 08/28/13 0:00:00, Duration: 1 doses or times(Same as: M-M-R II) (measles-m umps-rubel la virus vaccine 0.5 ml INJ VL) GIVE PRIOR TO DISCHARGE Yazmin Lee acetaminoph en-hydrocod one 325 mg-5 mg oral tablet 08-28 05:31: 00 No Reem Sabouni 2 tab, Route: PO, Drug Form: TAB, Dosing Weight 89.091, kg, Q4H, PRN Pain Score 4-6, Start date: 08/27/13 23:31:00, Duration: 30 day, Stop date: 09/26/13 23:30:00(S velasquez as: [place] 325/5) Do not exceed 4gm/day of acetaminop hen. Yazmin Lee Saline Flush 0.9% 08-28 05:31: 00 No [...] Stop date: 09/26/13 23:30:00(S velasquez as: Mylicon) Yazmin Lee acetaminoph en 08-28 05:31: 00 No [...] Reem Sabouni 10 mg, 1 supp, Route: ND, Drug form: SUPP, PRN, Dosing Weight 89.091, kg, PRN Other -See Comment, Start date: 08/27/13 23:31:00, Duration: 30 day, Stop date: 09/26/13 23:30:00(S velasquez As: Dulcolax, Bisco-Lax) Yazmin Lee ibuprofen 08-28 05:31: 00 No Reem Sabouni 600 mg, 1 tab, Route: PO, Drug form: TAB, Q6H, Dosing Weight 89.091, kg, PRN Pain Score 1-5, Start date: 08/27/13 23:31:00, Duration: 30 day, Stop date: 09/26/13 23:30:00(S velasquez as: Motrin) "Do Not Crush" Take with food. Yazmin Lee Lactated Ringers IV 1,000 mL 08-28 05:31: 00 No Hennynj Michelle 1,000 mL, Rate: 100 ml/hr, Infuse over: 10 hr, Route: IV, Dosing Weight 89.091 kg, Total Volume: 1,000, Start date: 08/27/13 23:31:00, Duration: 30 day, Stop date: 09/26/13 23:30:00 Yazmin Lee Sodium Chloride 0.9% (titrate) 250 mL 08-28 00:41: 00 No Maria Esther Carrasquillo 250 mL, Rate: transition program manager for use with blood product administra tion, [...] doses or times, Stop date: 08/29/13 0:00:00(Sa hi As: Zithromax IV) Yazmin Lee methylergon ovine 08-27 22:00: 00 No Jo Ann Jane Gong 0.2 mg, 1 mL, Route: IM, Drug form: INJ, ONCALL, kg, Start date: 08/27/13 16:00:00, Duration: 30 day, Stop date: 09/26/13 15:59:00(S velasquez as:Metherg ine) Yazmin Lee misoprostol 08-27 22:00: 00 No Jo Ann Jane Gong 1,000 microgram, 5 tab, Route: ND, Drug form: TAB, ONCALL, kg, Start date: 08/27/13 16:00:00, Duration: 30 day, Stop date: 09/26/13 15:59:00(S velasquez as:Cytotec ) Take with food Yazmin Lee carboprost 08-27 22:00: 00 No Jo Ann Jane Gong 250 microgram, 1 mL, Route: IM, Drug form: INJ, ONCALL, kg, Start date: 08/27/13 16:00:00, Duration: 30 day, Stop date: 09/26/13 15:59:00(S velasquez As: Hemabate) Yazmin Moserann Lactated Ringers 1000ml+Oxyt ocin 20 units IV (Premix) 20 unit 08-27 21:32: 00 No Jo Ann Jane Gong 20 unit, 1,000 mL, Rate: 125 ml/hr, Infuse over: 8 hr, Route: IV, Total Volume: 1,000 mL, Start date: 08/27/13 15:32:00, Duration: 2 day, Stop date: 08/29/13 15:31:00, Replace Every: 8 hrConc = 0.02unit/m l = 20milliuni t/ml Yazmin Lee Lactated Ringers Injection IV 1,000 mL 08-27 21:32: 00 No Jo Ann Jane Gong 1,000 mL, Rate: 125 ml/hr, Infuse over: 8 hr, Route: IV, Total Volume: 1,000, Start date: 08/27/13 15:32:00, Duration: 30 day, Stop date: 09/26/13 15:31:00 Yazmin Moserann ondansetron 08-27 21:32: 00 No Jo Ann Jane Gong 4 mg, 2 mL, Route: IVP, Drug form: INJ, Q8H, kg, PRN Nausea & Vomiting, Start date: 08/27/13 15:32:00, Duration: 30 day, Stop date: 09/26/13 15:31:00(S velasquez as: Zofran) Yazmin Lee morphine Sulfate 08-27 21:32: 00 No Jo Ann Lara Gong 2 mg, 1 mL, Route: IVP, Drug form: INJ, Q2H, kg, PRN Pain Score 7-10, Start date: 08/27/13 15:32:00, Duration: 30 day, Stop date: 09/26/13 15:31:00(S velasquez as:MORPhin e Sulfate) Yazmin Lee terbutaline 08-27 21:32: 00 No Jo Ann Lara Gong 0.25 mg, 0.25 mL, Route: SUB-Q, Drug form: INJ, ONCALL, kg, PRN Other -See Comment, Start date: 08/27/13 15:32:00, Duration: 1 doses or times, Stop date: 08/29/13 0:00:00D O NOT USE IN RESPITE CARE PROVIDER AREA (Same As: Gelnna) Yazmin Lee citric acid-sodium citrate 08-27 21:32: 00 No Jo Ann Lara Gong 30 mL, Route: PO, Drug Form: SOLN, kg, ONCE, Start date: 08/27/13 15:32:00, Duration: 1 doses or times, Stop date: 08/27/13 15:32:00(S velasquez As: Bicitra, Cytra-2) Sodium citrate-ci tric acid (500-334 mg/5 mL): 1 mL contains sodium 1 mEq/mL and bicarbonat e 1 mEq/mL Yazmin Lee Vital Signs Vital Name Observation Time Observation Value Comments S ource Systolic blood pressure 2022-09-12 21:20:00 108 mm[Hg] Gege Lechuga ld - External Diastolic blood pressure 2022-09-12 21:20:00 76 mm[Hg] Gege Lechuga ld - External Heart rate 2022-09-12 21:20:00 84 /min Kelse y Seybold - External Body height 2022-09-12 21:20:00 162.6 cm Lilliana ey Seybold - External Body weight 2022-09-12 21:20:00 102.059 kg Lilliana wiley Seybold - External BMI 2022-09-12 21:20:00 38.62 kg/m2 Lilliana Jauregui - External Systolic blood pressure 2022-07-26 21:00:00 109 mm[Hg] [facility] Diastolic blood pressure 2022-07-26 21:00:00 74 mm[Hg] [facility] Heart rate 2022-07-26 21:00:00 82 /min Unive [facility] Body temperature 2022-07-26 21:00:00 36.67 Alison [facility] Respiratory rate 2022-07-26 21:00:00 20 /min [facility] Body height 2022-07-26 21:00:00 162.6 cm [facility] Body weight 2022-07-26 21:00:00 105.688 kg [facility] BMI 2022-07-26 21:00:00 39.99 kg/m2 [facility] Systolic blood pressure 2022-07-02 16:54:00 146 mm[Hg] [facility] Diastolic blood pressure 2022-07-02 16:54:00 97 mm[Hg] [facility] Heart rate 2022-07-02 16:54:00 68 /min [facility] Body temperature 2022-07-02 16:54:00 36.33 Alison [facility] Respiratory rate 2022-07-02 16:54:00 18 /min [facility] Body weight 2022-07-02 16:54:00 97.523 kg [facility] BMI 2022-07-02 16:54:00 36.90 kg/m2 [facility] Oxygen saturation in Arterial blood by Pulse oximetry 2022-07-02 16:54:00 100 /min [facility] Systolic blood pressure 2021-12-24 03:00:00 134 mm[Hg] [facility] Diastolic blood pressure 2021-12-24 03:00:00 84 mm[Hg] [facility] Heart rate 2021-12-24 03:00:00 64 /min Unive [facility] Respiratory rate 2021-12-24 03:00:00 15 /min [facility] Oxygen saturation in Arterial blood by Pulse oximetry 2021-12-24 03:00:00 95 /min [facility] Body temperature 2021-12-24 00:41:00 37 Alison [facility] Body height 2021-12-24 00:41:00 162.6 cm [facility] Body weight 2021-12-24 00:41:00 97.523 kg [facility] BMI 2021-12-24 00:41:00 36.90 kg/m2 [facility] Systolic blood pressure 2021-06-07 14:13:00 123 mm[Hg] [facility] Diastolic blood pressure 2021-06-07 14:13:00 66 mm[Hg] [facility] Heart rate 2021-06-07 14:13:00 73 /min Unive [facility] Body temperature 2021-06-07 14:13:00 36.83 Alison [facility] Respiratory rate 2021-06-07 14:13:00 18 /min [facility] Body height 2021-06-07 14:13:00 162.6 cm [facility] Body weight 2021-06-07 14:13:00 94.62 kg [facility] BMI 2021-06-07 14:13:00 35.81 kg/m2 [facility] Systolic blood pressure 2021-05-21 19:52:00 121 mm[Hg] [facility] Diastolic blood pressure 2021-05-21 19:52:00 73 mm[Hg] [facility] Heart rate 2021-05-21 19:52:00 73 /min Unive [facility] Body temperature 2021-05-21 19:52:00 36.39 Alison [facility] Respiratory rate 2021-05-21 19:52:00 18 /min [facility] Body height 2021-05-21 19:52:00 162.6 cm [facility] Body weight 2021-05-21 19:52:00 92.851 kg [facility] BMI 2021-05-21 19:52:00 35.14 kg/m2 [facility] Heart Rate 2022-11-05 16:36:55 [facility] Respitory Rate 2022-11-05 16:36:55 [facility] Systolic (mm Hg) 2022-11-05 16:36:42 [facility] Diastolic (mm Hg) 2022-11-05 16:36:42 [facility] Heart Rate 2022-11-05 16:36:42 [facility] Temperature Oral (F) 2022-11-05 16:36:31 97.9 F [facility] Height 2022-11-05 16:01:00 5 [ft_i] [facility] Weight 2022-11-05 16:01:00 [facility] [place] Heart Rate 2022-11-05 12:40:42 [facility] Respitory Rate 2022-11-05 12:40:42 [facility] Systolic (mm Hg) 2022-11-05 12:40:37 [facility] Diastolic (mm Hg) 2022-11-05 12:40:37 [facility] Temperature Oral (F) 2022-11-05 12:40:16 97.7 F [facility] Respitory Rate 2022-11-05 08:33:01 [facility] Temperature Oral (F) 2022-11-05 08:32:52 97.7 F [facility] Systolic (mm Hg) 2022-11-05 08:32:15 [facility] Diastolic (mm Hg) 2022-11-05 08:32:15 [facility] Temperature Oral (F) 2022-11-04 21:20:59 98.5 F [facility] Height 2022-11-04 20:53:00 162.56 cm [facility] Weight 2022-11-04 20:53:00 [facility] [place] BMI Calculated 2022-11-04 20:53:00 [facility] Height 2022-11-03 23:49:00 162.56 cm [facility] [place] BMI Calculated 2022-11-03 23:49:00 [facility] Weight 2022-11-03 23:49:00 [facility] alessandra Lee Weight 2013-08-28 00:01:00 [facility] Height 2013-08-28 00:01:00 165.1 cm [facility] Procedures Procedure Date / Time Performed Performing Clinician Source CBC WITH DIFF 2022-07-26 21:36:00 Mely Fernandez [facility] CONSENT/REFUSAL FOR DIAGNOSIS AND TREATMENT 2022-07-02 16:50:07 Doctor Unassigned, [place] [facility] CONSENT/REFUSAL FOR DIAGNOSIS AND TREATMENT 2022-04-17 22:18:51 Doctor Unassigned, [place] [facility] XR CHEST 1 VW 2021-12-24 01:25:29 Evi Carpenter [facility] POCT TEST 2021-12-24 01:24:00 Evi Carpenter [facility] D-DIMER 2021-12-24 01:11:00 [facility] MAGNESIUM 2021-12-24 01:10:00 [facility] TROPONIN I 2021-12-24 01:10:00 [facility] COMP. METABOLIC PANEL ([id number]) 2021-12-24 01:10:00 Evi Carpenter [facility] CBC WITH DIFF 2021-12-24 01:10:00 Evi Carpenter [facility] URINALYSIS 2021-12-24 01:10:00 Evi Carpenter [place] [facility] POCT TEST 2021-06-07 14:18:00 Andrey Rodriguez [facility] THYROID STIMULATING HORMONE 2021-05-21 21:16:00 Nory Rodriguez [facility] CBC WITH DIFF 2021-05-21 21:16:00 [facility]-AB WITH REFLEX 2021-05-21 20:40:00 Nory Rodriguez [facility] GARDASIL 9 (HPV 9V) VACCINE 2021-05-21 20:14:56 Nory Rodriguez [facility] Encounters Start Date/Time End Date/Time Encounter Type Admission Type Attending [facility] Care Facility Care Department Encounter ID Source 2023-01-06 10:59:58 Outpatient [facility] [id number] [facility] 2022-12-17 10:01:21 Outpatient [facility] [id number] [facility] 2022-11-20 09:34:32 Outpatient [facility] [id number] [facility] 2022-11-19 06:13:45 Outpatient [facility] [id number] [facility] 2022-11-15 12:42:35 Outpatient [facility] [id number] [facility] 2022-11-07 10:12:11 Outpatient [facility] [id number] [facility] 2023-01-29 10:30:00 2023-01-29 10:30:00 Outpatient STEFANY LOPEZ [facility] [id number] [facility] 2023-01-29 10:30:00 2023-01-29 10:30:00 Outpatient [facility] [id number] [facility] 2022-12-18 09:30:00 2022-12-18 10:52:39 Office Visit Stefany Lopez [facility] [address] 1.2.840.114 350.1.13.58 9.2.7.2.686 [id number] [facility] 2022-12-18 09:30:00 2022-12-18 09:30:00 Outpatient [facility] [id number] [facility] 2022-11-27 10:15:00 2022-11-27 10:15:00 Outpatient GABISTEFANY RINALDI [facility] [id number] [facility] 2022-11-20 09:30:00 2022-11-20 10:33:45 Office Visit Stefany Lopez [facility] [address] 1.2.840.114 350.1.13.58 9.2.7.2.686 [id number] [facility] 2022-11-20 09:00:00 2022-11-20 09:00:00 Outpatient [facility] [id number] [facility] 2022-11-13 09:45:00 2022-11-13 09:45:00 Outpatient CORIE MARIA ESTHER GEGE MALHOTRA [id number] [facility] 2022-11-06 00:00:00 2022-11-06 00:00:00 Outpatient PROVIDER, MARILEE MALHOTRA [id number] [facility] 2022-11-03 23:30:14 2022-11-05 18:35:00 [facility] [id number] Yazmin vazquez [place] 2022-11-04 06:30:00 2022-11-04 06:30:00 Outpatient TEJAS MORGAN JR [facility] [id number] [facility] 2022-10-25 09:15:00 2022-10-25 09:15:00 Outpatient PEREZ SHELTON [facility] [id number] [facility] 2022-09-12 16:00:00 2022-09-12 16:00:00 Outpatient LABSalomon MALHOTRA [id number] [facility] 2022-09-12 15:00:00 2022-09-12 15:00:00 Outpatient FE JHON GEGE MALHOTRA [id number] [facility] 2022-09-12 00:00:00 2022-09-12 00:00:00 Outpatient NAOMIE GARCIA [id number] [facility] 2022-08-16 00:00:00 2022-08-16 00:00:00 Outpatient M[facility]ACEY [facility] [id number] [facility] 2022-08-08 00:00:00 2022-08-08 00:00:00 Outpatient MELY TRACEY [facility] [id number] [facility] 2022-07-29 00:00:00 2022-07-29 00:00:00 Case Management Mely Fernandez [facility] RESPITE CARE PROVIDER [facility] MATERNAL & CHILD [facility] 1.2.840.114 350.1.13.10 4.2.7.2.686 [id number] [facility] 2022-07-26 14:30:00 2022-07-26 15:36:48 Outpatient MELY TRACEY [facility] [id number] [facility] 2022-07-26 14:30:00 2022-07-26 15:36:48 Office Visit Provider, Brandon-Rmchp Mely Rivera [facility] RESPITE CARE PROVIDER [facility] MATERNAL & CHILD [facility] 1..840.114 350.1.13.10 4.2.7.2.686 [id number] [facility] 2022-07-03 16:30:00 2022-07-03 16:30:00 Outpatient JUANA OLIVIA [id number] [facility] Jaure[facility] 2022-07-02 10:55:00 2022-07-02 12:08:00 Emergency X YOGESH MALDONADO [facility] ERT [id number] [facility] 2022-07-02 10:55:00 2022-07-02 12:08:00 Emergency Yogesh Maldonado [facility] 1..840.114 350.1.13.10 4.2.7.2.686 [id number] [facility] 2022-07-02 00:00:00 2022-07-02 00:00:00 Telephone Perez Lopez [facility] RESPITE CARE PROVIDER [facility] MATERNAL & CHILD [facility] 1..840.114 350.1.13.10 4.2.7.2.686 [id number] 107 [id number] [facility] 2022-06-24 10:45:00 2022-06-24 10:45:00 Outpatient NIVIA GARCIA [id number] [facility] Ja[facility] 2022-06-10 09:00:00 2022-06-10 09:00:00 Outpatient NIVIA GARCIA [id number] [facility] 2022-05-31 15:30:00 2022-05-31 15:30:00 Outpatient JOSH FLYNN GEGE MALHOTRA [id number] [facility] 2022-05-22 09:45:00 2022-05-22 09:45:00 Outpatient Viola GORDILLOEGADIEL [facility] [id number] [facility] 2022-05-15 00:00:00 2022-05-15 00:00:00 Outpatient NAOMIE GARCIA GEGE MALHOTRA [id number] [facility] 2022-05-02 00:00:00 2022-05-02 00:00:00 Outpatient DILCIAEviADANAOMIE ZAMORA GEGE MALHOTRA [id number] [facility] 2022-05-01 17:15:00 2022-05-01 17:15:00 Outpatient DANIELA GEGE MALHOTRA [id number] [facility] 2022-05-01 16:30:00 2022-05-01 17:00:00 Office Visit WangNivia CHERYL 1.2.840.114 350.1.13.13 1.2.7.2.686 [id number] [facility] 2022-04-30 00:00:00 2022-04-30 00:00:00 Outpatient NIVIA GARCIA GEGE MALHOTRA [id number] [facility] 2022-04-17 17:45:00 2022-04-17 17:45:00 Outpatient PEREZ SHELTON [facility] [id number] [facility] 2022-04-17 00:00:00 2022-04-17 00:00:00 Orders Only Doctor Unassigned, [place] [facility] 1.2.840.114 350.1.13.10 4.2.7.2.686 [id number] [facility] 2022-04-16 13:00:00 2022-04-16 13:00:00 Outpatient PEREZ SHELTON [facility] [id number] [facility] 2022-02-21 08:15:00 2022-02-21 08:15:00 Outpatient R PEREZ LOPEZ [facility] [id number] [facility] 2022-01-03 08:15:00 2022-01-03 08:15:00 Outpatient R PEREZ LOPE[facility] [id number] [facility] 2021-12-23 19:46:00 2021-12-23 23:21:00 Emergency X JAYDEN Evi [facility] ERT [id number] [facility] 2021-12-23 19:46:00 2021-12-23 23:21:00 Emergency Evi Carpenter [facility] .840.114 350.1.13.10 4.2.7.2.686 [id number] [facility] 2021-09-06 15:45:00 2021-09-06 15:45:00 Outpatient R PEREZ LOPEZ [facility] [id number] [facility] 2021-08-07 15:00:00 2021-08-07 15:00:00 Outpatient R PEREZ LOPE[facility] [id number] [facility] 2021-08-02 00:00:00 2021-08-02 00:00:00 Telephone Perez Lopez [facility] RESPITE CARE PROVIDER [facility] MATERNAL & CHILD [facility] .840.114 350.1.13.10 4.2.7.2.686 [id number] [facility] 2021-06-07 09:00:25 2021-06-07 09:28:03 Nurse Visit Visit, Brandon-Rmchp Nurse Perez Lopez [facility] RESPITE CARE PROVIDER [facility] MATERNAL & CHILD [facility] 1..840.114 350.1.13.10 4.2.7.2.686 [id number] 107 [id number] [facility] 2021-06-07 09:00:00 2021-06-07 09:00:00 Outpatient [facility] [id number] [facility] 2021-06-04 09:00:00 2021-06-04 09:00:00 Outpatient R [facility] [id number] [facility] 2021-06-04 09:00:00 2021-06-04 09:00:00 Outpatient R PEREZ LOPEZ [facility] [id number] [facility] 2021-05-25 00:00:00 2021-05-25 00:00:00 Telephone Perez Lopez [facility] RESPITE CARE PROVIDER [facility] & CHILD [facility] 1..840.114 350.1.13.10 4.2.7.2.686 [id number] [facility] 2021-05-21 14:39:44 2021-05-21 15:48:37 Office Visit Nory Rodriguez [facility] RESPITE CARE PROVIDER [facility] 1..840.114 350.1.13.10 4.2.7.2.686 [id number] [facility] 2021-05-21 14:30:00 2021-05-21 14:30:00 Outpatient R NORY RODRIGUEZ [facility] [id number] [facility] 2021-05-21 00:00:00 2021-05-21 00:00:00 Orders Only Doctor Unassigned, [place] [facility] ..840.114 350.1.13.10 4.2.7.2.686 [id number] [facility] 2021-05-11 12:45:00 2021-05-11 12:45:00 Outpatient R PEREZ LOPEZ [facility] [id number] [facility] 2020-11-14 00:00:00 2020-11-14 00:00:00 Patient Outreach Amor Rubio [facility] 1.840.114 350.1.13.10 4.2.7.2.686 [id number] [facility] 2020-11-14 00:00:00 2020-11-14 00:00:00 Patient Outreach Amor Rubio [facility] 1.2.840.114 350.1.13.10 4.2.7.2.686 [id number] 2020-08-29 09:00:00 2020-08-29 09:00:00 Outpatient R [facility] [id number] [facility] 2020-08-02 14:00:00 2020-08-02 14:00:00 Outpatient R [facility] [id number] [facility] 2020-08-02 14:00:00 2020-08-02 14:00:00 Outpatient R PEREZ LOPEZ [facility] [id number] [facility] 2020-07-24 09:30:00 2020-07-24 09:30:00 Outpatient R [facility] [id number] [facility] 2020-06-27 15:14:20 2020-06-27 15:49:12 Office Visit Perez Lopez [facility] RESPITE CARE PROVIDER [facility] & CHILD [facility] 1.2840.114 350.1.13.10 4.2.7.2.686 [id number] 107 [id number] [facility] 2020-06-27 15:14:20 2020-06-27 15:49:12 Office Visit Perez Lopez [facility] RESPITE CARE PROVIDER [facility] & CHILD [facility] 1.2840.114 350.1.13.10 4.2.7.2.686 [id number] 2020-06-27 15:15:00 2020-06-27 15:15:00 Outpatient R PEREZ LOPEZ [facility] [id number] [facility] 2020-06-27 15:15:00 2020-06-27 15:15:00 Outpatient R PEREZ LOPEZ [facility] [id number] [facility] 2020-05-24 10:30:00 2020-05-24 10:30:00 Outpatient R PEREZ LOPEZ [facility] [id number] [facility] 2020-05-24 10:30:00 2020-05-24 10:30:00 Outpatient R PEREZ LOPEZ [facility] [id number] [facility] 2020-03-27 00:00:00 2020-03-27 00:00:00 Telephone Perez Lopez [facility] RESPITE CARE PROVIDER [facility] MATERNAL & CHILD [facility] 1..840.114 350.1.13.10 4.2.7.2.686 [id number] [facility] 2020-03-23 09:05:31 2020-03-23 10:07:13 Office Visit Perez Lopez [facility] RESPITE CARE PROVIDER [facility] & CHILD [facility] 1.2840.114 350.1.13.10 4.2.7.2.686 [id number] [facility] 2020-03-23 09:00:00 2020-03-23 09:00:00 Outpatient R PEREZ LOPEZ [facility] [id number] [facility] 2020-03-23 00:00:00 2020-03-23 00:00:00 Orders Only Doctor Unassigned, [place] [facility] 1.84.114 350.1.13.10 4.2.7.2.686 [id number] [facility] 2020-02-04 08:06:19 2020-02-04 08:53:19 Office Visit Perez Lopez [facility] RESPITE CARE PROVIDER [facility] & CHILD [facility] 1.840.114 350.1.13.10 4.2.7.2.686 [id number] [facility] 2020-02-04 08:15:00 2020-02-04 08:15:00 Outpatient R PEREZ LOPEZ [facility] [id number] [facility] 2019-03-24 00:00:00 2019-03-24 00:00:00 Telephone Gadiel Boykin [facility] RESPITE CARE PROVIDER [facility] & CHILD [facility] 1.2.840.114 350.1.13.10 4.2.7.2.686 [id number] [facility] 2019-03-23 09:47:46 2019-03-23 10:44:24 Office Visit Gadiel Boykin [facility] RESPITE CARE PROVIDER [facility] 1.2.840.114 350.1.13.10 4.2.7.2.686 [id number] [facility] 2019-03-23 00:00:00 2019-03-23 00:00:00 Orders Only Doctor Unassigned, [place] [facility] 1.2.840.114 350.1.13.10 4.2.7.2.686 [id number] [facility] 2013-08-27 13:13:00 2013-08-27 13:13:00 Inpatient nullFlavo r [facility] [id number] Yazmin Lee Results Test Description Test Time Test Comments Results Result Co mments Source [facility]HFKL[facility]WR9817-37-68 09:41:00* Test Item Value Reference Range Interpretation Comme nts Glucose Lvl (test code = Glucose Lvl) 81 70-99 [facility]IcfvwokMNFOYYLCCN6804-33-49 09:41:00* Test Item Value Reference Range Interpretation Comme nts Segs (test code = Segs) 47.3 45.0-75.0 [facility] HospitalNyvuyenDNEUHFTQOJ9339-76-19 12:40:00* Test Item Value Reference Range Interpretation Comme nts Coronavirus (COVID-19) CHANTALE (test code = Coronavirus (COVID-19) CHANTALE) Not Detected (11/04/22 7:40 AM) [facility] HospitalRyupgouHKIUQR8824-22-70 08:55:32* Test Item Value Reference Range Interpretation Comme [...] 1. Nondisplaced left posterior wall acetabular fracture. [facility]BPUSY4358-12-68 05:36:13* Test Item Value Reference Range Interpretation Comme [facility] RADRPT (test code = RADRPT) EXAM: XR [...] acute abnormality.IMPRESSION: 1. No acute cardiopulmonary abnormality. [facility]TnugqcuSGRHJA8670-67-35 03:00:38* Test Item Value Reference Range Interpretation [facility] (test code = RADRPT) EXAM: CT [...] the skull base to the level of T2.Display Associate: Noncontributory.Bones: No acute fracture or malalignment is identified. Straightening of the cervical lordosis, either positional or due to muscle spasm. There is preservation of the vertebral body heights and disc spaces.Soft tissues: No acute cervical soft tissue abnormality is identified.IMPRESSION: No acute abnormality. [facility] CampusKhwhvmeQZKFBE6354-94-07 02:52:19* Test Item Value Reference Range Interpretation [...] Refer to CT protocol formUT SECTION: ERFINDINGS: Display Associate: Noncontributory.Lines and tubes: None.Lower Neck: Supraclavicular soft [...] abnormality within the chest, abdomen or pelvis. [facility] CenterElynaavVWTKSC4061-05-32 02:48:06* Test Item Value Reference Range Interpretation [...] sinuses are predominantly clear.IMPRESSION:No acute intracranial abnormality. [facility] HospitalHvjiexfJHRFAY0481-32-68 02:19:53* Test Item Value Reference Range Interpretation [...] identified.IMPRESSION: No acute abnormality. [place] SECTION: ER [facility] JPIFI1744-76-79 00:52:00* Test Item Value Reference Range Interpretation Comme nts Lactic Acid Lvl (test code = Lactic Acid Lvl) 1.5 0.5-2.[address] [facility] YjjytfaOMFAEOOTC0093-25-51 00:52:00* Test Item Value Reference Range Interpretation Comme nts Ethanol Lvl (test code = Ethanol Lvl) no gt [facility] MarshallSdoulvtENRLJQSUESILZ8112-21-17 00:52:00* Test Item Value Reference Range Interpretation Comme nts S Preg (test code = S Preg) Negative *NA*(11/03/22 7:52 PM) [facility] MarshallDrjfudgZXYWLEDJQW9865-60-95 00:52:00* Test Item Value Reference Range Interpretation Comme nts ACT (TEG) Rapid (test code = ACT (TEG) Rapid) 97 s 86-118 [facility] HospitalFffyikbAZMKEJJYXD9530-48-44 00:52:00* Test Item Value Reference Range Interpretation Comme nts Ethanol Lvl (test code = Ethanol Lvl) no gt [facility] AALCFOO1170-12-65 23:58:00* Test Item Value Reference Range Interpretation Comme nts ABO/Rh (test code = ABO/Rh) A POS [facility] HospitalQbrgcbrYZHCBGIKDD1334-52-83 23:57:00* Test Item Value Reference Range Interpretation Comme nts Basophils # (test code = Basophils #) 0.1 <=0.2 [facility] WITH [id number] 05:48:20* Test Item Value Reference Range Interpretation [...] 32.3 g/dL 31.6-35.1 RDW-SD (test code = 28621-2) 41.8 fL 39.0-49.9 RDW-CV (test code = 788-0) 14.1 % 12.0-15.5 PLT (test code = 777-3) See_Comment [Automated messa ge] The system which generated this result transmitted reference range: 166 - 358 10*3/?L. The reference range was not used to interpret this result as normal/abnormal. MPV (test code = 59260-3) 11.1 fL 9.5-12.9 NRBC/100 WBC (test code = 7006923898) See_Comment [Automated me ssage] The system which generated this result transmitted reference range: 0.0 - 10.0 /100 WBCs. The reference range was not used to interpret this result as normal/abnormal. NRBC x10^3 (test code = 4295148331) See_Comment [Automated me ssage] The system which generated this result transmitted reference range: 10*3/?L. The reference range was not used to interpret this result as normal/abnormal. GRAN MAT (NEUT) % (test code = 770-8) 54.0 % IMM GRAN % (test code = 4704165551) 0.10 % LYMPH % (test code = 736-9) 36.4 % MONO % (test code = 5905-5) 8.1 % EOS % (test code = 713-8) 1.0 % BASO % (test code = 706-2) 0.4 % GRAN MAT x10^3(ANC) (test code = 2209500292) 3.63 10*3/uL 1.88-7.09 IMM GRAN x10^3 (test code = 7559052728) 0.00-0.06 LYMPH x10^3 (test code = 731-0) 2.46 10*3/uL 1.32-3.29 MONO x10^3 (test code = 742-7) 0.55 10*3/uL 0.33-0.92 EOS x10^3 (test code = 711-2) 0.07 10*3/uL 0.03-0.39 BASO x10^3 (test code = 704-7) 0.03 10*3/uL 0.01-0.07 [facility] WITH UVCQ9325-14-51 05:48:20* Test Item Value Reference Range Interpretation Comme nts WBC (test code = 6690-2) See_Comment [Automated messa ge] The system which generated this result transmitted reference range: 4.30 - 11.10 10*3/?L. The reference range was not used to interpret this result as normal/abnormal. RBC (test code = 789-8) See_Comment [Automated [employer] ge] The system which generated this result [...] 32.3 g/dL 31.6-35.1 RDW-SD (test code = 75664-7) 41.8 fL 39.0-49.9 RDW-CV (test code = 788-0) 14.1 % 12.0-15.5 PLT (test code = 777-3) See_Comment [Automated [employer] INTEGRATED BIOPHARMA] The system which generated this result transmitted reference range: 166 - 358 10*3/?L. The reference range was not used to interpret this result as normal/abnormal. MPV (test code = 41446-8) 11.1 fL 9.5-12.9 NRBC/100 WBC (test code = 4087032065) See_Comment [Automated ILD [employer]ge] The system which generated this result transmitted reference range: 0.0 - 10.0 /100 WBCs. The reference range was not used to interpret this result as normal/abnormal. NRBC x10^3 (test code = 3893456891) See_Comment [Automated ILD [employer]eles[employer]ge] The system which generated this result transmitted reference range: 10*3/?L. The reference range was not used to interpret this result as normal/abnormal. GRAN MAT (NEUT) % (test code = 770-8) 54.0 % IMM GRAN % (test code = 0053909825) 0.10 % LYMPH % (test code = 736-9) 36.4 % MONO % (test code = 5905-5) 8.1 % EOS % (test code = 713-8) 1.0 % BASO % (test code = 706-2) 0.4 % GRAN MAT x10^3(ANC) (test code = 0856504989) 3.63 10*3/uL 1.88-7.09 IMM GRAN x10^3 (test code = 7554688070) 0.00-0.06 LYMPH x10^3 (test code = 731-0) 2.46 10*3/uL 1.32-3.29 MONO x10^3 (test code = 742-7) 0.55 10*3/uL 0.33-0.92 EOS x10^3 (test code = 711-2) 0.07 10*3/uL 0.03-0.39 BASO x10^3 (test code = 704-7) 0.03 10*3/uL 0.01-0.07 [facility] T2974-50-54 01:46:28* Test Item Value Reference Range Interpretation Comments TROPONIN I (test code = 6101331371) 0.002 ng/mL See_Comment [Automated message] The system [...] of biotin. Lab Interpretation (test code = 58072-9) Normal [facility]OLIC PANEL (73685)2021-12-24 01:34:25* Test Item Value Reference Range Interpretation Comme nts NA (test code = 7001152494) 139 mmol/L 135-145 K (test code = 7841598676) 3.6 mmol/L 3.5-5.0 CL (test code = 7895123117) 104 mmol/L 98-108 CO2 TOTAL (test code = 7892175484) 25 mmol/L 23-31 AGAP (test code = 3356207718) 2-16 BUN (test code = 1070142037) 10 mg/dL 7-23 GLUCOSE (test code = 8040896560) 81 mg/dL 70-110 CREATININE (test code = 9542758270) 0.86 mg/dL 0.50-1.04 TOTAL BILI (test code = 2749258669) 0.7 mg/dL 0.1-1.1 CALCIUM (test code = 8658636681) 9.6 mg/dL 8.6-10.6 T PROTEIN (test code = 7149761370) 7.8 g/dL 6.3-8.2 ALBUMIN (test code = 3949915092) 4.4 g/dL 3.5-5.0 ALK PHOS (test code = 1081782906) 105 U/L 34-122 ALTv (test code = 1742-6) 24 U/L 5-35 AST(SGOT) (test code = 5265112332) 30 U/L 13-40 eGFR (test code = 9692901357) mL/min/1.73m2 GRISELDA (test code = GRISELDA) Association [...] or urine or abnormalities in imaging tests). [facility]2022-[facility]-02 01:34:25* Test Item Value Reference Range Interpretation Comme nts MAGNESIUM (test code = 7132449212) 1.8 mg/dL 1.7-2.4 Lab Interpretation (test cod e = 01942-4) Normal [facility] SystemD-ICJQK5691-31-88 01:31:04* Test Item Value Reference Range Interpretation Comments D-DIMER (test code = 5913458690) See_Comment [Automated message] The system which generated [...] a diagnosis. Lab Interpretation (test code = 08366-6) Normal [facility] System[facility] JQBD2082-90-48 01:24:00* Test Item Value Reference Range Interpretation Comme nts POCT PREG (test code = 1605) negative On board controls acceptable with C Line (test code = 3574) present POCT PREG LOT # (test code = 3575) [id number] POCT PREG TEST DATE ( test code = 3576) Lab Interpretation (test cod e = 27222-0) Normal [facility] WITH QYWD4215-80-70 01:20:27* Test Item Value Reference Range Interpretation [...] 32.7 g/dL 31.6-35.1 RDW-SD (test code = 15505-7) 40.0 fL 39.0-49.9 RDW-CV (test code = 788-0) 13.6 % 12.0-15.5 PLT (test code = 777-3) See_Comment [Automated messa ge] The system which generated this result transmitted reference range: 166 - 358 10*3/?L. The reference range was not used to interpret this result as normal/abnormal. MPV (test code = 97737-2) 10.0 fL 9.5-12.9 NRBC/100 WBC (test code = 7630939130) See_Comment [Automated me ssage] The system which generated this result transmitted reference range: 0.0 - 10.0 /100 WBCs. The reference range was not used to interpret this result as normal/abnormal. NRBC x10^3 (test code = 5236339911) <0.01 See_Comment [Automated me ssage] The system which generated this result transmitted reference range: 10*3/?L. The reference range was not used to interpret this result as normal/abnormal. GRAN MAT (NEUT) % (test code = 770-8) 46.3 % IMM GRAN % (test code = 6478183341) 0.20 % LYMPH % (test code = 736-9) 43.0 % MONO % (test code = 5905-5) 8.6 % EOS % (test code = 713-8) 1.2 % BASO % (test code = 706-2) 0.7 % GRAN MAT x10^3(ANC) (test code = 0122221810) 2.75 10*3/uL 1.88-7.09 IMM GRAN x10^3 (test code = 7125488217) <0.03 0.00-0.06 LYMPH x10^3 (test code = 731-0) 2.55 10*3/uL 1.32-3.29 MONO x10^3 (test code = 742-7) 0.51 10*3/uL 0.33-0.92 EOS x10^3 (test code = 711-2) 0.07 10*3/uL 0.03-0.39 BASO x10^3 (test code = 704-7) 0.04 10*3/uL 0.01-0.07 [id number]* Test Item Value Reference Range Interpretation Comme nts POCT PREG (test code = 1605) Negative On board controls acceptable with C Line (test code = 3574) Yes POCT PREG LOT # (test code = 3575) POCT PREG TEST DATE ( test code = 3576) [facility] WITH [id number] 05:35:57* Test Item Value Reference Range Interpretation Comme nts HIV Semi-quantitative (test code = 60376-7) Negative Negative GRISELDA (test code = GRISELDA) Non-reactive for HIV-1 antigen and HIV-1/HIV-2 antibodies. ?No laboratory evidence of HIV infection. ?Repeat in 2-4 weeks if acute HIV infection is suspected. [facility]ATING [id number] 05:14:33 * Test Item Value Reference Range Interpretation Comme nts TSH (test code = 4040668821) See_Comment Biotin has been reported to cause a negative bias, interpret results relative to patient's use of biotin. [Automated message] The system which generated this result transmitted reference range: 0.45 - 4.70 mIU/L. The reference range was not used to interpret this result as normal/abnormal. Lab Interpretation (test code = 66180-2) Normal [facility] WITH [id number] 04:59:00* Test Item Value Reference Range Interpretation [...] 31.9 g/dL 31.6-35.1 RDW-SD (test code = 46644-1) 41.9 fL 39.0-49.9 RDW-CV (test code = 788-0) 13.9 % 12.0-15.5 PLT (test code = 777-3) See_Comment [Automated messa ge] The system which generated this result transmitted reference range: 166 - 358 10*3/?L. The reference range was not used to interpret this result as normal/abnormal. MPV (test code = 22439-4) 10.7 fL 9.5-12.9 NRBC/100 WBC (test code = 9424239937) See_Comment [Automated [employer] ssage] The system which generated this result transmitted reference range: 0.0 - 10.0 /100 WBCs. The reference range was not used to interpret this result as normal/abnormal. NRBC x10^3 (test code = 6721652012) <0.01 See_Comment [Automated me ssage] The system which generated this result transmitted reference range: 10*3/?L. The reference range was not used to interpret this result as normal/abnormal. GRAN MAT (NEUT) % (test code = 770-8) 38.2 % IMM GRAN % (test code = 0842059410) 0.20 % LYMPH % (test code = 736-9) 49.1 % MONO % (test code = 5905-5) 10.0 % EOS % (test code = 713-8) 1.8 % BASO % (test code = 706-2) 0.7 % GRAN MAT x10^3(ANC) (test code = 2687852174) 2.07 10*3/uL 1.88-7.09 IMM GRAN x10^3 (test code = 1017231705) <0.03 0.00-0.06 LYMPH x10^3 (test code = 731-0) 2.66 10*3/uL 1.32-3.29 MONO x10^3 (test code = 742-7) 0.54 10*3/uL 0.33-0.92 EOS x10^3 (test code = 711-2) 0.10 10*3/uL 0.03-0.39 BASO x10^3 (test code = 704-7) 0.04 10*3/uL 0.01-0.07 [facility]HE[facility]Y2014 09:25:26* Test Item Value Reference Range Interpretation Comme nts Hct (test code = Hct) 23.3 36.0-48.0 L [facility]EV[facility]12-33-36 12:53:01* Test Item Value Reference Range Interpretation Comme nts Hct (test code = Hct) 25.2 36.0-48.0 L [facility]ITWDJBDZ3836-72-66 04:21:36* Test Item Value Reference Range Interpretation Comme nts HCO3 Cord Mc (test code = H CO3 Cord Mc) 22 [facility] HospitalKqwvecyGEWDEZPGJ1502-49-98 04:21:00* Test Item Value Reference Range Interpretation Comme nts PCO2 Cord Art (test code = P CO2 Cord Art) 57 37-77 N [facility] [id number] 00:58:51* Test Item Value Reference Range Interpretation Comme nts RBC product (test code = RBC product) Product available (08/27/2013 18:58:51) N [facility] HospitalMvxlomgAYCKZZVSTL6677-61-54 00:01:15* Test Item Value Reference Range Interpretation Comme nts UA Glucose (test code = UA Glucose) Negative mg/dL [facility] HospitalWgjtbggQPKMPKYUZ9843-15-84 00:01:13* Test Item Value Reference Range Interpretation Comme nts U Nunu Scr (test code = U Nunu Scr) Negative *NA*(08/27/2013 18:01:13) [facility] HospitalZpephqpIYOWBVVVKV0314-33-70 22:16:00* Test Item Value Reference Range Interpretation Comme nts Lymphocytes (test code = Lymphocytes) 23.5 20.0-40.0 N [facility] HospitalWrikxfeHZVNDNJNMW3221-64-48 22:16:00* Test Item Value Reference Range Interpretation Comme nts Treponemal Scr (test code = Treponemal Scr) Non Reactive *NA*(08/27/2013 16:16:00) [facility] HospitalPaperhater.comOOD BANK JUQZYHI1052-26-06 22:14:00* Test Item Value Reference Range Interpretation Comme nts ABO/Rh (test code = ABO/Rh) A POS [facility] History and Physical Notes Date/Time Note Provider Source 2022-11-05 18:35:00 Shakila Eddy DO : PER[employer] Display: History and PhysicalAuthored Date: [id number] and Physical Primary Team Name:Team Contact Info:PCP [...] (METS): >45) Imaging: imaging not needed6) Outpatient fur nailer: N/A7) Last stress test or coronary angiogram [...] recommendations pending.Shakila Eddy DOElectronically Signed: 11/04/22 07:10 [facility] 2022-11-05 18:35:00 Shakila Eddy DO : [employer] Display: History and PhysicalAuthored Date: [id number] and Physical Primary Team Name:Team Contact Info:PCP [...] 21:48:06IMPRESSION:No acute intracranial abnormality. Signed By: Joseph Benvaides MD Trauma Chest/Abd/Pelvis w IV contrast CT [...] 11/04/22 6:23:00 CDT, Status: Inpatient, Acute, Location: [address] [place] [address], Expected LOS: 2 Midnights, Brenna Sinha MD, [...] (METS): >45) Imaging: imaging not needed6) Outpatient fur nailer: N/A7) Last stress test or coronary angiogram [...] recommendations pending.Shakila Eddy DOElectronically Signed: 11/04/22 07:10 [facility]
[2024-09-12] MEDS ORDERED: ONDANSETRON 4 MG/2 ML VIAL ONE ×2 (05:26→06:51)
[2024-09-12] MEDS ORDERED: NA CHLORIDE 0.9% 1,000 ML ONE ×2 (05:26→06:37)
[2024-09-12 05:49] LABS: Absolute Lymphocytes (CBC) 0.7 K/uL (0.7-4.9); Absolute Monocytes 0.3 K/uL (0.1-1.3); Absolute Neutrophil 9.4 K/uL (1.8-8.0); Basophils % 0.2 % (0-1.3); Eosinophils % 0.3 % (0-4.4); Hematocrit 39.6 % (36.0-45.0); Hemoglobin 12.9 g/dL (12.0-15.0); Lymphocytes % 6.7 % (15.3-44.8); MCHC 32.7 g/dL (32.0-36.0); MCV 82.8 fL (80-100); MPV 8.4 fL (7.6-11.3); Monocytes % 2.7 % (3.3-12.3); Neutrophils % 90.1 % (41.7-73.7); Nucleated Red Blood Cells % 0.1 % (0-0); Platelets 347 thou/uL (152-406); RBC Red Blood Cell Count 4.78 M/uL (3.86-4.86); Red Cell Distribution Width 14.2 % (12.1-15.2)
[2024-09-12 06:06] LABS: Albumin 3.4 g/dL (3.4-5.0); Albumin/Globulin Ratio 0.8 (1.1-1.8); Anion Gap 9.9 mEq/L (5.0-15.0); Bilirubin Total 0.7 mg/dL (0.2-1.0); Globulin 4.4 g/dL (2.3-3.5); Potassium 3.9 mEq/L (3.5-5.1); Protein, Total 7.8 g/dL (6.4-8.2)
[2024-09-12 07:01] LABS: Specific Gravity 1.024 (1.005-1.030); Sqamous Epithelial <5 /HPF (None Seen); Urine Bacteria None Seen /HPF (<20); Urine Bilirubin NEGATIVE (Negative); Urine Blood Negative (Negative); Urine Clarity Clear (Clear); Urine Color Light-Yellow (Yellow); Urine Culture Reflex Order NOT NEEDED; Urine Glucose NEGATIVE (Negative); Urine Ketones NEGATIVE (Negative); Urine Micro Reflex YN NO BILL MICROSCOPIC; Urine Mucus Slight /HPF (None Seen); Urine Nitrite NEGATIVE (Negative); Urine Protein NEGATIVE (Negative); Urine RBC <5 /HPF (None Seen); Urine Urobilinogen Normal (Normal); Urine WBC <5 /HPF (<5); Urine pH 5.5 (5.0-7.0)
[2024-09-12] MEDS ORDERED: PROMETHAZINE INJ 25 MG/ML AMP ONE (07:59)
--- NOTE | 2024-09-12 08:23 | EDPHYS ---
Physician Documentation [facility] Name: Troy Son Age: 29 yrs Sex: Female : 1995 Arrival Date: 09/12/2024 Time: 05:02 Bed 5 Private MD: ED Physician Gary Marshall HPI: 09/12 05:18 This 29 yrs old Black Female presents to ER via Ambulatory with complaints of rt Nausea/Vomiting/Diarrhea, Near Syncope, Weakness. 05:18 Patient presents to the ED with nausea, vomiting starting last night at about 10. rt Patient states that when she vomits, she comes lightheaded, feels like she blacks out. Denies any abdominal pain, diarrhea. Does report that she has positive sick contacts, her children have similar symptoms. Denies other acute complaints, symptoms are moderate in severity, no other aggravating alleviating factors. 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 Irregular periods cp4 Historical: - Allergies: 05:16 Amoxicillin; cp4 - PMHx: 05:16 ibs; mass on uterus; PCOS; cp4 - PSHx: 05:16 section; Cholecystectomy; cp4 - Immunization history:: Adult Immunizations up to date. - Infectious Disease History:: Denies. - Social history:: Smoking status: Patient denies any tobacco usage or history of. - Family history:: not pertinent. ROS: 05:18 Constitutional: Negative for fever, chills, and weight loss, Cardiovascular: Negative rt for chest pain, palpitations, and edema, Respiratory: Negative for shortness of breath, cough, wheezing, and pleuritic chest pain, MS/Extremity: Negative for injury and deformity, Skin: Negative for injury, rash, and discoloration, 05:18 Abdomen/GI: Positive for nausea and vomiting, Negative for abdominal pain, 05:18 Neuro: Positive for dizziness, syncope, Exam: 05:18 Constitutional: This is a well developed, well nourished patient who is awake, alert, rt and in no acute distress. Head/Face: Normocephalic, atraumatic. Chest/axilla: Normal chest wall appearance and motion. Nontender with no deformity. No lesions are appreciated. Cardiovascular: Regular rate and rhythm with a normal S1 and S2. No gallops, murmurs, or rubs. Normal PMI, no JVD. No pulse deficits. Respiratory: Lungs have equal breath sounds bilaterally, clear to auscultation and percussion. No rales, rhonchi or wheezes noted. No increased work of breathing, no retractions or nasal flaring. Abdomen/GI: Soft, non-tender, with normal bowel sounds. No distension or tympany. No guarding or rebound. No evidence of tenderness throughout. Skin: Warm, dry with normal turgor. Normal color with no rashes, no lesions, and no evidence of cellulitis. MS/ Extremity: Pulses equal, no cyanosis. Neurovascular intact. Full, normal range of motion. Neuro: Awake and alert, GCS 15, oriented to person, place, time, and situation. Cranial nerves II-XII grossly intact. Motor strength 5/5 in all extremities. Sensory grossly intact. Cerebellar exam normal. Normal gait. 05:27 ECG was reviewed by the Attending Physician. rt Vital Signs: 05:14 BP 129 / 80; Pulse 96; Resp 18; Temp 98.1; Pulse Ox 100% ; Weight 102.06 kg; Height 5 cp4 ft. 4 in. ; Pain 0/10; 05:15 BP 133 / 85; Pulse 83; Resp 18; Pulse Ox 100% on R/A; al5 05:30 BP 133 / 77; Pulse 76; Resp 17; Pulse Ox 98% on R/A; al5 05:45 BP 137 / 80; Pulse 78; Resp 17; Pulse Ox 98% on R/A; al5 06:00 BP 140 / 83; Pulse 80; Resp 16; Pulse Ox 99% on R/A; al5 06:15 BP 117 / 69; Pulse 79; Resp 15; Pulse Ox 100% on R/A; al5 06:30 BP 109 / 88; Pulse 84; Resp 16; Pulse Ox 100% on R/A; al5 08:29 BP 111 / 76; Pulse 81; Resp 18; Pulse Ox 100% on R/A; ld1 05:14 Body Mass Index 38.62 (102.06 kg, 162.56 cm) cp4 05:14 Pain Scale: Adult cp4 MDM: 05:10 Medical Screening Exam initiated rt 06:38 Differential diagnosis: Pancreatitis, electrolyte disturbance, ZACHARY, dehydration, rt nausea, vomiting, gastroenteritis. Data reviewed: vital signs, nurses notes, lab test result(s). Test considered but Not performed: CT: No focal abdominal tenderness, no reports of abdominal pain, do not believe that CT scan is indicated at this time to rule out acute surgical pathology such as appendicitis. Counseling: I had a detailed discussion with the patient and/or guardian regarding the historical points, exam findings, and any diagnostic results supporting the discharge/admit diagnosis, lab results, the need for outpatient follow up. Response to treatment: the patient's symptoms have markedly improved after treatment. 09/12 05:17 Order name: CBC with Diff; Complete Time: 06:33 rt 09/12 05:17 Order name: CMP; Complete Time: :33 rt 09/12 05:17 Order name: Lipase; Complete Time: :33 rt 09/12 05:17 Order name: UAM; Complete Time: 07:02 rt 09/12 05:17 Order name: PREGU; Complete Time: 07:02 rt 09/12 05:17 Order name: EKG - Nurse/Tech; Complete Time: 05:33 rt EC:27 Rate is 85 beats/min. Rhythm is regular, Normal Sinus Rhythm with No ectopy. QRS [place] rt is Normal. OR interval is normal. QRS interval is normal. QT interval is normal. No Q waves. T waves are Normal. No ST changes noted. Interpreted by me. Administered Medications: 05:32 Drug: NS 0.9% IV 1000 ml IV at 1000 ml once; to be given as a bolus over 60 minutes cp4 Route: IV; Rate: 1000 ml; Site: right antecubital; 06:37 Follow up: Response: No adverse reaction; IV Status: Completed infusion al5 05:32 Drug: Ondansetron IVP 4 mg IVP once; over 2 minutes Route: IVP; Site: right antecubital;cp4 06:36 Follow up: Response: No adverse reaction al5 06:36 Drug: NS 0.9% IV 1000 ml IV at 1000 ml once; to be given as a bolus over 60 minutes al5 Route: IV; Rate: 1000 ml; Site: right antecubital; 06:53 Drug: Ondansetron IVP 4 mg IVP once; over 2 minutes Route: IVP; Site: right antecubital;al5 08:29 Follow up: Response: No adverse reaction; Nausea is decreased ld1 08:29 Not Given (Other Intervention Used): [id number] mg IVP once; add to 2nd liter ld1 please at bolus rate Disposition Summary: 09/12/24 08:23 Discharge Ordered Notes: Location: Home tariq Problem: new tariq Symptoms: have improved tariq Condition: Stable tariq Diagnosis - Nausea with vomiting, unspecified tariq Followup: rt - With: Private Physician - When: 2 - 3 days - Reason: Discharge Instructions: - Near-Syncope tariq - Near-Syncope, Dahn-va-Xgtp tariq - Discharge Summary Sheet rt - Nausea and Vomiting, Adult rt Forms: - Medication Reconciliation Form tariq - Antibiotic Education tariq - Prescription Opioid Use tariq - Patient Portal Instructions [facility] - Leadership Thank You Letter [facility] Prescriptions: - ondansetron 4 mg Oral Tablet,disintegrating - take 1 tablet ORAL route every 6 hours as needed for nausea; 15 tablet; rt Refills: 0, Product Selection Permitted Signatures: Dispatcher [employer] EDMS Gary Marshall MD MD tariq Priyank Palma MD MD rt Marilynn Ren cp4 Margot Ríos RN RN al5 Libia Ortiz RN ld1 Corrections: (The following items were deleted from the chart) 05:18 05:18 CBC+H.LAB.BRZ ordered. EDMS EDMS 05:18 05:18 COMPREHENSIVE METABOLIC PANEL+C.LAB.BRZ ordered. EDMS EDMS 05:18 05:18 LIPASE+C.LAB.BRZ ordered. EDMS EDMS 05:18 05:18 Urinalysis W/Microscopic+U.LAB.BRZ ordered. EDMS EDMS 05:18 05:18 Test, Urine+UC.LAB.BRZ ordered. EDMS EDMS
--- NOTE | 2024-09-12 08:23 | ER ---
Nurse's Notes [facility] Name: Troy Son Age: 29 yrs Sex: Female : 1995 Arrival Date: 09/12/2024 Time: 05:02 Bed 5 Private MD: Diagnosis: Nausea with vomiting, unspecified Presentation: 09/12 05:14 Chief complaint: Patient states: vomiting, diarrhea, and fever that started at 2200. cp4 Coronavirus screen: Client denies travel out of the [place] in the last 14 days. At this time, the client does not indicate any symptoms associated with coronavirus-19. Ebola Screen: Patient negative for fever greater than or equal to 101.5 degrees Fahrenheit, and additional compatible Ebola Virus Disease symptoms Patient denies exposure to infectious person. Patient denies travel to an Ebola-affected area in the 21 days before illness onset. No symptoms or risks identified at this time. Initial Sepsis Screen: Does the patient meet any 2 criteria? HR > 90 bpm. No. Patient's initial sepsis screen is negative. Does the patient have a suspected source of infection? No. Patient's initial sepsis screen is negative. Risk Assessment: Do you want to hurt yourself or someone else? Patient reports no desire to harm self or others. Onset of symptoms was September 11, 2024 at 22:00. 05:14 Method Of Arrival: Ambulatory [facility] 05:14 Acuity: CARMEN 3 cp4 Triage Assessment: 05:16 General: Appears in no apparent distress. uncomfortable, Behavior is calm, cooperative, cp4 appropriate for age. Pain: Denies pain. EENT: No signs and/or symptoms were reported regarding the EENT system. Neuro: Level of Consciousness is awake, alert, obeys commands, Oriented to person, place, time, situation. Cardiovascular: Patient's skin is warm and dry. Respiratory: Airway is patent Respiratory effort is even, unlabored. GI: Abdomen is round non-distended, Bowel sounds present X 4 quads. Abd is soft and non tender X 4 quads. Reports diarrhea, nausea, vomiting. : No signs and/or symptoms were reported regarding the genitourinary system. Derm: No signs and/or symptoms reported regarding the dermatologic system. Musculoskeletal: No signs and/or symptoms reported regarding the musculoskeletal system. 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 Irregular periods cp4 Historical: - Allergies: 05:16 Amoxicillin; cp4 - PMHx: 05:16 ibs; mass on uterus; PCOS; cp4 - PSHx: 05:16 section; Cholecystectomy; cp4 - Immunization history:: Adult Immunizations up to date. - Infectious Disease History:: Denies. - Social history:: Smoking status: Patient denies any tobacco usage or history of. - Family history:: not pertinent. Screenin:18 [facility] ED Fall Risk Assessment (Adult) History of falling in the last 3 months, cp4 including since admission No falls in past 3 months (0 pts) Confusion or Disorientation No (0 pts) Intoxicated or Sedated No (0 pts) Impaired Gait No (0 pts) Mobility Assist Device Used No (0 pt) Altered Elimination No (0 pt) Score/Fall Risk Level 0 - 2 = Low Risk Oriented to surroundings, Maintained a safe environment, Assessed \T\ reinforced patient's understanding of fall precautions, Hourly rounding (assess needs \T\ fall precautionary measures) done. Abuse screen: Denies threats or abuse. Denies injuries from another. Nutritional screening: No deficits noted. Tuberculosis screening: No symptoms or risk factors identified. Assessment: 05:18 Reassessment: No changes from previously documented assessment. GI: Reports diarrhea, cp4 nausea, vomiting, Patient currently denies abdominal pain. 06:20 General: Appears in no apparent distress. comfortable, Behavior is calm, cooperative. al5 Pain: Denies pain. Neuro: Level of Consciousness is awake, alert, obeys commands. Cardiovascular: Capillary refill < 3 seconds Patient's skin is warm and dry. Respiratory: Airway is patent Respiratory effort is even, unlabored, Respiratory pattern is regular, symmetrical. GI: No signs and/or symptoms were reported involving the gastrointestinal system. : No signs and/or symptoms were reported regarding the genitourinary system. EENT: No signs and/or symptoms were reported regarding the EENT system. Derm: Skin is intact, is healthy with good turgor, Skin is pink, warm \T\ dry. normal. Musculoskeletal: No signs and/or symptoms reported regarding the musculoskeletal system. 06:53 Reassessment: Patient appears in no apparent distress at this time. Patient and/or al5 family updated on plan of care and expected duration. Pain level reassessed. Patient is alert, oriented x 3, equal unlabored respirations, skin warm/dry/pink. patient states that she is starting to feel nauseous again, notified MD. additional med order placed, medication given at this time. 08:29 Reassessment: Patient appears in no apparent distress at this time. No changes from ld1 previously documented assessment. Patient and/or family updated on plan of care and expected duration. Pain level reassessed. Patient is alert, oriented x 3, equal unlabored respirations, skin warm/dry/pink. Patient states symptoms have improved. Vital Signs: 05:14 BP 129 / 80; Pulse 96; Resp 18; Temp 98.1; Pulse Ox 100% ; Weight 102.06 kg; Height 5 cp4 ft. 4 in. ; Pain 0/10; 05:15 BP 133 / 85; Pulse 83; Resp 18; Pulse Ox 100% on R/A; al5 05:30 BP 133 / 77; Pulse 76; Resp 17; Pulse Ox 98% on R/A; al5 05:45 BP 137 / 80; Pulse 78; Resp 17; Pulse Ox 98% on R/A; al5 06:00 BP 140 / 83; Pulse 80; Resp 16; Pulse Ox 99% on R/A; al5 06:15 BP 117 / 69; Pulse 79; Resp 15; Pulse Ox 100% on R/A; al5 06:30 BP 109 / 88; Pulse 84; Resp 16; Pulse Ox 100% on R/A; al5 08:29 BP 111 / 76; Pulse 81; Resp 18; Pulse Ox 100% on R/A; ld1 05:14 Body Mass Index 38.62 (102.06 kg, 162.56 cm) cp4 05:14 Pain Scale: Adult cp4 ED Course: 05:05 Patient arrived in ED. gm2 05:06 Priyank Palma MD is Attending Physician. rt 05:16 Triage completed. cp4 05:16 Arm band placed on right wrist. Patient placed in waiting room. cp4 05:18 Bed in low position. Call light in reach. Side rails up X 1. cp4 05:18 No provider procedures requiring assistance completed. cp4 05:20 Marilynn Ren is Primary Nurse. cp4 05:20 Provided Education on: plan of care. al5 05:32 Inserted saline lock: 20 gauge in right antecubital area, using aseptic technique. cp4 ,using aseptic technique. done by Margot DANG Blood collected. Flushed with 10 mL NS. 07:18 Attending Physician role handed off by Priyank Palma MD cha 07:18 Gary Marshall MD is Attending Physician. [facility] 08:29 IV discontinued, intact, bleeding controlled, No redness/swelling at site. ld1 Administered Medications: 05:32 Drug: NS 0.9% IV 1000 ml IV at 1000 ml once; to be given as a bolus over 60 minutes cp4 Route: IV; Rate: 1000 ml; Site: right antecubital; 06:37 Follow up: Response: No adverse reaction; IV Status: Completed infusion al5 05:32 Drug: Ondansetron IVP 4 mg IVP once; over 2 minutes Route: IVP; Site: right antecubital;cp4 06:36 Follow up: Response: No adverse reaction al5 06:36 Drug: NS 0.9% IV 1000 ml IV at 1000 ml once; to be given as a bolus over 60 minutes al5 Route: IV; Rate: 1000 ml; Site: right antecubital; 06:53 Drug: Ondansetron IVP 4 mg IVP once; over 2 minutes Route: IVP; Site: right antecubital;al5 08:29 Follow up: Response: No adverse reaction; Nausea is decreased ld1 08:29 Not Given (Other Intervention Used): mdgcelogmhnu77 mg IVP once; add to 2nd liter ld1 please at bolus rate Medication: 05:18 VIS not applicable for this client. cp4 Outcome: 08:23 Discharge ordered by . [facility] 08:29 Discharged to home ambulatory, ld1 08:29 Condition: stable 08:29 Discharge instructions given to patient, Instructed on discharge instructions, follow up and referral plans. medication usage, Demonstrated understanding of instructions, follow-up care, medications, Prescriptions given X 1, 08:29 Patient left the ED. ld1 Signatures: Gary Marshall MD MD cha Sims, Lauren, RN RN ld1 Priyank Plama MD MD rt Potter, Christina cp4 Melissa Miner gm2 Margot Ríos RN RN al5
[2024-09-12 08:39] VITALS: TEMP 98.1
[2024-09-12 08:58] VITALS: O2SAT 100
[2024-09-12 09:00] VITALS: BP 111/76
== END 2024-09-12 08:29 | disposition home or self-care (01) ==
LOC: ER 05:02
DX: R11.2 Nausea with vomiting, unspecified (principal); Z88.0 Allergy status to penicillin
CPT/HCPCS: 36415; 80053; 81001; 81025; 83690; 85025; 96361; 96374; 99284; J2405; J2550; J7030

== ENCOUNTER 2024-12-06 11:10 | Emergency (ER) | payer SELFPAY ==
--- OUTSIDE RECORDS SUMMARY | 2024-12-06 11:18 | XMS REPORT | Continuity of Care Document ---
Author Name Unknown Address [address] [place] [address] [facility] Address [address] [place] [address] Care Team Providers Care Underwear Trimmer Name Role Phone No MD, Pcp Primary Care Physician Unavailab DR HOLLEY Fletcher Attending Clinician Unavailable DR HOLLEY COUCH Attending Clinician Unavailable STEFANY LOPEZ Attending Clinician Unavailable MARIA ESTHER FONTENOT Attending Clinician Unavailable PROVIDER, AFFILIATE Attending Clinician UnavailTEJAS Sanchez JR Attending Clinician Unavailable PEREZ LOPEZ Attending Clinician Unavail able LAB47 Attending Clinician Unavailable JHON MIRAMONTES Attending Clinician Unavailable NAOMIE PIÑA Attending Clinician UnavailMELY Addison Attending Clinician UnavailMely Matos CNM Attending Clinician Provider, [facility]ending Clinician Brittany JUANA Holden Attending Clinician Unavailable YOGESH MALDONADO Attending Clinician Unavailable Yogesh Maldonado DO Attending Clinician [phone] Perez Santiago Attending Clinician + NIVIA PIÑA Attending Clinician Unavailable JOSH FLYNN Attending Clinician Unavailable GADIEL BOYKIN Attending Clinician Unavailab Nivia Santamaria MD Attending Clinician [phone] Unassigned, [place] Attending Clinician U Evi Cota Attending Clinician Unavailable Evi Francisco Attending Clinician [phone] Visit, Ang-Rmchp Nurse Attending Clinician Unajerilyn BRIAN, Nory Soriano Attending Clinician [phone] NORY RODRIGUEZ Attending Clinician UnavailAmor Rico DO Attending Clinician [phone] Asif MCKEONP, Gadiel Rod Attending Clinician + [phone] DR HOLLEY COUCH Admitting Clinician Unavailable Evi CARPENTER Admitting Clinician Unavailable Payers Payer Name Policy Type Policy Number Effective Date Expirati on Date Source OPEN ACCESS [employer]ET[employer] SELECT EPO [id number] 2021 00:00:00 [id number] 2024 00:00:00 [employer]ET[employer] 2 [id number] 2022 00:00:00 AETNA MP [facility] SILVER: HMO SIGN LETTERER 94 ON STAND 9 [id number] 2022 00:00:00 [place] [employer] [id number] 2021 00:00:00 Problems Condition Name Condition Details Condition Category Status Onset Date Resolution Date Last Treatment Date Treating Clinician Comments Source Acetabulum fracture, left Acetabulum fracture, left Disease Active 11-19 00:00: 00 [facility] Obesity (BMI 30-39.9) Obesity (BMI 30-39.9) Disease Active 2021-08 2 00:00: 00 [facility] Other depression Other depression Disease Active 03-23 00:00: 00 [facility] Need for HPV vaccinatio n Need for HPV vaccinatio n Disease Active 03-23 00:00: 00 [facility] Class 1 obesity with body mass index (BMI) of 34.0 to 34.9 in adult, unspecifie d obesity type, unspecifie d whether serious comorbidit y present Class 1 obesity with body mass index (BMI) of 34.0 to 34.9 in adult, unspecifie d obesity type, unspecifie d whether serious comorbidit y present Disease Active 03-23 00:00: 00 [facility] LABOR LABOR Active 08/27/2013 [facility] Diagnosis Active 08-27 00:00: 00 2013-08-28 01:09:00 Yazmin Lee Born by caesarean section (context-d ependent category) Born by caesarean section (context-d ependent category) Diagnosis 11/08/2022 [facility] Diagnosis 2022-11-08 00:55:02 Yazmin Lee Single liveborn infant, delivered by Single liveborn , delivered by 11/11/2022 [facility] Problem 2022-11-11 07:10:19 Ejcece Moserann THREAT LABOR NEC-UNSPEC THREAT LABOR NEC-UNSPEC Active [facility] Diagnosis Active 2013-08-28 01:09:00 Yazmin Lee Allergies, Adverse Reactions, Alerts Allergy Name Allergy Type Status Severity Reaction(s) Onset Date Inactive Date Treating Clinician Comments Source Latex Propensi ty to adverse reaction s Active Swelling 03-12 00:00: 00 Gege Jauregui - Externa l Latex Propensi ty to adverse reaction s Active Swelling 03-12 00:00: 00 [facility] LATEX DRUG INGREDI Active Hives 03-12 00:00: 00 [facility] Amoxicil sinai DA Active Unknown [facility] Social History Social Habit Start Date Stop Date Quantity Comments Source History SDOH Alcohol Frequency [facility] History SDOH Alcohol Std Drinks [facility] History SDOH Alcohol Binge [facility] Exposure to SARS-CoV-2 (event) 2022-12-08 00:00:00 2022-12-18 00:13:00 Not sure [facility] Alcohol intake 2022-09-12 00:00:00 2022-09-12 00:00:00 Ex-drinker (finding) Gege Jauregui - External Tobacco use and exposure 2022-05-01 00:00:00 2022-05-01 00:00:00 Smokeless tobacco non-user Gege Jauregui - External Alcohol Comment 2019-03-23 00:00:00 2019-03-23 00:00:00 social events [facility] Sex Assigned At 1995 00:00:00 1995 00:00:00 [facility] Smoking Status Start Date Stop Date Source Tobacco smoking consumption unknown [facility] Social History Giselle Moser marialuisa Medications Ordered Medication Name Filled Medication Name Start Date Stop Date Current Medication? Ordering Clinician Indication Dosage Frequency Signature (SIG) Comments Components Source traMADol (Ultram) 50 MG tablet 11-20 00:00: 00 Yes [id number] 50mg Q6H Take 1 tablet (50 mg total) by mouth every 6 (six) hours if needed for severe pain. [facility] Adult Aspirin 325 mg oral tablet 11-05 14:13: 00 Yes 325 mg = 1 tab, PO, BID, # 40 tab, 0 Refill(s), Pharmacy: [id number] #[id number], 162.56, cm, 11/04/22 15:53:00 CDT, Height, 100, kg, 11/04/22 15:53:00 CDT, Weight Yazmin Lee tramadol 50 mg oral tablet 11-05 14:12: 00 No 50 mg = 1 tab, PO, TID, PRN Pain Score 7-10, X 3 day, # 9 tab, 0 Refill(s), Pharmacy: [id number] #[id number], 162.56, cm, 11/04/22 15:53:00 CDT, Height, 100, kg, 11/04/22 15:53:00 CDT, Weight Yazmin Lee acetaminoph en 500 mg oral tablet. 11-05 14:11: 00 No 1,000 mg = 2 tab, PO, TID, X 5 day, # 30 tab, 0 Refill(s), Pharmacy: [id number] #[id number], 162.56, cm, 11/04/22 15:53:00 CDT, Height, 100, kg, 11/04/22 15:53:00 CDT, Weight Yazmin Lee remove patch 11-05 01:00: 00 No Notes: Remove patch 12 hours after applicatio n each day. Yazmin Lee lidocaine (ANES) 11-04 19:11: 00 No Route: IV, Drug form: INJ, ONCE, Stop date: 11/04/22 14:11:00 CDT Yazmin Lee fentaNYL (ANES) 11-04 19:11: 00 No Route: IV, Drug form: INJ, ONCE, Stop date: 11/04/22 14:11:00 CDT Yazmin george Morganza propofol (ANES) 11-04 19:11: 00 No Route: IV, Drug form: INJ, ONCE, Stop date: 11/04/22 14:11:00 CDT Yazmin Lee ceFAZolin (ANES) 11-04 19:11: 00 No Route: IV, Drug form: INJ, ONCE, Stop date: 11/04/22 14:11:00 CDT Yazmin george Jesus ondansetron (ANES) 11-04 19:11: 00 No Route: IV, Drug form: INJ, ONCE, Stop date: 11/04/22 14:11:00 CDT Yazmin Lee midazolam (ANES) 11-04 19:09: 00 No Route: IV, Drug form: SOLN, ONCE, Stop date: 11/04/22 14:09:00 CDT Yazmin george Morganza Isolyte S PH-7.4 (Bolus) IV 11-04 18:53: [...] date: Limited # of times, 0 Yazmin SERVIN oxyCODONE 5 mg immediate release tablet 11-04 18:53: 00 No Notes: (Same as: Roxicodone ) Yazmin george Jesus SERVIN HYDROmorpho ne 11-04 18:53: 00 No Notes: Same as Dilaudid Yazmin george Jesus SERVIN flumazenil 11-04 18:53: 00 No Notes: (Same as: Romazicon) Yazmin george Jesus ALAFROS naloxone 11-04 18:53: 00 No Notes: Same as Narcan Ejcece george Jesus ANES ePHEDrine 11-04 18:53: 00 No Notes: (Same as: ePHEDrine Sulfate) Yazmin george Jesus ANEPavan promethazin e + Sodium Chloride 0.9% IV 50 mL 11-04 18:53: 00 No Notes: Do not give IV push. (Same as: Phenergan) Yazmin Lee Lactated Ringers Injection IV (ANES) 1000 mL 11-04 18:15: 00 No Route: IV, Total Volume: 1,000, Start date: 11/04/22 13:15:00 CDT, Stop date: 11/04/22 14:15:00 CDT Ejcece george Lee Lovenox 11-04 14:00: 00 No Notes: (Same as: Lovenox) Yazmin Lee polyethylen e glycol 3350 11-04 14:00: 00 No Notes: Dissolve in 8 oz of water or juice. (Same as: Miralax) Yazmin Lee docusate-se nna 50 mg-8.6 mg oral tablet 11-04 14:00: 00 No Notes: (Same as Senokot-S) Equiv. to Veronica-Colac e. Yazmin Lee lidocaine [...] 11-04 11:23: 00 No Notes: (Same as: [place], Deep Sea Nasal [place]). Yazmin Lee Tums 11-04 11:23: 00 No [...] CDT, Stop date: 11/04/22 5:15:00 CDT Ejcece Lee Zofran 11-04 10:15: 00 No 4 [...] infused by Radiology Staff ONLY" Yazmin Lee [place] 10/325 oral tablet 11-04 02:09: 00 No [...] Yazmin Lee Norethin Arturo-Eth Estrad-FE (Loestrin Fe 1.530) 1.5-30 MG-MCG oral Tablet 1- 00:00: 00 Yes [id number] Take 1 pill 3 times a day for 3 days, 1 pill 2 times a day for 2 days, then 1 pill daily for the remainder Gege vazquez metroNIDAZO LE 500 mg tablet 2021-08 2-05 00:00: 00 08-06 05:59 :00 No [id number] 500mg Take 1 tablet by mouth in the morning and 1 tablet in the evening. Do all this for 7 days. [facility] Omeprazole 40 MG oral Delayed Release Capsule 9-07 00:00: 00 Yes [id number] 40mg Take 1 capsule (40 mg total) by mouth daily Gege vazquez methylpredn isolone sod succ (SOLU-MEDRO L) injection 125 mg 12-24 05:00: 00 12-24 04:08 :00 No 125mg 125 mg, Slow IV Push, ONCE, 1 dose, On 12/24/21 at 0000, SHIRA [facility] ketorolac (TORADOL) injection 15 mg 12-24 03:15: 00 12-24 02:44 :00 No 15mg 15 mg, Slow IV Push, ONCE, 1 dose, On 12/23/21 at 2215, SHIRA
Fa culty member approving Restricted medication : Evi CARPENTER [facility] famotidine (PEPCID (PF)) injection 20 mg 12-24 02:15: 00 12-24 01:28 :00 No 20mg 20 mg, Slow IV Push, ONCE, 1 dose, On 12/23/21 at 2115, SHIAR [facility] maalox:diph enhydrAMINE :lidocaine 2 % viscous 1:1:1 (FIRST-MOUT HWASH BLM) oral suspension 15 mL 12-24 02:15: 00 12-24 01:28 :00 No 15mL 15 mL, Oral (Swish & Swallow), ONCE, 1 dose, On 12/23/21 at 2115, Routine [facility] methylPREDN ISolone (MEDROL, NITA,) 4 mg tablets 12-23 00:00: 00 07-26 00:00 :00 No [id number] Take by mouth SEE-INSTRU CTIONS. follow package directions [facility] norgestimat e-ethinyl estradioL (TRI-LO-SPR INTEC) 0.18/0.215/ 0.25 mg-25 mcg tablet 2020-08 0-14 00:00: 00 07-26 00:00 :00 No [id number] 1{tbl} Take 1 tablet by mouth daily. [facility] No known medications 05-21 14:53: 37 No [facility] ferrous sulfate 325 mg oral enteric coated tablet 08-31 11:54: 00 Yes Marycruz Rubio 325 mg = 1 tab, PO, TID, # 90 tab, 0 Refill(s) Yazmin Lee ibuprofen 800 mg oral tablet 08-31 11:54: 00 Yes Marycruz Rodriguez Ramiro 800 mg = 1 tab, PO, Q8H, Pain, # 30 tab, 0 Refill(s) Yazmin Lee ferrous sulfate 08-30 15:00: 00 No Marycruz Rubio 325 mg, 1 tab, Route: PO, Drug form: ECTAB, TID, Dosing Weight 89.091, kg, Start date: 08/30/13 9:00:00, Duration: 30 day, Stop date: 09/28/13 17:00:00Gi ve with food. "Do Not Crush" Yazmin Lee Colace 100 mg oral capsule 08-29 23:00: 00 No Gopi Camacho Lindsey 100 mg, 1 cap, Route: PO, [...] 17:00:00Gi ve with food. iron elemental 38 vf=790 mg as ferrous sulfate Dose=___mg elemental iron Yazmin Lee Benadryl 08-28 22:49: 00 No Jo Ann Lara Gong 25 mg, 1 cap, Route: PO, Drug form: CAP, Q6H, Dosing Weight 89.091, kg, PRN Itching, Start date: 08/28/13 16:49:00, Duration: 30 day, Stop date: 09/27/13 16:48:00(S velasquez as: Benadryl) Yazmin Lee Multivitami ns oral tablet 08-28 15:00: 00 No Gayathri Garyi 1 tab, Route: PO, Drug Form: TAB, Dosing Weight 89.091, kg, Daily, Start date: 08/28/13 9:00:00, Duration: 30 day, Stop date: 09/26/13 9:00:00 Yazmin Lee Motrin 08-28 14:00: 00 No Sonal Tynese Littlejohn 600 mg, 1 tab, Route: PO, Drug form: TAB, Q6H-02, Start date: 08/28/13 8:00:00, Duration: 24 hr, Stop date: 08/29/13 2:00:00([facility] as: Motrin) "Do Not Crush" Take with food. Yazmin Lee Zofran 08-28 13:31: 00 No Sonal Tynese Littlejohn 4 mg, 2 mL, Route: IVP, Drug form: INJ, PRN, PRN Nausea, Start date: 08/28/13 7:31:00, Duration: 24 hr, Stop date: 08/29/13 7:30:00( me as: Zofran) Yazmin Lee naloxone 08-28 13:31: 00 No Sonal Tynese Littlejohn 0.4 mg, 1 mL, Route: IVP, Drug form: INJ, PRN, PRN Narcotic Reversal, Start date: 08/28/13 7:31:00, Duration: 24 hr, Stop date: 08/29/13 7:30:00( me as: Narcan) Yazmin Lee ketorolac 30 mg/mL injectable solution 08-28 06:02: 00 No Gregory Eric 30 mg, 1 mL, Route: IV, Drug form: INJ, Q6H, Priority: NOW, Start date: 08/28/13 0:02:00, Duration: 2 doses or times, Stop date: 08/28/13 6:00:00(Sa co as:Toradol ) IV bolus must be given [...] day, Stop date: 09/26/13 23:30:00(S velasquez as: [place] 325/5) Do not exceed 4gm/day of acetaminop [...] 4000mg/day (4 gm/day). (Same as: Tylenol) Yazmin vazquez Jesus lanolin topical cream 08-28 05:31: 00 No Reem Sabouni 1 appl, Route: TOP, PRN, Drug form: OINT, PRN Other -See Comment, Start date: 08/27/13 23:31:00, Duration: 30 day, Stop date: 09/26/13 23:30:00 Yazmin george Jesus bisacodyl 08-28 05:31: 00 No Reem Sabouni 10 mg, 1 supp, Route: CT, Drug form: SUPP, PRN, Dosing Weight 89.091, kg, PRN Other -See Comment, Start date: 08/27/13 23:31:00, Duration: 30 day, Stop date: 09/26/13 23:30:00(S velasquez As: Dulcolax, Bisco-Lax) Ejcece george Jesus ibuprofen 08-28 05:31: 00 No Reem Sabouni 600 mg, 1 tab, Route: PO, Drug form: TAB, Q6H, Dosing Weight 89.091, kg, PRN Pain Score 1-5, Start date: 08/27/13 23:31:00, Duration: 30 day, Stop date: 09/26/13 23:30:00(S velasquez as: Motrin) "Do Not Crush" Take with food. Yazmin Lee Lactated Ringers IV 1,000 mL 08-28 05:31: 00 No Gayathri Martinez 1,000 mL, Rate: 100 ml/hr, Infuse over: 10 hr, Route: IV, Dosing Weight 89.091 kg, Total Volume: 1,000, Start date: 08/27/13 23:31:00, Duration: 30 day, Stop date: 09/26/13 23:30:00 Yazmin Lee Sodium Chloride 0.9% (titrate) 250 mL 08-28 00:41: 00 No Maria Esther Ramirez Foreign 250 mL, Rate: oracle data warehouse developer for use with blood product administra tion, Dosing Weight 89.091, kg, Route: IV, Total Volume: 250, Start Date: 08/27/13 18:41:00, Duration: 1 day, Stop date: 08/28/13 18:40:00, Replace Every: 24 hr Yazmin Lee ceFAZolin 08-27 22:00: 00 No Jo Ann Jane Gong 2 gm, 50 mL, Route: IVPB, [...] Jane Gong 1,000 microgram, 5 tab, Route: CT, Drug form: TAB, ONCALL, kg, Start date: 08/27/13 16:00:00, Duration: 30 day, Stop date: 09/26/13 15:59:00(S velasquez as:Cytotec ) Take with food Yazmin Lee carboprost 08-27 22:00: 00 No Jo Ann Jane Gong 250 microgram, 1 mL, Route: IM, Drug form: INJ, ONCALL, kg, Start date: 08/27/13 16:00:00, Duration: 30 day, Stop date: 09/26/13 15:59:00(S velasquez As: Hemabate) Yazmin Lee Lactated Ringers 1000ml+Oxyt ocin 20 [...] morphine Sulfate 08-27 21:32: 00 No Jo Annwil Lara Gong 2 mg, 1 mL, Route: [...] date: 08/29/13 0:00:00D O NOT USE IN SHACTOR AREA (Same As: Brethine) Yazmin Lee citric acid-sodium citrate 08-27 21:32: [...] Observation Time Observation Value Comments S ource Weight 2024-10-09 21:28:00 97.72 KG Weight 2024-10-09 21:28:00 97.72 KG Weight 2024-10-09 21:28:00 97.72 KG Systolic blood pressure 2022-09-12 21:20:00 108 mm[Hg] Gege Lechuga ld - External Diastolic blood pressure 2022-09-12 21:20:00 76 mm[Hg] Gege Lechuga ld - External Heart rate 2022-09-12 21:20:00 84 /min Lashae y Shania - External Body height 2022-09-12 21:20:00 162.6 cm Lilliana ey Seybold - External Body weight 2022-09-12 21:20:00 102.059 kg Lilliana ey Seybold - External BMI 2022-09-12 21:20:00 38.62 kg/m2 Lilliana ey Seybold - External Systolic blood pressure 2022-07-26 21:00:00 109 mm[Hg] [facility] Diastolic blood pressure 2022-07-26 21:00:00 74 mm[Hg] [facility] Heart rate 2022-07-26 21:00:00 82 /min [facility] Body temperature 2022-07-26 21:00:00 36.67 Alison [facility] Respiratory rate 2022-07-26 21:00:00 20 /min [facility] Body height 2022-07-26 21:00:00 162.6 cm [facility] Body weight 2022-07-26 21:00:00 105.688 kg [facility] BMI 2022-07-26 21:00:00 39.99 kg/m2 [facility] Systolic blood pressure 2022-07-02 16:54:00 146 mm[Hg] [facility] Diastolic blood pressure 2022-07-02 16:54:00 97 mm[Hg] [facility] Heart rate 2022-07-02 16:54:00 68 /min [facility] Body temperature 2022-07-02 16:54:00 36.33 Alison [facility] Respiratory rate 2022-07-02 16:54:00 18 /min [facility] Body weight 2022-07-02 16:54:00 97.523 kg [facility] BMI 2022-07-02 16:54:00 36.90 kg/m2 [facility] Oxygen saturation in Arterial blood by Pulse oximetry 2022-07-02 16:54:00 100 /min [facility] Systolic blood pressure 2021-12-24 03:00:00 134 mm[Hg] [facility] Diastolic blood pressure 2021-12-24 03:00:00 84 mm[Hg] [facility] Heart rate 2021-12-24 03:00:00 64 /min [facility] Respiratory rate 2021-12-24 03:00:00 15 /min [facility] Oxygen saturation in Arterial blood by Pulse oximetry 2021-12-24 03:00:00 95 /min [facility] Body temperature 2021-12-24 00:41:00 37 Alison [facility] Body height 2021-12-24 00:41:00 162.6 cm [facility] Body weight 2021-12-24 00:41:00 97.523 kg [facility] BMI 2021-12-24 00:41:00 36.90 kg/m2 [facility] Systolic blood pressure 2021-06-07 14:13:00 123 mm[Hg] [facility] Diastolic blood pressure 2021-06-07 14:13:00 66 mm[Hg] [facility] Heart rate 2021-06-07 14:13:00 73 /min [facility] Body temperature 2021-06-07 14:13:00 36.83 Alison [facility] Respiratory rate 2021-06-07 14:13:00 18 /min [facility] Body height 2021-06-07 14:13:00 162.6 cm [facility] Body weight 2021-06-07 14:13:00 94.62 kg [facility] BMI 2021-06-07 14:13:00 35.81 kg/m2 [facility] Systolic blood pressure 2021-05-21 19:52:00 121 mm[Hg] [facility] Diastolic blood pressure 2021-05-21 19:52:00 73 mm[Hg] [facility] Heart rate 2021-05-21 19:52:00 73 /min [facility] Body temperature 2021-05-21 19:52:00 36.39 Alison [facility] Respiratory rate 2021-05-21 19:52:00 18 /min [facility] Body height 2021-05-21 19:52:00 162.6 cm [facility] Body weight 2021-05-21 19:52:00 92.851 kg [facility] BMI 2021-05-21 19:52:00 35.14 kg/m2 [facility] Heart Rate 2022-11-05 16:36:55 [facility] Respitory Rate 2022-11-05 16:36:55 [facility] Systolic (mm Hg) 2022-11-05 16:36:42 [facility] Diastolic (mm Hg) 2022-11-05 16:36:42 [facility] Heart Rate 2022-11-05 16:36:42 [facility] Temperature Oral (F) 2022-11-05 16:36:31 97.9 F [facility] Height 2022-11-05 16:01:00 5 [ft_i] [facility] Weight 2022-11-05 16:01:00 [facility] Heart Rate 2022-11-05 12:40:42 [facility] Respitory Rate 2022-11-05 12:40:42 [facility] Systolic (mm Hg) 2022-11-05 12:40:37 [facility] Diastolic (mm Hg) 2022-11-05 12:40:37 [facility] Temperature Oral (F) 2022-11-05 12:40:16 97.7 F [facility] Respitory Rate 2022-11-05 08:33:01 [facility] Temperature Oral (F) 2022-11-05 08:32:52 97.7 F [facility] Systolic (mm Hg) 2022-11-05 08:32:15 [facility] Diastolic (mm Hg) 2022-11-05 08:32:15 [facility] Temperature Oral (F) 2022-11-04 21:20:59 98.5 F [facility] Height 2022-11-04 20:53:00 162.56 cm [facility] Weight 2022-11-04 20:53:00 [facility] BMI Calculated 2022-11-04 20:53:00 [facility] Height 2022-11-03 23:49:00 162.56 cm [facility] BMI Calculated 2022-11-03 23:49:00 [facility] Weight 2022-11-03 23:49:00 [facility] Weight 2013-08-28 00:01:00 [facility] Height 2013-08-28 00:01:00 165.1 cm [facility] Procedures Procedure Date / Time Performed Performing Clinician Source CBC WITH DIFF 2022-07-26 21:36:00 eMly Coronado [facility] CONSENT/REFUSAL FOR DIAGNOSIS AND TREATMENT 2022-07-02 16:50:07 Doctor Unassigned, [place] [facility] CONSENT/REFUSAL FOR DIAGNOSIS AND TREATMENT 2022-04-17 22:18:51 Doctor Unassigned, [place] [facility] XR CHEST 1 VW 2021-12-24 01:25:29 Evi [facility] POCT TEST 2021-12-24 01:24:00 Evi Carpenter [facility] D-DIMER 2021-12-24 01:11:00 Evi Carpenter [facility] MAGNESIUM 2021-12-24 01:10:00 [facility] TROPONIN I 2021-12-24 01:10:00 [facility] COMP. METABOLIC PANEL ([id number]) 2021-12-24 01:10:00 Evi Carpenter [facility] CBC WITH DIFF 2021-12-24 01:10:00 [facility] URINALYSIS 2021-12-24 01:10:00 [facility] POCT TEST 2021-06-07 14:18:00 Andrey Rodriguez [facility] THYROID STIMULATING HORMONE 2021-05-21 21:16:00 Nory Rodriguez [facility] CBC WITH DIFF 2021-05-21 21:16:00 [facility]-AB WITH REFLEX 2021-05-21 20:40:00 Nory Rodriguez [facility] GARDASIL 9 (HPV 9V) VACCINE 2021-05-21 20:14:56 Nory Rodriguez [facility] Encounters Start Date/Time End Date/Time Encounter Type Admission Type Attending Clinicians Care Facility Care Department Encounter ID Source 2024-10-09 21:28:00 Inpatient [facility] [id number] [facility] 2023-01-06 10:59:58 Outpatient [facility] [id number] [facility] 2022-12-17 10:01:21 Outpatient [facility] [id number] [facility] 2022-11-20 09:34:32 Outpatient [facility] [id number] [facility] 2022-11-19 06:13:45 Outpatient [facility] [id number] [facility] 2022-11-15 12:42:35 Outpatient [facility] [id number] [facility] 2022-11-07 10:12:11 Outpatient [facility] [id number] [facility] 2024-10-09 21:28:00 2024-10-10 01:10:00 Emergency E HOLLEY COUCH ALYSSA [facility] [id number] [facility] 2024-10-09 21:28:00 2024-10-10 01:10:00 Outpatient [facility] [id number] [facility] 2023-01-29 10:30:00 2023-01-29 10:30:00 Outpatient STEFANY LOPEZ [facility] [id number] [facility] 2023-01-29 10:30:00 2023-01-29 10:30:00 Outpatient [facility] [id number] [facility] 2022-12-18 09:30:00 2022-12-18 10:52:39 Office Visit Stefany Lopez [facility] [address] [facility] [id number] [facility] 2022-12-18 09:30:00 2022-12-18 09:30:00 Outpatient [facility] [id number] [facility] 2022-11-27 10:15:00 2022-11-27 10:15:00 Outpatient STEFANY LOPEZ [facility] [id number] [facility] 2022-11-20 09:30:00 2022-11-20 10:33:45 Office Visit Stefany Lopez [facility] [address] 1.2.840.114 350.1.13.58 9.2.7.2.686 [id number] [facility] 2022-11-20 09:00:00 2022-11-20 09:00:00 Outpatient [facility] [id number] [facility] 2022-11-13 09:45:00 2022-11-13 09:45:00 Outpatient MARIA ESTHER FONTENOT [id number] [facility] 2022-11-06 00:00:00 2022-11-06 00:00:00 Outpatient PROVIDER, MARILEE MALHOTRA [id number] [facility] 2022-11-03 23:30:14 2022-11-05 18:35:00 Inpatient [facility] [id number] 67 [facility] 2022-11-04 06:30:00 2022-11-04 06:30:00 Outpatient TEJAS MORGAN JR [facility] [id number] [facility] 2022-10-25 09:15:00 2022-10-25 09:15:00 Outpatient PEREZ SHELTON [facility] [id number] [facility] 2022-09-12 16:00:00 2022-09-12 16:00:00 Outpatient LAB47 GEGE MALHOTRA [id number] [facility] 2022-09-12 15:00:00 2022-09-12 15:00:00 Outpatient JHON MIRAMONTES [id number] [facility]22-09-12 00:00:00 2022-09-12 00:00:00 Outpatient NAOMIE PIÑA [id number] [facility] 2022-08-16 00:00:00 2022-08-16 00:00:00 Outpatient R MELY CORONADO [facility] [id number] [facility] 2022-08-08 00:00:00 2022-08-08 00:00:00 Outpatient Viola MELY CORONADO [facility] [id number] [facility] 2022-07-29 00:00:00 2022-07-29 00:00:00 Case Management Mely Coronado [facility] & CHILD [facility] 1.2.840.114 350.1.13.10 4.2.7.2.686 [id number] [facility] 2022-07-26 14:30:00 2022-07-26 15:36:48 Outpatient MELY TRACEY [facility] [id number] [facility] 2022-07-26 14:30:00 2022-07-26 15:36:48 Office Visit Provider, Brandon-Khadarp Mely Rivera [facility] 1..840.114 350.1.13.10 4.2.7.2.686 [id number] [facility] 2022-07-03 16:30:00 2022-07-03 16:30:00 Outpatient JUANA OLIVIA [id number] [facility] Jauregui 2022-07-02 10:55:00 2022-07-02 12:08:00 Emergency X YOGESH MALDONADO [facility] [id number] [facility] 2022-07-02 10:55:00 2022-07-02 12:08:00 Emergency Yogesh Maldonado [facility] 1..840.114 350.1.13.10 4.2.7.2.686 [id number] [facility] 2022-07-02 00:00:00 2022-07-02 00:00:00 Telephone Perez Lopez [facility] 1.2.840.114 350.1.13.10 4.2.7.2.686 [id number] [facility] 2022-06-24 10:45:00 2022-06-24 10:45:00 Outpatient RADHA NIVIABritney MALHOTRA [id number] [facility] 2022-06-10 09:00:00 2022-06-10 09:00:00 Outpatient NIVIA PIÑA [id number] [facility] 2022-05-31 15:30:00 2022-05-31 15:30:00 Outpatient JOSH FLYNN [id number] [facility] 2022-05-22 09:45:00 2022-05-22 09:45:00 Outpatient GADIEL MILLER [facility] [id number] [facility] 2022-05-15 00:00:00 2022-05-15 00:00:00 Outpatient NAOMIE PIÑA [id number] [facility] 2022-05-02 00:00:00 2022-05-02 00:00:00 Outpatient NAOMIE PIÑA [id number] [facility] 2022-05-01 17:15:00 2022-05-01 17:15:00 Outpatient [facility] GEGE MALHOTRA [id number] [facility] 2022-05-01 16:30:00 2022-05-01 17:00:00 Office Visit Nivia Piña 1.2.840.114 350.1.13.13 1.2.7.2.686 [id number] [facility] 2022-04-30 00:00:00 2022-04-30 00:00:00 Outpatient NIVIA PIÑA [id number] [facility] 2022-04-17 17:45:00 2022-04-17 17:45:00 Outpatient PEREZ SHELTON [facility] [id number] [facility] 2022-04-17 00:00:00 2022-04-17 00:00:00 Orders Only Doctor Unassigned, [place] [facility] 1..840.114 350.1.13.10 4.2.7.2.686 [id number] [facility] 2022-04-16 13:00:00 2022-04-16 13:00:00 Outpatient R PEREZ LOPEZ [facility] [id number] [facility] 2022-02-21 08:15:00 2022-02-21 08:15:00 Outpatient R PEREZ LOPEZ [facility] [id number] [facility] 2022-01-03 08:15:00 2022-01-03 08:15:00 Outpatient R PEREZ LOPEZ [facility] [id number] [facility] 2021-12-23 19:46:00 2021-12-23 23:21:00 Emergency X Evi CARPENTER [facility] [id number] [facility] 2021-12-23 19:46:00 2021-12-23 23:21:00 Emergency Evi Carpenterge [facility] 1..840.114 350.1.13.10 4.2.7.2.686 [id number] [facility] 2021-09-06 15:45:00 2021-09-06 15:45:00 Outpatient R PEREZ LOPEZ [facility] [id number] [facility] 2021-08-07 15:00:00 2021-08-07 15:00:00 Outpatient R PEREZ LOPEZ [facility] [id number] [facility] 2021-08-02 00:00:00 2021-08-02 00:00:00 Telephone Perez Lopez [facility] 1..840.114 350.1.13.10 4.2.7.2.686 [id number] [facility] 2021-06-07 09:00:25 2021-06-07 09:28:03 Nurse Visit Visit, Ang-Rmchp Nurse Perez Lopez [facility] & CHILD [facility] 1..840.114 350.1.13.10 4.2.7.2.686 [id number] [facility] 2021-06-07 09:00:00 2021-06-07 09:00:00 Outpatient R [facility] [id number] [facility] 2021-06-04 09:00:00 2021-06-04 09:00:00 Outpatient R [facility] [id number] [facility] 2021-06-04 09:00:00 2021-06-04 09:00:00 Outpatient R PEREZ LOPEZ [facility] [id number] [facility] 2021-05-25 00:00:00 2021-05-25 00:00:00 Telephone Perez Lopez [facility] 1.840.114 350.1.13.10 4.2.7.2.686 [id number] [facility] 2021-05-21 14:39:44 2021-05-21 15:48:37 Office Visit Nory Rodriguez [facility] 1..840.114 350.1.13.10 4.2.7.2.686 [id number] [facility] 2021-05-21 14:30:00 2021-05-21 14:30:00 Outpatient R NORY RODRIGUEZ [facility] [id number] [facility] 2021-05-21 00:00:00 2021-05-21 00:00:00 Orders Only Doctor Unassigned, [place] [facility] 1..840.114 350.1.13.10 4.2.7.2.686 [id number] [facility] 2021-05-11 12:45:00 2021-05-11 12:45:00 Outpatient R PEREZ LOPEZ [facility] [id number] [facility] 2020-11-14 00:00:00 2020-11-14 00:00:00 Patient Outreach RamiroAmor [facility] 1.2.840.114 350.1.13.10 4.2.7.2.686 [id number] 2020-11-14 00:00:00 2020-11-14 00:00:00 Patient Outreach RamiroAmor [facility] PAV[facility]RISTINE 1.2.840.114 350.1.13.10 4.2.7.2.686 [id number] [facility] 2020-08-29 09:00:00 2020-08-29 09:00:00 Outpatient R [facility] [id number] [facility] 2020-08-02 14:00:00 2020-08-02 14:00:00 Outpatient R [facility] [id number] [facility] 2020-08-02 14:00:00 2020-08-02 14:00:00 Outpatient R PEREZ LOPEZ [facility] [id number] [facility] 2020-07-24 09:30:00 2020-07-24 09:30:00 Outpatient R [facility] [id number] [facility] 2020-06-27 15:14:20 2020-06-27 15:49:12 Office Visit Perez Lopez [facility] 1.2.840.114 350.1.13.10 4.2.7.2.686 [id number] 2020-06-27 15:14:20 2020-06-27 15:49:12 Office Visit Perez Lopez [facility] 1.840.114 350.1.13.10 4.2.7.2.686 [id number] [facility] 2020-06-27 15:15:00 2020-06-27 15:15:00 Outpatient R PEREZ LOPEZ [facility] [id number] [facility] 2020-06-27 15:15:00 2020-06-27 15:15:00 Outpatient R PEREZ LOPEZ [facility] [id number] [facility] 2020-05-24 10:30:00 2020-05-24 10:30:00 Outpatient R NAUNDAMIENPEREZ [facility] [id number] [facility] 2020-05-24 10:30:00 2020-05-24 10:30:00 Outpatient R JOSE MANUELKELLEYDAMIENPEREZ [facility] [id number] [facility] 2020-03-27 00:00:00 2020-03-27 00:00:00 Telephone Jose ManuelkelleydamienPerez [facility] 1.840.114 350.1.13.10 4.2.7.2.686 [id number] [facility] 2020-03-23 09:05:31 2020-03-23 10:07:13 Office Visit JohnPerez [facility] 1.840.114 350.1.13.10 4.2.7.2.686 [id number] [facility] 2020-03-23 09:00:00 2020-03-23 09:00:00 Outpatient R NAUNDAMIENPEREZ [facility] [id number] [facility] 2020-03-23 00:00:00 2020-03-23 00:00:00 Orders Only Doctor Unassigned, [place] [facility] 1.840.114 350.1.13.10 4.2.7.2.686 [id number] [facility] 2020-02-04 08:06:19 2020-02-04 08:53:19 Office Visit Perez Lopez [facility] 1.2.840.114 350.1.13.10 4.2.7.2.686 [id number] [facility] 2020-02-04 08:15:00 2020-02-04 08:15:00 Outpatient R PEREZ LOPEZ [facility] [id number] [facility] 2019-03-24 00:00:00 2019-03-24 00:00:00 Telephone Gadiel Boykin [facility] 1.2.840.114 350.1.13.10 4.2.7.2.686 [id number] [facility] 2019-03-23 09:47:46 2019-03-23 10:44:24 Office Visit Gadiel Boykin [facility] 1.2.840.114 350.1.13.10 4.2.7.2.686 [id number] [facility] 2019-03-23 00:00:00 2019-03-23 00:00:00 Orders Only Doctor Unassigned, [place] [facility] 1.840.114 350.1.13.10 4.2.7.2.686 [id number] [facility] 2013-08-27 13:13:00 2013-08-27 13:13:00 Inpatient nullFlavo r [facility] [id number] Yazmin Lee Results Test Description Test Time Test Comments Results Result Co mments Source DRUGS OF ABUSE *WW*2024-10-10 00:42:00* Test Item Value Reference Range Interpretation Comme nts DRUG SCRN (test code = HDOA) URINE DRUG SCREEN This is an unconfirmed screening result and should not be used for non-medical purposes CANNABINOD (test code = 88C) POSITIVE NEGATIVE A AMPHETAMINE (test code = 84A) NEGATIVE NEGATIVE BENZODIAZP (test code = 86A) NEGATIVE NEGATIVE BARBITURAT (test code = 85A) NEGATIVE NEGATIVE OPIATES (test code = 92B) NEGATIVE NEGATIVE COCAINE (test code = 87A) NEGATIVE NEGATIVE PHENCYCLID (test code = 66A) NEGATIVE NEGATIVE METHADONE (test code = 64A) NEGATIVE NEGATIVE DOAH (test code = DOAH.) URINE DRUGSCREEN Cut-off values are as follows: Cannabinoids 50 ng/mL Cocaine 300 ng/mL Amphetamines 1000 ng/mL Phencyclidine 25 ng/mL Benzodiazepines 200 ng.mL Methadone 300 ng/mL Barbiturates 200 ng/mL Opiates 300 ng/mL TROPONIN I 2024-10-09 22:15:00* Test Item Value Reference Range Interpretation Comme nts TROPONIN I (test code = A84) <2.50 pg/mL 0.00-45.20 COMPREHENSIVE METABOLIC ZAPATA 2024-10-09 21:58:00* Test Item Value Reference Range Interpretation Comme nts GLUCOSE (test code = 06D) 117 mg/dL 75-100 H SODIUM (test code = 01A) 140 mmol/L 136-145 POTASSIUM (test code = 01B) 3.7 mmol/L 3.6-5.1 CHLORIDE (test code = 04A) 106 mmol/L 98-107 CO2 (test code = 02A) 27 mmol/L 20-31 ANION GAP (test code = ANG) 10.7 mmol/L BUN (test code = 05D) 7 mg/dL 9-23 L CREATININE (test code = 03E) 0.8 mg/dL 0.6-1.0 GFR (test code = GFR) 103 mL/min/1.73m\\S\\2 >=90 EGFR (test code = EGFR) eGFR BY CKD-EPI CALCULATION IS NOT RECOMMENDED FOR PATIENTS UNDER 18 YEARS OF AGE. BUN/CREA (test code = BCR) 9 12-20 L CALCIUM (test code = 09D) 9.5 mg/dL 8.3-10.6 BILI TOTAL (test code = 11A) 0.5 mg/dL 0.2-1.0 PROTEIN (test code = 07D) 8.2 g/dL 5.7-8.2 ALBUMIN (test code = 08D) 5.2 g/dL 3.2-4.8 H GLOBULIN (test code = GLB) 3.0 g/dL 1.5-3.8 ALB/GLOB (test code = AGRR) 1.7 1.0-2.6 ALK PHOS (test code = 35A) 115 IU/L 46-116 AST (test code = 30A) 32 IU/L <=33 ALT (test code = 31A) 42 IU/L 10-49 ALCOHOL BLOOD (ETOH) 2024-10-09 21:56:00* Test Item Value Reference Range Interpretation Comme nts ETOH (test code = HALC) ETHANOL * The result is to be used only for medical purposes ALCOHOL (test code = 56A) <10 mg/dL <=10 SERUM MONOCLONAL 2024-10-09 21:51:00* Test Item Value Reference Range Interpretation Comme nts PREG SRM (test code = PGS) NEGATIVE NEGATIVE CBC (INCLUDES AUTOMATED DIFFERENTIAL)*[id number] 21:46:00* Test Item Value Reference Range Interpretation Comme nts WBC (test code = WBC) 6.2 10\\S\\3/uL 4.5-11.0 RBC (test code = RBC) 4.82 10\\S\\6/uL 4.30-5.70 HGB (test code = HBG) 12.9 g/dL 12.0-15.5 HCT (test code = HCT) 39.7 % 35.0-44.0 MCV (test code = MCV) 82.4 fL 81.0-99.0 MCH (test code = MCH) 26.8 pg 27.0-31.0 L MCHC (test code = MCHC) 32.5 g/dL 32.0-36.0 RDW (test code = RDW) 13.7 % 11.5-14.5 PLT (test code = PLT) 358 10\\S\\3/uL 130-400 MPV (test code = MPV) 10.6 fL 9.4-12.4 NEUTROP # (test code = NE#) 3.2 10\\S\\3/uL 1.6-8.0 LYMPH # (test code = LY#) 2.3 10\\S\\3/uL 1.1-3.5 MONOCYTE # (test code = MO#) 0.6 10\\S\\3/uL 0.0-1.1 EOSINOPH # (test code = EO#) 0.0 10\\S\\3/uL 0.0-0.7 BASOPHIL # (test code = BA#) 0.0 10\\S\\3/uL 0.0-0.3 IG # (test code = IG#) 0.03 10\\S\\3/uL 0.00-0.06 NRBC # (test code = NRBC#) 0.00 10\\S\\3/uL 0.00-0.01 NEUTROPH % (test code = NE%) 51.3 % 35.0-73.0 LYMPH % (test code = LY%) 37.4 % 20.0-55.0 MONO % (test code = MO%) 9.7 % 2.5-10.0 EOSINOPH % (test code = EO%) 0.5 % 0.0-5.0 BASOPHIL % (test code = BA%) 0.6 % 0.0-2.0 IG % (test code = IG%) 0.5 % 0.0-0.8 NRBC% (test code = NRBC%) 0.0 % 0.0-0.2 MANDIFF (test code = WMDIFF) NO NO RBC MORPH (test code = WRBCMOR) NORMAL CHEM [id number] 09:41:00* Test Item Value Reference Range Interpretation Comme nts BUN (test code = BUN) 9 7-22 Glucose Lvl (test code = Glucose Lvl) 81 70-99 Creatinine Lvl (test code = Creatinine Lvl) 0.76 0.50-1.40 Sodium Lvl (test code = Sodium Lvl) 137 135-145 Potassium Lvl (test code = P otassium Lvl) 3.7 3.5-5.1 Chloride Lvl (test code = Chloride Lvl) 111 95-109 CO2 (test code = CO2) 25 24-32 Calcium Lvl (test code = Calcium Lvl) 8.9 8.5-10.5 AGAP (test code = AGAP) 4.7 10.0-20.0 eGFR (test code = eGFR) 112 Magnesium Lvl (test code = M agnesium Lvl) 2.2 1.8-2.4 Phosphorus (test code = Phosphorus) 4.0 2.5-4.5 [id number] 09:41:00* Test Item Value Reference Range Interpretation Comme [facility] Glucose Lvl (test code = Glucose Lvl) 81 70-99 BUN (test code = BUN) 9 7-22 Creatinine Lvl (test code = Creatinine Lvl) 0.76 0.50-1.40 Sodium Lvl (test code = Sodium Lvl) 137 135-145 Potassium Lvl (test code = P otassium Lvl) 3.7 3.5-5.1 Chloride Lvl (test code = Chloride Lvl) 111 95-109 CO2 (test code = CO2) 25 24-32 Calcium Lvl (test code = Calcium Lvl) 8.9 8.5-10.5 AGAP (test code = AGAP) 4.7 10.0-20.0 eGFR (test code = eGFR) 112 Magnesium Lvl (test code = M agnesium Lvl) 2.2 1.8-2.4 Phosphorus (test code = Phosphorus) 4.0 2.5-4.5 [id number] 09:41:00* Test Item Value Reference Range Interpretation Comme [facility] Segs (test code = Segs) 47.3 45.0-75.0 Lymphocytes (test code = Lymphocytes) 43.2 20.0-40.0 Monocytes (test code = Monocytes) 8.3 2.0-12.0 Eosinophils (test code = Eosinophils) 0.9 <=4.0 Basophils (test code = Basophils) 0.3 <=1.0 Neutrophils # (test code = Neutrophils #) 2.9 1.5-8.1 Lymphocytes # (test code = Lymphocytes #) 2.7 1.0-5.5 Monocytes # (test code = Monocytes #) 0.5 <=0.8 Eosinophils # (test code = Eosinophils #) 0.1 <=0.5 WBC (test code = WBC) 6.2 3.7-10.4 RBC (test code = RBC) 4.41 4.20-5.40 Hgb (test code = Hgb) 11.6 12.0-16.0 Hct (test code = Hct) 35.5 36.0-48.0 MCV (test code = MCV) 80.6 80.0-98.0 MCH (test code = MCH) 26.4 pg 27.0-31.0 MCHC (test code = MCHC) 32.7 32.0-36.0 RDW (test code = RDW) 14.1 11.5-14.5 Platelet (test code = Platelet) 292 133-450 MPV (test code = MPV) 8.6 7.4-10.4 [id number] 12:40:00* Test Item Value Reference Range Interpretation Comme [facility] Coronavirus (COVID-19) CHANTALE (test code = Coronavirus (COVID-19) CHANTALE) Not Detected (11/04/22 7:40 AM) [place] [id number] 08:55:32* Test Item Value Reference Range Interpretation [...] 1. Nondisplaced left posterior wall acetabular fracture. [place] [id number] 05:36:13* Test Item Value Reference Range Interpretation [facility] RADRPT (test code = RADRPT) EXAM: XR [...] acute abnormality.IMPRESSION: 1. No acute cardiopulmonary abnormality. [facility] [id number] 03:00:38* Test Item Value Reference Range Interpretation [facility] RADRPT (test code = RADRPT) EXAM: CT [...] the skull base to the level of T2.Medical Technologist Chief: Noncontributory.Bones: No acute fracture or malalignment is identified. Straightening of the cervical lordosis, either positional or due to muscle spasm. There is preservation of the vertebral body heights and disc spaces.Soft tissues: No acute cervical soft tissue abnormality is identified.IMPRESSION: No acute abnormality. [facility] [id number] 02:52:19* Test Item Value Reference Range Interpretation [facility] RADRPT (test code = RADRPT) EXAM: CT [...] Refer to CT protocol formUT SECTION: ERFINDINGS: Medical Technologist Chief: Noncontributory.Lines and tubes: None.Lower Neck: Supraclavicular soft [...] abnormality within the chest, abdomen or pelvis. [facility] [id number] 02:48:06* Test Item Value Reference Range Interpretation [...] sinuses are predominantly clear.IMPRESSION:No acute intracranial abnormality. [facility] [id number] 02:19:53* Test Item Value Reference Range Interpretation [...] is identified.IMPRESSION: No acute abnormality. [facility] SECTION: [facility] [id number] 00:52:00* Test Item Value Reference Range Interpretation Comme nts Lactic Acid Lvl (test code = Lactic Acid Lvl) 1.5 0.5-2.2 Glucose Lvl (test code = Glucose Lvl) 90 70-99 BUN (test code = BUN) 9 7-22 Creatinine Lvl (test code = Creatinine Lvl) 0.83 0.50-1.40 Sodium Lvl (test code = Sodium Lvl) 139 135-145 Potassium Lvl (test code = P otassium Lvl) 3.4 3.5-5.1 Chloride Lvl (test code = Chloride Lvl) 109 95-109 CO2 (test code = CO2) 24 24-32 Calcium Lvl (test code = Calcium Lvl) 9.7 8.5-10.5 AGAP (test code = AGAP) 9.4 10.0-20.0 eGFR (test code = eGFR) 101 [facility] [id number] 00:52:00* Test Item Value Reference Range Interpretation Comme nts Ethanol Lvl (test code = Ethanol Lvl) no gt Etoh (%) (test code = Etoh (%)) no gt Lactic Acid Lvl (test code = Lactic Acid Lvl) 1.5 0.5-2.2 pH Mc (test code = pH Mc) 7.37 1 7.28-7.42 pCO2 Mc (test code = pCO2 Mc) 45 38-52 pO2 Mc (test code = pO2 Mc) 35 20-49 HCO3 Mc (test code = HCO3 Mc) 26 22-26 BE Mc (test code = BE Mc) 0 -2-2 O2 Sat Mc (calc) (test code = O2 Sat Mc (calc)) 65.1 40.0-70.0 Temp Mc (test code = Temp Mc) 37.0 S Preg (test code = S Preg) Negative *NA*(11/03/22 7:52 PM) [id number] 00:52:00* Test Item Value Reference Range Interpretation Comme nts S Preg (test code = S Preg) Negative *NA*(11/03/22 7:52 PM) [facility] H[id number] 00:52:00* Test Item Value Reference Range Interpretation Comme nts ACT (TEG) Rapid (test code = ACT (TEG) Rapid) 97 s 86-118 Split Point Rapid (test code = Split Point Rapid) 0.4 min R-time Rapid (test code = R- time Rapid) 0.5 min 0.4-0.7 K-time Rapid (test code = K- time Rapid) 0.8 min 0.6-2.3 Angle Rapid (test code = Ang le Rapid) 81 degrees 64-80 Max Amplitude Rapid (test co de = Max Amplitude Rapid) 75 mm 52-71 G-value Rapid (test code = G -value Rapid) 14.8 5.0-11.6 Estimated % Lysis Rapid (imer t code = Estimated % Lysis Rapid) 0.6 <=7.5 [facility] [id number] 00:52:00* Test Item Value Reference Range Interpretation Comme nts Ethanol Lvl (test code = Ethanol Lvl) no gt Etoh (%) (test code = Etoh (%)) no gt [facility] [id number] 23:58:00* Test Item Value Reference Range Interpretation Comme nts ABO/Rh (test code = ABO/Rh) A POS Antibody Scrn (test code = Antibody Scrn) Negative (11/03/22 6:58 PM) [facility] 23:57:00* Test Item Value Reference Range Interpretation Comme nts Basophils # (test code = Basophils #) 0.1 <=0.2 [Automated [employer]] The system which generated this result transmitted reference range: <=0.2. The reference range was not used to interpret this result as normal/abnormal. WBC X 10x3 (test code = WBC X 10x3) 7.2 3.7-10.4 RBC X 10x6 (test code = RBC X 10x6) 4.62 4.20-5.40 Hgb (test code = Hgb) 12.0 12.0-16.0 Hct (test code = Hct) 37.4 36.0-48.0 MCV (test code = MCV) 81.0 80.0-98.0 MCH (test code = MCH) 25.9 pg 27.0-31.0 MCHC (test code = MCHC) 32.0 32.0-36.0 RDW (test code = RDW) 14.5 11.5-14.5 Platelet (test code = Platelet) 338 133-450 MPV (test code = MPV) 9.0 7.4-10.4 Segs (test code = Segs) 60.8 45.0-75.0 Lymphocytes (test code = Lymphocytes) 29.9 20.0-40.0 Monocytes (test code = Monocytes) 7.9 2.0-12.0 Eosinophils (test code = Eosinophils) 0.7 <=4.0 Basophils (test code = Basophils) 0.7 <=1.0 Neutrophils # (test code = Neutrophils #) 4.4 1.5-8.1 Lymphocytes # (test code = Lymphocytes #) 2.2 1.0-5.5 Monocytes # (test code = Monocytes #) 0.6 <=0.8 Eosinophils # (test code = Eosinophils #) 0.1 <=0.5 [facility] WITH [id number] 05:48:20* Test Item Value Reference Range Interpretation Comme nts WBC (test code = 6690-2) See_Comment [Automated [employer]] The system which generated this result transmitted reference range: 4.30 - 11.10 10*3/?L. The reference range was not used to interpret this result as normal/abnormal. RBC (test code = 789-8) See_Comment [Automated [employer]] The system which generated this result transmitted [...] 32.3 g/dL 31.6-35.1 RDW-SD (test code = 77792-6) 41.8 fL 39.0-49.9 RDW-CV (test code = 788-0) 14.1 % 12.0-15.5 PLT (test code = 777-3) See_Comment [[employer]] The system which generated this result transmitted reference range: 166 - 358 10*3/?L. The reference range was not used to interpret this result as normal/abnormal. MPV (test code = 35804-7) 11.1 fL 9.5-12.9 NRBC/100 WBC (test code = [id number]) See_Comment [Automated [employer]] The system which generated this result transmitted reference range: 0.0 - 10.0 /100 WBCs. The reference range was not used to interpret this result as normal/abnormal. NRBC x10^3 (test code = 7687059875) See_Comment [Automated [employer]] The system which generated this result transmitted reference range: 10*3/?L. The reference range was not used to interpret this result as normal/abnormal. GRAN MAT (NEUT) % (test code = 770-8) 54.0 % IMM GRAN % (test code = 1642993101) 0.10 % LYMPH % (test code = 736-9) 36.4 % MONO % (test code = 5905-5) 8.1 % EOS % (test code = 713-8) 1.0 % BASO % (test code = 706-2) 0.4 % GRAN MAT x10^3(ANC) (test code = 0854690525) 3.63 10*3/uL 1.88-7.09 IMM GRAN x10^3 (test code = 6672676732) 0.00-0.06 LYMPH x10^3 (test code = 731-0) 2.46 10*3/uL 1.32-3.29 MONO x10^3 (test code = 742-7) 0.55 10*3/uL 0.33-0.92 EOS x10^3 (test code = 711-2) 0.07 10*3/uL 0.03-0.39 BASO x10^3 (test code = 704-7) 0.03 10*3/uL 0.01-0.07 [facility] WITH [id number] 05:48:20* Test Item Value Reference Range Interpretation Comme nts WBC (test code = 6690-2) See_Comment [Automated [employer]] The system which generated this result transmitted reference range: 4.30 - 11.10 10*3/?L. The reference range was not used to interpret this result as normal/abnormal. RBC (test code = 789-8) See_Comment [Automated [employer]] The system which generated this result [...] 32.3 g/dL 31.6-35.1 RDW-SD (test code = 83211-6) 41.8 fL 39.0-49.9 RDW-CV (test code = 788-0) 14.1 % 12.0-15.5 PLT (test code = 777-3) See_Comment [Automated messa ge] The system which generated this result transmitted reference range: 166 - 358 10*3/?L. The reference range was not used to interpret this result as normal/abnormal. MPV (test code = 42481-2) 11.1 fL 9.5-12.9 NRBC/100 WBC (test code = 8797374708) See_Comment [Automated me ssage] The system which generated this result transmitted reference range: 0.0 - 10.0 /100 WBCs. The reference range was not used to interpret this result as normal/abnormal. NRBC x10^3 (test code = 9126432140) See_Comment [Automated me ssage] The system which generated this result transmitted reference range: 10*3/?L. The reference range was not used to interpret this result as normal/abnormal. GRAN MAT (NEUT) % (test code = 770-8) 54.0 % IMM GRAN % (test code = 5405125836) 0.10 % LYMPH % (test code = 736-9) 36.4 % MONO % (test code = 5905-5) 8.1 % EOS % (test code = 713-8) 1.0 % BASO % (test code = 706-2) 0.4 % GRAN MAT x10^3(ANC) (test code = 0368845503) 3.63 10*3/uL 1.88-7.09 IMM GRAN x10^3 (test code = 4576061831) 0.00-0.06 LYMPH x10^3 (test code = 731-0) 2.46 10*3/uL 1.32-3.29 MONO x10^3 (test code = 742-7) 0.55 10*3/uL 0.33-0.92 EOS x10^3 (test code = 711-2) 0.07 10*3/uL 0.03-0.39 BASO x10^3 (test code = 704-7) 0.03 10*3/uL 0.01-0.07 [facility] [id number] 01:46:28* Test Item Value Reference Range Interpretation Comments TROPONIN I (test code = 6964486745) 0.002 ng/mL See_Comment [Automated message] The system [...] of biotin. Lab Interpretation (test code = 90315-1) Normal [facility]. METABOLIC PANEL (25673)2021-12-24 01:34:25* Test Item Value Reference Range Interpretation Comme nts NA (test code = 0238567104) 139 mmol/L 135-145 K (test code = 9637072888) 3.6 mmol/L 3.5-5.0 CL (test code = 7966186441) 104 mmol/L 98-108 CO2 TOTAL (test code = 3474237027) 25 mmol/L 23-31 AGAP (test code = 6686851731) 2-16 BUN (test code = 6377264655) 10 mg/dL 7-23 GLUCOSE (test code = 8551557734) 81 mg/dL 70-110 CREATININE (test code = 8464182428) 0.86 mg/dL 0.50-1.04 TOTAL BILI (test code = 9315500823) 0.7 mg/dL 0.1-1.1 CALCIUM (test code = 6195832972) 9.6 mg/dL 8.6-10.6 T PROTEIN (test code = 3372358673) 7.8 g/dL 6.3-8.2 ALBUMIN (test code = 3666594153) 4.4 g/dL 3.5-5.0 ALK PHOS (test code = 1880727518) 105 U/L 34-122 ALTv (test code = 1742-6) 24 U/L 5-35 AST(SGOT) (test code = 8294715554) 30 U/L 13-40 eGFR (test code = 6989585431) mL/min/1.73m2 GRISELDA (test code = GRISELDA) Association [...] [facility] 01:34:25* Test Item Value Reference Range Interpretation Comme nts MAGNESIUM (test code = 8283969848) 1.8 mg/dL 1.7-2.4 Lab Interpretation (test cod e = 01226-2) Normal [facility]-WNJYV8553-26-07 01:31:04* Test Item Value Reference Range Interpretation Comments D-DIMER (test code = 2525452560) See_Comment [Automated message] The system which generated [...] a diagnosis. Lab Interpretation (test code = 70874-5) Normal [facility] [id number] 01:24:00* Test Item Value Reference Range Interpretation Comme nts POCT PREG (test code = 1605) negative On board controls acceptable with C Line (test code = 3574) present POCT PREG LOT # (test code = 3575) [id number] POCT PREG TEST DATE ( test code = 3576) Lab Interpretation (test cod e = 62245-9) Normal [facility] WITH [id number] 01:20:27* Test Item Value Reference Range Interpretation Comme nts WBC (test code = 6690-2) See_Comment [Automated [employer]] The system which generated this result transmitted reference range: 4.30 - 11.10 10*3/?L. The reference range was not used to interpret this result as normal/abnormal. RBC (test code = 789-8) See_Comment [Automated [employer]] The system which generated this result transmitted [...] 32.7 g/dL 31.6-35.1 RDW-SD (test code = 97248-8) 40.0 fL 39.0-49.9 RDW-CV (test code = 788-0) 13.6 % 12.0-15.5 PLT (test code = 777-3) See_Comment [Automated messa ge] The system which generated this result transmitted reference range: 166 - 358 10*3/?L. The reference range was not used to interpret this result as normal/abnormal. MPV (test code = 25332-2) 10.0 fL 9.5-12.9 NRBC/100 WBC (test code = 3753136557) See_Comment [Automated me ssage] The system which generated this result transmitted reference range: 0.0 - 10.0 /100 WBCs. The reference range was not used to interpret this result as normal/abnormal. NRBC x10^3 (test code = 8344929293) <0.01 See_Comment [Automated me ssage] The system which generated this result transmitted reference range: 10*3/?L. The reference range was not used to interpret this result as normal/abnormal. GRAN MAT (NEUT) % (test code = 770-8) 46.3 % IMM GRAN % (test code = 4241843672) 0.20 % LYMPH % (test code = 736-9) 43.0 % MONO % (test code = 5905-5) 8.6 % EOS % (test code = 713-8) 1.2 % BASO % (test code = 706-2) 0.7 % GRAN MAT x10^3(ANC) (test code = 4116526836) 2.75 10*3/uL 1.88-7.09 IMM GRAN x10^3 (test code = 0424641693) <0.03 0.00-0.06 LYMPH x10^3 (test code = 731-0) 2.55 10*3/uL 1.32-3.29 MONO x10^3 (test code = 742-7) 0.51 10*3/uL 0.33-0.92 EOS x10^3 (test code = 711-2) 0.07 10*3/uL 0.03-0.39 BASO x10^3 (test code = 704-7) 0.04 10*3/uL 0.01-0.07 [facility] [id number] 14:20:00* Test Item Value Reference Range Interpretation Comme nts POCT PREG (test code = 1605) Negative On board controls acceptable with C Line (test code = 3574) Yes POCT PREG LOT # (test code = 3575) POCT PREG TEST DATE ( test code = 3576) [facility]2 AG-AB WITH HTUJFI9442-10-44 05:35:57* Test Item Value Reference Range Interpretation Comme nts HIV Semi-quantitative (test code = 01389-6) Negative Negative GRISELDA (test code = GRISELDA) Non-reactive for HIV-1 antigen and HIV-1/HIV-2 antibodies. ?No laboratory evidence of HIV infection. ?Repeat in 2-4 weeks if acute HIV infection is suspected. [facility] STIMULATING EUXHOCM5241-90-77 05:14:33 * Test Item Value Reference Range Interpretation Comme [facility] TSH (test code = 6104571251) See_Comment Biotin has been reported to cause a negative bias, interpret results relative to patient's use of biotin. [Automated message] The system which generated this result transmitted reference range: 0.45 - 4.70 mIU/L. The reference range was not used to interpret this result as normal/abnormal. Lab Interpretation (test code = 37493-9) Normal [facility] WITH [id number] 04:59:00* Test Item Value Reference Range Interpretation Comme [facility] WBC (test code = 6690-2) See_Comment [Automated [employer]] The system which generated this result transmitted reference range: 4.30 - 11.10 10*3/?L. The reference range was not used to interpret this result as normal/abnormal. RBC (test code = 789-8) See_Comment [Automated [employer]] The system which generated this result [...] 31.9 g/dL 31.6-35.1 RDW-SD (test code = 20499-6) 41.9 fL 39.0-49.9 RDW-CV (test code = 788-0) 13.9 % 12.0-15.5 PLT (test code = 777-3) See_Comment [Automated messa ge] The system which generated this result transmitted reference range: 166 - 358 10*3/?L. The reference range was not used to interpret this result as normal/abnormal. MPV (test code = 19366-5) 10.7 fL 9.5-12.9 NRBC/100 WBC (test code = 0823701660) See_Comment [Automated me ssage] The system which generated this result transmitted reference range: 0.0 - 10.0 /100 WBCs. The reference range was not used to interpret this result as normal/abnormal. NRBC x10^3 (test code = 5066869946) <0.01 See_Comment [Automated me ssage] The system which generated this result transmitted reference range: 10*3/?L. The reference range was not used to interpret this result as normal/abnormal. GRAN MAT (NEUT) % (test code = 770-8) 38.2 % IMM GRAN % (test code = 6433847883) 0.20 % LYMPH % (test code = 736-9) 49.1 % MONO % (test code = 5905-5) 10.0 % EOS % (test code = 713-8) 1.8 % BASO % (test code = 706-2) 0.7 % GRAN MAT x10^3(ANC) (test code = 9750919837) 2.07 10*3/uL 1.88-7.09 IMM GRAN x10^3 (test code = 1228565301) <0.03 0.00-0.06 LYMPH x10^3 (test code = 731-0) 2.66 10*3/uL 1.32-3.29 MONO x10^3 (test code = 742-7) 0.54 10*3/uL 0.33-0.92 EOS x10^3 (test code = 711-2) 0.10 10*3/uL 0.03-0.39 BASO x10^3 (test code = 704-7) 0.04 10*3/uL 0.01-0.07 [facility] ArlingtonHEMATOLOGY2014 09:25:26* Test Item Value Reference Range Interpretation Comme nts Hct (test code = Hct) 23.3 36.0-48.0 L Hgb (test code = Hgb) 7.5 12.0-16.0 L [facility]AKACW2008-88-61 12:53:01* Test Item Value Reference Range Interpretation Comme nts Hct (test code = Hct) 25.2 36.0-48.0 L Hgb (test code = Hgb) 8.0 12.0-16.0 L [facility]QcvyihzJPSSISRMC8187-94-71 04:21:36* Test Item Value Reference Range Interpretation Comme nts HCO3 Cord Mc (test code = H CO3 Cord Mc) 22 BE Cord Mc (test code = BE Cord Mc) -5 Temp Cord Mc (test code = T emp Cord Mc) 37.0 pH Cord Mc (test code = pH Cord Mc) 7.28 7.16-7.41 N PCO2 Cord Mc (test code = P CO2 Cord Mc) 47 31-65 N PO2 Cord Mc (test code = PO2 Cord Mc) 20 13-39 N [facility] HospitalNbdhebrZEEQTMAMR3932-44-01 04:21:00* Test Item Value Reference Range Interpretation Comme nts PCO2 Cord Art (test code = P CO2 Cord Art) 57 37-77 N PO2 Cord Art (test code = PO2 Cord Art) 18 3-33 N pH Cord Art (test code = pH Cord Art) 7.21 7.11-7.36 N HCO3 Cord Art (test code = H CO3 Cord Art) 23 BE Cord Art (test code = BE Cord Art) -6 Temp Cord Art (test code = T emp Cord Art) 37.0 Temp Cord Mc (test code = T emp Cord Mc) 37.0 BE Cord Mc (test code = BE Cord Mc) -5 HCO3 Cord Mc (test code = H CO3 Cord Mc) 22 PO2 Cord Mc (test code = PO2 Cord Mc) 23 13-39 N PCO2 Cord Mc (test code = P CO2 Cord Mc) 45 31-65 N pH Cord Mc (test code = pH Cord Mc) 7.29 7.16-7.[address] [facility] GVHRYEL6165-65-47 00:58:51* Test Item Value Reference Range Interpretation Comme nts RBC product (test code = RBC product) Product available (08/27/2013 18:58:51) N [facility]HqevjdiTQEPADMKNP8568-93-96 00:01:15* Test Item Value Reference Range Interpretation Comme nts UA Glucose (test code = UA Glucose) Negative mg/dL UA Bili (test code = UA Bili) Negative *NA*(08/27/2013 18:01:15) UA Blood (test code = UA Blood) Negative (08/27/2013 18:01:15) N UA Spec Grav (test code = UA Spec Grav) 1.012 N UA pH (test code = UA pH) 6.5 5.0-8.0 N UA Protein (test code = UA Protein) 10 mg/dL A UA Sq Epi (test code = UA Sq Epi) Many /LPF A UA Leuk Est (test code = UA Leuk Est) Negative (08/27/2013 18:01:15) N UA Urobilinogen (test code = UA Urobilinogen) 2.0 0.1-1.0 H UA Nitrite (test code = UA Nitrite) Negative (08/27/2013 18:01:15) N UA Mucus (test code = UA Mucus) Few /LPF UA Bacteria (test code = UA Bacteria) Moderate /HPF A UA Ketones (test code = UA Ketones) 10 mg/dL A UA Color (test code = UA Color) Yellow *NA*(08/27/2013 18:01:15) UA Turbidity (test code = UA Turbidity) Clear (08/27/2013 18:01:15) N [facility] TexasCtpdqesLZMGVWISE7615-08-85 00:01:13* Test Item Value Reference Range Interpretation Comme nts U Nunu Scr (test code = U Nunu Scr) Negative *NA*(08/27/2013 18:01:13) U Cannab Scr (test code = U Cannab Scr) Negative *NA*(08/27/2013 18:01:13) U Cocaine Scr (test code = U Cocaine Scr) Negative *NA*(08/27/2013 18:01:13) U Propoxyph Scr (test code = U Propoxyph Scr) Negative *NA*(08/27/2013 18:01:13) U Methadone Scr (test code = U Methadone Scr) Negative *NA*(08/27/2013 18:01:13) U Amph Scr (test code = U Amph Scr) Negative *NA*(08/27/2013 18:01:13) U Benzodia Scr (test code = U Benzodia Scr) Negative *NA*(08/27/2013 18:01:13) U Phencyc Scr (test code = U Phencyc Scr) Negative *NA*(08/27/2013 18:01:13) U Opiate Scr (test code = U Opiate Scr) Negative *NA*(08/27/2013 18:01:13) UDS Note (test code = UDS Note) See Note 1(08/27/2013 18:01:13) N U Alcohol (test code = U Alcohol) Negative *NA*(08/27/2013 18:01:13) [facility]LIM[facility]UXDVML3817-91-65 22:16:00* Test Item Value Reference Range Interpretation Comme nts Lymphocytes (test code = Lymphocytes) 23.5 20.0-40.0 N Segs (test code = Segs) 64.7 45.0-75.0 N Monocytes (test code = Monocytes) 10.3 2.0-12.0 N Eosinophils (test code = Eosinophils) 1.0 <=4.0 N Eosinophils # (test code = Eosinophils #) 0.1 <=0.5 N Microcyte (test code = Microcyte) 2+ *ABN*(08/27/2013 16:16:00) A Basophils (test code = Basophils) 0.5 <=1.0 N Monocytes # (test code = Monocytes #) 0.8 <=0.8 N Segs-Bands # (test code = Segs-Bands #) 5.1 1.5-8.1 N Lymphocytes # (test code = Lymphocytes #) 1.9 1.0-5.5 N MPV (test code = MPV) 9.5 7.4-10.4 N Platelet (test code = Platelet) 241 133-450 N RDW (test code = RDW) 16.3 11.5-14.5 H MCH (test code = MCH) 23.7 pg 27.0-31.0 L MCHC (test code = MCHC) 32.4 32.0-36.0 N RBC X 10x6 (test code = RBC X 10x6) 3.70 4.20-5.40 L WBC X 10x3 (test code = WBC X 10x3) 7.9 3.7-10.4 N Hct (test code = Hct) 27.1 36.0-48.0 L Hgb (test code = Hgb) 8.8 12.0-16.0 L MCV (test code = MCV) 73.3 81.0-99.0 L [facility] TexasGgecrvzWEGLMLWJNQ5810-90-05 22:16:00* Test Item Value Reference Range Interpretation Comme nts Treponemal Scr (test code = Treponemal Scr) Non Reactive *NA*(08/27/2013 16:16:00) Hep Bs Ag (test code = Hep Bs Ag) Negative *NA*(08/27/2013 16:16:00) HIV. (test code = HIV.) Negative *NA*(08/27/2013 16:16:00) [facility] YZUORPE7849-27-28 22:14:00* Test Item Value Reference Range Interpretation Comme nts ABO/Rh (test code = ABO/Rh) A POS Antibody Scrn (test code = Antibody Scrn) Negative (08/27/2013 16:14:00) N [facility] History and Physical Notes Date/Time Note Provider Source 2022-11-05 18:35:00 Shakila Eddy DO : [employer] Display: History and PhysicalAuthored Date: [id number] and Physical Primary Team Name:Team Contact Info:PCP [...] Expected LOS: 2 Midnights, Brenna Sinha MD, Mert MITCHELL Review/Approve Yes, Isolation: Contact, Droplet, Closed posterior [...] (METS): >45) Imaging: imaging not needed6) Outpatient a operator: N/A7) Last stress test or coronary angiogram [...] 6. Tetrahydrocannabinol (THC) dependence (F12.20) Discussed cessation [place] [facility] is primary service. Please perfectserve for questions. Prophylaxis lovenox Disposition ORS final recommendations pending.Shakila Eddy DOElectronically Signed: 11/04/22 07:10 [facility] 2022-11-05 18:35:00 Shakila Eddy DO : [employer] Display: History and PhysicalAuthored Date: [id number] and Physical Primary Team Name:Team Contact Info:PCP [...] (METS): >45) Imaging: imaging not needed6) Outpatient a operator: N/A7) Last stress test or coronary angiogram [...] recommendations pending.Shakila Eddy DOElectronically Signed: 11/04/22 07:10 [facility]
[2024-12-06] MEDS ORDERED: KETOROLAC 30 MG/ML INJ ONE (11:44)
[2024-12-06] MEDS ORDERED: FAMOTIDINE 20 MG/2 ML VIAL IV ONE (11:44)
[2024-12-06] MEDS ORDERED: NA CHLORIDE 0.9% 1,000 ML ONE (11:44)
[2024-12-06] MEDS ORDERED: ONDANSETRON 4 MG/2 ML VIAL ONE (11:44)
--- NOTE | 2024-12-06 11:53 | RAD REPORT ---
EXAMINATION: ONE VIEW CHEST XR CLINICAL INDICATION: COUGH TECHNIQUE: Frontal chest projection is submitted. Examination is limited by patient positioning and t echnique. COMPARISON: 09/27/2013 FINDINGS: The lungs are well inflated and clear. The heart is normal in size. No displaced fractures identified . IMPRESSION: No acute intrathoracic abnormalities.
[2024-12-06] MEDS ORDERED: BENZONATATE 100 MG CAP PO ONE (12:00)
[2024-12-06 12:01] LABS: Influenza A Ag Negative; Influenza B Ag Negative; SARS-CoV-2 Antigen Rapid Res Negative (Negative)
[2024-12-06 12:04] LABS: Absolute Lymphocytes (CBC) 0.3 K/uL (0.7-4.9); Absolute Monocytes 0.7 K/uL (0.1-1.3); Absolute Neutrophil 5.1 K/uL (1.8-8.0); Basophils % 0.7 % (0-1.3); Eosinophils % 0.4 % (0-4.4); Hematocrit 40.6 % (36.0-45.0); Hemoglobin 13.7 g/dL (12.0-15.0); Lymphocytes % 4.8 % (15.3-44.8); MCH 27.8 pg (27.0-35.0); MCHC 33.8 g/dL (32.0-36.0); MCV 82.2 fL (80-100); MPV 8.7 fL (7.6-11.3); Neutrophils % 83.1 % (41.7-73.7); Nucleated Red Blood Cells % 0.1 % (0-0); Platelets 299 thou/uL (152-406); RBC Red Blood Cell Count 4.94 M/uL (3.86-4.86); Red Cell Distribution Width 13.8 % (12.1-15.2)
[2024-12-06 12:08] LABS: Specific Gravity > 1.030 (1.005-1.030); Transitional Epithelial <5 /HPF (None Seen); Urine Bacteria <20 /HPF (<20); Urine Bilirubin NEGATIVE (Negative); Urine Blood Trace (Negative); Urine Clarity Extremely Turbid (Clear); Urine Color Yellow (Yellow); Urine Glucose NEGATIVE (Negative); Urine Ketones NEGATIVE (Negative); Urine Micro Reflex YN NO BILL MICROSCOPIC; Urine Mucus 3+ /HPF (None Seen); Urine Nitrite NEGATIVE (Negative); Urine Protein TRACE (Negative); Urine RBC <5 /HPF (None Seen); Urine Urobilinogen Normal (Normal); Urine WBC <5 /HPF (<5); Urine pH 5.5 (5.0-7.0)
[2024-12-06 12:23] LABS: Albumin 3.9 g/dL (3.4-5.0); Albumin/Globulin Ratio 0.9 (1.1-1.8); Anion Gap 8.4 mEq/L (5.0-15.0); Bilirubin Total 0.4 mg/dL (0.2-1.0); Globulin 4.3 g/dL (2.3-3.5); Potassium 3.4 mEq/L (3.5-5.1); Protein, Total 8.2 g/dL (6.4-8.2)
[2024-12-06] MEDS ORDERED: POTASSIUM 25 MEQ EFFERV TAB ONE (14:08)
[2024-12-06] MEDS ORDERED: ACETAMINOPHEN 500 MG TAB ONE (14:10)
--- NOTE | 2024-12-06 14:24 | EDPHYS ---
Physician Documentation [facility] Name: Troy Son Age: 29 yrs Sex: Female : 1995 Arrival Date: 12/06/2024 Time: 11:10 Bed 13 Private MD: ED Physician Kojo Maki HPI: 12/06 11:33 This 29 yrs old Black Female presents to ER via Ambulatory with complaints of Flu cp Symptoms, Abdominal Pain, Syncope. 11:33 The patient presents to the emergency department with nausea, that is moderate, cp vomiting, that is continuous, diarrhea, that is continuous, abdominal pain. Onset: The symptoms/episode began/occurred last night. Possible causes: sick contacts, by family, daughter. Associated signs and symptoms: Pertinent positives: anorexia, fever, cough, chills, body aches, Pertinent negatives: constipation, GI bleeding. Severity of symptoms: in the emergency department the symptoms are unchanged despite home interventions. 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 - Infectious Disease History:: Denies. - Social history:: Smoking status: Patient denies any tobacco usage or history of. ROS: 11:37 Constitutional: Positive for body aches, chills, fever, poor PO intake, cp 11:37 Eyes: Negative for injury, pain, redness, and discharge, cp 11:37 ENT: Negative for drainage from ear(s), ear pain, difficulty swallowing, difficulty cp handling secretions, 11:37 Cardiovascular: Negative for chest pain, edema, palpitations, 11:37 Respiratory: Positive for cough, Negative for wheezing, 11:37 Abdomen/GI: Positive for abdominal pain, nausea, vomiting, and diarrhea, Negative for constipation, 11:37 : Negative for urinary symptoms, 11:37 Skin: Negative for rash, 11:37 Neuro: Negative for altered mental status, 11:37 All other systems are negative, Exam: 11:40 Constitutional: The patient appears in no acute distress, alert, awake, non-toxic, well cp developed, well nourished, uncomfortable, appears ill 11:40 Head/Face: Normocephalic, atraumatic. cp 11:40 Eyes: Periorbital structures: appear normal, Conjunctiva: normal, no exudate, no injection, Sclera: no appreciated abnormality, Lids and lashes: appear normal, bilaterally, 11:40 ENT: External ear(s): are unremarkable, Nose: is normal, Mouth: Lips: moist, Oral mucosa: moist, Posterior pharynx: Airway: no evidence of obstruction, patent, Tonsils: no enlargement, no exudate, erythema, that is mild, exudate, is not appreciated, 11:40 Neck: ROM/movement: is normal, is supple, without pain, no range of motions limitations, no meningismus, 11:40 Chest/axilla: Inspection: normal, 11:40 Cardiovascular: Rate: tachycardic, Rhythm: regular, 11:40 Respiratory: the patient does not display signs of respiratory distress, Respirations: normal, no use of accessory muscles, no retractions, labored breathing, is not present, Breath sounds: decreased breath sounds, are not appreciated, stridor, is not appreciated, wheezing: is not appreciated, 11:40 Abdomen/GI: Inspection: abdomen appears normal, Bowel sounds: active, all quadrants, Palpation: soft, in all quadrants, moderate abdominal tenderness, in the epigastric area, right upper quadrant and left upper quadrant, rebound tenderness, is not appreciated, involuntary guarding, is not appreciated, 11:40 Back: CVA tenderness, is absent, 11:40 Skin: no rash present. 11:40 Neuro: Orientation: to person, place \T\ time. Mentation: is normal, Cerebellar function: is grossly normal, Motor: moves all fours, strength is normal, 14:17 ECG was reviewed by the Attending Physician. cp Vital Signs: 11:27 BP 124 / 87; Pulse 104; Resp 18; Temp 98.7; Pulse Ox 100% on R/A; Weight 97.52 kg; cm10 Height 5 ft. 4 in. ; Pain 0/10; 11:36 BP 136 / 85; Pulse 89; Resp 18; Pulse Ox 100% on R/A; ld1 12:02 BP 131 / 79; Pulse 81; Resp 18; Pulse Ox 100% on R/A; ld1 12:20 BP 131 / 84 LA Supine; Pulse 76; ld1 12:23 BP 133 / 79 LA Sitting; Pulse 87; ld1 12:27 BP 127 / 73 LA Standing; Pulse 88; ld1 15:02 BP 130 / 85; Pulse 91; Resp 15; Pulse Ox 100% ; cm10 11:27 Body Mass Index 36.90 (97.52 kg, 162.56 cm) cm10 11:27 Pain Scale: Adult cm10 MDM: 11:29 Medical Screening Exam initiated cp 14:24 Data reviewed: vital signs, nurses notes, lab test result(s), radiologic studies, plain cp films, and as a result, I will discharge patient. 14:24 Differential diagnosis: gastritis, cholecystitis, pancreatitis, appendicitis, cp diverticulitis, viral gastroenteritis, gastroenteritis. I considered the following discharge prescriptions or medication management in the emergency department Medications were administered in the Emergency Department. See MAR. Counseling: I had a detailed discussion with the patient and/or guardian regarding the historical points, exam findings, and any diagnostic results supporting the discharge/admit diagnosis, lab results, radiology results, to return to the emergency department if symptoms worsen or persist or if there are any questions or concerns that arise at home. Response to treatment: the patient's symptoms have mildly improved after treatment, VSS. Nausea improved and vomiting resolved, and as a result, I will discharge patient. 12/06 11:28 Order name: COVID-19 Ag + Flu A+B Ag; Complete Time: 12:14 cm10 12/06 13:52 Interpretation: Reviewed. 12/06 11:37 Order name: Urinalysis W/Microscopic; Complete Time: 12:14 cp 12/06 12:14 Interpretation: Normal except: [facility] Extremely Turbid; Urine SG > 1.030; MUCUS 3+; UBLD cp Trace; UPROT TRACE. 12/06 11:37 Order name: Test, Urine; Complete Time: 12:14 cp 12/06 12:15 Interpretation: Abnormal: Urine SG > 1.030. 12/06 11:37 Order name: CBC with Diff; Complete Time: 12:14 cp 12/06 12:15 Interpretation: Normal except: RBC 4.94; SAROJ% 83.1; LYM% 4.8; LYMA 0.3. cp 12/06 11:37 Order name: CMP; Complete Time: 12:57 cp 12/06 13:50 Interpretation: Normal except: K 3.4; CL 109; GFR 85; ALK 131; GLOB 4.3; A/G 0.9. cp 12/06 11:37 Order name: Lipase; Complete Time: 12:57 cp 12/06 11:37 Order name: Group A Streptococcus Rapid; Complete Time: 12:57 cp 12/06 12:18 Order name: Throat Culture EDMS 12/06 11:37 Order name: XRAY Chest (1 view) cp 12/06 11:53 Order name: RAD; Complete Time: 12:14 EDMS 12/06 11:37 Order name: Orthostatic Blood Pressure; Complete Time: 12:28 cp 12/06 11:37 Order name: IV Saline Lock; Complete Time: 12:00 cp 12/06 11:37 Order name: Labs collected and sent; Complete Time: 12:00 cp 12/06 13:52 Order name: EKG - Nurse/Tech; Complete Time: 14:18 cp EC:17 Rate is 85 beats/min. Rhythm is regular. [place] interval is normal. QRS interval is normal. cp QT interval is normal. T waves are Inverted in lead aVR. Interpreted by me. Reviewed by me. Administered Medications: 12:00 Drug: Famotidine IVP 20 mg IVP once; dilute with 10 mL 0.9% NaCl; give over 2 minutes ld1 Route: IVP; Site: right antecubital; 15:01 Follow up: Response: No adverse reaction cm10 12:01 Drug: TORadol - Ketorolac IVP 15 mg IVP once Route: IVP; Site: right antecubital; ld1 15:01 Follow up: Response: No adverse reaction cm10 12:01 Drug: Ondansetron IVP 4 mg IVP once; over 2 minutes Route: IVP; Site: right antecubital;ld1 15:02 Follow up: Response: No adverse reaction cm10 12:01 Drug: NS 0.9% IV 1000 ml IV at 1 bolus Per protocol; to be given as a bolus over 60 ld1 minutes Route: IV; Rate: 1 bolus; Site: right antecubital; 15:02 Follow up: Response: No adverse reaction; IV Status: Completed infusion; IV Intake: cm10 1000ml 14:11 Drug: Potassium PO Effervescent Tablet 25 mEq PO once; dissolve in 4 ounces of water or kj2 juice Route: PO; 15:01 Follow up: Response: No adverse reaction cm10 14:18 Drug: Acetaminophen PO 1000 mg PO once Route: PO; ld1 15:01 Follow up: Response: No adverse reaction cm10 Disposition: 17:33 Co-signature as Attending Physician, Kojo Maki MD I reviewed the patient's care rn provided by the Advanced Practice Provider and agree with the diagnosis and treatment plan. Disposition Summary: 12/06/24 14:24 Discharge Ordered Notes: Location: Home cp Problem: new cp Symptoms: have improved cp Condition: Stable cp Diagnosis - Nausea with vomiting, unspecified cp - Cough cp Followup: cp - With: Private Physician - When: 2 - 3 days - Reason: Worsening of condition Discharge Instructions: - Discharge Summary Sheet cp - Nausea and Vomiting, Adult cp - Cough, Adult cp Forms: - Family Work Release ss - Medication Reconciliation Form cp - Antibiotic Education cp - Prescription Opioid Use cp - Patient Portal Instructions cp - Leadership Thank You Letter cp Prescriptions: - Bromfed DM 2-30-10 mg/5 mL Oral syrup - administer 10 milliliter ORAL route every 6 hours as needed for cough; 240 cp milliliter; Refills: 0, Product Selection Permitted - Ibuprofen 800 mg Oral Tablet - take 1 tablet ORAL route every 8 hours As needed take with food; 30 tablet; cp Refills: 0, Product Selection Permitted - ondansetron 8 mg Oral Tablet,disintegrating - take 1 tablet ORAL route every 12 hours; 12 tablet; Refills: 0, Product cp Selection Permitted Signatures: Dispatcher [employer] Kojo Forde MD MD rn Page, Corey, PA PA cp Libia Ortiz RN RN ld1 Stefani Augustine RN RN cm10 Alysha Caldwell RN RN kj2 Corrections: (The following items were deleted from the chart) 12/07 12:55 12/06 14:24 Data reviewed: vital signs, nurses notes, lab test result(s), radiologic cp studies, CT scan, plain films, and as a result, I will discharge patient, cp
--- NOTE | 2024-12-06 14:24 | ER ---
Nurse's Notes [facility] Name: Troy Son Age: 29 yrs Sex: Female : 1995 Arrival Date: 12/06/2024 Time: 11:10 Bed 13 Private MD: Diagnosis: Nausea with vomiting, unspecified;Cough Presentation: 12/06 11:27 Chief complaint: Patient states: fever, chills, vomiting, cough onset last night. pt cm10 states her daughter was also sick with similar symptoms. Coronavirus screen: Client denies travel out of the [place] in the last 14 days. Ebola Screen: Patient denies travel to an Ebola-affected area in the 21 days before illness onset. Initial Sepsis Screen: Does the patient meet any 2 criteria? No. Patient's initial sepsis screen is negative. Does the patient have a suspected source of infection? No. Patient's initial sepsis screen is negative. Risk Assessment: Do you want to hurt yourself or someone else? Patient reports no desire to harm self or others. Onset of symptoms was December 06, 2024. 11:27 Method Of Arrival: Ambulatory cm10 11:27 Acuity: CARMEN 4 cm10 Triage Assessment: 11:28 General: Appears in no apparent distress. uncomfortable, Behavior is calm, cooperative. cm10 Neuro: No deficits noted. Level of Consciousness is awake, alert, obeys commands, Oriented to person, place, time, situation, Appropriate for age. Respiratory: No deficits noted. Airway is patent Respiratory effort is even, unlabored, Respiratory pattern is regular, symmetrical. CLOTH BURLER: 15:03 Not cm10 Historical: - Allergies: 11:28 Amoxicillin; cm10 - PMHx: 11:28 ibs; mass on uterus; PCOS; cm10 - PSHx: 11:28 Cholecystectomy; section; cm10 - Immunization history:: Adult Immunizations up to date. - Infectious Disease History:: Denies. - Social history:: Smoking status: Patient denies any tobacco usage or history of. Screenin:36 [facility] [place] ED Fall Risk Assessment (Adult) History of falling in the last 3 months, ld1 including since admission No falls in past 3 months (0 pts) Confusion or Disorientation No (0 pts) Intoxicated or Sedated No (0 pts) Impaired Gait No (0 pts) Mobility Assist Device Used No (0 pt) Altered Elimination No (0 pt) Score/Fall Risk Level 0 - 2 = Low Risk Oriented to surroundings, Hourly rounding (assess needs \T\ fall precautionary measures) done. Abuse screen: Denies threats or abuse. Denies injuries from another. Nutritional screening: No deficits noted. Tuberculosis screening: No symptoms or risk factors identified. Assessment: 11:36 General: Appears in no apparent distress. comfortable, Behavior is calm, cooperative, ld1 appropriate for age. Pain: Complains of pain in abdomen Pain does not radiate. Pain currently is 4 out of 10 on a pain scale. Quality of pain is described as aching, Pain began years ago. Is continuous. Neuro: Level of Consciousness is awake, alert, obeys commands, Oriented to person, place, time, situation. Cardiovascular: Capillary refill < 3 seconds Patient's skin is warm and dry. Rhythm is sinus tachycardia. Respiratory: Airway is patent Respiratory effort is even, unlabored. GI: Abdomen is round non-distended, Bowel sounds present X 4 quads. Abd is soft Abd is non tender. : No signs and/or symptoms were reported regarding the genitourinary system. EENT: No signs and/or symptoms were reported regarding the EENT system. Derm: Skin temperature is hot. Musculoskeletal: No signs and/or symptoms reported regarding the musculoskeletal system. Vital Signs: 11:27 BP 124 / 87; Pulse 104; Resp 18; Temp 98.7; Pulse Ox 100% on R/A; Weight 97.52 kg; cm10 Height 5 ft. 4 in. ; Pain 0/10; 11:36 BP 136 / 85; Pulse 89; Resp 18; Pulse Ox 100% on R/A; ld1 12:02 BP 131 / 79; Pulse 81; Resp 18; Pulse Ox 100% on R/A; ld1 12:20 BP 131 / 84 LA Supine; Pulse 76; ld1 12:23 BP 133 / 79 LA Sitting; Pulse 87; ld1 12:27 BP 127 / 73 LA Standing; Pulse 88; ld1 15:02 BP 130 / 85; Pulse 91; Resp 15; Pulse Ox 100% ; cm10 11:27 Body Mass Index 36.90 (97.52 kg, 162.56 cm) cm10 11:27 Pain Scale: Adult cm10 ED Course: 11:15 Patient arrived in ED. cj3 11:17 Gary Paniagua PA is PHCP. cp 11:17 Kojo Maki MD is Attending Physician. cp 11:28 Triage completed. cm10 11:28 Arm band placed on right wrist. Patient placed in an exam room, on a stretcher. cm10 11:30 COVID-19 Ag + Flu A+B Ag Sent. cm10 11:34 Libia Ortiz, ALTON is Primary Nurse. ld1 11:36 Patient has correct armband on for positive identification. Placed in gown. Bed in low ld1 position. Call light in reach. Side rails up X2. cardiac monitor on. Pulse ox on. NIBP on. Door closed. Noise minimized. Warm blanket given. 11:36 COVID-19 Ag + Flu A+B Ag Sent. ld1 11:36 No provider procedures requiring assistance completed. ld1 12:01 Urinalysis W/Microscopic Sent. ld1 12:01 Test, Urine Sent. ld1 12:01 COVID-19 Ag + Flu A+B Ag Sent. ld1 12:01 Group A Streptococcus Rapid Sent. ld1 12:02 Inserted saline lock: 20 gauge in right antecubital area, using aseptic technique. ld1 Blood collected. Flushed with 10 mL NS. 15:02 Provided Education on: follow-up instructions. cm10 15:02 IV discontinued, intact, bleeding controlled, No redness/swelling at site. Pressure cm10 dressing applied. Administered Medications: 12:00 Drug: Famotidine IVP 20 mg IVP once; dilute with 10 mL 0.9% NaCl; give over 2 minutes ld1 Route: IVP; Site: right antecubital; 15:01 Follow up: Response: No adverse reaction cm10 12:01 Drug: TORadol - Ketorolac IVP 15 mg IVP once Route: IVP; Site: right antecubital; ld1 15:01 Follow up: Response: No adverse reaction cm10 12:01 Drug: Ondansetron IVP 4 mg IVP once; over 2 minutes Route: IVP; Site: right antecubital;ld1 15:02 Follow up: Response: No adverse reaction cm10 12:01 Drug: NS 0.9% IV 1000 ml IV at 1 bolus Per protocol; to be given as a bolus over 60 ld1 minutes Route: IV; Rate: 1 bolus; Site: right antecubital; 15:02 Follow up: Response: No adverse reaction; IV Status: Completed infusion; IV Intake: cm10 1000ml 14:11 Drug: Potassium PO Effervescent Tablet 25 mEq PO once; dissolve in 4 ounces of water or kj2 juice Route: PO; 15:01 Follow up: Response: No adverse reaction cm10 14:18 Drug: Acetaminophen PO 1000 mg PO once Route: PO; ld1 15:01 Follow up: Response: No adverse reaction cm10 Medication: 11:36 VIS not applicable for this client. ld1 Intake: 15:02 IV: 1000ml; Total: 1000ml. 10 Outcome: 14:24 Discharge ordered by MD. alexa 15:02 Discharged to home ambulatory, with family, [facility] 15:02 Condition: good 15:02 Discharge instructions given to patient, Instructed on discharge instructions, follow up and referral plans. medication usage, Demonstrated understanding of instructions, follow-up care, medications, Prescriptions given X 3, 15:03 Patient left the ED. cm10 Signatures: Gary Paniagua PA PA cp Libia Ortiz RN RN ld1 Stefani Augustine RN RN cm10 Alysha Caldwell RN RN kj2 Felisa Sloan 3
[2024-12-06 15:29] VITALS: TEMP 98.7; O2SAT 100
[2024-12-06 15:48] VITALS: BP 130/85
== END 2024-12-06 15:03 | disposition home or self-care (01) ==
LOC: ER 11:10
DX: R11.2 Nausea with vomiting, unspecified (principal); R05.9 Cough, unspecified; Z11.52 Encounter for screening for COVID-19
CPT/HCPCS: 36415; 71045; 80053; 81001; 81025; 83690; 85025; 87070; 87428; 93005; 96361; 96374; 96375; 99285; J2405; J7030